=== PATIENT | male | born 1955 | race Caucasian/White ===

== ENCOUNTER 2018-03-13 09:47 | Inpatient (IN) ==
--- NOTE | 2018-03-13 10:05 | Emergency Department Note ---
ED Disposition Clinical Impression: Multiple lung nodules on CT, Acute pancreatitis, Alcoholism, Hyponatremia, Hypertension, Tobacco use disorder, Non-compliance, Chest pain, Chronic back pain, Ileus Disposition: Still a Patient Condition on Discharge: Fair Referrals: Drew Ziegler MD [Primary Care Provider] - - Critical Care Critical Care Time: No Attestation: On , the high probability of a clinically significant, sudden or life threatening deterioration of the following system(s) required my full and direct attention, intervention and personal management. The time I documented below is in addition to time spent performing reported procedures but includes the following listed in this critical care notation. Medical Decision Making - Shailesh Inquiry Pt receiving controlled substance: No Shailesh was queried for this patient: No Vital Signs: 03/13/18 09:50 03/13/18 11:47 Temperature 98 F 97.6 F Temperature Source Oral Oral Pulse Rate [Right Brachial] 107 H 84 Respiratory Rate 22 18 Blood Pressure [Right Arm] 183/121 172/121 Blood Pressure Mean [Right Arm] 141 138 Blood Pressure Source [Right Arm] Automatic Cuff Automatic Cuff Blood Pressure Position [Right Arm] Sitting Sitting 02 Sat by Pulse Oximetry 96 100 Oxygen Delivery Method Room Air Room Air - Lab Data Lab Results 03/13/18 10:00: WBC 7.2, RBC 4.44 L, Hgb 16.0, Hct 46.6, MCV 104.9 H, MCH 36.0 H , MCHC 34.3, RDW 13.8, Plt Count 142, MPV 8.5, Neut % (Auto) 77.6, Lymph % (Auto ) 12.6, [place] % (Auto) 8.7, Eos % (Auto) 0.8, Baso % (Auto) 0.2, Neut # (Auto) 5.6, Lymph # (Auto) 0.9, [place] # (Auto) 0.6, Eos # (Auto) 0.1, Baso # (Auto) 0.0 03/13/18 10:00: Sodium 127 L, Potassium 4.1, Chloride 85 L, Carbon Dioxide 26, Anion Gap 20.1 H, BUN 3 L, Creatinine 0.64 L, Estimated Creat Clear 85, Estimated GFR 126, Est GFR ( Amer) 153, Glucose 78, Troponin I < 0.02, Amylase 195 H, Lipase 2817 H, Plasma/Serum Alcohol 23 03/13/18 10:00: B-Natriuretic Peptide 40 03/13/18 10:00: Total Bilirubin 1.2 H, Direct Bilirubin 0.4 H, Indirect Bilirubin 0.8, AST 101 H, ALT 47, Alkaline Phosphatase 77, Total Protein 8.0, Albumin 3.4 03/13/18 10:00: Magnesium 1.5 03/13/18 10:49: Urine Color Yellow, Urine Appearance Clear, Urine pH 6.5, Ur Specific [place] <= 1.005, Urine Protein Negative, Urine Glucose (UA) Negative, Urine Ketones 1+, Urine Blood Negative, Urine Nitrate Negative, Urine Bilirubin Negative, Urine Urobilinogen 0.2, Ur Leukocyte Esterase Negative, Urine RBC Occasional, Urine WBC Occasional, Ur Squamous Epith Cells None, Urine Bacteria Trace 03/13/18 10:49: Lactic Acid 1.8 03/13/18 10:49: Urine Opiates Screen Negative, Ur Barbituates Screen Negative, Ur Phencyclidine Scrn Negative, Ur Amphetamines Screen Negative, U Methamphetamines Scrn Negative, U Benzodiazepines Scrn Negative, Urine Cocaine Screen Negative, U Marijuana (THC) Screen Negative Result diagrams: 03/13/18 10:00 03/13/18 10:00 Orders (Tests/Meds): ED MEDICATIONS Generic Name Dose Route Start Last Admin Trade Name Freq PRN Reason Stop Dose Admin Sodium Chloride 1,000 mls @ 500 mls/hr 03/13/18 10:15 03/13/18 12:18 Sod Chlor 0.9% 1000ml Bag IV 04/12/18 10:14 500 mls/hr .Q2H RACHEAL Administration Multivitamins 10 ml/ Thiamine 1,015 mls @ 150 mls/hr 03/13/18 10:14 03/13/18 12:18 HCl 100 mg/ Magnesium Sulfate IV 03/13/18 16:59 150 mls/hr 2 gm/ Lactated Ringer's .[id number] RACHEAL Administration Discontinued Medications Generic Name Dose Route Start Last Admin Trade Name Freq PRN Reason Stop Dose Admin Famotidine 20 mg 03/13/18 10:13 03/13/18 11:30 Pepcid 20mg/2ml Vial IV 03/13/18 10:14 20 mg ONCE ONE Administration Folic Acid 1 mg 03/13/18 10:13 03/13/18 12:18 Folic Acid 1mg Tablet PO 03/13/18 10:14 1 mg ONCE ONE Administration Iopamidol 70 ml 03/13/18 11:43 03/13/18 11:45 [id number]; 100ml Vial IV 03/13/18 11:44 70 ml ONCE ONE Administration Morphine Sulfate 2 mg 03/13/18 10:15 Morphine 2mg/2ml Syringe IV 03/13/18 10:16 ONCE ONE Morphine Sulfate 2 mg 03/13/18 11:58 03/13/18 11:59 Morphine 2mg/Ml Syringe IV 03/13/18 11:59 2 mg ONCE ONE Administration Nitroglycerin 0.5 gm 03/13/18 10:13 03/13/18 12:18 Nitroglycerin 1 Inch Oint Udp TD 03/13/18 10:14 0.5 gm ONCE ONE Administration Sodium Chloride 50 ml 03/13/18 11:43 03/13/18 11:44 Rad-Ns 50ml Vial IV 03/13/18 11:44 50 ml ONCE ONE Administration Sodium Chloride 10 ml 03/13/18 11:43 03/13/18 11:44 Rad-Saline Flush 10ml Syringe IV 03/13/18 11:44 10 ml ONCE ONE Administration ORDERS Category Date Time Status Diarrhea Panel, PCR Stat Lab 03/13/18 11:09 Ordered Folate Stat Lab 03/13/18 10:49 Received Vitamin B1 Stat Lab 03/13/18 10:49 Received Vitamin B12 Stat Lab 03/13/18 10:49 Received - CT Data CT Scan: Abdomen, Pelvis, Chest Time Received: 12:[address] Reviewed: Yes: I have viewed the radiologist's interpretation Preliminary Findings: Abnormal Findings Narrative: CT chest: MPRESSION: 1. No evidence of aortic aneurysm or dissection. 2. Bilateral noncalcified pulmonary nodules. These are nonspecific and measure up to 9 x 6 mm in the right upper lobe. These are indeterminant mildly suspicious. Does the patient have a known primary malignancy?. The nodules could be benign or malignant. Short-term follow-up in 3 months recommended [address]. Centrilobular emphysema Ct abdomen and pelvis: IMPRESSION: 1. Compatible with acute pancreatitis. No evidence of pancreatic necrosis 2. Fluid-filled loops of small bowel with mild distention of the related to ileus. 3. Mildly distended urinary bladder - ECG Data Tracing #1 Sinus tachycardia 104 PACs baseline artifact no acute findings. ECG initial impression date: 03/13/18 ECG initial impression time: 10:00 Medical Decision Narrative: 1100 obtained his coronary angiogram, carotid studies, IVC filter placement for review. The patient required additional doses of morphine for pain control. Cardiac enzymes are negative but his lipase was elevated. 1210 CT chest with suggestive of multiple nodules and a CT abdomen of acute pancreatitis and ileus. 12:[address] Nicholas for admission. 1300 Dr. Nicholas call me back will admit the patient for IV fluids and GI rest, consult to Dr. Ziegler and consult to general surgery. General Adult HPI - General Chief complaint: PAIN Stated complaint: chest discomfort, abd discomfort Time Seen by Provider: 03/13/18 10:00 Mode of Arrival: Wheelchair Limitations: No Limitations Description of Symptoms (Recalled from ER Triage Doc. by RN): weakness, nausea and vomiting, diarrhea; chest discomfort and upper abd pain - History of Present Illness HPI narrative: 62 years old white male with history of pancreatitis ongoing alcohol use and hypertension who is noncompliant with his blood pressure medication. Last use blood pressure medicine was in July 2017. Today he is brought by his because of multiple complaints, 0ne week ago he developed an upper abdominal pain, followed by 2 bouts of loose bowel movements/ day, then he started vomiting liquids 5-6 times a day for the past 5 days, until yesterday when he started developing left upper dull chest pain worse with exertion and with rest, he complains of exertional dyspnea that is relieved by rest and denies palpitations. He rates his current pain as 2/10. Does have leg cramps with activity worse at nighttime. He has history of seizure but he is on no medications he has an alcohol smell on him. Also he has a chronic lower back pain he voluntarily discontinued his Lortab. Onset (ago): week(s) (synptoms started a week ago.) Location: chest, abdomen, lower extremity Radiation: non-radiation Severity: mild, moderate Severity scale (1-10): 2 Quality: dull Consistency: constant Relieving factors: rest Exacerbating factors: movement Associated symptoms: chest pain, nausea/vomiting, other ( see HPI. ) Treatments prior to arrival: none - Related Data Home Medications Medication Instructions Recorded Confirmed No Known Home Medications 03/13/18 03/13/18 Allergies Allergy/AdvReac Type Severity Reaction Status Date / Time No Known Allergies Allergy Verified 03/13/18 11:48 [facility] History I have reviewed the patient's past medical history: Yes - Social History Educational Level: Completed High School Smoking Status: Current every day smoker Tobacco Type: cigarettes # Packs/Day (cigarettes): 2 Alcohol Intake: current Alcohol Intake Frequency:: 3 or more drinks per day Substance Use Type: marijuana, IV drugs - Psychiatric History Expresses thoughts of harming self/others: None Suicide Plan Description: No Plan ROS Obtained: Yes All systems reviewed & no additional complaints Physical Exam - General General appearance: alert, in no apparent distress - Head Head exam: atraumatic, normocephalic, normal inspection - Eye Eye exam: Present: normal appearance, PERRL, EOMI. Absent: scleral icterus - ENT ENT exam: Present: normal exam, normal oropharynx, mucous membranes moist, TM's normal bilaterally, normal external ear exam - Neck Neck exam: Present: normal inspection, full ROM, trachea midline. Absent: tenderness, meningismus, lymphadenopathy - Chest Chest inspection: Present: normal inspection, symmetric chest wall rise. Absent : tenderness - Respiratory Respiratory exam: Present: normal lung sounds bilaterally. Absent: respiratory distress - Cardiovascular Cardiovascular exam: Present: regular rate, normal rhythm. Absent: JVD - Abdominal Exam Abdominal exam: Present: soft, tenderness, guarding, normal bowel sounds, other (He does have soft abdomen with epigastric and right lower quadrant tenderness and voluntary guarding.). Absent: rebound, rigidity - exam: Present: normal inspection, normal testicular lie. Absent: testicular tenderness, urethral discharge, circumcised - Extremities Exam Extremities exam: Present: normal inspection, full ROM, normal capillary refill , other (Strong bilateral femoral pulse.). Absent: tenderness, calf tenderness - Back Exam Back exam: Present: normal inspection. Absent: tenderness - Neurological Exam Neurological exam: Present: alert, oriented X3, CN II-XII intact, motor sensory deficit, reflexes normal - Psychiatric Psychiatric exam: Present: normal affect, normal mood - Skin Skin exam: Present: warm, dry, intact, normal color, other (The scars on the right AC from prior IV drug use.)
[2018-03-13 10:25] LABS: Basophils % 0.2 % (0.1-2.0); Eosinophils # 0.1 K/mm3 (0.0-0.4); Eosinophils % 0.8 % (0.1-12.0); Hematocrit 46.6 % (42.0-52.0); Lymphocytes # 0.9 K/mm3 (0.7-4.5); Lymphocytes % 12.6 K/mm3 (10-50); Mean Corpuscular HGB Conc 34.3 g/dL (31.8-35.4); Mean Corpuscular Volume 104.9 fl (80-94); Mean Platelet Volume 8.5 fl (7.4-10.4); Monocytes # 0.6 K/mm3 (0.1-1.0); Monocytes % 8.7 % (1.7-9.3); Neutrophils # 5.6 K/mm3 (1.8-7.8); Neutrophils % 77.6 % (37.0-80.0); Platelet Count 142 K/mm3 (142-424); Red Blood Count 4.44 M/mm3 (4.60-6.20); Red Cell Distribution Width 13.8 % (11.5-17.5); White Blood Count 7.2 K/mm3 (4.8-10.8)
[2018-03-13 10:44] LABS: Amylase 195 U/L (25-125); Anion Gap 20.1 mEq/L (5-15); Blood Urea Nitrogen 3 mg/dL (7-18); Carbon Dioxide 26 mmol/L (21.0-32.0); Chloride 85 mmol/L (98-107); Ethyl Alcohol 23 mg/dL (0-99); Glucose 78 mg/dL (74-106); Potassium 4.1 mmoL/L (3.5-5.1); Sodium 127 mmol/L (136-145)
[2018-03-13 10:48] LABS: Albumin Level 3.4 gm/dL (3.4-5.0); Bilirubin,Direct 0.4 mg/dL (0.0-0.2); Bilirubin,Indirect 0.8 mg/dL (0.0-0.9); Bilirubin,Total 1.2 mg/dL (0.2-1.0)
[2018-03-13 10:56] LABS: Lipase 2817 u/L (73-393)
[2018-03-13 11:03] LABS: Microscopic, Urine URINE MICROSCOPIC (MICROSCOPIC)
[2018-03-13 11:09] LABS: Appearance,Urine CLEAR (Clear); Bilirubin,Urine Negative (Negative); Blood, Urine Negative (Negative); Color,Urine YELLOW (Yellow); Glucose,Urine (UA) Negative (Negative); Ketones,Urine 1+ (Negative); Leukocyte Esterase,Urine Negative (Negative); PH,Urine 6.5 (5.0-8.5); Protein,Urine Negative (Negative); Specific Gravity, Urine <= 1.005 (1.005-1.030); Urobilinogen,Urine 0.2 EU/dl (0.2)
[2018-03-13 11:11] LABS: Amphetamine/Metha Screen,Urine Negative ng/mL (<1000); Barbiturates Screen,Urine Negative ng/mL (<200); Benzodiazepines Screen,Urine Negative ng/mL (200); Cannabinoid Screen,Urine Negative ng/mL (<50); Cocaine Screen,Urine Negative ng/g (<300); Methadone Screen,Urine Negative ng/mL (<300); Opiate Screen,Urine Negative ng/mL (<300); Phencyclidine Screen,Urine Negative ng/mL (<25)
[2018-03-13 11:42] LABS: Bacteria,Urine Trace /lpf; RBC,Urine Occasional #/hpf (0-3); WBC,Urine Occasional #/hpf (0-3)
--- NOTE | 2018-03-13 13:27 | Pharmacy Consult Notes ---
[facility] Pharmacy VTE Monitoring - Patient Demographics Admission date: 03/13/18 Report Date: 03/13/18 Time: 13:27 Allergies/Adverse Reactions: Patient Allergies No Known Allergies Allergy (Verified 03/13/18 11:48) Height: 1.85 m Weight: 79.379 kg Patient Problems: Current Active Problems Multiple lung nodules on CT (Acute) Acute pancreatitis (Acute) Alcoholism (Acute) Hyponatremia (Acute) Hypertension (Acute) Tobacco use disorder (Acute) Non-compliance (Acute) Chest pain (Acute) Chronic back pain (Acute) Ileus (Acute) - VTE Risk Labs: VTE Related Lab Results Hgb 16.0 g/dL (14.1-18.0) 03/13/18 10:00 Hct 46.6 % (42.0-52.0) 03/13/18 10:00 Plt Count 142 K/mm3 (142-424) 03/13/18 10:00 BUN 3 mg/dL (7-18) L 03/13/18 10:00 Creatinine 0.64 mg/dL (0.70-1.30) L 03/13/18 10:00 Estimated Creat Clear 85 mL/min (0-300) 03/13/18 10:00 Clinical Trial Participant: No - Prophylaxis VTE Prophylaxis Ordered?: Yes Types of VTE Prophylaxis: TEDS Knee High
--- NOTE | 2018-03-13 15:07 | Consult Report ---
*Admission Date: 03/13/18 *Chief complaint: Abdominal pain and diarrhea *History of present illness: This is a 62-year-old gentleman with a complex medical history including recurrent alcoholic pancreatitis. He presented to the emergency department with increasing upper abdominal pain. Over the past "week or so" he has had diarrhea and occasional nausea with intermittent emesis. Over the past few days he has had "quite a few bouts of emesis". Some left-sided chest pain has also been noted over the past 24+ hours. No bright red blood per rectum. He states that "a few weeks ago (his) stool was black a few times". No jaundice. No fevers. Evaluation emergency department included a CT scan of the abdomen that showed changes consistent with mild pancreatitis and possible early ileus. Per nursing, diarrhea panel ordered by ED. Review of Systems - Constitutional Denies chills - Eyes Denies change in vision - ENT Denies change in voice - *Cardiovascular Reports chest pain - *Respiratory Denies cough - *Gastrointestinal Reports abdominal pain, Reports black, tarry stools, Reports nausea, Reports vomiting, Denies bright, red blood in stools, Denies pain with swallowing - *Genitourinary Denies blood in urine - *Neurologic Denies abnormal speech - Hematologic/Lymphatic Denies easy bleeding [facility] History Medical History: Reports:: Coronary Artery Disease Denies:: Gall Bladder Disease - *Social History Educational Level: Completed High School Smoking Status: Current every day smoker Tobacco Type: cigarettes # Packs/Day (cigarettes): 2 Alcohol Intake: current Alcohol Intake Frequency:: 3 or more drinks per day Substance Use Type: marijuana, IV drugs - Psychiatric History Expresses thoughts of harming self/others: None Suicide Plan Description: No Plan Meds Home Medications Medication Instructions Recorded Confirmed Type No Known Home Medications 03/13/18 03/13/18 History Allergies Allergy/AdvReac Type Severity Reaction Status Date / Time No Known Allergies Allergy Verified 03/13/18 11:48 Exam Vital signs and Labs for Last 24 Hours: Temp Pulse Resp BP Pulse Ox 98.1 F 79 18 157/89 96 03/13/18 14:41 03/13/18 14:41 03/13/18 14:41 03/13/18 14:41 03/13/18 14:40 Laboratory Results - last 24 hr 03/13/18 10:00: WBC 7.2, RBC 4.44 L, Hgb 16.0, Hct 46.6, MCV 104.9 H, MCH 36.0 H , MCHC 34.3, RDW 13.8, Plt Count 142, MPV 8.5, Neut % (Auto) 77.6, Lymph % (Auto ) 12.6, [place] % (Auto) 8.7, Eos % (Auto) 0.8, Baso % (Auto) 0.2, Neut # (Auto) 5.6, Lymph # (Auto) 0.9, [place] # (Auto) 0.6, Eos # (Auto) 0.1, Baso # (Auto) 0.0 03/13/18 10:00: Sodium 127 L, Potassium 4.1, Chloride 85 L, Carbon Dioxide 26, Anion Gap 20.1 H, BUN 3 L, Creatinine 0.64 L, Estimated Creat Clear 85, Estimated GFR 126, Est GFR ( Amer) 153, Glucose 78, Troponin I < 0.02, Amylase 195 H, Lipase 2817 H, Plasma/Serum Alcohol 23 03/13/18 10:00: B-Natriuretic Peptide 40 03/13/18 10:00: Total Bilirubin 1.2 H, Direct Bilirubin 0.4 H, Indirect Bilirubin 0.8, AST 101 H, ALT 47, Alkaline Phosphatase 77, Total Protein 8.0, Albumin 3.4 03/13/18 10:00: Magnesium 1.5 03/13/18 10:49: Urine Color Yellow, Urine Appearance Clear, Urine pH 6.5, Ur Specific [place] <= 1.005, Urine Protein Negative, Urine Glucose (UA) Negative, Urine Ketones 1+, Urine Blood Negative, Urine Nitrate Negative, Urine Bilirubin Negative, Urine Urobilinogen 0.2, Ur Leukocyte Esterase Negative, Urine RBC Occasional, Urine WBC Occasional, Ur Squamous Epith Cells None, Urine Bacteria Trace 03/13/18 10:49: Lactic Acid 1.8 03/13/18 10:49: Urine Opiates Screen Negative, Ur Barbituates Screen Negative, Ur Phencyclidine Scrn Negative, Ur Amphetamines Screen Negative, U Methamphetamines Scrn Negative, U Benzodiazepines Scrn Negative, Urine Cocaine Screen Negative, U Marijuana (THC) Screen Negative 03/13/18 13:52: Troponin I < 0.02 I & O for Last 24 hours: Intake & Output 03/11/18 03/12/18 03/13/18 03/14/18 11:59 11:59 11:59 11:59 Intake Total 1999 Output Total 600 / 600 Balance 1400 / 1400 Weight 175 lb 140 lb 3.988 oz - Constitutional no acute distress - *Routine Respiratory Exam Absent: respiratory distress - *Routine Cardiovascular Exam Present: RRR - *Routine Abdominal Exam Present: soft, tenderness. Absent: distended Comments: mild to moderate TTP throughout with mild voluntary guarding Results - Labs 03/13/18 10:00 03/13/18 10:00 Laboratory Results - last 24 hr 03/13/18 10:00: WBC 7.2, RBC 4.44 L, Hgb 16.0, Hct 46.6, MCV 104.9 H, MCH 36.0 H , MCHC 34.3, RDW 13.8, Plt Count 142, MPV 8.5, Neut % (Auto) 77.6, Lymph % (Auto ) 12.6, [place] % (Auto) 8.7, Eos % (Auto) 0.8, Baso % (Auto) 0.2, Neut # (Auto) 5.6, Lymph # (Auto) 0.9, [place] # (Auto) 0.6, Eos # (Auto) 0.1, Baso # (Auto) 0.0 03/13/18 10:00: Sodium 127 L, Potassium 4.1, Chloride 85 L, Carbon Dioxide 26, Anion Gap 20.1 H, BUN 3 L, Creatinine 0.64 L, Estimated Creat Clear 85, Estimated GFR 126, Est GFR ( Amer) 153, Glucose 78, Troponin I < 0.02, Amylase 195 H, Lipase 2817 H, Plasma/Serum Alcohol 23 03/13/18 10:00: B-Natriuretic Peptide 40 03/13/18 10:00: Total Bilirubin 1.2 H, Direct Bilirubin 0.4 H, Indirect Bilirubin 0.8, AST 101 H, ALT 47, Alkaline Phosphatase 77, Total Protein 8.0, Albumin 3.4 03/13/18 10:00: Magnesium 1.5 03/13/18 10:49: Urine Color Yellow, Urine Appearance Clear, Urine pH 6.5, Ur Specific [place] <= 1.005, Urine Protein Negative, Urine Glucose (UA) Negative, Urine Ketones 1+, Urine Blood Negative, Urine Nitrate Negative, Urine Bilirubin Negative, Urine Urobilinogen 0.2, Ur Leukocyte Esterase Negative, Urine RBC Occasional, Urine WBC Occasional, Ur Squamous Epith Cells None, Urine Bacteria Trace 03/13/18 10:49: Lactic Acid 1.8 03/13/18 10:49: Urine Opiates Screen Negative, Ur Barbituates Screen Negative, Ur Phencyclidine Scrn Negative, Ur Amphetamines Screen Negative, U Methamphetamines Scrn Negative, U Benzodiazepines Scrn Negative, Urine Cocaine Screen Negative, U Marijuana (THC) Screen Negative 03/13/18 13:52: Troponin I < 0.02 - Imaging CT scan - abdomen: report reviewed, image reviewed Assessment and Plan (1) Acute pancreatitis Current visit: Yes Status: Acute Qualifiers: Pancreatitis type: alcohol induced Acute pancreatitis complication: no infection or necrosis Qualified Code(s): K85.20 - Alcohol induced acute pancreatitis without necrosis or infection Category: Medical Code(s): K85.90 - Acute pancreatitis without necrosis or infection, unspecified No gallstones on CT scan and no other definitive evidence of biliary pathology. Conservative management as per primary care Limited p.o. (clears) intake with IV fluids for now (2) Alcoholism Current visit: Yes Status: Acute Category: Medical Code(s): F10.20 - Alcohol dependence, uncomplicated (3) Ileus Current visit: Yes Status: Acute Category: Medical Code(s): K56.7 - Ileus , unspecified Radiographic evidence of possible early/mild ileus. No sign of obstruction. Serial abdominal exams Flat and upright films in morning (4) History of melena Current visit: Yes Status: Acute Category: Medical Code(s): Z87.19 - Personal history of other diseases of the digestive system Consider esophagogastroduodenoscopy in the near future; however, there is no need for acute intervention as he shows no sign of acute hemorrhage. PPI PT/PTT (5) Diarrhea Current visit: Yes Status: Acute Category: Medical Code(s): R19.7 - Diarrhea, unspecified FU pending diarrhea panel
--- NOTE | 2018-03-13 15:26 | Consult Report ---
History of Present Illness Consult date: 03/13/18 Requesting physician: Ziyad Nicholas Consult reason: chest pain Chief complaint: Nausea, Vomiting with abdominal pain and chest pain Additional Medical History:: 1. CAD A. [facility], 12/2014, critical Cx disease treated with one ASAF. Left main and LAD normal with only mild CAD of RCA. Normal LVEF. LVEDP of 10 mm Hg. 2. History of polycythemia, secondary to smoking 3. HTN A. normal renal U/s, 2014 4. ETOH with recurrent pancreatitis 5. Tobacco use A. Emphysema B. [address] of abdomen, 05/2017 6. Mild Carotid Artery disease, angiogram, 12/2015 A. Moderate cerebellar and cortical atrophy, CT of head, 12/2014 7. History of DVT A. Vena cava interruption filter placed, 03/2015, due to inability to take anticoagulation secondary to UGI bleed 8. ?Seizures A. Normal EEG, 11/2015 9. JEMMA, no treatment History of present illness: 62 yo WM with multiple medical problems as noted above was admitted through the ER for N, V and diarrhea that has progressively worsened over the last several days to include some chest pain as well. ER workup revealed elevated amylase and lipase with CT results consistent with pancreatitis. He has been admitted for further evaluation and treatment. Cardiology consulted for evaluation of chest pain. Troponins are normal X 2 with patient stating he has had chest pains off and on all day today. EKG today shows sinus tach at 104 bpm without acute changes. Pt relates no meds since 07/2017 due to insurance. He had previously stopped smoking and drinking at the last office visit in 05/2017 but states he "got thirsty" after about 2 months and started drinking again. He is now up to 12-15 beers daily. Pt has NTG paste on for chest pain and BP but relates a "pretty good" headache. He relates "passing out" about 3 wks ago for about 5 min. Doesn't recall any symptoms prior to passing out except feeling weak and faint. No loss of bowel or bladder control. He was confused for about 5 min after coming back to consciousness. EMS was called but cancelled prior to their arrival due to waking up. [facility] History Medical History: Reports:: Coronary Artery Disease, Diabetes Mellitus Type 2, Hypertension Denies:: Gall Bladder Disease Other Surgeries: Yes: Hernia Repair - *Social History Educational Level: Completed High School Smoking Status: Current every day smoker Tobacco Type: cigarettes # Packs/Day (cigarettes): 2 Alcohol Intake: current Alcohol Intake Frequency:: 3 or more drinks per day Substance Use Type: marijuana, IV drugs Occupational Status: disabled Household Members: spouse - Psychiatric History Expresses thoughts of harming self/others: None Suicide Plan Description: No Plan *Family Hx:: Diabetes, Heart Attack Meds Home Medications Medication Instructions Recorded Confirmed Type No Known Home Medications 03/13/18 03/13/18 History Allergies Allergy/AdvReac Type Severity Reaction Status Date / Time No Known Allergies Allergy Verified 03/13/18 11:48 Review of Systems - *Cardiovascular Reports chest pain, Reports shortness of breath with activity - *Respiratory Reports shortness of breath with activity - *Gastrointestinal Reports abdominal pain, Reports loose stools, Reports vomiting - *Musculoskeletal Reports back pain - *Neurologic Reports fainting, Denies abnormal speech Exam Vital signs and Labs for Last 24 Hours: Temp Pulse Resp BP Pulse Ox 98.1 F 79 18 157/89 96 03/13/18 14:41 03/13/18 14:41 03/13/18 14:41 03/13/18 14:41 03/13/18 14:40 Laboratory Results - last 24 hr 03/13/18 10:00: WBC 7.2, RBC 4.44 L, Hgb 16.0, Hct 46.6, MCV 104.9 H, MCH 36.0 H , MCHC 34.3, RDW 13.8, Plt Count 142, MPV 8.5, Neut % (Auto) 77.6, Lymph % (Auto ) 12.6, [place] % (Auto) 8.7, Eos % (Auto) 0.8, Baso % (Auto) 0.2, Neut # (Auto) 5.6, Lymph # (Auto) 0.9, [place] # (Auto) 0.6, Eos # (Auto) 0.1, Baso # (Auto) 0.0 03/13/18 10:00: Sodium 127 L, Potassium 4.1, Chloride 85 L, Carbon Dioxide 26, Anion Gap 20.1 H, BUN 3 L, Creatinine 0.64 L, Estimated Creat Clear 85, Estimated GFR 126, Est GFR ( Amer) 153, Glucose 78, Troponin I < 0.02, Amylase 195 H, Lipase 2817 H, Plasma/Serum Alcohol 23 03/13/18 10:00: B-Natriuretic Peptide 40 03/13/18 10:00: Total Bilirubin 1.2 H, Direct Bilirubin 0.4 H, Indirect Bilirubin 0.8, AST 101 H, ALT 47, Alkaline Phosphatase 77, Total Protein 8.0, Albumin 3.4 03/13/18 10:00: Magnesium 1.5 03/13/18 10:49: Urine Color Yellow, Urine Appearance Clear, Urine pH 6.5, Ur Specific [place] <= 1.005, Urine Protein Negative, Urine Glucose (UA) Negative, Urine Ketones 1+, Urine Blood Negative, Urine Nitrate Negative, Urine Bilirubin Negative, Urine Urobilinogen 0.2, Ur Leukocyte Esterase Negative, Urine RBC Occasional, Urine WBC Occasional, Ur Squamous Epith Cells None, Urine Bacteria Trace 03/13/18 10:49: Lactic Acid 1.8 03/13/18 10:49: Urine Opiates Screen Negative, Ur Barbituates Screen Negative, Ur Phencyclidine Scrn Negative, Ur Amphetamines Screen Negative, U Methamphetamines Scrn Negative, U Benzodiazepines Scrn Negative, Urine Cocaine Screen Negative, U Marijuana (THC) Screen Negative 03/13/18 13:52: Troponin I < 0.02 I & O for Last 24 hours: Intake & Output 03/11/18 03/12/18 03/13/18 03/14/18 11:59 11:59 11:59 11:59 Intake Total 1999 / 1999 Output Total 600 / 600 Balance 1400 / 1400 Weight 175 lb 140 lb 3.988 oz - *Routine Neck Exam Absent: JVD, carotid bruit - *Routine Respiratory Exam Present: diminished air movement. Absent: rhonchi, wheezes - *Routine Cardiovascular Exam Present: RRR. Absent: murmur, gallop - *Routine Abdominal Exam Present: tenderness - *Routine Extremities Exam Absent: edema - *Routine Neurological Exam Present: alert, oriented X3, moving all extremities Assessment and Plan (1) History of melena Current visit: Yes Status: Acute Category: Medical Code(s): Z87.19 - Personal history of other diseases of the digestive system (2) Acute pancreatitis Current visit: Yes Status: Acute Qualifiers: Pancreatitis type: alcohol induced Acute pancreatitis complication: no infection or necrosis Qualified Code(s): K85.20 - Alcohol induced acute pancreatitis without necrosis or infection Category: Medical Code(s): K85.90 - Acute pancreatitis without necrosis or infection, unspecified (3) Alcoholism Current visit: Yes Status: Acute Category: Medical Code(s): F10.20 - Alcohol dependence, uncomplicated (4) Ileus Current visit: Yes Status: Acute Category: Medical Code(s): K56.7 - Ileus , unspecified (5) CAD (coronary artery disease) Current visit: Yes Status: Acute Category: Medical Code(s): I25.10 - Atherosclerotic heart disease of [place] coronary artery without angina pectoris (6) Chest pain Current visit: Yes Status: Acute Category: Medical Code(s): R07.9 - Chest pain, unspecified (7) Hypertension Current visit: Yes Status: Acute Category: Medical Code(s): I10 - Essential (primary) hypertension (8) Non-compliance Current visit: Yes Status: Acute Category: Medical Code(s): Z91.19 - Patient's noncompliance with other medical treatment and regimen (9) Tobacco use disorder Current visit: Yes Status: Acute Category: Medical Code(s): F17.200 - Nicotine dependence, unspecified, uncomplicated - Assessment and plan all Dx Assessment and Plan for all problems:: 1. Continue cardiac enzymes but without elevated troponins or acute EKG changes , doubt his chest pain is related to cardiac at this time. 2. Will obtain echo to assess for possible cardiomyopathy in setting of ETOH use and need for possible pre-op evaluation. 3. Restart metoprolol and ARB for BP control and discontinue NTG paste. 4. Further recommendations to follow pending results of above.
[2018-03-13 16:00] LABS: Activated Partial Thrombo Time 27.5 seconds (23.6-34.0); INR 1.05 (0.9-1.1); Prothrombin Time 11.4 seconds (9.4-11.8)
[2018-03-14 06:37] LABS: Albumin Level 2.8 gm/dL (3.4-5.0); Albumin/Globulin Ratio 0.7 (1.1-1.8); Anion Gap 11.4 mEq/L (5-15); Bilirubin,Total 1.2 mg/dL (0.2-1.0); Calcium 8.6 mg/dL (8.5-10.1); Chol/HDL Ratio 1.9 (1-3.5); Globulin 4.1 gm/dl (1.3-3.2); Potassium 3.4 mmoL/L (3.5-5.1); Total Protein,Serum 6.9 gm/dL (6.4-8.2)
--- NOTE | 2018-03-14 07:24 | Progress Note ---
Subjective Patient reports: feels better, pain is less Narrative: Patient is a 62-year-old white male with a history of chronic pancreatitis secondary to alcohol abuse. He presented to the emergency department with several day history of lower abdominal pain and nausea and vomiting. He was found to have elevation of amylase and lipase. Imaging revealed possible ileus. A consultation was obtained. Patient this morning feels much better. He is tolerating clear liquids without difficulty. Of note, diarrhea panel is negative. Exam Vital signs and Labs for Last 24 Hours: Temp Pulse Resp BP Pulse Ox 97.7 F 63 14 144/80 94 L 03/14/18 04:00 03/14/18 04:00 03/14/18 04:00 03/14/18 04:00 03/14/18 04:00 Laboratory Results - last 24 hr 03/13/18 10:00: WBC 7.2, RBC 4.44 L, Hgb 16.0, Hct 46.6, MCV 104.9 H, MCH 36.0 H , MCHC 34.3, RDW 13.8, Plt Count 142, MPV 8.5, Neut % (Auto) 77.6, Lymph % (Auto ) 12.6, [place] % (Auto) 8.7, Eos % (Auto) 0.8, Baso % (Auto) 0.2, Neut # (Auto) 5.6, Lymph # (Auto) 0.9, [place] # (Auto) 0.6, Eos # (Auto) 0.1, Baso # (Auto) 0.0 03/13/18 10:00: Sodium 127 L, Potassium 4.1, Chloride 85 L, Carbon Dioxide 26, Anion Gap 20.1 H, BUN 3 L, Creatinine 0.64 L, Estimated Creat Clear 85, Estimated GFR 126, Est GFR ( Amer) 153, Glucose 78, Troponin I < 0.02, Amylase 195 H, Lipase 2817 H, Plasma/Serum Alcohol 23 03/13/18 10:00: B-Natriuretic Peptide 40 03/13/18 10:00: Total Bilirubin 1.2 H, Direct Bilirubin 0.4 H, Indirect Bilirubin 0.8, AST 101 H, ALT 47, Alkaline Phosphatase 77, Total Protein 8.0, Albumin 3.4 03/13/18 10:00: Magnesium 1.5 03/13/18 10:49: Urine Color Yellow, Urine Appearance Clear, Urine pH 6.5, Ur Specific [place] <= 1.005, Urine Protein Negative, Urine Glucose (UA) Negative, Urine Ketones 1+, Urine Blood Negative, Urine Nitrate Negative, Urine Bilirubin Negative, Urine Urobilinogen 0.2, Ur Leukocyte Esterase Negative, Urine RBC Occasional, Urine WBC Occasional, Ur Squamous Epith Cells None, Urine Bacteria Trace 03/13/18 10:49: Lactic Acid 1.8 03/13/18 10:49: Urine Opiates Screen Negative, Ur Barbituates Screen Negative, Ur Phencyclidine Scrn Negative, Ur Amphetamines Screen Negative, U Methamphetamines Scrn Negative, U Benzodiazepines Scrn Negative, Urine Cocaine Screen Negative, U Marijuana (THC) Screen Negative 03/13/18 13:52: Troponin I < 0.02 03/13/18 15:40: PT 11.4, INR 1.05, APTT 27.5 03/13/18 19:40: Troponin I < 0.02 03/13/18 23:10: Stl Aeromonas (PCR) Not detected, Stl C. cayetanensis PCR Not detected, Stool Rotavirus (PCR) Not detected, Stl Adenov F 40/41 PCR Not detected, Stool Astrovirus (PCR) Not detected, Stool Campylobacter PCR Not detected, Stl C.difficile Tox PCR Not detected, Stool Cryptosporidium PCR Not detected, Stl E.coli Shiga Tox PCR Not detected, Stool E coli O157 PCR Not detected, Stl Enterotoxigenic E PCR Not detected, Stool EPEC (PCR) Not detected , Stool EAEC (PCR) Not detected, Stl E. histolytica PCR Not detected, Stool Giardia Lamblia PCR Not detected, Stool Salmonella PCR Not detected, Stool Sapovirus (PCR) Not detected, Stl P. shigelloides PCR Not detected, Stl Shigella /EIEC PCR Not detected, St Y.enterocolitica PCR Not detected, Stool Vibrio (PCR ) Not detected, Stl Vibrio cholerae PCR Not detected, Stl Norovirus GI/GII PCR Not detected 03/14/18 01:50: Troponin I < 0.02 03/14/18 06:00: Sodium 131 L, Potassium 3.4 L, Chloride 93 L, Carbon Dioxide 30 , Anion Gap 11.4, BUN 5 L D, Creatinine 0.64 L, Estimated Creat Clear 68, Estimated GFR 126, Est GFR ( Amer) 153, Glucose 78, Calcium 8.6, Magnesium 1.6, Total Bilirubin 1.2 H, AST 60 H D, ALT 33 D, Alkaline Phosphatase 68, Total Protein 6.9, Albumin 2.8 L D, Globulin 4.1 H, Albumin/ Globulin Ratio 0.7 L, Triglycerides 47, Cholesterol 69 L, LDL Cholesterol 23, VLDL Cholesterol 9, HDL Cholesterol 37, Cholesterol/HDL Ratio 1.9 I & O for Last 24 hours: Intake & Output 03/11/18 03/12/18 03/13/18 03/14/18 11:59 11:59 11:59 11:59 Intake Total 4271 / 4271 Output Total 600 / 600 Balance 3671 / 3671 Weight 175 lb 140 lb 3.988 oz - *Routine Abdominal Exam Present: soft. Absent: tenderness Progress Note: A&P (1) History of melena Status: Acute Current Visit: Yes (2) Acute pancreatitis Status: Acute Assessment and plan: Acute abdominal series pending. Recheck amylase and lipase. If improving advance diet. No other surgical recommendations at this time. Current Visit: Yes (3) Alcoholism Status: Acute Current Visit: Yes (4) Ileus Status: Acute Current Visit: Yes (5) CAD (coronary artery disease) Status: Acute Current Visit: Yes (6) Chest pain Status: Acute Current Visit: Yes (7) Hypertension Status: Acute Current Visit: Yes (8) Non-compliance Status: Acute Current Visit: Yes (9) Tobacco use disorder Status: Acute Current Visit: Yes
[2018-03-14 07:39] LABS: Amylase 87 U/L (25-125)
[2018-03-14 07:40] LABS: Lipase 932 u/L (73-393)
--- NOTE | 2018-03-14 12:16 | History & Physical Report ---
*Admission Date: 03/13/18 *History of present illness: This is a 62-year-old gentleman with a complex medical history including recurrent alcoholic pancreatitis. He presented to the emergency department with increasing upper abdominal pain. Over the past "week or so" he has had diarrhea and occasional nausea with intermittent emesis. Over the past few days he has had "quite a few bouts of emesis". Some left-sided chest pain has also been noted over the past 24+ hours. No bright red blood per rectum. He states that "a few weeks ago (his) stool was black a few times". No jaundice. No fevers. Evaluation emergency department included a CT scan of the abdomen that showed changes consistent with mild pancreatitis and possible early ileus. Per nursing, diarrhea panel ordered by ED.t this wm present with abd apin consistent with pancreatis by labs and ct and chest pain 1. CAD A. [facility], 12/2014, critical Cx disease treated with one ASAF. Left main and LAD normal with only mild CAD of RCA. Normal LVEF. LVEDP of 10 mm Hg. 2. History of polycythemia, secondary to smoking 3. HTN A. normal renal U/s, 2014 4. ETOH with recurrent pancreatitis 5. Tobacco use A. Emphysema B. [address] of abdomen, 05/2017 6. Mild Carotid Artery disease, angiogram, 12/2015 A. Moderate cerebellar and cortical atrophy, CT of head, 12/2014 7. History of DVT A. Vena cava interruption filter placed, 03/2015, due to inability to take anticoagulation secondary to UGI bleed 8. ?Seizures A. Normal EEG, 11/2015 9. JEMMA, no treatment History of present illness: 62 yo WM with multiple medical problems as noted above was admitted through the ER for N, V and diarrhea that has progressively worsened over the last several days to include some chest pain as well. ER workup revealed elevated amylase and lipase with CT results consistent with pancreatitis. He has been admitted for further evaluation and treatment. Cardiology consulted for evaluation of chest pain. Troponins are normal X 2 with patient stating he has had chest pains off and on all day today. EKG today shows sinus tach at 104 bpm without acute changes. Pt relates no meds since 07/2017 due to insurance. He had previously stopped smoking and drinking at the last office visit in 05/2017 but states he "got thirsty" after about 2 months and started drinking again. He is now up to 12-15 beers daily. Pt has NTG paste on for chest pain and BP but relates a "pretty good" headache. He relates "passing out" about 3 wks ago for about 5 min. Doesn't recall any symptoms prior to passing out except feeling weak and faint. No loss of bowel or bladder control. He was confused for about 5 min after coming back to consciousness. EMS was called but cancelled prior to their arrival due to waking up. [facility] History I have reviewed the patient's past medical history: Yes Medical History: Reports:: Coronary Artery Disease, Diabetes Mellitus Type 2, Hypertension Denies:: Gall Bladder Disease Other Surgeries: Yes: Hernia Repair - *Social History Educational Level: Completed High School Smoking Status: Current every day smoker Tobacco Type: cigarettes # Packs/Day (cigarettes): 2 Alcohol Intake: current Alcohol Intake Frequency:: 3 or more drinks per day Substance Use Type: marijuana, IV drugs Occupational Status: disabled Household Members: spouse - Psychiatric History Expresses thoughts of harming self/others: None Suicide Plan Description: No Plan *Family Hx:: Diabetes, Heart Attack Review of Systems - Review of Systems Review of systems:: pertinent systems reviewed and negative unless documented below - Constitutional Denies fever(s) - Eyes Denies change in vision - ENT Denies sore throat - *Cardiovascular Reports chest pain at rest - *Respiratory Reports shortness of breath, Denies cough - *Gastrointestinal Reports abdominal pain, Denies vomiting blood, Denies black, tarry stools - *Genitourinary Denies blood in urine - *Musculoskeletal Denies joint pain, Denies limited joint movement - Integumentary/Breasts Denies rash - *Neurologic Reports fainting, Denies abnormal speech - Psychiatric Denies anxiety Meds Home Medications Medication Instructions Recorded Confirmed Type No Known Home Medications 03/13/18 03/13/18 History Allergies Allergy/AdvReac Type Severity Reaction Status Date / Time No Known Allergies Allergy Verified 03/13/18 11:48 Exam Vital signs and Labs for Last 24 Hours: Temp Pulse Resp BP Pulse Ox 98.4 F 70 20 155/97 94 L 03/14/18 07:31 03/14/18 07:31 03/14/18 07:31 03/14/18 07:31 03/14/18 08:00 Laboratory Results - last 24 hr 03/13/18 13:52: Troponin I < 0.02 03/13/18 15:40: PT 11.4, INR 1.05, APTT 27.5 03/13/18 19:40: Troponin I < 0.02 03/13/18 23:10: Stl Aeromonas (PCR) Not detected, Stl C. cayetanensis PCR Not detected, Stool Rotavirus (PCR) Not detected, Stl Adenov F 40/41 PCR Not detected, Stool Astrovirus (PCR) Not detected, Stool Campylobacter PCR Not detected, Stl C.difficile Tox PCR Not detected, Stool Cryptosporidium PCR Not detected, Stl E.coli Shiga Tox PCR Not detected, Stool E coli O157 PCR Not detected, Stl Enterotoxigenic E PCR Not detected, Stool EPEC (PCR) Not detected , Stool EAEC (PCR) Not detected, Stl E. histolytica PCR Not detected, Stool Giardia Lamblia PCR Not detected, Stool Salmonella PCR Not detected, Stool Sapovirus (PCR) Not detected, Stl P. shigelloides PCR Not detected, Stl Shigella /EIEC PCR Not detected, St Y.enterocolitica PCR Not detected, Stool Vibrio (PCR ) Not detected, Stl Vibrio cholerae PCR Not detected, Stl Norovirus GI/GII PCR Not detected 03/14/18 01:50: Troponin I < 0.02 03/14/18 06:00: Sodium 131 L, Potassium 3.4 L, Chloride 93 L, Carbon Dioxide 30 , Anion Gap 11.4, BUN 5 L D, Creatinine 0.64 L, Estimated Creat Clear 68, Estimated GFR 126, Est GFR ( Amer) 153, Glucose 78, Calcium 8.6, Magnesium 1.6, Total Bilirubin 1.2 H, AST 60 H D, ALT 33 D, Alkaline Phosphatase 68, Total Protein 6.9, Albumin 2.8 L D, Globulin 4.1 H, Albumin/ Globulin Ratio 0.7 L, Triglycerides 47, Cholesterol 69 L, LDL Cholesterol 23, VLDL Cholesterol 9, HDL Cholesterol 37, Cholesterol/HDL Ratio 1.9 03/14/18 06:00: Amylase 87 D, Lipase 932 H I & O for Last 24 hours: Intake & Output 03/12/18 03/13/18 03/14/18 03/15/18 11:59 11:59 11:59 11:59 Intake Total 4751 / 4751 Output Total 600 / 600 Balance 4151 / 4151 Weight 175 lb 140 lb 3.988 oz - Constitutional no acute distress, thin - *Routine HEENT Exam Head: Present: normocephalic Eye: Present: EOMI, PERRL. Absent: conjunctival icterus ENT: Present: mucous membranes dry - *Routine Neck Exam Present: supple - *Routine Respiratory Exam Present: CTA bilaterally. Absent: respiratory distress - *Routine Cardiovascular Exam Present: RRR, murmur, S4 - *Routine Abdominal Exam Present: soft, tenderness - *Routine Extremities Exam Absent: calf tenderness - Routine Back/Spine/Pelvis Exam Back/Spine: Absent: CVA tenderness - *Routine Skin Exam Present: intact - *Routine Neurological Exam Present: alert, oriented X3, CN II-XII intact - Routine Psychiatric Exam Present: normal affect H&P: Result - Labs Labs: [facility] 03/14/18 06:00 Sodium 131 L Potassium 3.4 L Chloride 93 L Carbon Dioxide 30 BUN 5 L D Creatinine 0.64 L Glucose 78 Calcium 8.6 Cardiac Enzymes 03/13/18 03/13/18 03/14/18 Range/Units 13:52 19:40 01:50 Troponin I < 0.02 < 0.02 < 0.02 (0.00-0.06) ng/ml Liver Function 03/14/18 Range/Units 06:00 Total Bilirubin 1.2 H (0.2-1.0) mg/dL AST 60 H D (15-37) U/L ALT 33 D (12-78) U/L Alkaline Phosphatase 68 (46-116) U/L Albumin 2.8 L D (3.4-5.0) gm/dL Assessment and Plan (1) History of melena Current visit: Yes Status: Acute Category: Medical Code(s): Z87.19 - Personal history of other diseases of the digestive system (2) Acute pancreatitis Current visit: Yes Status: Acute Qualifiers: Pancreatitis type: alcohol induced Acute pancreatitis complication: no infection or necrosis Qualified Code(s): K85.20 - Alcohol induced acute pancreatitis without necrosis or infection Category: Medical Code(s): K85.90 - Acute pancreatitis without necrosis or infection, unspecified (3) Alcoholism Current visit: Yes Status: Acute Category: Medical Code(s): F10.20 - Alcohol dependence, uncomplicated (4) Ileus Current visit: Yes Status: Acute Category: Medical Code(s): K56.7 - Ileus , unspecified (5) CAD (coronary artery disease) Current visit: Yes Status: Acute Category: Medical Code(s): I25.10 - Atherosclerotic heart disease of [place] coronary artery without angina pectoris (6) Chest pain Current visit: Yes Status: Acute Category: Medical Code(s): R07.9 - Chest pain, unspecified (7) Hypertension Current visit: Yes Status: Acute Category: Medical Code(s): I10 - Essential (primary) hypertension (8) Non-compliance Current visit: Yes Status: Acute Category: Medical Code(s): Z91.19 - Patient's noncompliance with other medical treatment and regimen (9) Tobacco use disorder Current visit: Yes Status: Acute Category: Medical Code(s): F17.200 - Nicotine dependence, unspecified, uncomplicated (10) COPD (chronic obstructive pulmonary disease) Current visit: Yes Status: Acute Category: Medical Code(s): J44.9 - Chronic obstructive pulmonary disease, unspecified (11) Pulmonary nodule Current visit: Yes Status: Acute Category: Medical Code(s): R91.1 - Solitary pulmonary nodule
[2018-03-14 13:02] LABS: Folate 8.6 ng/mL (>3.0)
--- NOTE | 2018-03-14 15:21 | Cardiology Report ---
PROCEDURE: 2-D M-mode and color Doppler study INDICATIONS FOR THE TEST: Chest pain COPDX Heart Murmur Tobacco Smoking Palpitations Fatigue Syncope Edema Hypertension Diabetes Mellitus Rheumatic Fever SOB [place] Obesity Hyperlipidemia Family History HD Additional History CAD,PANCREATITIS,ETOH ABUSE PATIENT INFORMATION HEIGHT: 72 WEIGHT:140 GENDER: Male B/P:110/70 2-D/M-MODE INTERPRETATION: 2-D MEASUREMENTS OBSERVED VALUES IN CMS Right Ventricular Dimension (RVDd) 1.8 Interventricular Septum (Thickness)(IVsd) 1.0 Left Ventricular Internal Dimensions(LVIDd) 5.1 Left Ventricular Posterior Wall (Thickness)(LVPWd) 1.1 Aortic Root 2.9 Aortic Cusp Separation 1.3 Left Atrial Dimensions (LAD) 2.3 2D 1. Technically difficult study because of the patient's factor and poor acoustic windows 2. The left atrium is normal size, left ventricle is normal size, there is no concentric left ventricular hypertrophy, visually estimated ejection fraction 55% with no obvious regional wall motion abnormality. There is abnormal septal motion. 3. The right atrium and right ventricle are mildly enlarged with normal contractility. 4. The aortic valve is minimally thickened and fibrosed. 5. The pulmonic valve is poorly visualized. 6. No significant pericardial effusion noted. 7. The tricuspid valve is grossly normal. DOPPLER INTERROGATION: Doppler interrogation of the aortic, mitral and tricuspid valvular presence of mild mitral and tricuspid regurgitation, tricuspid and enteric velocity insufficient for calculation of the right ventricular systolic pressure, diastolic parameters are within normal range. CONCLUSION: 1. Normal left ventricular size, preserved left ventricular systolic function, visually estimated ejection fraction of 55% with no obvious regional wall motion abnormality, diastolic parameters are within normal range, there is abnormal septal motion. 2. Mildly enlarged right atrium and right ventricle, contractility of the right ventricle is normal 3. No significant pericardial effusion noted.
--- NOTE | 2018-03-14 17:47 | Progress Note ---
Subjective Date: 03/14/18 Time: 17:44 Principal diagnosis: pancreatitis Interval history: Eating and feeling much better. No further vomiting. Echo shows preserved LVEF without significant valve disease. Exam Vital signs and Labs for Last 24 Hours: Temp Pulse Resp BP Pulse Ox 98.4 F 70 20 123/77 93 L 03/14/18 07:31 03/14/18 15:25 03/14/18 15:25 03/14/18 15:25 03/14/18 15:25 Laboratory Results - last 24 hr 03/13/18 10:49: Vitamin B12 846, Folate 8.6 03/13/18 19:40: Troponin I < 0.02 03/13/18 23:10: Stl Aeromonas (PCR) Not detected, Stl C. cayetanensis PCR Not detected, Stool Rotavirus (PCR) Not detected, Stl Adenov F 40/41 PCR Not detected, Stool Astrovirus (PCR) Not detected, Stool Campylobacter PCR Not detected, Stl C.difficile Tox PCR Not detected, Stool Cryptosporidium PCR Not detected, Stl E.coli Shiga Tox PCR Not detected, Stool E coli O157 PCR Not detected, Stl Enterotoxigenic E PCR Not detected, Stool EPEC (PCR) Not detected , Stool EAEC (PCR) Not detected, Stl E. histolytica PCR Not detected, Stool Giardia Lamblia PCR Not detected, Stool Salmonella PCR Not detected, Stool Sapovirus (PCR) Not detected, Stl P. shigelloides PCR Not detected, Stl Shigella /EIEC PCR Not detected, St Y.enterocolitica PCR Not detected, Stool Vibrio (PCR ) Not detected, Stl Vibrio cholerae PCR Not detected, Stl Norovirus GI/GII PCR Not detected 03/14/18 01:50: Troponin I < 0.02 03/14/18 06:00: Sodium 131 L, Potassium 3.4 L, Chloride 93 L, Carbon Dioxide 30 , Anion Gap 11.4, BUN 5 L D, Creatinine 0.64 L, Estimated Creat Clear 68, Estimated GFR 126, Est GFR ( Amer) 153, Glucose 78, Calcium 8.6, Magnesium 1.6, Total Bilirubin 1.2 H, AST 60 H D, ALT 33 D, Alkaline Phosphatase 68, Total Protein 6.9, Albumin 2.8 L D, Globulin 4.1 H, Albumin/ Globulin Ratio 0.7 L, Triglycerides 47, Cholesterol 69 L, LDL Cholesterol 23, VLDL Cholesterol 9, HDL Cholesterol 37, Cholesterol/HDL Ratio 1.9 03/14/18 06:00: Amylase 87 D, Lipase 932 H I & O for Last 24 hours: Intake & Output 03/12/18 03/13/18 03/14/18 03/15/18 11:59 11:59 11:59 11:59 Intake Total 4751 / 4751 240 / 240 Output Total 600 / 600 Balance 4151 / 4151 240 / 240 Weight 175 lb 140 lb 3.988 oz 140 lb 3.988 oz - *Routine Respiratory Exam Present: CTA bilaterally - *Routine Cardiovascular Exam Present: RRR Progress Note: A&P (1) History of melena Status: Acute Current Visit: Yes (2) Acute pancreatitis Status: Acute Current Visit: Yes (3) Alcoholism Status: Acute Current Visit: Yes (4) Ileus Status: Acute Current Visit: Yes (5) CAD (coronary artery disease) Status: Acute Current Visit: Yes (6) Chest pain Status: Acute Current Visit: Yes (7) Hypertension Status: Acute Current Visit: Yes (8) Non-compliance Status: Acute Current Visit: Yes (9) Tobacco use disorder Status: Acute Current Visit: Yes (10) COPD (chronic obstructive pulmonary disease) Status: Acute Current Visit: Yes (11) Pulmonary nodule Status: Acute Current Visit: Yes Assessment and Plan for All Diagnoses:: Cardiac status stable. BP controlled. Continue metoprolol and ARB for BP and HR control. Restart ASA in AM. No further cardiac workup at this time. Follow up in office in 2 wks.
[2018-03-15 07:46] VITALS: BP 151/89
--- NOTE | 2018-03-15 08:08 | Progress Note ---
Subjective Patient reports: no new complaints, feels better, pain is less, tolerating a regular diet, flatus, bowel movement Exam Vital signs and Labs for Last 24 Hours: Temp Pulse Resp BP Pulse Ox 97.9 F 78 18 151/89 96 03/15/18 07:45 03/15/18 07:45 03/15/18 07:45 03/15/18 07:45 03/15/18 07:45 Laboratory Results - last 24 hr 03/13/18 10:49: Vitamin B12 846, Folate 8.6 I & O for Last 24 hours: Intake & Output 03/12/18 03/13/18 03/14/18 03/15/18 23:59 23:59 23:59 23:59 Intake Total 3147 / 3147 2204 / 2204 2663 / 2663 Output Total 600 / 600 Balance 2547 / 2547 2204 / 2204 2663 / 2663 Weight 140 lb 3.988 oz 140 lb 3.988 oz - Constitutional no acute distress - *Routine Respiratory Exam Absent: accessory muscle use, patient mechanically ventilated, CTA bilaterally, wheezes - *Routine Cardiovascular Exam Present: RRR - *Routine Abdominal Exam Present: soft. Absent: tenderness, distended, rebound Progress Note: A&P (1) History of melena Status: Acute Current Visit: Yes (2) Acute pancreatitis Status: Acute Assessment and plan: Resolved. Ready for discharge. Current Visit: Yes (3) Alcoholism Status: Acute Current Visit: Yes (4) Ileus Status: Acute Assessment and plan: Resolved clinically and on imaging. Current Visit: Yes (5) CAD (coronary artery disease) Status: Acute Current Visit: Yes (6) Chest pain Status: Acute Current Visit: Yes (7) Hypertension Status: Acute Current Visit: Yes (8) Non-compliance Status: Acute Current Visit: Yes (9) Tobacco use disorder Status: Acute Current Visit: Yes (10) COPD (chronic obstructive pulmonary disease) Status: Acute Current Visit: Yes (11) Pulmonary nodule Status: Acute Current Visit: Yes
--- NOTE | 2018-03-15 09:24 | Discharge Summary ---
General - General Admission date:: 03/13/18 Discharge date: 03/15/18 HPI HPI: This is a 62-year-old gentleman with a complex medical history including recurrent alcoholic pancreatitis. He presented to the emergency department with increasing upper abdominal pain. Over the past "week or so" he has had diarrhea and occasional nausea with intermittent emesis. Over the past few days he has had "quite a few bouts of emesis". Some left-sided chest pain has also been noted over the past 24+ hours. No bright red blood per rectum. He states that "a few weeks ago (his) stool was black a few times". No jaundice. No fevers. Evaluation emergency department included a CT scan of the abdomen that showed changes consistent with mild pancreatitis and possible early ileus. Per nursing, diarrhea panel ordered by ED.t this wm present with abd apin consistent with pancreatis by labs and ct and chest pain 1. CAD A. [facility], 12/2014, critical Cx disease treated with one ASAF. Left main and LAD normal with only mild CAD of RCA. Normal LVEF. LVEDP of 10 mm Hg. 2. History of polycythemia, secondary to smoking 3. HTN A. normal renal U/s, 2014 4. ETOH with recurrent pancreatitis 5. Tobacco use A. Emphysema B. [address] nod[address] on [address] of abdomen, 05/2017 6. Mild Carotid Artery disease, angiogram, 12/2015 A. Moderate cerebellar and cortical atrophy, CT of head, 12/2014 7. History of DVT A. Vena cava interruption filter placed, 03/2015, due to inability to take anticoagulation secondary to UGI bleed 8. ?Seizures A. Normal EEG, 11/2015 9. JEMMA, no treatment History of present illness: 62 yo WM with multiple medical problems as noted above was admitted through the ER for N, V and diarrhea that has progressively worsened over the last several days to include some chest pain as well. ER workup revealed elevated amylase and lipase with CT results consistent with pancreatitis. He has been admitted for further evaluation and treatment. Cardiology consulted for evaluation of chest pain. Troponins are normal X 2 with patient stating he has had chest pains off and on all day today. EKG today shows sinus tach at 104 bpm without acute changes. Pt relates no meds since 07/2017 due to insurance. He had previously stopped smoking and drinking at the last office visit in 05/2017 but states he "got thirsty" after about 2 months and started drinking again. He is now up to 12-15 beers daily. Pt has NTG paste on for chest pain and BP but relates a "pretty good" headache. He relates "passing out" about 3 wks ago for about 5 min. Doesn't recall any symptoms prior to passing out except feeling weak and faint. No loss of bowel or bladder control. He was confused for about 5 min after coming back to consciousness. EMS was called but cancelled prior to their arrival due to waking up. Hospital Course Hospital Course: wm who has improved with bowel rest and ivf and pain meds - he tolerated diet and has flatus and ambulating - surg saw pt with me today and agreed on d/c and pt and i discussed etoh use rdiac status stable. BP controlled. Continue metoprolol and ARB for BP and HR control. Restart ASA in AM. No further cardiac workup at this time. Follow up in office in 2 wks. Objective Vital signs: Temp Pulse Resp BP Pulse Ox 97.9 F 78 18 151/89 96 03/15/18 07:45 03/15/18 07:45 03/15/18 07:45 03/15/18 07:45 03/15/18 07:45 no acute distress - *Routine HEENT Exam Head: Present: normocephalic Eye: Present: EOMI, PERRL. Absent: conjunctival icterus ENT: Present: mucous membranes moist - *Routine Neck Exam Present: supple - *Routine Respiratory Exam Present: CTA bilaterally - *Routine Cardiovascular Exam Present: RRR, murmur - *Routine Abdominal Exam Present: soft. Absent: tenderness - *Routine Extremities Exam Present: full ROM - *Routine Skin Exam Present: intact - *Routine Neurological Exam Present: alert, oriented X3, CN II-XII intact - Routine Psychiatric Exam Present: normal affect Results Labs on day of discharge: Labs from last 24 hours 03/13/18 10:49 Vitamin B12 846 Folate 8.6 DS: Diagnosis - Discharge Diagnosis (1) History of melena Status: Acute (2) Acute pancreatitis Status: Acute (3) Alcoholism Status: Acute (4) Ileus Status: Acute (5) CAD (coronary artery disease) Status: Acute (6) Chest pain Status: Acute (7) Hypertension Status: Acute (8) Non-compliance Status: Acute (9) Tobacco use disorder Status: Acute (10) COPD (chronic obstructive pulmonary disease) Status: Acute (11) Pulmonary nodule Status: Acute Discharge Plan - Patient Discharge Instructions ACTIVITY: Continue current activity DIET: continue same diet Patient Instructions: Fat-Restricted Diet - Follow up Plan Disposition: Home, Self-Care Prescriptions/Medication Reconciliation: New Metoprolol Tartrate [Lopressor 50mg tablet] 50 mg PO BID #60 tab Irbesartan [Avapro 75mg tablet] 75 mg PO DAILY #30 tab
[2018-03-18 14:28] LABS: Vitamin B1 84.3 nmol/L (66.5-200.0)
== END 2018-03-15 10:40 | disposition home or self-care (01) ==
LOC: ER 09:47 → 2ND 13:21
PROVIDERS: ADMIT Emergency Medicine; ATTEND Emergency Medicine

== ENCOUNTER → 2018-06-16 09:02 | Outpatient (CLI) | payer OTHER, SELFPAY ==
[2018-06-16 10:20] LABS: Basophils # 0.1 K/mm3 (0-0.2); Basophils % 1.1 % (0.1-2.0); Eosinophils # 0.3 K/mm3 (0.0-0.4); Eosinophils % 5.8 % (0.1-12.0); Hematocrit 48.2 % (42.0-52.0); Hemoglobin 15.6 g/dL (14.1-18.0); Lymphocytes # 1.9 K/mm3 (0.7-4.5); Lymphocytes % 35.5 K/mm3 (10-50); Mean Corpuscular HGB Conc 32.3 g/dL (31.8-35.4); Mean Corpuscular Hemoglobin 34.1 pg (27.0-31.2); Mean Corpuscular Volume 105.6 fl (80-94); Mean Platelet Volume 8.3 fl (7.4-10.4); Monocytes # 0.6 K/mm3 (0.1-1.0); Monocytes % 10.2 % (1.7-9.3); Neutrophils # 2.6 K/mm3 (1.8-7.8); Neutrophils % 47.4 % (37.0-80.0); Platelet Count 240 K/mm3 (142-424); Red Blood Count 4.57 M/mm3 (4.60-6.20); Red Cell Distribution Width 13.6 % (11.5-17.5); White Blood Count 5.4 K/mm3 (4.8-10.8)
[2018-06-16 11:15] LABS: Alanine Aminotransferase 93 U/L (12-78); Albumin Level 4.6 gm/dL (3.4-5.0); Alkaline Phosphatase 78 U/L (46-116); Anion Gap 14.7 mEq/L (5-15); Aspartate Amino Transferase 78 U/L (15-37); Bilirubin,Total 0.8 mg/dL (0.2-1.0); Blood Urea Nitrogen 5 mg/dL (7-18); Calcium 9.6 mg/dL (8.5-10.1); Carbon Dioxide 27 mmol/L (21.0-32.0); Chloride 88 mmol/L (98-107); Chol/HDL Ratio 2.2 (1-3.5); Cholesterol 155 mg/dL (140-200); Creatinine,Serum 0.62 mg/dL (0.70-1.30); Estimated Glomerular Filt Rate 131 ml/min (>60); GFR (African American) 159 ML/MIN (>60); Glucose 112 mg/dL (74-106); HDL Cholesterol 72 mg/dL (27-67); LDL Cholesterol 70 mg/dL (0-130); Potassium 4.7 mmoL/L (3.5-5.1); Sodium 125 mmol/L (136-145); Thyroid Stimulating Hormone 3.53 uIU/ml (0.358-3.740); Total Protein,Serum 8.9 gm/dL (6.4-8.2); Triglycerides 63 mg/dL (30-200); VLDL Cholesterol 13 mg/dL (0-40)
[2018-06-16 11:26] LABS: Bilirubin,Direct 0.2 mg/dL (0.0-0.2); Bilirubin,Indirect 0.6 mg/dL (0.0-0.9)
[2018-06-16 11:33] LABS: Free T4 (Free Thyroxine) 1.16 ng/dl (0.76-1.46)
== END ==
PROVIDERS: Visit Provider Nurse Practitioner Family
DX: I25.118 Atherosclerotic heart disease of native coronary artery with other forms of angina pectoris (principal); I10 Essential (primary) hypertension; E78.4 Other hyperlipidemia
CPT/HCPCS: 36415; 80048; 80061; 80076; 84439; 84443; 85025

== ENCOUNTER → 2018-06-19 16:15 | Outpatient (REF) | payer OTHER, SELFPAY ==
[2018-06-19 18:09] LABS: Amphetamine/Metha Screen,Urine Negative ng/mL (<1000); Barbiturates Screen,Urine Negative ng/mL (<200); Benzodiazepines Screen,Urine Negative ng/mL (<200); Cannabinoid Screen,Urine Negative ng/mL (<50); Cocaine Screen,Urine Negative ng/mL (<300); Methadone Screen,Urine Negative ng/mL (<300); Opiate Screen,Urine Negative ng/mL (<300); Phencyclidine Screen,Urine Negative ng/mL (<25)
== END ==
LOC: LAB 16:15
PROVIDERS: Visit Provider Nurse Practitioner Family
DX: Z79.899 Other long term (current) drug therapy (principal)
CPT/HCPCS: 80305

== ENCOUNTER → 2018-06-25 14:55 | Outpatient (CLI) | payer OTHER, SELFPAY ==
--- NOTE | 2018-06-25 14:58 | CT_ITS ---
CT chest w con HISTORY: Follow-up lung nodules ITS.REASON: Solitary pulmonary nodule ORDERING PHYSICIAN: Drew Ziegler MD PATIENT AGE: 62 years COMPARISON: 03/13/2018 TECHNIQUE: Axial images obtained following the administration of 75 mL of Isovue 370 . Sagittal, and coronal reformatted images are also generated and reviewed. All CT scans at the facility use one or more dose reduction, viz: automated exposure control, ma/kV adjustment per patient size (including targeted exams where dose is matched to indication, i.e. head), or iterative reconstruction technique. FINDINGS: No mediastinal or hilar mass or adenopathy. No evidence of aortic aneurysm or central pulmonary embolus. Aortic valve calcifications and coronary artery calcifications are present. There are moderate centrilobular emphysematous changes with hyperinflation. There are scattered noncalcified pulmonary nodules in both lungs as previously described. There is do not appear significantly changed measuring up to nearly 9 mm in the right upper lobe. No new nodules are evident. There are a few calcified granulomas as well. No lobar consolidation or collapse. No acute bony anomalies. There are old bilateral rib fractures. Upper abdominal images are unremarkable. IMPRESSION: 1. Overall stable CT appearance of chest. 2. No change in the multiple pulmonary nodules. 3. Centrilobular emphysema with bronchial thickening. 4. Suggest 6 month follow-up to confirm pulmonary nodule stability
== END ==
PROVIDERS: PCP Nurse Practitioner Family; Visit Provider Internal Medicine
DX: R91.8 Other nonspecific abnormal finding of lung field (principal)
CPT/HCPCS: 71260; Q9967

== ENCOUNTER 2018-08-10 14:52 | Inpatient (IN) ==
--- NOTE | 2018-08-10 15:16 | Emergency Department Note ---
ED Disposition Clinical Impression: Alcohol use disorder, Tobacco use disorder, COPD (chronic obstructive pulmonary disease), Hypertension, Acute pancreatitis, Hyponatremia Disposition: Still a Patient Condition on Discharge: Fair Instructions: DI for Acute Abdomen Referrals: Ziyad Nicholas MD [Primary Care Provider] - - Critical Care Critical Care Time: No Attestation: On 08/10/18, the high probability of a clinically significant, sudden or life threatening deterioration of the following system(s) required my full and direct attention, intervention and personal management. The time I documented below is in addition to time spent performing reported procedures but includes the following listed in this critical care notation. Medical Decision Making - Shailesh Inquiry Pt receiving controlled substance: No Shailesh was queried for this patient: No Vital Signs: 08/10/18 14:53 08/10/18 17:11 Temperature 98.7 F Temperature Source Oral Pulse Rate [Left Radial] 61 81 Respiratory Rate 14 Blood Pressure [Right Arm] 178/116 H 128/77 Blood Pressure Mean [Right Arm] 136 94 Blood Pressure Source [Right Arm] Automatic Cuff Automatic Cuff Blood Pressure Position [Right Arm] Sitting Sitting 02 Sat by Pulse Oximetry 98 94 L Oxygen Delivery Method Room Air Room Air - Lab Data Lab Results 08/10/18 15:15: WBC 8.1, RBC 4.11 L, Hgb 16.1, Hct 43.5, MCV 105.8 H, MCH 39.1 H , MCHC 36.9 H, RDW 15.1, Plt Count 189, MPV 9.2, Neut % (Auto) 78.1, Lymph % (Auto) 12.8, [place] % (Auto) 7.6, Eos % (Auto) 1.1, Baso % (Auto) 0.4, Neut # (Auto) 6.3, Lymph # (Auto) 1.0, [place] # (Auto) 0.6, Eos # (Auto) 0.1, Baso # (Auto) 0.0 08/10/18 15:15: Sodium 124 L, Potassium 3.5, Chloride 82 L, Carbon Dioxide 29, Anion Gap 16.5 H, BUN 10, Creatinine 0.62 L, Estimated Creat Clear 78, Estimated GFR 131, Est GFR ( Amer) 159, Glucose 103, Calcium 9.4, Magnesium 1.6, Total Bilirubin 1.6 H, AST 67 H, ALT 47, Alkaline Phosphatase 65, Total Creatine Kinase 73, CK-MB (CK-2) 1.1, CK-MB (CK-2) Rel Index 1.5, Troponin I < 0.02, Total Protein 8.4 H, Albumin 4.2, Globulin 4.2 H, Albumin/Globulin Ratio 1.0 L, Lipase 2832 H, Plasma/Serum Alcohol 14 Result diagrams: 08/10/18 15:15 08/10/18 15:15 Orders (Tests/Meds): ED MEDICATIONS Generic Name Dose Route Start Last Admin Trade Name Freq PRN Reason Stop Dose Admin Multivitamins 10 ml/ Thiamine 1,015 mls @ 150 mls/hr 08/10/18 15:20 08/10/18 17:15 HCl 100 mg/ Magnesium Sulfate IV 08/10/18 22:05 150 mls/hr 2 gm/ Lactated Ringer's .[id number] RACHEAL Administration Discontinued Medications Generic Name Dose Route Start Last Admin Trade Name Freq PRN Reason Stop Dose Admin Diatrizoate Meglum/Diatrizoate Sod 30 ml 08/10/18 15:11 08/10/18 17:16 Gastrografin 66%-10% 30ml PO 08/10/18 15:12 Not Given ONCE ONE Famotidine 20 mg 08/10/18 15:19 08/10/18 17:15 Pepcid 20mg/2ml Vial IV 08/10/18 15:20 20 mg ONCE ONE Administration Folic Acid 1 mg 08/10/18 15:19 08/10/18 17:15 Folic Acid 1mg Tablet PO 08/10/18 15:20 1 mg ONCE ONE Administration Iopamidol 75 ml 08/10/18 16:50 08/10/18 16:51 [id number]; 75ml Vial IV 08/10/18 16:51 75 ml ONCE ONE Administration Protocol Morphine Sulfate 2 mg 08/10/18 15:19 08/10/18 17:15 Morphine 2mg/Ml Syringe IV 08/10/18 15:20 2 mg ONCE ONE Administration Morphine Sulfate 2 mg 08/10/18 18:18 08/10/18 18:22 Morphine 2mg/Ml Syringe IV 08/10/18 18:19 2 mg ONCE ONE Administration Ondansetron HCl 4 mg 08/10/18 15:19 08/10/18 17:15 Zofran 4mg/2ml Vial IV 08/10/18 15:20 4 mg ONCE ONE Administration Sodium Chloride 10 ml 08/10/18 16:50 08/10/18 16:51 Rad-Saline Flush 10ml Syringe IV 08/10/18 16:51 10 ml ONCE ONE Administration ORDERS Category Date Time Status CT abdomen pelvis w con Stat Cat Scan 08/10/18 15:11 Taken Lactic Acid Stat Lab 08/10/18 15:13 Ordered Blood Culture Stat Micro 08/10/18 15:13 Ordered ECG Request by /Camilo Stat Y 08/10/18 15:11 Ordered - CT Data CT Scan: Abdomen, Pelvis Time Received: 18:[address] Reviewed: Yes: I have viewed the radiologist's interpretation Preliminary Findings: Abnormal - ECG Data Tracing #1 Normal sinus rhythm 68/min unifocal PVCs baseline artifact left atrial e nlargement incomplete right bundle branch block no acute ST segment changes. ECG initial impression date: 08/10/18 ECG initial impression time: 14:55 Medical Decision Narrative: I spoke with Dr. Kelsey special education professional for Dr. Nicholas who agreed to admit the patient for IV fluid therapy pain control DVT prophylaxis and antibiotics . Abdominal Pain HPI - General Chief Complaint: Abdominal Pain Stated Complaint: abd pain Time Seen by Provider: 08/10/18 14:55 Mode of Arrival: Ambulatory Limitations: No Limitations Description of Symptoms (Recalled from ER Triage Doc. by RN): to ed per pvt car with c/o chest and abd pain starting saturday. hx of pancreatitis states drank alcohol saturday +nausea and vomiting - History of Present Illness HPI narrative: 62 years old white male with complex past medical history including peripheral neuropathy, hypertension COPD alcoholism noncompliance with medication. He kept on drinking on and Saturday and on Saturday he developed upper abdominal pain radiating across his abdomen and into the retrosternal area associated with repeated vomiting without hematemesis coffee-ground emesis melanotic stool or bleeding per rectum. He denies having abscess, dyspnea, dysarthria, dysphonia and diplopia. MD complaint: abdominal pain Onset (ago): day(s) (Started yesterday.) Consistency: constant Location: epigastric Severity: moderate Quality: stabbing Radiation: back Migration to: no migration Relieving factors: nothing Exacerbating factors: nothing Associated symptoms: denies other symptoms - Related Data Home Medications Medication Instructions Recorded Confirmed aspirin 81 mg tablet,delayed 81 mg PO DAILY 06/10/18 08/10/18 release Budesonide/Formoterol Fumarate 2 puff INHALATION BID 08/10/18 08/10/18 [Symbicort 80-4.5 Mcg Inhaler] Metoprolol Tartrate [Lopressor 50 mg PO BID 08/10/18 08/10/18 50mg tablet] Allergies Allergy/AdvReac Type Severity Reaction Status Date / Time No Known Allergies Allergy Verified 06/19/18 08:10 [facility] History I have reviewed the patient's past medical history: Yes Medical History: Reports:: Coronary Artery Disease, Diabetes Mellitus Type 2, Hypertension Other Surgeries: Yes: Hernia Repair - Social History Smoking Status: Current every day smoker Tobacco Type: cigarettes # Packs/Day (cigarettes): 2 Alcohol Intake: current Alcohol Intake Frequency:: 3 or more drinks per day Substance Use Type: marijuana, IV drugs Occupational Status: disabled Household Members: spouse - Psychiatric History Expresses thoughts of harming self/others: None Suicide Plan Description: No Plan Family Hx:: Diabetes, Heart Attack ROS Obtained: Yes All systems reviewed & no additional complaints Physical Exam - General General appearance: alert, in no apparent distress - Head Head exam: atraumatic, normocephalic, normal inspection - Eye Eye exam: Present: normal appearance, PERRL, EOMI, other (He does have left upper eyelid ecchymosis. ). Absent: scleral icterus, nystagmus - ENT ENT exam: Present: normal exam, normal oropharynx, mucous membranes moist, TM's normal bilaterally, normal external ear exam - Neck Neck exam: Present: normal inspection, full ROM, trachea midline. Absent: tenderness, meningismus, lymphadenopathy - Chest Chest inspection: Present: normal inspection, symmetric chest wall rise. Absent: tenderness - Respiratory Respiratory exam: Present: normal lung sounds bilaterally. Absent: respiratory distress, wheezes - Cardiovascular Cardiovascular exam: Present: regular rate, normal rhythm, normal heart sounds. Absent: JVD - Abdominal Exam Abdominal exam: Present: soft, tenderness, normal bowel sounds. Absent: distention, guarding, rebound, rigidity, Jackson's sign, tenderness at McBurney's Point Abdominal tenderness: Present: epigastrium - exam: Present: normal inspection - Extremities Exam Extremities exam: Present: normal inspection, full ROM, normal capillary refill. Absent: tenderness, calf tenderness - Back Exam Back exam: Present: normal inspection. Absent: tenderness, CVA tenderness (R), CVA tenderness (L), paraspinal tenderness, vertebral tenderness - Neurological Exam Neurological exam: Present: alert, oriented X3, CN II-XII intact, motor sensory deficit, reflexes normal - Psychiatric Psychiatric exam: Present: normal affect, normal mood - Skin Skin exam: Present: warm, dry, intact, normal color - Lymphatic Lymphatic Findings: no adenopathy
[2018-08-10 15:28] LABS: Basophils % 0.4 % (0.1-2.0); Eosinophils # 0.1 K/mm3 (0.0-0.4); Eosinophils % 1.1 % (0.1-12.0); Hematocrit 43.5 % (42.0-52.0); Hemoglobin 16.1 g/dL (14.1-18.0); Lymphocytes % 12.8 K/mm3 (10-50); Mean Corpuscular HGB Conc 36.9 g/dL (31.8-35.4); Mean Corpuscular Hemoglobin 39.1 pg (27.0-31.2); Mean Corpuscular Volume 105.8 fl (80-94); Mean Platelet Volume 9.2 fl (7.4-10.4); Monocytes # 0.6 K/mm3 (0.1-1.0); Monocytes % 7.6 % (1.7-9.3); Neutrophils # 6.3 K/mm3 (1.8-7.8); Neutrophils % 78.1 % (37.0-80.0); Platelet Count 189 K/mm3 (142-424); Red Blood Count 4.11 M/mm3 (4.60-6.20); Red Cell Distribution Width 15.1 % (11.5-17.5); White Blood Count 8.1 K/mm3 (4.8-10.8)
[2018-08-10 15:44] LABS: Blood Urea Nitrogen 10 mg/dL (7-18); Calcium 9.4 mg/dL (8.5-10.1); Carbon Dioxide 29 mmol/L (21.0-32.0); Chloride 82 mmol/L (98-107); Creatine Kinase 73 U/L (39-308); Glucose 103 mg/dL (74-106); Potassium 3.5 mmoL/L (3.5-5.1); Sodium 124 mmol/L (136-145)
[2018-08-10 15:45] LABS: Alanine Aminotransferase 47 U/L (12-78); Albumin Level 4.2 gm/dL (3.4-5.0); Alkaline Phosphatase 65 U/L (46-116); Aspartate Amino Transferase 67 U/L (15-37); Bilirubin,Total 1.6 mg/dL (0.2-1.0); Ethyl Alcohol 14 mg/dL (0-99); Globulin 4.2 gm/dl (1.3-3.2); Total Protein,Serum 8.4 gm/dL (6.4-8.2)
[2018-08-10 15:50] LABS: Lipase 2832 u/L (73-393)
[2018-08-10 16:00] LABS: Anion Gap 16.5 mEq/L (5-15)
[2018-08-11 07:07] LABS: Basophils % 0.2 % (0.1-2.0); Eosinophils # 0.1 K/mm3 (0.0-0.4); Eosinophils % 0.8 % (0.1-12.0); Hematocrit 47.9 % (42.0-52.0); Hemoglobin 15.6 g/dL (14.1-18.0); Lymphocytes # 0.9 K/mm3 (0.7-4.5); Lymphocytes % 11.6 K/mm3 (10-50); Mean Corpuscular HGB Conc 32.6 g/dL (31.8-35.4); Mean Corpuscular Hemoglobin 34.4 pg (27.0-31.2); Mean Corpuscular Volume 105.6 fl (80-94); Mean Platelet Volume 8.4 fl (7.4-10.4); Monocytes # 0.7 K/mm3 (0.1-1.0); Monocytes % 8.8 % (1.7-9.3); Neutrophils # 5.9 K/mm3 (1.8-7.8); Neutrophils % 78.6 % (37.0-80.0); Platelet Count 162 K/mm3 (142-424); Red Blood Count 4.54 M/mm3 (4.60-6.20); Red Cell Distribution Width 14.9 % (11.5-17.5); White Blood Count 7.5 K/mm3 (4.8-10.8)
[2018-08-11 07:21] LABS: Albumin Level 3.3 gm/dL (3.4-5.0); Albumin/Globulin Ratio 0.9 (1.1-1.8); Anion Gap 9.6 mEq/L (5-15); Bilirubin,Total 1.3 mg/dL (0.2-1.0); Calcium 8.5 mg/dL (8.5-10.1); Globulin 3.7 gm/dl (1.3-3.2)
[2018-08-11 07:27] LABS: Potassium 2.6 mmoL/L (3.5-5.1)
--- NOTE | 2018-08-11 07:45 | Pharmacy Consult Notes ---
[facility] Pharmacy VTE Monitoring - Patient Demographics Admission date: 08/11/18 Report Date: 08/11/18 Time: 07:44 Allergies/Adverse Reactions: Patient Allergies No Known Allergies Allergy (Verified 06/19/18 08:10) Height: 1.85 m Weight: 64.155 kg Patient Problems: Current Active Problems Alcohol use disorder (Acute) Acute pancreatitis (Acute) Hyponatremia (Acute) Tobacco use disorder (Acute) COPD (chronic obstructive pulmonary disease) (Acute) Hypertension (Chronic) - VTE Risk Labs: VTE Related Lab Results Hgb 15.6 g/dL (14.1-18.0) 08/11/18 06:20 Hct 47.9 % (42.0-52.0) 08/11/18 06:20 Plt Count 162 K/mm3 (142-424) 08/11/18 06:20 BUN 5 mg/dL (7-18) L D 08/11/18 06:20 Creatinine 0.53 mg/dL (0.70-1.30) L 08/11/18 06:20 Estimated Creat Clear 69 mL/min (0-300) 08/11/18 06:20 Was VTE Risk Assessment Performed: Yes VTE Score: 8 VTE Risk Level: Moderate Risk Clinical Trial Participant: No - Prophylaxis VTE Prophylaxis Ordered?: Yes Types of VTE Prophylaxis: TEDS Knee High
--- NOTE | 2018-08-11 08:30 | History & Physical Report ---
*Admission Date: 08/11/18 *Chief complaint: abd pain *History of present illness: this wm presented to the ed with abd pain with hx of pancreatitis - he reported using etoh -2 years old white male with complex past medical history including peripheral neuropathy, hypertension COPD alcoholism noncompliance with medication. He kept on drinking on and Saturday and on Saturday he developed upper abdominal pain radiating across his abdomen and into the retrosternal area associated with repeated vomiting without hematemesis coffee- ground emesis melanotic stool or bleeding per rectum. He denies having abscess, dyspnea, dysarthria, dysphonia and diplopia. [facility] History I have reviewed the patient's past medical history: Yes Medical History: Reports:: Coronary Artery Disease, Hypertension Denies:: Cancer, Diabetes Mellitus Type 1, Diabetes Mellitus Type 2, MRSA Other Medical History: Reports: Anemia, Arthritis, Cataracts Laterality Cases: Bilateral: Cataract Other Surgeries: Yes: Colonoscopy, Hernia Repair Amputation: No Fractures: Yes - *Social History Educational Level: Attended High School Smoking Status: Current every day smoker Tobacco Type: cigarettes # Packs/Day (cigarettes): 1 Alcohol Intake: current Alcohol Intake Frequency:: 3 or more drinks per day Substance Use Type: marijuana, IV drugs Occupational Status: disabled Housing: house Household Members: spouse - Psychiatric History Expresses thoughts of harming self/others: None Suicide Plan Description: No Plan *Family Hx:: Diabetes, Heart Attack Review of Systems - Review of Systems Review of systems:: pertinent systems reviewed and negative unless documented below - Constitutional Denies fever(s) - Eyes Denies change in vision - ENT Denies sore throat - *Cardiovascular Denies chest pain - *Respiratory Denies cough - *Gastrointestinal Reports abdominal pain, Reports nausea, Reports vomiting - *Genitourinary Denies blood in urine - *Musculoskeletal Denies joint pain - Integumentary/Breasts Denies rash - *Neurologic Denies seizure-like activity Meds Home Medications Medication Instructions Recorded Confirmed Type aspirin 81 mg tablet,delayed 81 mg PO DAILY 06/10/18 08/10/18 History release Metoprolol Tartrate [Lopressor 50 mg PO BID 08/10/18 08/10/18 History 50mg tablet] Tamsulosin HCl [Flomax 0.4mg 0.4 mg PO HS 08/10/18 08/10/18 History capsule] Fluticasone/Vilanterol [Breo 1 puff IH DAILY 08/11/18 08/11/18 History Ellipta 200-25 Mcg INH] Allergies Allergy/AdvReac Type Severity Reaction Status Date / Time No Known Allergies Allergy Verified 06/19/18 08:10 Exam Vital signs and Labs for Last 24 Hours: Temp Pulse Resp BP Pulse Ox 98.7 F 68 18 166/92 H 90 L 08/11/18 04:00 08/11/18 04:00 08/11/18 04:00 08/11/18 04:00 08/11/18 04:00 Laboratory Results - last 24 hr 08/10/18 15:15: WBC 8.1, RBC 4.11 L, Hgb 16.1, Hct 43.5, MCV 105.8 H, MCH 39.1 H , MCHC 36.9 H, RDW 15.1, Plt Count 189, MPV 9.2, Neut % (Auto) 78.1, Lymph % (Auto) 12.8, [place] % (Auto) 7.6, Eos % (Auto) 1.1, Baso % (Auto) 0.4, Neut # (Auto) 6.3, Lymph # (Auto) 1.0, [place] # (Auto) 0.6, Eos # (Auto) 0.1, Baso # (Auto) 0.0 08/10/18 15:15: Sodium 124 L, Potassium 3.5, Chloride 82 L, Carbon Dioxide 29, Anion Gap 16.5 H, BUN 10, Creatinine 0.62 L, Estimated Creat Clear 78, Estimated GFR 131, Est GFR ( Amer) 159, Glucose 103, Calcium 9.4, Magnesium 1.6, Total Bilirubin 1.6 H, AST 67 H, ALT 47, Alkaline Phosphatase 65, Total Creatine Kinase 73, CK-MB (CK-2) 1.1, CK-MB (CK-2) Rel Index 1.5, Troponin I < 0.02, Total Protein 8.4 H, Albumin 4.2, Globulin 4.2 H, Albumin/Globulin Ratio 1.0 L, Lipase 2832 H, Plasma/Serum Alcohol 14 08/10/18 20:45: Lactate 1.2 08/11/18 06:20: WBC 7.5, RBC 4.54 L, Hgb 15.6, Hct 47.9, MCV 105.6 H, MCH 34.4 H , MCHC 32.6, RDW 14.9, Plt Count 162, MPV 8.4, Neut % (Auto) 78.6, Lymph % (Auto) 11.6, [place] % (Auto) 8.8, Eos % (Auto) 0.8, Baso % (Auto) 0.2, Neut # (Auto) 5.9, Lymph # (Auto) 0.9, [place] # (Auto) 0.7, Eos # (Auto) 0.1, Baso # (Auto) 0.0 08/11/18 06:20: Sodium 127 L, Potassium 2.6 L* D, Chloride 89 L, Carbon Dioxide 31, Anion Gap 9.6, BUN 5 L D, Creatinine 0.53 L, Estimated Creat Clear 69, Estimated GFR 157, Est GFR ( Amer) 190, Glucose 143 H D, Calcium 8.5, Magnesium 1.7, Total Bilirubin 1.3 H, AST 39 H D, ALT 35 D, Alkaline Phosphatase 55, Total Protein 7.0, Albumin 3.3 L D, Globulin 3.7 H, Albumin/Globulin Ratio 0.9 L 08/11/18 06:20: Lipase 1486 H I & O for Last 24 hours: Intake & Output 08/08/18 08/09/18 08/10/18 08/11/18 11:59 11:59 11:59 11:59 Intake Total 1235 / 1235 Balance 1235 / 1235 Weight 141 lb 7.001 oz - Constitutional no acute distress, thin - *Routine HEENT Exam Head: Present: normocephalic Eye: Present: EOMI, PERRL. Absent: conjunctival icterus ENT: Present: mucous membranes dry - *Routine Neck Exam Present: supple - *Routine Respiratory Exam Present: CTA bilaterally - *Routine Cardiovascular Exam Present: RRR, murmur - *Routine Abdominal Exam Present: soft, tenderness - *Routine Extremities Exam Absent: calf tenderness - *Routine Skin Exam Present: intact - *Routine Neurological Exam Present: alert, oriented X3, CN II-XII intact - Routine Psychiatric Exam Present: normal affect Assessment and Plan (1) Hypokalemia Current visit: Yes Status: Acute Category: Medical Code(s): E87.6 - Hypokalemia (2) Acute pancreatitis Current visit: Yes Status: Acute Qualifiers: Category: Medical Code(s): K85.90 - Acute pancreatitis without necrosis or infection, unspecified (3) Alcohol use disorder Current visit: Yes Status: Acute Category: Medical (4) Tobacco use disorder Current visit: Yes Status: Acute Category: Medical Code(s): F17.200 - Nicotine dependence, unspecified, uncomplicated (5) Hyponatremia Current visit: Yes Status: Acute Category: Medical Code(s): E87.1 - Hypo- osmolality and hyponatremia
--- NOTE | 2018-08-12 09:16 | Progress Note ---
Internal Medicine - PN: Subj *Date: 08/12/18 *Time: 08:30 Interval history: pt doing better but sedated able to eat Exam Vital signs and Labs for Last 24 Hours: Temp Pulse Resp BP Pulse Ox 97.0 F L 94 H 16 121/79 97 08/12/18 08:00 08/12/18 08:00 08/12/18 08:00 08/12/18 08:00 08/12/18 08:00 I & O for Last 24 hours: Intake & Output 08/09/18 08/10/18 08/11/18 08/12/18 11:59 11:59 11:59 11:59 Intake Total 1235 / 1235 1484 / 1484 Balance 1235 / 1235 1484 / 1484 Weight 141 lb 7.001 oz 141 lb 7.001 oz - Constitutional no acute distress - *Routine HEENT Exam Head: Present: normocephalic Eye: Present: EOMI, PERRL ENT: Present: mucous membranes dry - *Routine Neck Exam Present: supple - *Routine Respiratory Exam Present: CTA bilaterally. Absent: respiratory distress - *Routine Cardiovascular Exam Present: RRR, murmur, S4 - *Routine Abdominal Exam Present: soft. Absent: tenderness - *Routine Extremities Exam Present: full ROM - *Routine Skin Exam Present: intact - *Routine Neurological Exam Present: alert, oriented X3, CN II-XII intact - Routine Psychiatric Exam Present: normal affect Assessment and Plan (1) Hypokalemia Current visit: Yes Status: Acute Category: Medical Code(s): E87.6 - Hypokalemia (2) Acute pancreatitis Current visit: Yes Status: Acute Qualifiers: Category: Medical Code(s): K85.90 - Acute pancreatitis without necrosis or infection, unspecified (3) Alcohol use disorder Current visit: Yes Status: Acute Category: Medical (4) Tobacco use disorder Current visit: Yes Status: Acute Category: Medical Code(s): F17.200 - Terell otine dependence, unspecified, uncomplicated (5) Hyponatremia Current visit: Yes Status: Acute Category: Medical Code(s): E87.1 - Hypo- osmolality and hyponatremia (6) COPD (chronic obstructive pulmonary disease) Current visit: Yes Status: Acute Category: Medical Code(s): J44.9 - Chronic obstructive pulmonary disease, unspecified
[2018-08-12 11:45] LABS: Basophils % 0.4 % (0.1-2.0); Eosinophils # 0.1 K/mm3 (0.0-0.4); Eosinophils % 1.7 % (0.1-12.0); Hematocrit 44.1 % (42.0-52.0); Hemoglobin 14.2 g/dL (14.1-18.0); Lymphocytes # 1.5 K/mm3 (0.7-4.5); Lymphocytes % 19.8 K/mm3 (10-50); Mean Corpuscular HGB Conc 32.2 g/dL (31.8-35.4); Mean Corpuscular Hemoglobin 34.9 pg (27.0-31.2); Mean Corpuscular Volume 108.2 fl (80-94); Mean Platelet Volume 8.1 fl (7.4-10.4); Monocytes # 0.6 K/mm3 (0.1-1.0); Monocytes % 7.5 % (1.7-9.3); Neutrophils # 5.2 K/mm3 (1.8-7.8); Neutrophils % 70.5 % (37.0-80.0); Platelet Count 159 K/mm3 (142-424); Red Blood Count 4.08 M/mm3 (4.60-6.20); Red Cell Distribution Width 14.9 % (11.5-17.5); White Blood Count 7.4 K/mm3 (4.8-10.8)
[2018-08-12 11:57] LABS: Anion Gap 9.7 mEq/L (5-15); Calcium 8.7 mg/dL (8.5-10.1)
[2018-08-12 12:08] LABS: Potassium 2.7 mmoL/L (3.5-5.1)
--- NOTE | 2018-08-12 12:25 | Discharge Summary ---
General - General Admission date:: 08/10/18 Discharge date: 08/12/18 HPI HPI: this wm presented to the ed with abd pain with hx of pancreatitis - he reported using etoh -2 years old white male with complex past medical history including peripheral neuropathy, hypertension COPD alcoholism noncompliance with medication. He kept on drinking on and Saturday and on Saturday he developed upper abdominal pain radiating across his abdomen and into the retrosternal area associated with repeated vomiting without hematemesis coffee- ground emesis melanotic stool or bleeding per rectum. He denies having abscess, dyspnea, dysarthria, dysphonia and diplopia. Hospital Course Hospital Course: pt did well but slowly as lipase dec and pt able to eat - we discussed with him and family about etoh and tob use - pt responded to meds and fluids and bowel rest and will be seen in office in 1 week Objective Vital signs: Temp Pulse Resp BP Pulse Ox 97.0 F L 94 H 16 121/79 97 08/12/18 08:00 08/12/18 08:00 08/12/18 08:00 08/12/18 08:00 08/12/18 08:00 no acute distress - *Routine HEENT Exam Head: Present: normocephalic Eye: Present: EOMI, PERRL. Absent: conjunctival icterus ENT: Present: mucous membranes dry - *Routine Neck Exam Present: supple - *Routine Respiratory Exam Present: rhonchi. Absent: respiratory distress - *Routine Cardiovascular Exam Present: RRR, murmur - *Routine Abdominal Exam Present: soft - *Routine Extremities Exam Present: full ROM - *Routine Skin Exam Present: intact - *Routine Neurological Exam Present: alert, oriented X3, CN II-XII intact - Routine Psychiatric Exam Present: normal affect Results Labs on day of discharge: Labs from last 24 hours 08/12/18 08/12/18 08/12/18 11:18 11:18 11:18 WBC 7.4 RBC 4.08 L Hgb 14.2 Hct 44.1 MCV 108.2 H MCH 34.9 H MCHC 32.2 RDW 14.9 Plt Count 159 MPV 8.1 Neut % (Auto) 70.5 Lymph % (Auto) 19.8 [place] % (Auto) 7.5 Eos % (Auto) 1.7 Baso % (Auto) 0.4 Neut # (Auto) 5.2 Lymph # (Auto) 1.5 [place] # (Auto) 0.6 Eos # (Auto) 0.1 Baso # (Auto) 0.0 Sodium 133 L Potassium 2.7 L* Chloride 97 L Carbon Dioxide 29 Anion Gap 9.7 BUN 3 L D Creatinine 0.72 D Estimated Creat Clear 69 Estimated GFR 110 Est GFR ( Amer) 133 D Glucose 74 Calcium 8.7 Lipase 292 DS: Diagnosis - Discharge Diagnosis (1) Hypokalemia Status: Acute (2) Acute pancreatitis Status: Acute (3) Alcohol use disorder Status: Acute (4) Tobacco use disorder Status: Acute (5) Hyponatremia Status: Acute (6) COPD (chronic obstructive pulmonary disease) Status: Acute Discharge Plan - Patient Discharge Instructions ACTIVITY: Continue current activity DIET: continue same diet - Follow up Plan Disposition: Home, Self-Assisted Medications: Home Medications Medication Instructions Recorded Confirmed Type aspirin 81 mg tablet,delayed 81 mg PO DAILY 06/10/18 08/10/18 History release Metoprolol Tartrate [Lopressor 50 mg PO BID 08/10/18 08/10/18 History 50mg tablet] Tamsulosin HCl [Flomax 0.4mg 0.4 mg PO HS 08/10/18 08/10/18 History capsule] Fluticasone/Vilanterol [Breo 1 puff IH DAILY 08/11/18 08/11/18 History Ellipta 200-25 Mcg INH] Prescriptions/Medication Reconciliation: New Tamsulosin HCl [Flomax 0.4mg capsule] 0.4 mg PO HS cap.er.24h Nicotine [Nicoderm 21mg/24hr patch] 21 mg TD DAILYP PRN #30 patch.td24 PRN Reason: Nicotine Cravings Continue aspirin 81 mg tablet,delayed release 81 mg PO DAILY Metoprolol Tartrate [Lopressor 50mg tablet] 50 mg PO BID Fluticasone/Vilanterol [Breo Ellipta 200-25 Mcg INH] 1 puff IH DAILY Tamsulosin HCl [Flomax 0.4mg capsule] 0.4 mg PO HS
== END 2018-08-12 13:20 | disposition home or self-care (01) ==
LOC: ER 14:52 → 2ND 18:29
PROVIDERS: ADMIT Family Medicine; ATTEND Emergency Medicine

== ENCOUNTER → 2018-12-22 06:59 | Outpatient (CLI) | payer OTHER, SELFPAY ==
--- NOTE | 2018-12-22 07:04 | CI_ITS ---
Cerebrovascular Exam Indications: 435.9 Unspecified transient cerebral ischemia. 433.10 Occlusion/stenosis of carotid artery without cerebral infarction. 780.4 Dizziness and giddiness. 781.94 Facial weakness. IMPRESSIONS 1. The bilateral vertebral arteries are patent with normal antegrade flow. 2. Study suggests 20-49% stenosis involving the left internal carotid artery. 3. Study suggests 20-49% stenosis involving the right internal carotid artery. History: Coronary artery disease. Risk factors: Current tobacco use. Hypertension. Carotid duplex study. Complete study and Doppler flow study including spectral analysis, color and soriano scale imaging. Height: Height: 185.4cm. Height: 73in. Weight: Weight: 72.6kg. Weight: 159.7lb. Body mass index: BMI: 21.1kg/m^2. Body surface area: BSA: 1.93m^2. Location: Vascular laboratory. Patient status: Outpatient. Tables: Arterial flow: + +--------+--------+ Location V sys V ed + +--------+--------+ Right CCA - proximal 47.9cm/s 17.3cm/s + +--------+--------+ Right CCA - distal 67.6cm/s 28.3cm/s + +--------+--------+ Right ECA 60.5cm/s -------- + +--------+--------+ Right ICA - proximal 65.2cm/s 20.4cm/s + +--------+--------+ Right ICA - mid 69.1cm/s 30.6cm/s + +--------+--------+ Right ICA - distal 84.1cm/s 36.1cm/s + +--------+--------+ Right vertebral 47.9cm/s -------- + +--------+--------+ Left CCA - proximal 64.4cm/s 19.6cm/s + +--------+--------+ Left CCA - distal 66.8cm/s 22cm/s + +--------+--------+ Left ECA 59.7cm/s -------- + +--------+--------+ Left ICA - proximal 61.3cm/s 23.6cm/s + +--------+--------+ Left ICA - mid 88.8cm/s 37.7cm/s + +--------+--------+ Left ICA - distal 75.4cm/s 29.1cm/s + +--------+--------+ Left vertebral 47.1cm/s -------- + +--------+--------+ Velocity ratios: + + + + + + Right, V sys Right, V ed Left, V sys Left, V ed + + + + + + Max ICA/dist CCA 1.24 1.28 1.33 1.71 + + + + + + (Report amended ) Electronically signed by: Xavier Pacheco [id number]
== END ==
PROVIDERS: PCP Emergency Medicine; Visit Provider Internal Medicine
DX: R20.0 Anesthesia of skin (principal); R42 Dizziness and giddiness
CPT/HCPCS: 93880

== ENCOUNTER → 2018-12-24 09:34 | Outpatient (CLI) | payer OTHER, SELFPAY ==
--- NOTE | 2018-12-24 09:48 | CT_ITS ---
CT chest w con HISTORY: Chest pain and shortness of air, follow-up pulmonary nodules, emphysema ITS.REASON: COPD ORDERING PHYSICIAN: Drew Ziegler MD PATIENT AGE: 63 years COMPARISON: 06/25/2018 TECHNIQUE: Axial images obtained following the administration of 75 mL of Optiray 350. Sagittal, and coronal reformatted images are also generated and reviewed. All CT scans at the facility use one or more dose reduction, viz: automated exposure control, ma/kV adjustment per patient size (including targeted exams where dose is matched to indication, i.e. head), or iterative reconstruction technique. FINDINGS: No evidence of aortic aneurysm or dissection. No central pulmonary embolus evident. There are coronary artery calcifications.. There is normal heart size. There are centrilobular emphysematous changes. Noncalcified 7 mm nodule right upper lobe inferiorly unchanged. Noncalcified 7 mm nodule right lower lobe image 58 unchanged. 6 mm noncalcified nodule right lower lobe posteriorly image 76 unchanged. Noncalcified 4 mm nodule left apex unchanged. There are scattered calcified granulomas. No new nodules are evident. 3 mm noncalcified nodule left lower lobe posterior laterally unchanged. No effusions or infiltrates. Pulmonary fibrotic changes are present in the posterior aspect of the right upper lobe along the major fissure unchanged There are old bilateral rib fractures. IMPRESSION: 1. Overall stable CT appearance of the chest 2. Stable bilateral pulmonary nodules. Recommend 12 month follow-up. 3. Centrilobular emphysema with pulmonary fibrotic change
[2018-12-24 11:07] LABS: Alanine Aminotransferase 63 U/L (12-78); Albumin Level 4.2 gm/dL (3.4-5.0); Alkaline Phosphatase 59 U/L (46-116); Anion Gap 16.2 mEq/L (5-15); Aspartate Amino Transferase 67 U/L (15-37); Bilirubin,Direct 0.2 mg/dL (0.0-0.2); Bilirubin,Indirect 0.3 mg/dL (0.0-0.9); Bilirubin,Total 0.5 mg/dL (0.2-1.0); Blood Urea Nitrogen 7 mg/dL (7-18); Carbon Dioxide 22 mmol/L (21.0-32.0); Chloride 91 mmol/L (98-107); Cholesterol 133 mg/dL (140-200); Creatinine,Serum 0.53 mg/dL (0.70-1.30); Estimated Glomerular Filt Rate 157 ml/min (>60); GFR (African American) 189 ML/MIN (>60); Glucose 81 mg/dL (74-106); HDL Cholesterol 65 mg/dL (27-67); LDL Cholesterol 56 mg/dL (0-130); Potassium 4.2 mmoL/L (3.5-5.1); Sodium 125 mmol/L (136-145); Total Protein,Serum 8.5 gm/dL (6.4-8.2); Triglycerides 61 mg/dL (30-200); VLDL Cholesterol 12 mg/dL (0-40)
== END ==
PROVIDERS: Urology; PCP Emergency Medicine; Visit Provider Internal Medicine
DX: R07.9 Chest pain, unspecified (principal); R06.02 Shortness of breath; J44.9 Chronic obstructive pulmonary disease, unspecified; R91.8 Other nonspecific abnormal finding of lung field; E78.49 Other hyperlipidemia; I25.118 Atherosclerotic heart disease of native coronary artery with other forms of angina pectoris; I10 Essential (primary) hypertension
CPT/HCPCS: 36415; 71260; 80048; 80061; 80076; Q9967

== ENCOUNTER → 2019-01-05 11:32 | Outpatient (CLI) | payer OTHER, SELFPAY ==
--- NOTE | 2019-01-05 11:34 | NM_ITS ---
NM benigno perf SPECT rest str CLINICAL INDICATION: Chest pain, hyperlipidemia, hypertension ITS.REASON: alirio Myoview ORDERING PHYSICIAN: Drew Ziegler MD PATIENT AGE: 63 years COMPARISON: None DOSE: 10.74 mCi technetium Myoview intravenously at rest followed by 31.5 mCi technetium Myoview following the intravenous ministration of 0.4 mg of Lexiscan. FINDINGS: Ejection fraction is calculated to be 56%. No obvious wall motion abnormality SPECT and polar map images reviewed. Stress images demonstrates slight decrease activity in the inferior wall which may be due to diaphragmatic attenuation. The activity in the inferior wall ischemia and less on the delayed images. There is some decreased activity involving the inferolateral apical region with some contour deformity of the wall at this area on the stress images. This area is cut off on the delayed images on the short axis and vertical long axis images. No other abnormalities are evident. IMPRESSION: 1. Normal ejection fraction of 56%. 2. Diaphragmatic attenuation suspected in the inferior wall 3. Questionable small area of ischemia involving the inferior wall at the apex.
--- NOTE | 2019-01-05 12:45 | HMH.ITSHM ---
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 []METOPROLOL ASA
== END ==
PROVIDERS: PCP Emergency Medicine; Visit Provider Internal Medicine
DX: R07.9 Chest pain, unspecified (principal); R06.02 Shortness of breath; E78.5 Hyperlipidemia, unspecified; I10 Essential (primary) hypertension; I25.10 Atherosclerotic heart disease of native coronary artery without angina pectoris
CPT/HCPCS: 78452; 93017; A9502; J2785

== ENCOUNTER → 2019-01-13 09:43 | Outpatient (POV) | payer OTHER, SELFPAY | PROVIDERS: Visit Provider Internal Medicine | DX: Z00.00 Encounter for general adult medical examination without abnormal findings (principal) ==

== ENCOUNTER → 2019-01-29 09:47 | Outpatient (CLI) | payer OTHER, SELFPAY ==
[2019-01-29 11:00] VITALS: PULSE 58
[2019-01-29 11:15] VITALS: BP 117/110; PULSE 58; RESP 12; O2SAT 93
[2019-01-29 11:30] VITALS: BP 165/105; PULSE 62; RESP 14; O2SAT 96
== END ==
PROVIDERS: PCP Emergency Medicine; Visit Provider Internal Medicine
DX: J44.9 Chronic obstructive pulmonary disease, unspecified (principal)
CPT/HCPCS: 94060; 94618; 94640; 94726; 94729

== ENCOUNTER → 2019-04-07 10:19 | Outpatient (POV) | payer OTHER, SELFPAY | PROVIDERS: Visit Provider Internal Medicine | DX: Z00.00 Encounter for general adult medical examination without abnormal findings (principal) ==

== ENCOUNTER → 2019-07-20 08:53 | Outpatient (CLI) | payer OTHER, SELFPAY ==
[2019-07-20 10:51] LABS: Blood Urea Nitrogen 7 mg/dL (7-18); Calcium 9.6 mg/dL (8.5-10.1); Carbon Dioxide 26 mmol/L (21.0-32.0); Chloride 89 mmol/L (98-107); Creatinine,Serum 0.57 mg/dL (0.70-1.30); Estimated Glomerular Filt Rate 144 ml/min (>60); GFR (African American) 174 ML/MIN (>60); Glucose 141 mg/dL (74-106); Sodium 128 mmol/L (136-145)
== END ==
PROVIDERS: Visit Provider Urology
DX: I25.10 Atherosclerotic heart disease of native coronary artery without angina pectoris (principal)
CPT/HCPCS: 36415; 80048

== ENCOUNTER → 2019-08-24 10:17 | Outpatient (CLI) | payer OTHER, SELFPAY ==
[2019-08-24 19:45] LABS: Anion Gap 14.7 mEq/L (5-15); Blood Urea Nitrogen 7 mg/dL (7-18); Calcium 9.5 mg/dL (8.5-10.1); Carbon Dioxide 27 mmol/L (21.0-32.0); Chloride 95 mmol/L (98-107); Creatinine,Serum 0.57 mg/dL (0.70-1.30); Estimated Glomerular Filt Rate 144 ml/min (>60); GFR (African American) 174 ML/MIN (>60); Glucose 81 mg/dL (74-106); Potassium 4.7 mmoL/L (3.5-5.1); Sodium 132 mmol/L (136-145)
== END ==
PROVIDERS: Visit Provider Nurse Practitioner Family
DX: I25.118 Atherosclerotic heart disease of native coronary artery with other forms of angina pectoris (principal); R06.02 Shortness of breath; R60.9 Edema, unspecified; E87.6 Hypokalemia
CPT/HCPCS: 36415; 80048; 83880

== ENCOUNTER → 2019-08-25 13:09 | Outpatient (POV) | payer OTHER, SELFPAY | PROVIDERS: Visit Provider Internal Medicine | DX: Z00.00 Encounter for general adult medical examination without abnormal findings (principal) ==

== ENCOUNTER → 2019-10-01 11:18 | Outpatient (CLI) | payer OTHER, SELFPAY ==
[2019-10-01 13:17] LABS: Prostate Specific Ag Screen 0.2 ng/mL (0.0-4.0)
[2019-10-07 15:30] LABS: Testosterone, Total, LC/MS 489.7 ng/dL (264.0-916.0); Testosterone,Free 3.6 pg/mL (6.6-18.1)
== END ==
PROVIDERS: Visit Provider Urology
DX: R53.83 Other fatigue (principal); Z12.5 Encounter for screening for malignant neoplasm of prostate
CPT/HCPCS: 36415; 84402; 84403; G0103

== ENCOUNTER → 2020-03-07 09:43 | Outpatient (CLI) | payer MEDICARE, MEDICAID, SELFPAY ==
--- NOTE | 2020-03-07 09:47 | CA_ITS ---
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: CT Laterality: Bilateral Study Quality: Adequate Indications: bilateral carotid bruits, CAD Risk Factors Hypertension: Hyperlipidemia Smoking Doppler Spectral Velocity Analysis ECA (R) 59.00/13.30 cm/s ECA (L) 68.10/16.10 cm/s dICA (R) 76.40/41.10 cm/s dICA (L) 82.20/38.50 cm/s [place] (R) 80.30/41.70 cm/s [place] (L) 70.60/29.50 cm/s pICA (R) 73.20/34.70 cm/s pICA (L) 64.20/27.60 cm/s dCCA (R) 82.80/27.60 cm/s dCCA (L) 71.30/19.90 cm/s pCCA (R) 108.80/27.40 cm/s pCCA (L) 83.50/20.50 cm/s Vert (R) 25.00/8.20 cm/s Vert (L) 43.00/17.30 cm/s ICA/CCA 1.00 ICA/CCA 1.20 Conclusion Duplex evaluation demonstrates stenosis of the right proximal internal carotid artery in the range of 20-49%, lower end of scale. Duplex evaluation demonstrates stenosis of the left proximal internal carotid artery in the range of 20-49%, lower end of scale. Duplex evaluation demonstrates antegrade flow of the bilateral Vertebral Arteries. Electronically signed by : Xavier Pacheco MD 03/07/2020 18:19:42
== END ==
PROVIDERS: PCP Emergency Medicine; Visit Provider Urology
DX: R09.89 Other specified symptoms and signs involving the circulatory and respiratory systems (principal)
CPT/HCPCS: 93880

== ENCOUNTER 2020-04-23 07:10 | Emergency (ER) | payer MEDICARE, MEDICAID, SELFPAY ==
[2020-04-23 07:12] VITALS: BP 146/104; PULSE 81; RESP 18; TEMP 36.8; O2SAT 93; BMI 22.4
--- NOTE | 2020-04-23 07:27 | XR_ITS ---
PROCEDURE: XR SHOULDER RT MIN 2V Patient Age:64Y CLINICAL INDICATION: FELL ON SATURDAY right shoulder and right hand symptoms COMPARISON: [id number] VIEW COMP.-RT from 02/28/2015 XR SHOULDER RT MIN 2V from 06/14/2019 FINDINGS: The no acute findings but no acute fracture or dislocation. The glenohumeral joint is intact. Humeral head and neck intact. Scapula intact. AC joint common normal width. Small curvilinear area of calcification just superior to the distal most clavicle approaching AC joint is again noted and similar to 05/2019 study.-. Likely reflect an old area of injury or dystrophic calcification. The old healed posterior right 6 and 7th rib fractures again noted. Subtle increased density right suprahilar region noted and described in greater detail on CT chest from today The : Additional note: The lower most C-spine is included in the AP projection. Even on this plain film study the C7 facet appears very very slightly less height than previous studies-again supporting suspicion regarding the minimal right C7 facet compression fracture discussed on CT IMPRESSION: No new findings at the right shoulder.. Old observations Right shoulder itself unchanged since May 2019 Old right rib fractures Note: The right C7 facet is included. Appears very slight decreased height on these images-further supporting suspect minimal right C7 fracture suggested on CT Dictated by: Jeremy Acuna MD 04/23/2020 12:44 Electronically signed by Jeremy Acuna MD in [place] 04/23/2020 12:44
--- NOTE | 2020-04-23 07:39 | PC.NURSE ---
PT RETURNED FROM RAD
--- NOTE | 2020-04-23 07:57 | CT_ITS ---
PROCEDURE: CT THORACIC SPINE WO CON Patient Age:64Y CLINICAL HISTORY: Fall on with right shoulder right chest pain right back pain. Right hand and fingers tingling Loop recorder COMPARISON: [id number] CT THORACIC SPINE W/O CONTRAST from 12/23/[address] chest w con from 12/24/2018 CT CHEST WO CON from 06/14/2019 CT CERVICAL SPINE WO CON from 06/14/2019 CT CERVICAL SPINE WO CON from 04/23/2020 XR SHOULDER RT MIN 2V from 04/23/2020 CT CHEST W CON from 04/23/2020 TECHNIQUE: No IV contrast Helical axial images obtained with sagittal and coronal reformats. All CT scans at the facility use one or more dose reduction, viz: automated exposure control, ma/kV adjustment per patient size (including targeted exams where dose is matched to indication, i.e. head), or iterative reconstruction technique. FINDINGS: Today's T-spine study begins at midbody T1 and continues through L1 however the CT cervical spine from today does include T1 and T2 vertebral bodies to overlap.. However this T-spine study does not include the suspect abnormalities at c7 facet on right no new findings at the thoracic spine when compared to the May 2019 CT chest. The the subtle superior endplate concavity T3 a stable feature. And may reflect mild old compression injury. Disc space narrowing and spondylosis at C7/T1 disc space noted.. Again the C7 facets not included on this study. Of there is mild superior endplate concavity at L2 age which is a stable features since CT chest November 2018. And the spinous processes appear intact. There is some mild facet arthropathy throughout T-spine the. Old right and left rib fractures noted posterior lung spears are included bilaterally. Prominent underlying emphysematous changes Right lung: Elongated focal area of density extending posterior from right suprahilar region into the posterior RUL of it resides adjacent to the airways here. The this density measures up to 3 cm length x 1.5 cm AP. Although could be inflammatory I cannot exclude developing neoplasm given this new irregular nodular density adjacent airway here and significant history of smoking.. Will warrant further evaluation and possibly bronchoscopy The. Elsewhere throughout the right upper lobe note minimal somewhat patchy areas of infiltrate.. Left lung: New pleural based nodular density with irregular margin measuring least 1.5 cm.. Adjacent small bleb. Suggestion of scant infiltrate in this region. Again this could be inflammatory although a could not exclude a developing neoplastic lesion. Of possible minimal wispy infiltrate towards the posterior sulcus regions bilaterally although after reviewing multiple studies the patient does have significant chronic changes with prior study showing evidence resolved pneumonia is in these regions. IMPRESSION: 1. T-spine itself appears stable intact. No acute findings at thoracic spine Mild superior endplate concavity at T3 and superior L2 appears stable since November 2018 CT chest. Also multiple old posterior right and left rib fractures similar to prior studies 2.. Partially visualized lung spears reveal new areas of airspace disease, suspect for pneumonia.,.. Along with new pulmonary nodular appearing densities bilaterally: .Most notable is a 3 x 1.5 cm elongated density extending posterior to the right brennan into the posterior RUL. .There is also a 1.5 cm pleural based lesion at the posterior aspect superior MARCIA .Both these areas warrant follow-up and/or further investigation to exclude neoplasm Dictated by: Jeremy Acuna MD 04/23/2020 12:36 Electronically signed by Jeremy Acuna MD in [place] 04/23/2020 12:36
--- NOTE | 2020-04-23 07:57 | CT_ITS ---
PROCEDURE: CT CERVICAL SPINE WO CON Patient Age:64Y CLINICAL INDICATION: Fall on with multiple injuries. Right shoulder pain as well as some neck pain. Unable to raise arms. Right hand finger tingling. Facial abrasions COMPARISON: CT CERVICAL SPINE WO CON from 06/14/2019 TECHNIQUE: No IV contrast. HelicalAxial images obtained with sagittal and coronal reformats. All CT scans at the facility use one or more dose reduction, viz: automated exposure control, ma/kV adjustment per patient size (including targeted exams where dose is matched to indication, i.e. head), or iterative reconstruction technique. FINDINGS: No acute fracture nor subluxation is evident. Normal prevertebral soft tissues. There are that multilevel degenerative changes at the C-spine. Cervical spondylosis as well as facet hypertrophy arthropathy at multiple levels facet hypertrophy is more pronounced throughout the left aspect cervical spine at all levels-. Most exuberant facet hypertrophy is seen throughout the left lower C-spine at C5/6, C4/5 and to less degree C3/4 on left C1-C2 relationships appear satisfactory. Dens intact. Cranial cervical junction satisfactory. C2/3 disc space maintained C3/4. Degenerative disc space narrowing. Cervical spondylosis; mild posterior osteophytic ridging and uncovertebral joint hypertrophy slightly more evident on right C4/5 of mild degenerative disc space narrowing posteriorly. Only scant uncovertebral joint hypertrophy Also note very scant retrolisthesis of both C3 on 4; and C4 on 5 appears degenerative nature C5/6 disc intact with only slight narrowing posteriorly. Facet arthropathy on the left yields slight foraminal encroachment at this level, as seen on sagittal image 27 axial image 50 C5/6. Degenerative disc space narrowing but diffuse posterior osteophytic ridging. Which yields of [id number] bilateral foraminal encroachment . Emphysematous changes noted at the lungs with some apical pleural scarring on the left. No acute findings at lung apices. Calcified carotid artery bifurcation bilaterally most evident on the left and continuing through left ICA origin . Scattered small nodes at neck bilaterally but no dominant mass IMPRESSION: No acute findings of the cervical spine. No acute fracture or subluxation Multilevel degenerative disc changes, cervical spondylosis as detailed in text . Facet hypertrophy throughout the left aspect of cervical spine Dictated by: Jeremy Acuna MD 04/23/2020 09:40 Electronically signed by Jeremy Acuna MD in [place] 04/23/2020 09:40
--- NOTE | 2020-04-23 08:01 | PC.NURSE ---
Notified rad of CT scans
--- NOTE | 2020-04-23 09:44 | PC.NURSE ---
Attempted to obtain blood samples multiple times, lab here to collect samples, stated to only get what we need for the BUN and station attendant for the CT scan.
--- NOTE | 2020-04-23 09:50 | PC.NURSE ---
Pt has moderate size skin tear on the left forearm, bandage changed and MD notified of wound.
[2020-04-23 10:08] LABS: Chloride 99 mmol/L (98-107); Sodium 130 mmol/L (136-145)
[2020-04-23 10:10] LABS: Blood Urea Nitrogen 11 mg/dl (9-20); Creatinine Clearance Estimated 80 mL/min (50-200); Estimated Glomerular Filt Rate 167 ml/min (>60); GFR (African American) 202 ML/MIN (>60)
[2020-04-23 10:11] VITALS: BP 171/105; PULSE 72; RESP 20; O2SAT 89
[2020-04-23 10:11] LABS: Alanine Aminotransferase 49 U/L (12-78); Albumin Level 4.7 g/dl (3.5-5.0); Albumin/Globulin Ratio 1.1 (1.1-1.8); Alkaline Phosphatase 44 U/L (38-126); Anion Gap 23.3 mEq/L (5-15); Aspartate Amino Transferase 89 U/L (17-59); Bilirubin,Total 1.2 mg/dl (0.2-1.3); Calcium 9.5 mg/dl (8.4-10.2); Carbon Dioxide 14 mmol/L (22.0-30.0); Globulin 4.1 g/dL (1.3-3.2); Glucose 89 mg/dl (74-100); Potassium 6.3 mmoL/L (3.5-5.1); Total Protein,Serum 8.8 g/dl (6.3-8.2)
[2020-04-23 10:12] LABS: Basophils # 0.1 K/mm3 (0-0.2); Basophils % 0.7 % (0.1-2.0); Eosinophils # 0.2 K/mm3 (0.0-0.4); Eosinophils % 2.1 % (0.1-12.0); Hematocrit 46.3 % (42.0-52.0); Lymphocytes # 1.3 K/mm3 (0.7-4.5); Lymphocytes % 13.2 % (10-50); Mean Corpuscular HGB Conc 34.6 g/dL (31.8-35.4); Mean Corpuscular Hemoglobin 36.6 pg (27.0-31.2); Mean Corpuscular Volume 105.8 fl (80-94); Mean Platelet Volume 8.9 fl (7.4-10.4); Monocytes # 0.9 K/mm3 (0.1-1.0); Monocytes % 8.9 % (1.7-9.3); Neutrophils # 7.2 K/mm3 (1.8-7.8); Platelet Count 342 K/mm3 (142-424); Red Blood Count 4.38 M/mm3 (4.60-6.20); Red Cell Distribution Width 13.8 % (11.5-17.5); White Blood Count 9.6 K/mm3 (4.8-10.8)
--- NOTE | 2020-04-23 10:15 | CT_ITS ---
PROCEDURE: CT CHEST W CON Patient Age:64Y CLINICAL HISTORY: possible lung ca. Smoker. Fell with right hand and fingers tingling. Right shoulder as well the the the chest discomfort . COPD COMPARISON: CT CHEST WO CON from 06/14/2019 CT CERVICAL SPINE WO CON from 06/14/2019 CT THORACIC SPINE WO CON from 04/23/2020 CT CERVICAL SPINE WO CON from 04/23/2020 TECHNIQUE: IV contrast: 75 cc Optiray 350 Helical axial images obtained with sagittal and coronal reformats. All CT scans at the facility use one or more dose reduction, viz: automated exposure control, ma/kV adjustment per patient size (including targeted exams where dose is matched to indication, i.e. head), or iterative reconstruction technique. FINDINGS: Underlying emphysematous changes again noted. RIGHT LUNG: Right upper lobe abnormalities most notable.. Elongated focal density spanning 3 cm length 1.5 cm with follows adjacent to airway towards posterior segment R UL.(Axial 38, sagittal 33-36). There is also minimal wispy infiltrates RUL surrounding and peripheral to this density with minimal patchy infiltrates elsewhere RUL. For example on axial image 37 the sagittal 19 there is a focal peripheral low density focus which I reflect inflammatory process... May also be a small area wispy infiltrate at the posterior sulcus associated with scarring and mild chronic changes is seen previous. The small nodular densities seen on 2019 CT chest here at the right lung appear stable: axial image 58 at RLL, this nodule is fairly dense for size and likely a granuloma measuring less than 7 mm. A at RML there is a 6.5 mm stable nodule likely partially calcified granuloma. Dense benign calcified granuloma on axial image 67-stable LEFT LUNG: Left upper lobe: Irregular nodular density pleural base at the posterior medial aspect left upper lung axial image 16, 17.-nearly 1.5 cm height and slightly greater at the base. Although could be an inflammatory process would be concerned could reflect a developing neoplastic nodule and will require follow-up and likely further evaluation. This feature since 2018 CT chest There is some minimal stranding and suggestion of minimal wispy adjacent to this area which could reflect of minimal pneumonia. At posterior LLL a towards left lung base note some wispy minimal infiltrate I suspect mainly reflecting pneumonia and and atelectasis.. Suspect there is some minimal pneumonia here noting few small tree-in-bud type like features LLL here. Correlation with lab and suggest exclude Covid in workup. Suggest also additionally check sputum for AFB and fungus Old posterior rib fractures bilaterally. stable since 2019 Lower left 10 and 11 left healed rib fractures. Healed right rib fractures with old healed right 7th posterior rib fracture most notable I believe the mild superior endplate compression at T2 is stable and I see no acute findings otherwise at the T-spine Mediastinum. No hilar or mediastinal adenopathy. Aorta normal caliber. Heart normal size. No new mediastinal findings. The glenohumeral joint of right shoulder is included on this study and appears intact. The scapula appears intact. The upper right ribs with no new findings. Glenohumeral joint, AC joint, right clavicle appear intact. No obvious findings in the region of the brachial plexus the.. Mild facet arthropathy T-spine IMPRESSION: 1..Underlying emphysematous changes Suggestion areas inflammatory process/pneumonia bilaterally.. Focal densities which could be related to the inflammatory process or reflect developing neoplasm. Right lung: -focal 3 cm x 1.5 cm density extends posterior from right suprahilar re
[2020-04-23 10:30] LABS: Appearance,Urine CLEAR (Clear); Bilirubin,Urine Negative (Negative); Blood, Urine Negative (Negative); Color,Urine YELLOW (Yellow); Glucose,Urine (UA) Negative (Negative); Ketones,Urine 1+ (Negative); Leukocyte Esterase,Urine Negative (Negative); Microscopic, Urine URINE MICROSCOPIC (MICROSCOPIC); Nitrate,Urine Negative (Negative); PH,Urine 5.5 (5.0-8.5); Protein,Urine Negative (Negative); Urobilinogen,Urine 0.2 EU/dl (0.2)
[2020-04-23 10:38] LABS: RBC,Urine Occasional #/hpf (0-3); Squamous Epithelial Cell,Urine Occasional #/hpf (0-5); WBC,Urine Occasional #/hpf (0-3)
--- NOTE | 2020-04-23 11:23 | [facility].EDEXTP ---
ED Disposition Clinical Impression: Cervical spine fracture, Pneumonia, Lung mass Disposition: Xfer Short-Term Hosp Condition on Discharge: Good Instructions: Pneumonia-Adult Additional Instructions: Transfer to [facility] via BLS. Referrals: Ziyad Nicholas MD [Primary Care Provider] - - Critical Care Critical Care Time: No Attestation: On 04/23/20, the high probability of a clinically significant, sudden or life threatening deterioration of the following system(s) required my full and direct attention, intervention and personal management. The time I documented below is in addition to time spent performing reported procedures but includes the following listed in this critical care notation. Medical Decision Making - Medical Records Medical records reviewed: Yes: I reviewed the patient's medical records. - Shailesh Inquiry Pt receiving controlled substance: No Vital Signs: 04/23/20 07:12 04/23/20 10:11 Temperature 98.2 F Temperature Source Oral Pulse Rate [Left Radial] 81 72 Respiratory Rate 18 20 Blood Pressure [Left Arm] 146/104 H 171/105 H Blood Pressure Mean [Left Arm] 118 127 Blood Pressure Source [Left Arm] Automatic Cuff Automatic Cuff Blood Pressure Position [Left Arm] Sitting Sitting 02 Sat by Pulse Oximetry 93 L 89 L Oxygen Delivery Method Room Air - Lab Data Lab results reviewed: Yes: I reviewed the patient's lab results. Lab Results 04/23/20 09:10: WBC 9.6, RBC 4.38 L, Hgb 16.0, Hct 46.3, MCV 105.8 H, MCH 36.6 H, MCHC 34.6, RDW 13.8, Plt Count 342, MPV 8.9, Neut % (Auto) 75.0, Lymph % (Auto) 13.2, Giles % (Auto) 8.9, Eos % (Auto) 2.1, Baso % (Auto) 0.7, Neut # (Auto) 7.2, Lymph # (Auto) 1.3, Giles # (Auto) 0.9, Eos # (Auto) 0.2, Baso # (Auto) 0.1 04/23/20 09:40: Sodium 130 L, Potassium 6.3 H*, Chloride 99, Carbon Dioxide 14 L, Anion Gap 23.3 H, BUN 11, Creatinine 0.50 L, Estimated Creat Clear 80, Estimated GFR 167, Est GFR ( Amer) 202, Glucose 89, Calcium 9.5, Total Bilirubin 1.2, AST 89 H, ALT 49, Alkaline Phosphatase 44, Total Protein 8.8 H, Albumin 4.7, Globulin 4.1 H, Albumin/Globulin Ratio 1.1 04/23/20 10:20: Urine Color Yellow, Urine Appearance Clear, Urine pH 5.5, Ur Specific Ogden 1.020, Urine Protein Negative, Urine Glucose (UA) Negative, Urine Ketones 1+, Urine Blood Negative, Urine Nitrate Negative, Urine Bilirubin Negative, Urine Urobilinogen 0.2, Ur Leukocyte Esterase Negative, Urine RBC Occasional, Urine WBC Occasional, Ur Squamous Epith Cells Occasional, Urine Bacteria None Result diagrams: 04/23/20 09:10 04/23/20 09:40 Orders (Tests/Meds): ED MEDICATIONS Discontinued Medications Generic Name Dose Route Start Last Admin Trade Name Freq PRN Reason Stop Dose Admin Ioversol 75 ml 04/23/20 10:30 04/23/20 10:31 Rad-Optiray 350 100ml Vial IV 04/23/20 10:31 75 ml ONCE ONE Administration Protocol Morphine Sulfate 4 mg 04/23/20 09:50 04/23/20 09:58 Morphine 4mg/Ml Syringe IV 04/23/20 09:51 4 mg ONCE ONE Administration Ondansetron HCl 4 mg 04/23/20 09:49 04/23/20 09:58 Zofran 4mg/2ml Vial IV 04/23/20 09:50 4 mg ONCE ONE Administration Sodium Chloride 10 ml 04/23/20 10:30 04/23/20 10:31 Rad-Saline Flush 10ml Syringe IV 04/23/20 10:31 10 ml ONCE ONE Administration ORDERS Category Date Time Status CT chest w con Stat Cat Scan 04/23/20 10:[address] thoracic spine wo con Stat Cat Scan 04/23/20 07:57 Taken XR shoulder RT min 2V Stat Exams 04/23/20 07:27 Taken - CT Data CT Scan: C-Spine, Chest (Patient does have some cervical stenosis that could be contributing to the pain and numbness and tingling and his arm. However what was more concerning was couple of nodules that were noted on the CT of thoracic spine and his locks. And enhanced CT of his chest was done and he does have a mass in the right upper lobe and the left upper lobe one is measuring 2.3 x 1 cm the other ones measuring 1 x
--- NOTE | 2020-04-23 11:24 | PC.NURSE ---
Addendum entered by Erika Richmond RN 04/23/20 11:28: Pt states he was hurting, pain medication offered and stated he would like some Original Note: Updated pt on POC and waiting on results for CT
--- NOTE | 2020-04-23 11:57 | PC.NURSE ---
Dr Acuna called regarding pt c spine, c collar placed on pt. Dr Partida is in with pt now.
--- NOTE | 2020-04-23 12:06 | PC.NURSE ---
SPEAKING WITH DR CAMPOS WITH SPINE AT
--- NOTE | 2020-04-23 12:15 | PC.NURSE ---
Dr Murray accepted pt, [facility] notified of transfer
[2020-04-23 12:19] VITALS: BP 138/94; PULSE 90; O2SAT 95
--- NOTE | 2020-04-23 12:25 | PC.NURSE ---
Report given to Pawel Mayen at ED
--- NOTE | 2020-04-23 13:00 | PC.NURSE ---
[facility] here to transport pt
--- NOTE | 2020-04-23 13:05 | PC.NURSE ---
EMS transport delayed d/t trauma alert
--- NOTE | 2020-04-23 13:20 | PC.NURSE ---
Pt leaving with [facility] at this time
[2020-04-23 13:36] VITALS: BP 140/85; PULSE 85; RESP 18; TEMP 36.6; O2SAT 91
== END 2020-04-23 13:30 | disposition short-term general hospital (02) ==
PROVIDERS: Emergency Provider Family Medicine; PCP Emergency Medicine
DX: S12.401A Unspecified nondisplaced fracture of fifth cervical vertebra, initial encounter for closed fracture (principal); S12.601A Unspecified nondisplaced fracture of seventh cervical vertebra, initial encounter for closed fracture; W01.0XXA Fall on same level from slipping, tripping and stumbling without subsequent striking against object, initial encounter; Y92.019 Unspecified place in single-family (private) house as the place of occurrence of the external cause; J18.9 Pneumonia, unspecified organism; I10 Essential (primary) hypertension; Z95.0 Presence of cardiac pacemaker; I25.10 Atherosclerotic heart disease of native coronary artery without angina pectoris; Z99.81 Dependence on supplemental oxygen; Z79.899 Other long term (current) drug therapy; F17.210 Nicotine dependence, cigarettes, uncomplicated; Z88.8 Allergy status to other drugs, medicaments and biological substances; F10.10 Alcohol abuse, uncomplicated
CPT/HCPCS: 71260; 72125; 72128; 73030; 80053; 81001; 85025; 96374; 96375; 96376; 99284; J2405; Q9967

== ENCOUNTER → 2020-08-22 14:21 | Outpatient (CLI) | payer MEDICARE, MEDICAID, SELFPAY ==
--- NOTE | 2020-08-22 14:28 | CA_ITS ---
APPROVED REPORT EXAM: Comprehensive 2D, Doppler, and color-flow Echocardiogram Superintendent Pier: Harriet Roberts RVT Ht: 6 ft 0 in Wt: 169lbs BSA: 1.98 BP: 108/80 mmHg Indications: SOA,CAD,HTN,HLD,SMOKER,LOOP RECORDER,ETOH ABUSE 2D Dimensions LVOT 1.25 cm (M/F) 1.5-2.5 M-Mode Dimensions RVDd 3.60 cm (0.9-2.6) LA Diam 3.66 cm (1.9-4.0) LVDd 4.68 cm (3.5-5.7) Ao Diam 3.95 cm (2.0-3.7) LVDs 3.21 cm (3.5-5.7) IVSd 0.64 cm (0.6-1.1) PWd 1.07 cm (0.6-1.1) EF (Teich) 59.20% FS 31.40% EDV (Teich) 101.30 mL ESV (Teich) 41.30 mL LV Diastology E Decel Time 193.00 (160-240 msec) E/A Ratio 0.6 MED E' 6.00 (< 7 cm/sec) E'/MED E' Ratio 7.33 (>14) LAT E' 9.60 (<10 cm/sec) E/LAT E' Ratio 4.58 (>14) Aortic Valve LVOT Max 139.00 (70-110 cm/s) LVOT VTI 28.86 cm AoV Peak Douglas. 160.00 (50-130 cm/s) AO Peak GR. 10.20 mmHg AO Mean GR. 5.10 (<5 mmHg) AO VTI 30.41 (18-25 cm) SYD (VTI) 1.16 (2.5-4.5 cm2) Mitral Valve MV E Max Douglas. 44.00 (40-130 cm/s) MV A Velocity 74.00 (40-130 cm/s) E/A Ratio 0.59 MV Decel. Time 193.00 (160-240 ms) MV PHT 57.00 ms Pulmonary Valve PV Peak Velocity 58.00 (50-150 cm/s) Tricuspid Valve TR P. Velocity 287.00 cm/s Left Ventricle Left atrium is mildly enlarged, left ventricle is normal size, mild concentric left ventricular hypertrophy, visually estimated ejection fraction 55% with no regional wall motion abnormality, grade 1 diastolic dysfunction seen without tissue Doppler evidence of raise left atrial pressure. Right Ventricle Right atrium and right ventricle are mildly enlarged with normal contractility. Aortic Valve Aortic valve is thickened and calcified without aortic stenosis, there is no significant aortic insufficiency present. Mitral Valve Mitral valve leaflets are minimally thickened, there is no mitral stenosis, there is mild mitral regurgitation. Tricuspid Valve Tricuspid valve is grossly normal, there is mild tricuspid regurgitation. Pulmonic Valve Pulmonic valve is poorly visualized. Great Vessels Aortic root is normal size. Pericardium No significant pericardial effusion noted. Conclusion 1. Biatrial enlargement, normal left ventricular size, mild concentric left ventricular hypertrophy, visually estimated ejection fraction 55% with no regional wall motion abnormality, grade 1 diastolic dysfunction seen without tissue Doppler evidence of atrial pressure. 2. Mildly enlarged right ventricle with normal contractility. 3. Thickened and calcified aortic valve without Doppler evidence of aortic stenosis or aortic insufficiency. 4. Mild mitral and tricuspid regurgitation, calculated right ventricular systolic pressure 33 mmHg 5. No significant pericardial effusion noted. Electronically signed by : Merlin Barillas, 08/22/2020 19:45:39
--- NOTE | 2020-08-22 14:28 | US_ITS ---
APPROVED REPORT Exam Type: Lower Extremity Segmental Pressures Internal Communications Writer: Ayla Cha RDCS Indications Claudication: Edema Current Smoker History of Smoking CAD Risk Factors Hypertension Hyperlipidemia TIA/CVA History Current Smoker Pressures/Indices Right Indices Left Indices Brachial 114.00 mmHg Brachial 107.00 mmHg Low Thigh 123.00 mmHg 1.08 Low Thigh 123.00 mmHg 1.08 Calf 139.00 mmHg 1.22 Calf 132.00 mmHg 1.16 Ankle(PT) 134.00 mmHg 1.18 Ankle(PT) 125.00 mmHg 1.10 Ankle(DP) 145.00 mmHg 1.27 Ankle(DP) 121.00 mmHg 1.06 Digit 129.00 mmHg 1.13 Digit 138.00 mmHg 1.21 Findings NORMAL PULSES AND WAVEFORMS R PAMELA 1.27 L PAMELA 1.10 R TBI 1.13 L TBI 1.21 Conclusion NORMAL PULSES AND WAVEFORMS R PAMELA 1.27 L PAMELA 1.10 R TBI 1.13 L TBI 1.21 Normal appearing resting noninvasive lower extremity arterial study. Electronically signed by : Xavier Pacheco MD 08/23/2020 17:36:04
[2020-08-22 14:56] LABS: Chloride 90 mmol/L (98-107); Potassium 3.7 mmoL/L (3.5-5.1); Sodium 131 mmol/L (136-145)
[2020-08-22 14:59] LABS: Anion Gap 12.7 mEq/L (5-15); Blood Urea Nitrogen 9 mg/dl (9-20); Carbon Dioxide 32 mmol/L (22.0-30.0); Estimated Glomerular Filt Rate 135 ml/min (>60); GFR (African American) 164 ML/MIN (>60)
[2020-08-22 15:00] LABS: Calcium 9.7 mg/dl (8.4-10.2); Glucose 89 mg/dl (74-100)
[2020-08-22 15:09] LABS: NT Pro Brain Natriuretic Pep. 46.6 pg/mL (0-125)
== END ==
PROVIDERS: Visit Provider Urology
DX: E78.5 Hyperlipidemia, unspecified (principal); F17.200 Nicotine dependence, unspecified, uncomplicated; I10 Essential (primary) hypertension; M79.89 Other specified soft tissue disorders; R06.02 Shortness of breath; R91.1 Solitary pulmonary nodule; I20.9 Angina pectoris, unspecified; I73.9 Peripheral vascular disease, unspecified; I65.23 Occlusion and stenosis of bilateral carotid arteries
CPT/HCPCS: 36415; 80048; 83880; 93306; 93923

== ENCOUNTER 2020-11-17 22:41 | Emergency (ER) | payer MEDICARE, MEDICAID, SELFPAY ==
[2020-11-17 22:40] VITALS: BP 122/75; PULSE 68; RESP 16; TEMP 36.6; O2SAT 93; BMI 22.4
--- NOTE | 2020-11-17 22:51 | CT_ITS ---
PROCEDURE: CT HEAD/BRAIN WO CON CLINICAL INDICATION: fall with intoxication Head injury with headache/pain, contusion, abrasion or hematoma COMPARISON: CT CT HEAD/BRAIN WO CON from 06/14/2019 TECHNIQUE: Axial images obtained. All CT scans at the facility use one or more dose reduction, viz: automated exposure control, ma/kV adjustment per patient size (including targeted exams where dose is matched to indication, i.e. head), or iterative reconstruction technique. FINDINGS: No midline shift, mass effect, intracranial hemorrhage, hydrocephalus, or extra-axial fluid collection is evident. There is generalized atrophy with hypoattenuation of the periventricular white matter consistent with microangiopathic changes. The calvarium has an unremarkable appearance. No mastoid effusion. No sinus air-fluid level. IMPRESSION: No acute intracranial finding Dictated by: Xavier Pacheco MD 11/18/2020 05:40 Xavier Pacheco MD in [place] 11/18/2020 05:40
--- NOTE | 2020-11-17 22:51 | CT_ITS ---
PROCEDURE: CT CERVICAL SPINE WO CON CLINICAL INDICATION: fall with intoxication Neck injury with pain, contusion/abrasion or hematoma, cervical sprain/strain the COMPARISON: CT CT CERVICAL SPINE WO CON from 04/23/2020 TECHNIQUE: Axial images obtained with sagittal and coronal reformats. All CT scans at the facility use one or more dose reduction, viz: automated exposure control, ma/kV adjustment per patient size (including targeted exams where dose is matched to indication, i.e. head), or iterative reconstruction technique. Axial spiral CT scanning performed of the cervical spine beginning at the base of the skull and continuing to the upper T-spine. 3-D multiplanar reconstruction with 3-D manipulation of volumetric data set in image rendering was completed by the radiologist and/or technologist with the supervision of the radiologist on independent workstation. FINDINGS: Normal alignment. No fracture or dislocation. There is mild multilevel cervical spondylosis. Non bony fusion posterior arch of C1 C2-C3: Unremarkable. C3-C4: Degenerative disc disease with bilateral foraminal narrowing and 2 mm retrolisthesis of C3 C4-C5: Degenerative disc disease with mild bilateral foraminal narrowing and prominent left-sided facet hypertrophic change. C5-C6: Degenerative disc disease with prominent left-sided facet hypertrophic change and left-sided foraminal narrowing. Chronic fracture noted involving the lamina on the right at C6 C6-C7: Degenerative disc disease with endplate hypertrophic change and facet and uncovertebral hypertrophy with bilateral foraminal narrowing. C7-T1: Degenerative disc disease Thoracic findings discussed elsewhere. IMPRESSION: 1. No acute fracture. 2. Multilevel cervical spondylosis as detailed above. 3. Old right C6 lamina fracture. 4. Thoracic findings discussed elsewhere Dictated by: Xavier Pacheco MD 11/18/2020 05:46 Xavier Pacheco MD in [place] 11/18/2020 05:46
--- NOTE | 2020-11-17 22:51 | XR_ITS ---
PROCEDURE: XR CHEST PORTABLE CLINICAL HISTORY: fall Pain COMPARISON: CR CXR2V XR chest 2V from 03/13/2018 CR CXR2V XR chest 2V from 08/11/2018 CR XR RIBS RT MIN 3V W CXR1V from 06/14/[address] ANGIO CHEST from 11/17/2020 FINDINGS: The cardiomediastinal silhouette and pulmonary vascularity are within normal limits. COPD. Loop recorder device is present. Dense consolidation or mass noted in the left upper lobe. Chest CT suggested for further evaluation. Faint nodularity suspected in the right upper lobe as well. Mild pleural thickening right midlung laterally. No acute bony abnormalities. IMPRESSION: Dense consolidation versus mass in the left upper lobe. Suggest chest CT for further evaluation Dictated by: Xavier Pacheco MD 11/18/2020 05:17 Xavier Pacheco MD in [place] 11/18/2020 05:17
--- NOTE | 2020-11-17 22:51 | CT_ITS ---
PROCEDURE: CT ABDOMEN PELVIS W CON CLINICAL INDICATION: fall with abd. tenderness Blunt trauma with injury and pain, contusion/abrasion or hematoma following injury COMPARISON: CT ABDPELW CT abdomen pelvis w con from 08/10/2018 TECHNIQUE: IV Contrast: 75ML Isovue 370 Oral Contrast None Axial images obtained with sagittal and coronal reformats. All CT scans at the facility use one or more dose reduction, viz: automated exposure control, ma/kV adjustment per patient size (including targeted exams where dose is matched to indication, i.e. head), or iterative reconstruction technique. FINDINGS: LOWER THORAX: There are multiple chronic rib deformities. Acute/subacute appearing fracture involves the left 8th rib ABDOMEN & PELVIS: Fatty liver. Mildly distended gallbladder. The spleen, adrenal glands, pancreas, and kidneys have an unremarkable appearance. There is an IVC filter present. The tip is just below the level of the renal veins. No intestinal obstruction or free air. No evidence of appendicitis or diverticulitis. There is a mild amount of retained colonic feces. The urinary bladder is slightly distended. Central prostate coarse calcifications noted. There are degenerative changes in the lumbar spine. IMPRESSION: Multiple old rib fractures with subacute or acute nondisplaced fracture of the left 8th rib. No acute intra-abdominal findings. Dictated by: Xavier Pacheco MD 11/18/2020 10:26 Xavier Pacheco MD in [facility] 11/18/2020 10:26
[2020-11-17 23:05] LABS: Basophils # 0.1 K/mm3 (0-0.2); Eosinophils # 0.3 K/mm3 (0.0-0.4); Eosinophils % 4.2 % (0.1-12.0); Hemoglobin 15.4 g/dL (14.1-18.0); Lymphocytes # 2.1 K/mm3 (0.7-4.5); Lymphocytes % 30.7 % (10-50); Mean Corpuscular HGB Conc 34.1 g/dL (31.8-35.4); Mean Corpuscular Hemoglobin 36.2 pg (27.0-31.2); Mean Corpuscular Volume 106.2 fl (80-94); Mean Platelet Volume 8.2 fl (7.4-10.4); Monocytes # 0.6 K/mm3 (0.1-1.0); Monocytes % 8.4 % (1.7-9.3); Neutrophils # 3.9 K/mm3 (1.8-7.8); Neutrophils % 55.6 % (37.0-80.0); Platelet Count 249 K/mm3 (142-424); Red Blood Count 4.24 M/mm3 (4.60-6.20); White Blood Count 6.9 K/mm3 (4.8-10.8)
[2020-11-17 23:06] LABS: Chloride 94 mmol/L (98-107); Potassium 3.4 mmoL/L (3.5-5.1); Sodium 138 mmol/L (136-145)
[2020-11-17 23:09] LABS: Anion Gap 15.4 mEq/L (5-15); Blood Urea Nitrogen 5 mg/dl (9-20); Calcium 9.3 mg/dl (8.4-10.2); Carbon Dioxide 32 mmol/L (22.0-30.0); Creatinine Clearance Estimated 80 mL/min (50-200); Estimated Glomerular Filt Rate 135 ml/min (>60); GFR (African American) 164 ML/MIN (>60); Glucose 88 mg/dl (74-100)
--- NOTE | 2020-11-17 23:09 | ECG_ITS ---
APPROVED REPORT Exam: Resting ECG HR:62 bpm ECG Measurements Heart Rate 62 AXES AZ 162 P 78 QRSd 114 QRS 79 QT 494 T 82 QTc 501 Conclusion Normal sinus rhythm Prolonged QT Abnormal ECG Electronically signed by : Jj Joe, 11/18/2020 18:02:17
[2020-11-17 23:10] VITALS: BP 119/83; PULSE 64; RESP 16; O2SAT 91
[2020-11-17 23:12] LABS: Microscopic, Urine URINE MICROSCOPIC (MICROSCOPIC)
[2020-11-17 23:13] LABS: Lactic Acid 1.4 mmol/L (0.7-2.1)
[2020-11-17 23:14] LABS: Appearance,Urine CLEAR (Clear); Bilirubin,Urine Negative (Negative); Blood, Urine Negative (Negative); Color,Urine YELLOW (Yellow); Glucose,Urine (UA) Negative (Negative); Ketones,Urine Negative (Negative); Leukocyte Esterase,Urine Negative (Negative); Nitrate,Urine Negative (Negative); Protein,Urine Negative (Negative)
--- NOTE | 2020-11-17 23:15 | HMH.EDFALL ---
ED Disposition Clinical Impression: Alcohol use disorder, Lung mass Falls Qualifiers: Encounter type: initial encounter Qualified Code(s): W19.XXXA - Unspecified fall, initial encounter Ribs, multiple fractures Qualifiers: Encounter type: subsequent encounter Fracture type: closed Laterality: bilateral Fracture healing: with routine healing Qualified Code(s): S22.43XD - Multiple fractures of ribs, bilateral, subsequent encounter for fracture with routine healing Disposition: Home, Self-Care Condition on Discharge: Good Additional Instructions: will ask pt to see pcp and pulmonary med Referrals: Ziyad Nicholas MD [Primary Care Provider] - - Critical Care Critical Care Time: No Attestation: On 11/17/20, the high probability of a clinically significant, sudden or life threatening deterioration of the following system(s) required my full and direct attention, intervention and personal management. The time I documented below is in addition to time spent performing reported procedures but includes the following listed in this critical care notation. Medical Decision Making - Medical Records Medical records reviewed: Yes: I reviewed the patient's medical records. - Shailesh Inquiry Pt receiving controlled substance: No Vital Signs: 11/17/20 22:40 11/17/20 23:10 11/17/20 23:40 Temperature 97.8 F Temperature Source Oral Pulse Rate [Left Radial] 68 64 71 Respiratory Rate 16 16 17 Blood Pressure [Right Arm] 122/75 119/83 128/91 H Blood Pressure Mean [Right Arm] 90 95 103 Blood Pressure Source [Right Arm] Automatic Cuff Automatic Cuff Automatic Cuff Blood Pressure Position [Right Arm] Sitting Sitting Sitting 02 Sat by Pulse Oximetry 93 L 91 L 94 L Oxygen Delivery Method Nasal Cannula Nasal Cannula Nasal Cannula Oxygen Flow Rate (LPM) 2 2 2 11/18/20 00:40 11/18/20 01:40 Temperature Temperature Source Pulse Rate [Left Radial] 61 63 Respiratory Rate 15 15 Blood Pressure [Right Arm] 135/87 136/96 H Blood Pressure Mean [Right Arm] 103 109 Blood Pressure Source [Right Arm] Automatic Cuff Automatic Cuff Blood Pressure Position [Right Arm] Sitting Sitting 02 Sat by Pulse Oximetry 90 L 93 L Oxygen Delivery Method Nasal Cannula Nasal Cannula Oxygen Flow Rate (LPM) 2 2 - Lab Data Lab results reviewed: Yes: I reviewed the patient's lab results. Lab Results 11/17/20 22:45: WBC 6.9, RBC 4.24 L, Hgb 15.4, Hct 45.0, MCV 106.2 H, MCH 36.2 H, MCHC 34.1, RDW 15.0, Plt Count 249, MPV 8.2, Neut % (Auto) 55.6, Lymph % (Auto) 30.7, [place] % (Auto) 8.4, Eos % (Auto) 4.2, Baso % (Auto) 1.0, Neut # (Auto) 3.9, Lymph # (Auto) 2.1, [place] # (Auto) 0.6, Eos # (Auto) 0.3, Baso # (Auto) 0.1 11/17/20 22:45: Sodium 138, Potassium 3.4 L, Chloride 94 L, Carbon Dioxide 32 H, Anion Gap 15.4 H, BUN 5 L, Creatinine 0.60 L, Estimated Creat Clear 80, Estimated GFR 135, Est GFR ( Amer) 164, Glucose 88, Calcium 9.3, Troponin I < 0.01 11/17/20 22:45: Lactate 1.4 11/17/20 22:45: Plasma/Serum Alcohol 328 H 11/17/20 23:00: Urine Color Yellow, Urine Appearance Clear, Urine pH 6.0, Ur Specific [place] 1.010, Urine Protein Negative, Urine Glucose (UA) Negative, Urine Ketones Negative, Urine Blood Negative, Urine Nitrate Negative, Urine Bilirubin Negative, Urine Urobilinogen 1.0, Ur Leukocyte Esterase Negative, Urine WBC 3-5, Urine Bacteria 1+ 11/17/20 23:00: Urine Opiates Screen Negative, Urine Methadone Screen Negative, Ur Barbituates Screen Negative, Ur Phencyclidine Scrn Negative, Ur Amphetamines Screen Negative, U Benzodiazepines Scrn Negative, Urine Cocaine Screen Negative, U Marijuana (THC) Screen Negative Result diagrams: 11/17/20 22:45 11/17/20 22:45 Orders (Tests/Meds): ED MEDICATIONS Generic Name Dose Route Start Last Admin Trade Name Freq PRN Reason Stop Dose Admin Sodium Chloride 1,000 mls @ 999 mls/hr 11/18/20 02:00 11/18/20 01:50 Sod Chlor 0.9% 1000ml Bag IV 11/18/20 03:00 999 mls/hr .Q1H1M RACHEAL Administration
[2020-11-17 23:24] LABS: Troponin I < 0.01 ng/ml (0.00-0.034)
--- NOTE | 2020-11-17 23:25 | XR_ITS ---
PROCEDURE: XR PELVIS 1-2V CLINICAL INDICATION: multiple falls Pain COMPARISON: CR XR HIP RT 2-3V W/PELVIS from 06/14/2019 TECHNIQUE: XR Pelvis AP View FINDINGS: No fracture or dislocation is evident. No significant degenerative change. Contrast is present in the urinary bladder and the ureters recent CT scan IMPRESSION: No acute findings. Dictated by: Xavier Pacheco MD 11/18/2020 05:13 Xavier Pacheco MD in [place] 11/18/2020 05:13
--- NOTE | 2020-11-17 23:25 | CT_ITS ---
PROCEDURE: CT ANGIO CHEST CLINCIAL INDICATION: multiple falls Blunt trauma with injury and pain, contusion/abrasion or hematoma following injury, multiple falls COMPARISON: CT CT CHEST W CON from 04/23/2020 TECHNIQUE: IV Contrast: 70ML Isovue 370 Axial images obtained with sagittal and coronal reformats. All CT scans at the facility use one or more dose reduction, viz: automated exposure control, ma/kV adjustment per patient size (including targeted exams where dose is matched to indication, i.e. head), or iterative reconstruction technique. FINDINGS: No mediastinal mass or hilar adenopathy. No evidence of pulmonary embolus aortic aneurysm or aortic dissection. Coronary artery calcifications are present. There is a masslike area of consolidation in the left upper lobe at 5 x 4.5 by 4 cm. This abuts the pleural surface posteriorly. Along the medial aspect of this area there are 2 small cystic areas. At least 1 of the cystic areas is felt to been present on the previous exam. There are some peripheral air bronchograms. This mass was not present on the previous exam of 04/23/2020 and may represent a dense area of consolidation/pneumonia. Cannot exclude the possibility of neoplasm. Suggest treatment for pneumonia with follow-up in 2-3 weeks to ascertain for any resolution. The lesion is along the posterior aspect of the apical posterior segmental bronchus and may be accessible by bronchoscopy if clinically warranted. There are centrilobular emphysematous changes. Previously there were multiple areas of consolidation/mass which have resolved. There are some residual nodular opacities present including a 5 mm nodule in the right upper lobe image 15 series 4, 8 mm nodule upper lobe laterally image 32. Previously there was an area of consolidation at this region which was more prominent than on today's study. An irregular opacity is present in the right perihilar region with some bronchial thickening. There are few calcified nodules as well. There is some aerated mucus in the lower lobe bronchi. No acute bony findings are evident. There are old bilateral rib fractures. There is a nondisplaced left 7th rib fracture which appears acute or subacute. IMPRESSION: 1. Masslike consolidation in the left upper lobe as described above. This may very well represent a dense area of pneumonia. Cannot exclude neoplasm. Suggest follow-up in 2-4 weeks following antibiotic treatment to ascertain for any change. 2. Other smaller pulmonary nodules as described above which are indeterminate some of which are smaller compared to the previous exam and may be inflammatory/infectious. 3. Centrilobular emphysema. 4. No evidence of pulmonary embolus 5. Acute appearing left 7th rib fracture with old bilateral rib fractures Dictated by: Xavier Pacheco MD 11/18/2020 09:54 Xavier Pacheco MD in [place] 11/18/2020 09:54
[2020-11-17 23:27] LABS: Ethyl Alcohol 328 mg/dl (0-10)
[2020-11-17 23:27] LABS: Barbiturates Screen,Urine Negative ng/ml (<200); Benzodiazepines Screen,Urine Negative ng/ml (<200)
[2020-11-17 23:28] LABS: Amphetamine/Metha Screen,Urine Negative ng/ml (<1000)
[2020-11-17 23:29] LABS: Cannabinoid Screen,Urine Negative ng/ml (<50)
[2020-11-17 23:30] LABS: Cocaine Screen,Urine Negative ng/ml (<300); Methadone Screen,Urine Negative ng/ml (<300)
[2020-11-17 23:31] LABS: Opiate Screen,Urine Negative ng/ml (<300)
[2020-11-17 23:32] LABS: Phencyclidine Screen,Urine Negative ng/ml (<25)
[2020-11-17 23:35] LABS: Bacteria,Urine 1+ /lpf
[2020-11-17 23:40] VITALS: BP 128/91; PULSE 71; RESP 17; O2SAT 94
--- NOTE | 2020-11-18 00:31 | PC.NURSE ---
pt back from [facility]
[2020-11-18 00:40] VITALS: BP 135/87; PULSE 61; RESP 15; O2SAT 90
--- NOTE | 2020-11-18 00:55 | PC.NURSE ---
Dr Nicholas speaking with [facility] at this time
--- NOTE | 2020-11-18 00:56 | PC.NURSE ---
speaking with GABBY
[2020-11-18 01:40] VITALS: BP 136/96; PULSE 63; RESP 15; O2SAT 93
[2020-11-18 02:28] VITALS: BP 95/68; PULSE 67; RESP 16; TEMP 36.8; O2SAT 93
== END 2020-11-18 02:52 | disposition home or self-care (01) ==
PROVIDERS: Emergency Provider Emergency Medicine; PCP Emergency Medicine
DX: S22.43XA Multiple fractures of ribs, bilateral, initial encounter for closed fracture (principal); R91.8 Other nonspecific abnormal finding of lung field; F10.10 Alcohol abuse, uncomplicated; W18.39XA Other fall on same level, initial encounter; Y92.019 Unspecified place in single-family (private) house as the place of occurrence of the external cause; I25.10 Atherosclerotic heart disease of native coronary artery without angina pectoris; I10 Essential (primary) hypertension; J44.9 Chronic obstructive pulmonary disease, unspecified; F17.210 Nicotine dependence, cigarettes, uncomplicated; Z79.899 Other long term (current) drug therapy
CPT/HCPCS: 70450; 71045; 71275; 72125; 72170; 74177; 80048; 80305; 81001; 83605; 84484; 85025; 87040; 93005; 96365; 99284; Q9967

== ENCOUNTER → 2021-01-18 09:46 | Outpatient (CLI) | payer MEDICARE, MEDICAID, SELFPAY ==
--- NOTE | 2021-01-18 09:48 | CA_ITS ---
APPROVED REPORT Setter Up: MALICK Laterality: Bilateral Study Quality: Good Indications: syncope/angina Risk Factors Hypertension: Hyperlipidemia Smoking Findings Duplex evaluation demonstrates antegrade flow of the bilateral Vertebral Arteries.Duplex evaluation demonstrates stenosis of the right proximal internal carotid artery in the range of 20-49% with PSV <140 cm/sec, EDV <100 cm/sec, and IC/CC Ratio <4.0.Duplex evaluation demonstrates stenosis of the left proximal internal carotid artery in the range of 20-49% with PSV <140 cm/sec, EDV <100 cm/sec, and IC/CC Ratio <4.0. Conclusion Duplex evaluation demonstrates antegrade flow of the bilateral Vertebral Arteries.Duplex evaluation demonstrates stenosis of the right proximal internal carotid artery in the range of 20-49% with PSV <140 cm/sec, EDV <100 cm/sec, and IC/CC Ratio <4.0.Duplex evaluation demonstrates stenosis of the left proximal internal carotid artery in the range of 20-49% with PSV <140 cm/sec, EDV <100 cm/sec, and IC/CC Ratio <4.0. Electronically signed by : Xavier Pacheco MD 01/18/2021 17:12:49
== END ==
PROVIDERS: PCP Emergency Medicine; Visit Provider Urology
DX: E78.5 Hyperlipidemia, unspecified (principal); F10.20 Alcohol dependence, uncomplicated; F17.200 Nicotine dependence, unspecified, uncomplicated; I10 Essential (primary) hypertension; I20.9 Angina pectoris, unspecified; R55 Syncope and collapse
CPT/HCPCS: 93880

== ENCOUNTER 2021-01-21 17:51 | Observation (INO) | payer MEDICARE, MEDICAID, SELFPAY ==
[2021-01-21] VITALS (16 sets, daily range): BP systolic 91–123; BP diastolic 50–77; PULSE 58–89; RESP 12–20; TEMP 36.3–37.1; O2SAT 90–98; BMI 21.9; BMI 25.7; BMI 22.0
--- NOTE | 2021-01-21 17:54 | HMH.EDGENADL ---
ED Disposition Condition on Discharge: Fair - Critical Care Critical Care Time: No <Napoleon Tobar - Last Filed: 01/21/21 20:09> <Ziyad Nicholas - Last Filed: 01/21/21 21:43> Clinical Impression: Lung mass, Tobacco use disorder Drug overdose Qualifiers: Encounter type: initial encounter Injury intent: undetermined intent Qualified Code(s): T50.904A - Poisoning by unspecified drugs, medicaments and biological substances, undetermined, initial encounter AMS (altered mental status) Qualifiers: Altered mental status type: delirium Qualified Code(s): R41.0 - Disorientation, unspecified Alcohol intoxication Qualifiers: Complication of substance-induced condition: with delirium Qualified Code(s): F10.921 - Alcohol use, unspecified with intoxication delirium Disposition: Still a Patient Referrals: Ziyad Nicholas MD [Primary Care Provider] - Attestation: On 01/21/21, the high probability of a clinically significant, sudden or life threatening deterioration of the following system(s) required my full and direct attention, intervention and personal management. The time I documented below is in addition to time spent performing reported procedures but includes the following listed in this critical care notation. Medical Decision Making - Medical Records Medical records reviewed: Yes: I reviewed the patient's medical records. - Shailesh Inquiry Pt receiving controlled substance: No <Napoleon Tobar - Last Filed: 01/21/21 20:09> - Lab Data Lab results reviewed: Yes: I reviewed the patient's lab results. Result diagrams: 01/21/21 18:30 01/21/21 18:30 - Radiology Data #1 Image(s): Chest Image Reviewed: Yes I reviewed the patient's radiology image Preliminary Findings: Abnormal (lt mass) - CT Data CT Scan: Head Time Received: 21:[address] Reviewed: Yes: I have viewed the radiologist's interpretation Preliminary Findings: Abnormal (see report ) - ECG Data Tracing #1 Normal Sinus Rhythm: Yes Ischemic changes: non-specific ST-T wave changes <Ziyad Nicholas - Last Filed: 01/21/21 21:43> Vital Signs: 01/21/21 17:52 01/21/21 18:10 Temperature 98.7 F Temperature Source Axillary Pulse Rate [Left Radial] 89 86 Respiratory Rate 20 12 Blood Pressure [Right Arm] 123/67 Blood Pressure Mean [Right Arm] 85 Blood Pressure Source [Right Arm] Automatic Cuff Automatic Cuff Blood Pressure Position [Right Arm] Sitting 02 Sat by Pulse Oximetry 95 92 L Oxygen Delivery Method Room Air Room Air - Lab Data Lab Results 01/21/21 17:53: Urine Color Yellow, Urine Appearance Clear, Urine pH 6.0, Ur Specific [place] <= 1.005, Urine Protein Negative, Urine Glucose (UA) Negative, Urine Ketones Negative, Urine Blood Negative, Urine Nitrate Negative, Urine Bilirubin Negative, Urine Urobilinogen 0.2, Ur Leukocyte Esterase Negative, Urine RBC None, Urine WBC None, Ur Squamous Epith Cells None, Urine Bacteria None 01/21/21 17:53: Urine Opiates Screen Negative, Urine Methadone Screen Negative, Ur Barbituates Screen Negative, Ur Phencyclidine Scrn Negative, Ur Amphetamines Screen Negative, U Benzodiazepines Scrn Negative, Urine Cocaine Screen Negative, U Marijuana (THC) Screen Negative 01/21/21 18:30: WBC 5.3, RBC 3.80 L, Hgb 13.2 L, Hct 40.4 L, MCV 106.4 H, MCH 34.6 H, MCHC 32.6, RDW 14.5, Plt Count 192, MPV 8.2, Neut % (Auto) 46.3, Lymph % (Auto) 37.4, [place] % (Auto) 10.5 H, Eos % (Auto) 4.7, Baso % (Auto) 1.2, Neut # (Auto) 2.5, Lymph # (Auto) 2.0, [place] # (Auto) 0.6, Eos # (Auto) 0.3, Baso # (Auto) 0.1 01/21/21 18:30: Sodium 137, Potassium 3.7, Chloride 102, Carbon Dioxide 23, Anion Gap 15.7 H, BUN 7 L, Creatinine 0.50 L, Estimated Creat Clear 89, Estimated GFR 166, Est GFR ( Amer) 201, Glucose 96, Calcium 9.2, Total Bilirubin 0.5, Direct Bilirubin 0.2, Conjugated Bilirubin 0.0, Indirect Bilirubin 0.3, Unconjugated Bilirubin 0.3, AST 78 H, ALT 45, Alkaline Phosphatase 57, Total Protein 7.2, Albumin 4.3, Salicylates
[2021-01-21 18:08] LABS: Microscopic, Urine URINE MICROSCOPIC (MICROSCOPIC)
[2021-01-21 18:09] LABS: Appearance,Urine CLEAR (Clear); Bilirubin,Urine Negative (Negative); Blood, Urine Negative (Negative); Color,Urine YELLOW (Yellow); Glucose,Urine (UA) Negative (Negative); Ketones,Urine Negative (Negative); Leukocyte Esterase,Urine Negative (Negative); Nitrate,Urine Negative (Negative); Protein,Urine Negative (Negative); Specific Gravity, Urine <= 1.005 (1.005-1.030); Urobilinogen,Urine 0.2 EU/dl (0.2)
[2021-01-21 18:22] LABS: Barbiturates Screen,Urine Negative ng/ml (<200); Benzodiazepines Screen,Urine Negative ng/ml (<200)
[2021-01-21 18:23] LABS: Amphetamine/Metha Screen,Urine Negative ng/ml (<1000)
[2021-01-21 18:24] LABS: Cannabinoid Screen,Urine Negative ng/ml (<50); Cocaine Screen,Urine Negative ng/ml (<300)
[2021-01-21 18:25] LABS: Methadone Screen,Urine Negative ng/ml (<300)
[2021-01-21 18:26] LABS: Opiate Screen,Urine Negative ng/ml (<300); Phencyclidine Screen,Urine Negative ng/ml (<25)
--- NOTE | 2021-01-21 20:01 | PC.NURSE ---
multiple iv sticks unsuccessful . notified. states he will attempt US guided IV insertion
--- NOTE | 2021-01-21 20:07 | XR_ITS ---
PROCEDURE: XR CHEST PORTABLE CLINICAL HISTORY: rule out aspiration COMPARISON: CR CXR2V XR chest 2V from 08/11/2018 CR XR RIBS RT MIN 3V W CXR1V from 06/14/[address] ANGIO CHEST from 11/17/2020 CR XR CHEST PORTABLE from 11/18/2020 FINDINGS: The cardiac silhouette is grossly normal for supine position. The lung spears are well expanded. Again noted is the left apical somewhat irregular opacity primarily projecting over the anterior aspect of the left 1st rib and this was seen on the previous chest film 11/18/2020. Previous consideration was mass versus infiltrate and the lack of interval change in the appearance suggests that this represents a true mass and CT-guided fine needle biopsy should be considered. There are slightly prominent bronchovascular markings at the right base possibly reflecting changes of mild chronic aspiration, somewhat doubt an acute pneumonic infiltrate.. There is a loop recorder device projecting over the left heart border. There is no pleural fluid. There are old healed rib fractures right 7th and 8th ribs posteriorly. IMPRESSION: Persistent left apical opacity likely representing a mass, probable chronic changes right base Dictated by: Dr. Berry Tim MD 01/22/2021 08:32 Dr. Berry Tim MD in [place] 01/22/2021 08:32
[2021-01-21 20:12] LABS: Basophils # 0.1 K/mm3 (0-0.2); Basophils % 1.2 % (0.1-2.0); Eosinophils # 0.3 K/mm3 (0.0-0.4); Eosinophils % 4.7 % (0.1-12.0); Hematocrit 40.4 % (42.0-52.0); Hemoglobin 13.2 g/dL (14.1-18.0); Lymphocytes % 37.4 % (10-50); Mean Corpuscular HGB Conc 32.6 g/dL (31.8-35.4); Mean Corpuscular Hemoglobin 34.6 pg (27.0-31.2); Mean Corpuscular Volume 106.4 fl (80-94); Mean Platelet Volume 8.2 fl (7.4-10.4); Monocytes # 0.6 K/mm3 (0.1-1.0); Monocytes % 10.5 % (1.7-9.3); Neutrophils # 2.5 K/mm3 (1.8-7.8); Neutrophils % 46.3 % (37.0-80.0); Platelet Count 192 K/mm3 (142-424); Red Cell Distribution Width 14.5 % (11.5-17.5); White Blood Count 5.3 K/mm3 (4.8-10.8)
[2021-01-21 20:17] LABS: Chloride 102 mmol/L (98-107); Potassium 3.7 mmoL/L (3.5-5.1); Sodium 137 mmol/L (136-145)
[2021-01-21 20:20] LABS: Alanine Aminotransferase 45 U/L (12-78); Albumin Level 4.3 g/dl (3.5-5.0); Alkaline Phosphatase 57 U/L (38-126); Anion Gap 15.7 mEq/L (5-15); Aspartate Amino Transferase 78 U/L (17-59); Bilirubin,Direct 0.2 mg/dl (0.0-0.4); Bilirubin,Indirect 0.3 mg/dL (0.0-0.9); Bilirubin,Total 0.5 mg/dl (0.2-1.3); Bilirubin,Unconjugated 0.3 mg/dL (0.0-1.1); Blood Urea Nitrogen 7 mg/dl (9-20); Calcium 9.2 mg/dl (8.4-10.2); Carbon Dioxide 23 mmol/L (22.0-30.0); Creatinine Clearance Estimated 89 mL/min (50-200); Estimated Glomerular Filt Rate 166 ml/min (>60); GFR (African American) 201 ML/MIN (>60); Glucose 96 mg/dl (74-100); Salicylate < 1.0 mg/dL (2.0-20.0); Total Protein,Serum 7.2 g/dl (6.3-8.2)
[2021-01-21 20:21] LABS: Acetaminophen < 10 ug/ml (10-30); Ethyl Alcohol 238 mg/dl (0-10)
--- NOTE | 2021-01-21 20:22 | ECG_ITS ---
APPROVED REPORT Exam: Resting ECG HR:63 bpm ECG Measurements Heart Rate 63 AXES IA 156 P 48 QRSd 112 QRS 50 QT 478 T 52 QTc 489 Conclusion Normal sinus rhythm Prolonged QT Abnormal ECG Electronically signed by : Jj Joe, 01/22/2021 19:39:54
--- NOTE | 2021-01-21 20:23 | CT_ITS ---
PROCEDURE: CT HEAD/BRAIN WO CON CLINICAL INDICATION: rule out brain mets Altered mental status, multiple falls recently COMPARISON: CT CT HEAD/BRAIN WO CON from 11/17/2020 TECHNIQUE: Axial images obtained. All CT scans at the facility use one or more dose reduction, viz: automated exposure control, ma/kV adjustment per patient size (including targeted exams where dose is matched to indication, i.e. head), or iterative reconstruction technique. FINDINGS: No midline shift, mass effect, intracranial hemorrhage, hydrocephalus, or extra-axial fluid collection is evident. The basilar cisterns are prominent. The sylvian fissures and cortical sulci are prominent. There is mild diffuse ventriculomegaly. There may be very mild periventricular hypodensities suggesting chronic ischemic white matter changes. There are mild atrophic changes of the cerebellar hemispheres as well. There are no findings to suggest metastatic disease to the brain. The calvarium has an unremarkable appearance except for deformity of the left zygomatic arch likely due to old healed fracture. No mastoid effusion. No sinus air-fluid level. IMPRESSION: Findings of moderate cortical and mild cerebellar atrophy, no acute intracranial pathology noted Dictated by: Dr. Berry Tim MD 01/22/2021 08:09 Dr. Berry Tim MD in [place] 01/22/2021 08:09
--- NOTE | 2021-01-21 20:36 | PC.NURSE ---
given ativan per md request for additional calming due agitation status
[2021-01-21 20:56] LABS: Troponin I < 0.01 ng/ml (0.00-0.034)
[2021-01-21 21:59] LABS: Magnesium 1.5 mg/dl (1.6-2.3)
[2021-01-21 22:03] LABS: Adenovirus,PCR Not Detected (NotDetected); Bordetella Pertussis Not Detected (NotDetected); Chlamydophila Pneumoniae, PCR Not Detected (NotDetected); Coronavirus 19, PCR Not Detected (NotDetected); Coronavirus 229E Not Detected (NotDetected); Coronavirus NL63 Not Detected (NotDetected); Coronavirus OC43 Not Detected (NotDetected); Coronovirus HKU1,PCR Not Detected (NotDetected); Human Metapneumovirus Not Detected (NotDetected); Influenza A, PCR Not Detected (NotDetected); Influenza AH1, 2009 Not Detected (NotDetected); Influenza AH1, PCR Not Detected (NotDetected); Influenza AH3,PCR Not Detected (NotDetected); Influenza B, PCR Not Detected (NotDetected); Mycoplasma Pneumoniae, PCR Not Detected (NotDetected); Parainfluenza 1, PCR Not Detected (NotDetected); Parainfluenza 2, PCR Not Detected (NotDetected); Parainfluenza 3, PCR Not Detected (NotDetected); Parainfluenza 4, PCR Not Detected (NotDetected); Respiratory Syncytial Virus Not Detected (NotDetected); Rhinovirus/Enterovirus Not Detected (NotDetected)
[2021-01-22] VITALS (7 sets, daily range): BP systolic 101–136; BP diastolic 52–85; PULSE 63–91; RESP 16–20; TEMP 36.6–36.8; O2SAT 91–99
--- NOTE | 2021-01-22 00:19 | PC.NURSE ---
PT ARRIVED TO FLOOR VIA STRETCHER FROM ED WITH STAFF AT 0019.
--- NOTE | 2021-01-22 00:58 | PC.NURSE ---
pt admitted for delirium. unable to provide answers appropriately for admission. based off medical records. med rec unable to be confirmed related to mental status
--- NOTE | 2021-01-22 05:54 | PC.NURSE ---
pt admitted with delirium. no acute changes. vss. ciwa 4. sleeping at this time. call light in reach. bed alarm on. will continue to monitor pt condition
[2021-01-22 06:27] LABS: Basophils # 0.1 K/mm3 (0-0.2); Basophils % 1.2 % (0.1-2.0); Eosinophils # 0.2 K/mm3 (0.0-0.4); Eosinophils % 3.5 % (0.1-12.0); Hematocrit 39.2 % (42.0-52.0); Hemoglobin 12.7 g/dL (14.1-18.0); Lymphocytes # 1.2 K/mm3 (0.7-4.5); Lymphocytes % 23.1 % (10-50); Mean Corpuscular HGB Conc 32.5 g/dL (31.8-35.4); Mean Corpuscular Hemoglobin 34.8 pg (27.0-31.2); Mean Corpuscular Volume 106.9 fl (80-94); Mean Platelet Volume 8.2 fl (7.4-10.4); Monocytes # 0.5 K/mm3 (0.1-1.0); Monocytes % 9.8 % (1.7-9.3); Neutrophils # 3.3 K/mm3 (1.8-7.8); Neutrophils % 62.5 % (37.0-80.0); Platelet Count 196 K/mm3 (142-424); Red Blood Count 3.66 M/mm3 (4.60-6.20); Red Cell Distribution Width 14.6 % (11.5-17.5); White Blood Count 5.4 K/mm3 (4.8-10.8)
[2021-01-22 06:32] LABS: Chloride 103 mmol/L (98-107); Potassium 3.5 mmoL/L (3.5-5.1); Sodium 138 mmol/L (136-145)
[2021-01-22 06:35] LABS: Blood Urea Nitrogen 7 mg/dl (9-20); Creatinine Clearance Estimated 76 mL/min (50-200); Estimated Glomerular Filt Rate 166 ml/min (>60); GFR (African American) 201 ML/MIN (>60)
[2021-01-22 06:36] LABS: Anion Gap 13.5 mEq/L (5-15); Calcium 8.7 mg/dl (8.4-10.2); Carbon Dioxide 25 mmol/L (22.0-30.0); Glucose 81 mg/dl (74-100)
[2021-01-22 07:01] LABS: Magnesium 1.8 mg/dl (1.6-2.3)
--- NOTE | 2021-01-22 08:56 | XR_ITS ---
PROCEDURE: XR CHEST 2V CLINICAL HISTORY: cough COMPARISON: CR XR RIBS RT MIN 3V W CXR1V from 06/14/[address] ANGIO CHEST from 11/17/2020 CR XR CHEST PORTABLE from 11/18/2020 CR XR CHEST PORTABLE from 01/21/2021 FINDINGS: The cardiomediastinal silhouette and pulmonary vascularity are within normal limits. There is a loop recorder device projecting over the left ventricle. The pulmonary vascularity is normal. The lungs are clear without infiltrates, suspicious nodules, or pleural effusions. No acute bony abnormalities. IMPRESSION: No acute findings. Dictated by: Dr. Berry Tim MD 01/22/2021 09:47 Dr. Berry Tim MD in [place] 01/22/2021 09:47
--- NOTE | 2021-01-22 09:19 | PC.NURSE ---
Pt down for cxr at this time.
--- NOTE | 2021-01-22 09:44 | HMH.HP ---
*Admission Date: 01/21/21 *Chief complaint: altered mental status *History of present illness: this patient presented to [facility] ed with hx of altered mental status - pt has been using etoh and possible ingestion of benzo - no def self harm -has hx of depression in past and has hx of prob lung mass - pt poor historian but admits to drinking - [facility] History I have reviewed the patient's past medical history: Yes Medical History: Reports:: Aneurysm, Asthma, Cancer, Chronic Obstructive Pulmonary Disease (COPD), Coronary Artery Disease, Gall Bladder Disease, Home Oxygen, Hypertension, Internal Pacemaker, Lung Disease, MRSA, Myocardial Infarction, Seizures, Transient Ischemic Attacks (TIA) Denies:: Diabetes Mellitus Type 1, Diabetes Mellitus Type 2 *Have you ever received a pneumonia vaccine?: No (unable to answer) *Have you received a flu vaccine this season?: No (unable to answer) Other Medical History: Reports: Anemia, Arthritis, Cataracts, Other Other Surgeries: Yes: Cardiac Catheterization, Colonoscopy, Coronary Stent, EGD, Hernia Repair, Pacemaker, Other (loop,IVC filter) Amputation: No Fractures: Yes - *Social History Smoking Status: Current every day smoker Tobacco Type: cigarettes # Packs/Day (cigarettes): 0 Alcohol Intake: current Alcohol Intake Frequency:: 3 or more drinks per day Substance Use Type: prescription drug *Occupational Status:: retired Housing: house Household Members: spouse *Travel in the last 8 weeks: None Family Hx:: Unable to obtain Review of Systems - Review of Systems Review of systems:: pertinent systems reviewed and negative unless documented below - Constitutional Denies fever(s) - Eyes Denies change in vision - ENT Denies sore throat - *Cardiovascular Denies chest pain at rest - *Respiratory Denies cough - *Gastrointestinal Denies abdominal pain - *Genitourinary Denies difficulty urinating, Denies blood in urine - *Musculoskeletal Denies joint pain - Integumentary/Breasts Denies rash - *Neurologic Denies seizure-like activity, Denies dizziness - Psychiatric Reports anxiety Meds Home Medications Medication Instructions Recorded Confirmed Type tamsulosin 0.4 mg capsule 0.4 mg PO HS #90 cap 01/15/20 01/21/21 Rx metoprolol tartrate 50 mg tablet 50 mg PO BID #60 tab 08/29/20 01/21/21 Rx nitroglycerin 0.4 mg sublingual 0.4 mg SUBLINGUAL Q5M PRN #25 tab 12/14/20 01/21/21 Rx tablet Albuterol Sulfate [Proventil Hfa] 2 puffs IH Q6HP PRN 01/21/21 01/22/21 History Amitriptyline HCl [Elavil 10mg 10 mg PO HS 01/21/21 01/22/21 History tablet] Aspirin [Low Dose Aspirin EC] 81 mg PO DAILY 01/21/21 01/21/21 History Citalopram Hydrobromide [Celexa] 10 mg PO DAILY 01/21/21 01/21/21 History Fluticasone/Vilanterol [Breo 1 inh INHALATION DAILY 01/21/21 01/21/21 History Ellipta] Furosemide [Furosemide 20mg Tab*] 20 mg PO DAILY 01/21/21 01/21/21 History Thiamine HCl [Vitamin B-1] 100 mg PO DAILY 01/21/21 01/21/21 History Tiotropium [place] [Spiriva 2 puffs IH DAILY 01/21/21 01/22/21 History Respimat] Allergies Allergy/AdvReac Type Severity Reaction Status Date / Time isosorbide AdvReac Intermediate XIAO Verified 01/09/21 08:36 Exam Vital signs and Labs for Last 24 Hours: Temp Pulse Resp BP Pulse Ox 98.3 F 81 20 119/81 91 L 01/22/21 07:41 01/22/21 07:41 01/22/21 07:41 01/22/21 07:41 01/22/21 07:41 Laboratory Results - last 24 hr 01/21/21 17:53: Urine Color Yellow, Urine Appearance Clear, Urine pH 6.0, Ur Specific [place] <= 1.005, Urine Protein Negative, Urine Glucose (UA) Negative, Urine Ketones Negative, Urine Blood Negative, Urine Nitrate Negative, Urine Bilirubin Negative, Urine Urobilinogen 0.2, Ur Leukocyte Esterase Negative, Urine RBC None, Urine WBC None, Ur Squamous Epith Cells None, Urine Bacteria None 01/21/21 17:53: Urine Opiates Screen Negative, Urine Methadone Screen Negative, Ur Barbituates Screen Negative, Ur Phencyclidine Scrn Negative
--- NOTE | 2021-01-22 13:34 | P.CONPHA_ITS ---
[facility] Pharmacy VTE Monitoring - Patient Demographics Admission date: 01/22/21 Report Date: 01/22/21 Time: 13:34 Allergies/Adverse Reactions: Patient Allergies isosorbide Adverse Reaction (Intermediate, Verified 01/09/21 08:36) XIAO Height: 1.83 m Weight: 73.737 kg Patient Problems: Current Active Problems (Last Updated 06/16/19 @ 12:17 by Danyell Simmons RN) Drug overdose (Acute) AMS (altered mental status) (Acute) Alcohol intoxication (Acute) Lung mass (Acute) Tobacco use disorder (Chronic) - VTE Risk Labs: VTE Related Lab Results Hgb 12.7 g/dL (14.1-18.0) L 01/22/21 05:40 Hct 39.2 % (42.0-52.0) L 01/22/21 05:40 Plt Count 196 K/mm3 (142-424) 01/22/21 05:40 BUN 7 mg/dl (9-20) L 01/22/21 05:40 Creatinine 0.50 mg/dl (0.66-1.25) L 01/22/21 05:40 Estimated Creat Clear 76 mL/min (50-200) 01/22/21 05:40 Was VTE Risk Assessment Performed: Yes VTE Score: 2 VTE Risk Level: Very Low Risk - Prophylaxis Types of VTE Prophylaxis: TEDS Knee High (JOSE R HOSE ORDERED) Location of Applied Device: Not Applicable
--- NOTE | 2021-01-22 19:23 | PC.NURSE ---
Pt alert and oriented x 4. RR even and unlabored. Remains on 3 L NC, which he wears at home. CB in reach. PRN ativan given per mar r/t pt being anxious about wanting to go home. Have educated on pt for need to cont to be monitored until MD comes to round on him. Pt verbalizes understanding at this time. Meds per dec. BS x 4, S1,S2. VSS. Did place new iv in L foot and ns infusing w/o difficulty at this time.
[2021-01-23 04:00] VITALS: BP 117/88; PULSE 86; RESP 19; TEMP 36.4; O2SAT 97
--- NOTE | 2021-01-23 04:22 | PC.NURSE ---
Pt. able to state name, , year and place. No c/o n/v/d, or dizziness. Reports baseline soa. Intermittent nonproductive cough noted. Pt. able to follow commands and can state needs. Pt. resting in bed with eyes closed for the majority of shift.
[2021-01-23 05:00] VITALS: BMI 21.9
[2021-01-23 06:27] LABS: Basophils % 0.6 % (0.1-2.0); Eosinophils # 0.2 K/mm3 (0.0-0.4); Eosinophils % 3.5 % (0.1-12.0); Hematocrit 39.3 % (42.0-52.0); Hemoglobin 12.9 g/dL (14.1-18.0); Lymphocytes % 19.6 % (10-50); Mean Corpuscular HGB Conc 32.9 g/dL (31.8-35.4); Mean Corpuscular Hemoglobin 35.1 pg (27.0-31.2); Mean Corpuscular Volume 106.8 fl (80-94); Mean Platelet Volume 8.8 fl (7.4-10.4); Monocytes # 0.5 K/mm3 (0.1-1.0); Monocytes % 10.1 % (1.7-9.3); Neutrophils # 3.4 K/mm3 (1.8-7.8); Neutrophils % 66.1 % (37.0-80.0); Platelet Count 171 K/mm3 (142-424); Red Blood Count 3.68 M/mm3 (4.60-6.20); Red Cell Distribution Width 14.7 % (11.5-17.5); White Blood Count 5.1 K/mm3 (4.8-10.8)
[2021-01-23 06:37] LABS: Anion Gap 11.4 mEq/L (5-15); Blood Urea Nitrogen 4 mg/dl (9-20); Calcium 8.7 mg/dl (8.4-10.2); Carbon Dioxide 26 mmol/L (22.0-30.0); Chloride 100 mmol/L (98-107); Creatinine Clearance Estimated 76 mL/min (50-200); Estimated Glomerular Filt Rate 215 ml/min (>60); GFR (African American) 260 ML/MIN (>60); Glucose 103 mg/dl (74-100); Potassium 3.4 mmoL/L (3.5-5.1); Sodium 134 mmol/L (136-145)
[2021-01-23 08:00] VITALS: BP 111/78; PULSE 83; RESP 16; TEMP 36.6; O2SAT 99
--- NOTE | 2021-01-23 09:26 | CT_ITS ---
PROCEDURE: CT CHEST WO CON CLINICAL INDICATION: lung mass COMPARISON: CT CHESTW CT chest w con from 12/24/[address] ANGIO CHEST from 11/17/[address] ABDOMEN PELVIS W CON from 11/17/2020 TECHNIQUE: Axial images obtained with sagittal and coronal reformats. All CT scans at the facility use one or more dose reduction, viz: automated exposure control, ma/kV adjustment per patient size (including targeted exams where dose is matched to indication, i.e. head), or iterative reconstruction technique. FINDINGS: HEART AND MEDIASTINAL STRUCTURES: The heart size is normal. No pericardial effusions. Atherosclerotic vascular calcification of the thoracic aorta and coronary arteries. Aortic valve calcification is noted. LUNGS AND PLEURAL SPACES: There is a left upper lobe masslike lesion measuring 4.6 x 3.1 centimeters, abuts the fissure. There are few minor nodular appearing densities noted in the left upper lobe. Focal soft tissue density nodule is noted in the left lower lobe measuring 7 millimeters. These are unchanged compared to prior study. Previously noted right upper lobe nodule measuring 6 millimeters is unchanged (series 3, image 38). Nodule measuring 3 millimeters in the anterior right upper lobe (3, 53). Minor bibasal atelectasis is noted. Extensive centrilobular and paraseptal emphysematous changes are noted bilaterally. Calcified granuloma in the right lower lobe. Minor mucous debris is noted in the left mainstem bronchus. Minor peribronchial thickening of the bilateral segmental and subsegmental bronchioles, may represent [id number] airway disease. No significant mediastinal adenopathy. Evaluation of hilar is limited due to lack of intravenous contrast although no gross lymphadenopathy is noted BONY STRUCTURES: Minor multilevel degenerative changes of the thoracic spine. Minor superior endplate compression deformity of the T12 vertebral body, unchanged compared to prior study. Old bilateral rib fractures are noted. UPPER ABDOMEN: Bulky left adrenal gland is noted. The right adrenal gland is unremarkable. Hepatic steatosis. Otherwise the visualized upper abdominal solid organs demonstrate no focal abnormality. Multiple splenic calcifications are noted. IVC filter is partially visualized. ADDITIONAL FINDINGS: Metallic density projected over the left anterior chest wall, likely represents loop recorder device. No other significant abnormalities. IMPRESSION: Left upper lobe masslike consolidation measuring 4.6 x 3.1 centimeter, abuts the fissure. This demonstrates no significant interval change in size. Lung neoplasm is suspected. Multiple nodular appearing densities measuring up to 7 millimeters bilaterally, new compared to the study of December 24, 2018. No significant mediastinal or hilar adenopathy within the limitations of unenhanced study. PET/CT is recommended. Left bulky left adrenal gland, noted on the prior study of December 24, 2018. Hepatic steatosis. Dictated by: Denise Estrada 01/23/2021 11:46 Denise Estrada in [facility] 01/23/2021 11:46
--- NOTE | 2021-01-23 09:26 | HMH.PULMCON ---
*Admission Date: 01/22/21 *Reason for consult:: Lung mass *History of present illness: Mr. Arreola is 65-year-old male greater than 80-[id number] smoking and is currently smoking 1 to 2 packs a day carries a diagnosis of COPD on long-term oxygen therapy at 1/2 L was brought to the hospital for altered mental status and pulmonary call for evaluation of his lung mass seen on his prior CT scans. Patient denies any new respiratory complaints. Admits his breathing is at his baseline [facility] History Medical History: Reports:: Aneurysm, Asthma, Cancer, Chronic Obstructive Pulmonary Disease (COPD), Coronary Artery Disease, Gall Bladder Disease, Home Oxygen, Hypertension, Internal Pacemaker, Lung Disease, MRSA, Myocardial Infarction, Seizures, Transient Ischemic Attacks (TIA) Denies:: Diabetes Mellitus Type 1, Diabetes Mellitus Type 2 *Have you ever received a pneumonia vaccine?: No (unable to answer) *Have you received a flu vaccine this season?: No (unable to answer) Other Medical History: Reports: Anemia, Arthritis, Cataracts, Other Other Surgeries: Yes: Cardiac Catheterization, Colonoscopy, Coronary Stent, EGD, Hernia Repair, Pacemaker, Other (loop,IVC filter) Amputation: No Fractures: Yes - *Social History Smoking Status: Current every day smoker Tobacco Type: cigarettes # Packs/Day (cigarettes): 0 Alcohol Intake: current Alcohol Intake Frequency:: 3 or more drinks per day Substance Use Type: prescription drug *Occupational Status:: retired Housing: house Household Members: spouse *Travel in the last 8 weeks: None Family Hx:: Unable to obtain ROS - Cons Denies anorexia, Denies body ache(s), Denies chills - ENT Denies bleeding gums - Card Reports shortness of breath with activity - Resp Respiratory: Reports dyspnea on exertion, Denies coughing up blood, Reports cough with sputum production, Denies pain with breathing - [place] Musculoskeletal: Reports joint pain - Psych Reports abnormal sleep pattern Meds Home Medications Medication Instructions Recorded Confirmed Type tamsulosin 0.4 mg capsule 0.4 mg PO HS #90 cap 01/15/20 01/21/21 Rx metoprolol tartrate 50 mg tablet 50 mg PO BID #60 tab 08/29/20 01/21/21 Rx nitroglycerin 0.4 mg sublingual 0.4 mg SUBLINGUAL Q5M PRN #25 tab 12/14/20 01/21/21 Rx tablet Albuterol Sulfate [Proventil Hfa] 2 puffs IH Q6HP PRN 01/21/21 01/22/21 History Amitriptyline HCl [Elavil 10mg 10 mg PO HS 01/21/21 01/22/21 History tablet] Aspirin [Low Dose Aspirin EC] 81 mg PO DAILY 01/21/21 01/21/21 History Citalopram Hydrobromide [Celexa] 10 mg PO DAILY 01/21/21 01/21/21 History Fluticasone/Vilanterol [Breo 1 inh INHALATION DAILY 01/21/21 01/21/21 History Ellipta] Furosemide [Furosemide 20mg Tab*] 20 mg PO DAILY 01/21/21 01/21/21 History Thiamine HCl [Vitamin B-1] 100 mg PO DAILY 01/21/21 01/21/21 History Tiotropium [place] [Spiriva 2 puffs IH DAILY 01/21/21 01/22/21 History Respimat] Allergies Allergy/AdvReac Type Severity Reaction Status Date / Time isosorbide AdvReac Intermediate XIAO Verified 01/09/21 08:36 Exam - Constitutional Constitutional:: Present: no acute distress, comfortable - HENMT Exam HENMT: Present: atraumatic - Eye Exam Eyes:: Present: eyelids normal - Neck Exam Neck:: Present: thyroid normal - Respiratory Exam Respiratory:: Present: crackles. Absent: wheezing Comments: Bilateral clear but distant breath sounds. - Cardiovascular Exam Cardiac:: Present: S1, S2 - GI Exam GI:: Present: soft - Skin Exam Skin: Present: warm, no rash - Neurological Exam Neurological: Present: alert, awake, normal cognition - Extremities Exam Extremities: Present: no cyanosis, no clubbing, no edema - Psychiatric Exam Psychiatric: Present: normal affect Internal Medicine - CN: Reslt - Labs CBC & Chem 7: 01/23/21 05:40 01/23/21 05:40 Labs: Short CBC 01/23/21 Range/Units 05:40 WBC 5.1 (4.8-10.8) K/mm3 Hgb 12.9 L (14.1-18.0) g
--- NOTE | 2021-01-23 09:29 | HMH.OTEV ---
OT Inpatient Evaluation Rehab OT IP Evaluation Start: 01/23/21 07:19 Freq: ONCE Status: Complete Protocol: Document 01/23/21 09:23 HARI (Rec: 01/23/21 09:28 TYRONTONY [id number]) Rehab OT IP Assessment Subjective History [facility] of [facility] mental status - pt has been using etoh and possible ingestion of benzo - no def self harm -has hx of depression in past and has hx of prob lung mass - pt poor historian but admits to drinking. Patient lives alone in a 1 story home with ramp to enter. Patient independent with ADLs and fx'l mobility prior to hospitalization. PMH: Aneurysm, Asthma, Cancer, Chronic Obstructive Pulmonary Disease (COPD), Coronary Artery Disease, Gall Bladder Disease, Home Oxygen, Hypertension, Internal Pacemaker, Lung Disease, MRSA, Myocardial Infarction, Seizures, Transient Ischemic Attacks (TIA) Subjective I don't need any therapy. I can move around by myself. I want to go home. Instructed Patient on safety awareness during bed mobility and functional transfer with no AE to recliner. Educated Patient on safety precaution with IV fluids in L LE. Patient completed all bed mobility and SPT with 360 turn Independently and fall noted. Patient able to d/d socks independently while in seated position. Objective Patient Orientation Person,Place,Time,Name,Age, Birthday,Month,Year,Situation Upper Extremity Gross ROM WNL Bed Mobility bed mobility - supine/sit,bed mobility - rolling Assist Level Independent Transfer Training Sit/Stand Transfer Assist Level Independent Chair Transfer Ability Independent Chair Transfer Technique
--- NOTE | 2021-01-23 09:33 | HMH.DCSUM ---
General - General Admission date:: 01/22/21 Discharge date: 01/23/21 HPI HPI: this patient presented to [facility] ed with hx of altered mental status - pt has been using etoh and possible ingestion of benzo - no def self harm -has hx of depression in past and has hx of prob lung mass - pt poor historian but admits to drinking - Hospital Course Hospital Course: Laboratory Tests 01/21/21 01/21/21 01/21/21 17:53 17:53 18:30 WBC 5.3 RBC 3.80 L Hgb 13.2 L Hct 40.4 L MCV 106.4 H MCH 34.6 H MCHC 32.6 RDW 14.5 Plt Count 192 MPV 8.2 Neut % (Auto) 46.3 Lymph % (Auto) 37.4 Crisp % (Auto) 10.5 H Eos % (Auto) 4.7 Baso % (Auto) 1.2 Neut # (Auto) 2.5 Lymph # (Auto) 2.0 Crisp # (Auto) 0.6 Eos # (Auto) 0.3 Baso # (Auto) 0.1 Sodium Potassium Chloride Carbon Dioxide Anion Gap BUN Creatinine Estimated Creat Clear Estimated GFR Est GFR ( Amer) Glucose Calcium Magnesium Total Bilirubin Direct Bilirubin Conjugated Bilirubin Indirect Bilirubin Unconjugated Bilirubin AST ALT Alkaline Phosphatase Troponin I Total Protein Albumin Urine Color Yellow Urine Appearance Clear Urine pH 6.0 Ur Specific [place] <= 1.005 Urine Protein Negative Urine Glucose (UA) Negative Urine Ketones Negative Urine Blood Negative Urine Nitrate Negative Urine Bilirubin Negative Urine Urobilinogen 0.2 Ur Leukocyte Esterase Negative Urine RBC None Urine WBC None Ur Squamous Epith Cells None Urine Bacteria None Salicylates Urine Opiates Screen Negative Urine Methadone Screen Negative Acetaminophen Ur Barbituates Screen Negative Ur Phencyclidine Scrn Negative Ur Amphetamines Screen Negative U Benzodiazepines Scrn Negative Urine Cocaine Screen Negative U Marijuana (THC) Screen Negative Plasma/Serum Alcohol Chlamy pneumoniae PCR Adenovirus (PCR) B. pertussis DNA (PCR) Coronavirus OC43 (PCR) Coronavirus HKU1 (PCR) Coronavirus 229E (PCR) SARS-CoV-2 (PCR) Coronavirus NL63 (PCR) Human Metapneumovir PCR Influenza A (H1) PCR Influ A (H1N1/09) PCR Influenza A (H3) PCR Influenza Type A (PCR) Influenza Type B (PCR) M. pneumoniae (PCR) Parainfluenza 1 (PCR) Parainfluenza 2 (PCR) Parainfluenza 3 (PCR) Parainfluenza 4 (PCR) RSV (PCR) Entero/Rhino (PCR) 01/21/21 01/21/21 01/21/21 18:30 18:30 18:30 WBC RBC Hgb Hct MCV MCH MCHC RDW Plt Count MPV Neut % (Auto) Lymph % (Auto) Crisp % (Auto) Eos % (Auto) Baso % (Auto) Neut # (Auto) Lymph # (Auto) Crisp # (Auto) Eos # (Auto) Baso # (Auto) Sodium 137 Potassium 3.7 Chloride 102 Carbon Dioxide 23 Anion Gap 15.7 H BUN 7 L Creatinine 0.50 L Estimated Creat Clear 89 Estimated GFR 166 Est GFR ( Amer) 201 Glucose 96 Calcium 9.2 Magnesium Total Bilirubin 0.5 Direct Bilirubin 0.2 Conjugated Bilirubin 0.0 Indirect Bilirubin 0.3 Unconjugated Bilirubin 0.3 AST 78 H ALT 45 Alkaline Phosphatase 57 Troponin I < 0.01 Total Protein 7.2 Albumin 4.3 Urine Color Urine Appearance Urine pH Ur Specific [place] Urine Protein Urine Glucose (UA) Urine Ketones Urine Blood Urine Nitrate Urine Bilirubin Urine Urobilinogen Ur Leukocyte Esterase Urine RBC Urine WBC Ur Squamous Epith Cells Urine Bacteria Salicylates < 1.0 L Urine Opiates Screen Urine Methadone Screen Acetaminophen < 10 L Ur Barbituates Screen Ur Phencyclidine Scrn Ur Amphetamines Screen U Benzodiazepines Scrn Urine Cocaine Screen U Marijuana (THC) Screen Plasma/Serum Alcohol 238 H Chlamy pneumoniae PCR Adenovirus (PCR)
--- NOTE | 2021-01-23 11:08 | HMH.PTEV ---
Physical Therapy Evaluation Rehab PT IP Evaluation Start: 01/23/21 07:18 Freq: ONCE Status: Active Protocol: Document 01/23/21 11:04 KENDAL (Rec: 01/23/21 11:08 KENDAL [id number]) Subjective/History History History This is the initial IP PT evaluation for Graham Arreola. Pt is a 65 y/o male admitted to [facility] for AMS. Pt lives in home w/out steps and is in and out . Pt has AD at [facility] but has not needed to use them for a while Subjective Subjective no complaints from pt - pt wishes to return home upon dc Rehab PT IP Eval Objective Appearance Patient Behavior Appropriate,Cooperative Patient Orientation Person,Place,Time Difficulty following instructions none Speech Pattern Clear,Appropriate Ambulation Patient Able to Ambulate Yes Ambulation Observation IP General Gait Pattern Observation No Deviations/Normal Ambulation Distance (feet) 50 Ambulation Assistive Device None Ambulation Ability Supervision/Stand by Balance Ability to Arise Able, w/o using arms Sitting Balance Steady, safe Standing Balance Narrow stance w/o support Dynamic Sitting Balance Ability Normal Dynamic Standing Balance Ability Good Transfers Bed Transfer Ability Independent Chair Transfer Ability Independent Sit to Stand Bed Transfer Ability Independent Sit to Stand Chair Transfer Ability Independent ROM All Extremities PT ROM Status WFL MMT All Extremities PT MMT WFL Rehab PT IP prob,goals,plan Problems Date of Evaluation: 01/23/21 Rehab Potential Rehab Potential Innapropriate for Skilled Therapy Equipment Needs Assistive Devices None / NA Discharge Plan PT Discharge Plan Pt safe to dc home once medically stable - pt does not require skilled therapy at this time - if pt has change in medically status will gladly re-evalaute pt. G -code Required Yes Eval Complexity Eval Charge Codes 28788 - Low Complexity G Codes PT Current Status Mobility PT Current Status Modifier CH-0% impaired, limited or restricted PT Goal Status Mobility PT Goal Status Modifer CH-0% impaired, limited or
--- NOTE | 2021-01-23 14:13 | SW/DCPLANNER ---
This patient will discharge home today. Patient stated that he does have family that lives close by that assist him at home. Patient does not need skilled care/home health services at this time.
[2021-01-23 16:00] VITALS: BP 139/94; PULSE 71; RESP 20; TEMP 36.3; O2SAT 93
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
== END 2021-01-23 17:25 | disposition home or self-care (01) ==
LOC: ER 20:54 → 2ND 01-22 00:05
PROVIDERS: Nurse Practitioner Family; Admitting Provider Emergency Medicine; Emergency Provider Family Medicine; PCP Emergency Medicine; Visit Provider Emergency Medicine
DX: R91.8 Other nonspecific abnormal finding of lung field (principal); I25.10 Atherosclerotic heart disease of native coronary artery without angina pectoris; Z72.0 Tobacco use; J44.9 Chronic obstructive pulmonary disease, unspecified; Z99.81 Dependence on supplemental oxygen; E83.42 Hypomagnesemia; M54.16 Radiculopathy, lumbar region; Z95.0 Presence of cardiac pacemaker; I10 Essential (primary) hypertension; I25.2 Old myocardial infarction; Z95.5 Presence of coronary angioplasty implant and graft; F10.929 Alcohol use, unspecified with intoxication, unspecified; Y90.7 Blood alcohol level of 200-239 mg/100 ml; Z79.51 Long term (current) use of inhaled steroids; Z88.8 Allergy status to other drugs, medicaments and biological substances; Z79.899 Other long term (current) drug therapy
CPT/HCPCS: 36415; 70450; 71045; 71046; 71250; 80048; 80076; 80305; 80329; 81001; 83735; 84484; 85025; 87581; 87633; 87798; 93005; 94760; 96365; 97161; 97165; 99282; G0378

== ENCOUNTER → 2021-01-31 09:11 | Outpatient (CLI) | payer MEDICARE, MEDICAID, SELFPAY | PROVIDERS: PCP Emergency Medicine; Visit Provider Internal Medicine Pulmonary Disease | DX: Z20.822 Contact with and (suspected) exposure to COVID-19 (principal) | CPT/HCPCS: U0003 ==

== ENCOUNTER 2021-02-01 10:41 | Day surgery (SDC) | payer MEDICARE, MEDICAID, SELFPAY ==
[2021-01-27 13:04] VITALS: BMI 22.1
[2021-02-01] VITALS (11 sets, daily range): BP systolic 119–150; BP diastolic 71–100; PULSE 67–80; RESP 12–18; TEMP 36.1–43; O2SAT 86–95
--- NOTE | 2021-02-01 11:55 | HMH.ANESCL ---
[facility] Anesthesia Checklist - Structural Data Admitted From: Home Planned Operative Procedure/s: bronchoscopy Consent for Planned Operative Procedure(s) Verified: Yes - Additional verifications Anesthesia Reactions: No Hx Blood Transfusions: No Blood Transfusion Reaction: No - Airway Assessment C-Spine Mobility Assessed: Yes TMJ Mobility Assessed: Yes Dentition: Edentulous - Neurological Assessment Level of Consciousness: Awake, Alert, Appropriate - Anesthesia Plan Anesthesia Risk discussed: Yes Anesthesia Plan: Verified ASA Class: III Anesthesia Type: General [facility] History I have reviewed the patient's past medical history: Yes Medical History: Reports:: Aneurysm, Asthma, Chronic Obstructive Pulmonary Disease (COPD), Coronary Artery Disease, Gall Bladder Disease, Home Oxygen, Hypertension, Internal Pacemaker, Lung Disease, Myocardial Infarction, Seizures (couple weeks ago), Transient Ischemic Attacks (TIA) Denies:: Cancer, Diabetes Mellitus Type 1, Diabetes Mellitus Type 2, MRSA *Have you ever received a pneumonia vaccine?: Yes *Have you received a flu vaccine this season?: Yes Other Medical History: Reports: Anemia, Arthritis, Cataracts, Other. Denies: Blood Transfusion Reaction Anesthesia experience/problems:: none Other Surgeries: Yes: Cardiac Catheterization, Colonoscopy, Coronary Stent, EGD, Hernia Repair, Pacemaker, Other (loop,IVC filter) Amputation: No Fractures: Yes - *Social History Last grade of school completed: 11th or 12th Smoking Status: Current every day smoker Tobacco Type: cigarettes # Packs/Day (cigarettes): 2 Alcohol Intake: current Alcohol Intake Frequency:: 3 or more drinks per day Substance Use Type: denies use *Occupational Status:: retired Housing: house Household Members: spouse *Travel in the last 8 weeks: None Family Hx:: No significant family history
--- NOTE | 2021-02-01 13:25 | XR_ITS ---
PROCEDURE: XR CHEST AP CLINICAL HISTORY: BRONCHOSCOPY IN OR COMPARISON: No exams were available for comparison FINDINGS: Fluoroscopy time: 2.9 minutes 2 images from the procedure demonstrates the bronchus scope in place directed toward the left upper lobe with a 2nd image showing the biopsy forceps overlying the left upper lobe. . IMPRESSION: Status post bronchoscopy with C-arm assistance Dictated by: Xavier Pacheco MD 02/01/2021 16:46 Xavier Pacheco MD in [facility] 02/01/2021 16:46
--- NOTE | 2021-02-01 13:34 | HMH.ANESI ---
[facility] Anesthesia Record Part I Intake, IV Amount: 500 Estimated blood loss (mL): 0 Urine output (mL): 0 Blood Pressure: 150/100 SaO2: 94 Pulse Rate: 80 Respiratory Rate: 12 Temperature: 97.9 F Patient is:: Awake, Stable Stable to PACU at:: 13:30
--- NOTE | 2021-02-01 13:40 | XR_ITS ---
PROCEDURE: XR CHEST PORTABLE CLINICAL HISTORY: bronchoscopy Follow-up bronchoscopy COMPARISON: CR XR CHEST PORTABLE from 01/21/2021 CR XR CHEST 2V from 01/22/[address] CHEST WO CON from 01/23/2021 CR XR CHEST AP from 02/01/2021 FINDINGS: Frontal view of the chest shows no evidence of pneumothorax. The the cardiovascular structures are unremarkable. Increased density once again noted in the left upper lobe corresponding to the masslike area of consolidation noted on the CT scan. Neoplasm is a consideration. There are emphysematous changes with an old right 7th rib fracture. IMPRESSION: No evidence of pneumothorax. Left upper lobe masslike density suspicious for neoplasm Dictated by: Xavier Pacheco MD 02/01/2021 14:02 Xavier Pacheco MD in [facility] 02/01/2021 14:02
--- NOTE | 2021-02-01 13:54 | HMH.BRONCH ---
- Procedure: Date: 02/01/21 Patient Date of :: 1955 Procedure Performed:: Bronchoscopy with BAL and transbronchial biopsy Indications:: Nonresolving pneumonia/lung mass Performing Provider:: Irving Live MD Referring Provider:: Dr. Joe Sedation:: [place] Procedure:: Bronchoscopy with BAL and transbronchial biopsy: Clean diagnostic bronchoscopy bronchoscopy advance the ET tube and airways were examined up to the subsegmental bronchi. Airways appear grossly normal no evidence of hemoptysis or mucous plugging or blood clots noted. Bronchoalveolar lavage was performed the left upper lobe apicoposterior segment with a total of 60 cc of normal saline instilled with only 20 cc of return. BAL fluid was sent for cell count differential along with bacterial fungal and AFB staining along with cultures and cytopathology. Bronchial biopsies were also performed in the left upper lobe apicoposterior segment total of 7 biopsies performed, 5 were sent in formalin for cytopathological examination, 2 biopsy specimens were sent in normal saline for bacterial fungal and AFB cultures. Patient tolerated the procedure well. We will follow the patient in the clinic in 5 days. We will also order a PET scan. Findings:: Please see the procedure note Recommendations:: 5-day follow-up to discuss the results. PET scan. Complications:: None Estimated blood obtained (mL): 5
--- NOTE | 2021-02-01 13:58 | P.PN_ITS ---
Internal Medicine - PN: Subj *Date: 02/01/21 *Time: 14:06 Interval history: No acute respiratory events since patient was last seen in the hospital. Exam - Constitutional Constitutional:: Present: no acute distress, comfortable - Respiratory Exam Respiratory:: Present: able to speak in complete sentences, normal breath sounds, no respiratory distress Comments: Lungs clear but distant breath sounds. Left upper lobe crackles heard. - Cardiovascular Exam Cardiac:: Present: S1, S2 - GI Exam GI:: Present: soft - Neurological Exam Neurological: Present: alert, awake, normal cognition Assessment and Plan (1) Lung mass Status: Acute Category: Medical Code(s): R91.8 - Other nonspecific abnormal finding of lung field (2) Mass of left lung Status: Acute Category: Medical Code(s): R91.8 - Other nonspecific abnormal finding of lung field (3) Nodule of right lung Status: Chronic Category: Medical Code(s): R91.1 - Solitary pulmonary nodule - Assessment and plan all Dx Assessment and Plan for all problems:: #Left upper lobe lung mass: # Right Pulmonary Nodule: Mr. Arreola is a 65-year-old male with greater than [id number] smoking history current smoker who initially seen in the pulmonary clinic around May [address] scan that showed right upper lobe pulmonary nodule around 3 to 1.5 cm in size along with the left upper lobe pulmonary nodule at morning to 1.5 cm in size from a scan that was done in March 2020. At that time after extensive discussions with the patient regarding a PET scan and tissue diagnosis patient opted to pursue tissue diagnosis as he was very much concerned that his cousin was recently diagnosed with lung cancer at the time. Patient was referred to [facility] to facilitate navigational bronchoscopy with transbronchial biopsy. However patient did not followed up with the procedure. Patient did not followed up in the pulmonary clinic after that. He was lost to follow-up and presented to the [facility] ER again around October 2020 during which a repeat CT was done that showed significant increase in the left upper lobe lung mass around 5 cm in size however pulmonary level was not aware of this ER visit. No evidence of mediastinal or hilar lymphadenopathy noted on the CTA from October 2020 Patient again presented to the hospital in December 2020 with worsening shortness of breath and repeat CT chest stable left upper lobe lung mass at 5 cm in size. The previously noted right upper lung mass significantly decreased in size to 1 cm. Given concerns for patient's follow-up, we have performed bronchoscopy with BAL and transbronchial biopsy to rule out infectious etiology. Will follow with the results. We will also schedule a PET scan today as concern for malignancy is high in the differential. I have extensively discussed with the patient and the today again regarding the need to keep his follow-up appointments as this mass is concerning for malignancy and he needs very close follow-up appointments. Patient can be reached at [phone] TB QuantiFERON and serum fungal serologies are also ordered today
--- NOTE | 2021-02-02 11:31 | HMH.ANESII ---
[facility] Anesthesia Record Part II Discharge Time: 14:00 Destination: located within [facility] PACU nurse assessment reviewed?: Yes Patient Condition:: Good Anesthesia Complications:: None Swallowing reflex intact?: Yes Cyanosis?: No Blood Pressure: 128/88 Pulse Rate: 71 Temperature: 97.6 F Mental Status: Alert & Oriented Pain level:: 0 Nausea and/or vomitting:: None Intake, IV Amount: 1,200
[2021-02-02 11:32] VITALS: BP 128/88; PULSE 71; TEMP 36.4
[2021-02-05 15:05] LABS: Aspergillus flavus Negative (Neg:<1:1); Aspergillus fumigatus Negative (Neg:<1:1); Aspergillus niger Negative (Neg:<1:1)
[2021-02-06 17:41] LABS: Blastomyces Antibody Negative (Neg:<1:1)
[2021-02-08 02:51] LABS: QuantiFERON-TB Gold Plus Negative (Negative)
== END 2021-02-01 14:58 | disposition home or self-care (01) ==
LOC: OR 10:43
PROVIDERS: PCP Emergency Medicine; Visit Provider Internal Medicine Pulmonary Disease
DX: J18.9 Pneumonia, unspecified organism (principal); R91.8 Other nonspecific abnormal finding of lung field; J44.9 Chronic obstructive pulmonary disease, unspecified; Z99.81 Dependence on supplemental oxygen; Z79.899 Other long term (current) drug therapy; I10 Essential (primary) hypertension; I25.10 Atherosclerotic heart disease of native coronary artery without angina pectoris; F10.921 Alcohol use, unspecified with intoxication delirium; R91.1 Solitary pulmonary nodule; Z87.01 Personal history of pneumonia (recurrent)
CPT/HCPCS: 31624; 31628; 36415; 71045; 76000; 86480; 86606; 86612; 87070; 87077; 87102; 87116; 87186; 87205; 87206; 87220; 88112; 88305; 88342; 89051; J2405

== ENCOUNTER 2021-02-02 08:43 | Day surgery (SDC) | payer MEDICARE, MEDICAID, SELFPAY ==
[2021-02-02] VITALS (15 sets, daily range): BP systolic 87–122; BP diastolic 53–86; PULSE 59–80; RESP 16–20; TEMP 36.9; O2SAT 93–100; BMI 22.8
--- NOTE | 2021-02-02 | IR_ITS ---
APPROVED REPORT Patient Location: Outpatient Scrummaster: DAVID Chavarria RT (R) PROCEDURES Left heart catheterization Left ventriculogram Selective coronary angiogram Drug-eluting stent deployment to the proximal circumflex artery INDICATION Coronary artery disease, Accelerated angina pectoris Informed consent was obtained prior to the procedure. COMPLICATIONS None Estimated Blood Loss: less than 10ml TECHNIQUE One percent lidocaine used to anesthetize the right anterior aspect of the wrist. The right radial artery was accessed via the Seldinger technique. A 6 Pashto sheath was placed in the right radial artery. 2.5 mg of verapamil, 800 mcg of nitroglycerin, 1mg Lidocaine and 5000 U Heparin were given through the arterial sheath. The trap catheter was also used to perform left heart catheterization, left ventriculogram and selective coronary angiogram. At the end of the diagnostic procedure therapeutic heparin was administered giving a therapeutic ACT. A 6 Pashto JL 3 guide catheter was placed in the left main artery and a BMW wire was used to traverse the stenosis in the circumflex artery. A 3.5 x 18 mm resolute Tacos stent was deployed at 18 gerardo reducing the stenosis. A 3.5 x 8 mm noncompliant balloon was then deployed at 24 gerardo on 2 occasions in the distal aspect of the stent to further post dilate. MAHNAZ-3 flow was present before and after the procedure. After achieving excellent angiographic results the apparatus was removed the sheath was removed good hemostasis was achieved using TR banding patient was transferred to the postop holding area in stable condition ANGIOGRAPHIC RESULTS The left main artery Normal The left anterior descending artery Has proximal 10% stenoses with mild 10% luminal irregularities in the midsegment The circumflex artery Is a codominant vessel and has a proximal concentric 70% hazy stenosis. The right coronary artery Is codominant and has a proximal concentric 40 to 50% stenosis with mid vessel 30% and distal 20% stenoses The AREVALO ventriculogram reveals Normal 65% The left ventricular end-diastolic pressure 10 mmHg IMPRESSION Coronary artery disease as described above Successful stenting of the proximal codominant circumflex artery severe disease reduced to less than 10% with 1 drug-eluting stent Normal ejection fraction Normal left ventricular end-diastolic pressure PLAN 1. Dual antiplatelet therapy 2. Cardiac rehabilitation 3. Avoidance of tobacco products 4. Risk factor modification 5. LDL less than 55 Electronically signed by : Drew Ziegler, 02/02/2021 11:15:02
[2021-02-02 13:11] LABS: CATHL Activated Clotting Time > 400 SEC (74-125)
--- NOTE | 2021-02-02 14:07 | HMH.PHACLD ---
Graham Arreola has received discharge medication counseling on the following medications: PATIENT CURRENTLY TAKING ASPIRIN DR 81 MG DAILY AND METOPROLOL TARTRATE 50 MG BID. MD STARTING LIPITOR 40 MG HS AND BRILINTA 90 MG BID. MD WILL REEVALUATE PATIENT ARELY/ARB AND BLOOD PRESSURE AT FOLLOW UP PATIENT WAS HYPOTENSIVE TODAY.
== END 2021-02-02 14:47 | disposition home or self-care (01) ==
LOC: CATHLAB 08:44
PROVIDERS: PCP Emergency Medicine; Visit Provider Internal Medicine
DX: I25.118 Atherosclerotic heart disease of native coronary artery with other forms of angina pectoris (principal); I11.0 Hypertensive heart disease with heart failure; I50.32 Chronic diastolic (congestive) heart failure; Z72.0 Tobacco use; F10.20 Alcohol dependence, uncomplicated; R55 Syncope and collapse; Z79.899 Other long term (current) drug therapy; Z79.82 Long term (current) use of aspirin; Z79.51 Long term (current) use of inhaled steroids; Z79.01 Long term (current) use of anticoagulants; Z88.8 Allergy status to other drugs, medicaments and biological substances
CPT/HCPCS: 85347; 92928; 93458; 99152; C1725; C1769; C1876; C9600; J1644; Q9967

== ENCOUNTER → 2021-02-20 14:08 | Outpatient (POV) | payer MEDICARE, MEDICAID, SELFPAY | PROVIDERS: Visit Provider Nurse Practitioner Family | DX: Z00.00 Encounter for general adult medical examination without abnormal findings (principal) ==

== ENCOUNTER 2021-02-21 12:48 | Outpatient (RCR) | payer MEDICARE, MEDICAID, SELFPAY | END 2021-05-05 11:29 | disposition home or self-care (01) | LOC: PT 12:48 | PROVIDERS: Visit Provider Internal Medicine | DX: Z95.5 Presence of coronary angioplasty implant and graft (principal) ==

== ENCOUNTER → 2021-03-03 08:01 | Outpatient (CLI) | payer MEDICARE, MEDICAID, SELFPAY ==
--- NOTE | 2021-03-03 08:05 | US_ITS ---
PROCEDURE: US ABDOMEN LIMITED CLINICAL INDICATION: CHRONIC HEPATITIS C COMPARISON: CT CT ABDOMEN PELVIS W CON from 11/17/2020 FINDINGS: PANCREAS: Unremarkable. No obvious mass or abnormal fluid collection. No ductal dilatation LIVER: Diffuse increased echogenicity of the liver with poor through transmission of sound consistent with hepatic steatosis. No focal liver lesion demonstrated. There is appropriate direction of blood flow within non dilated portal vein. RIGHT KIDNEY: Unremarkable. Normal size and echogenicity. No hydronephrosis GALLBLADDER: No gallstones, gallbladder wall thickening, pericholecystic fluid, or biliary dilatation. IMPRESSION: Fatty liver otherwise negative Dictated by: Xavier Pacheco MD 03/03/2021 17:31 Xavier Pacheco MD in [place] 03/03/2021 17:31
[2021-03-03 09:49] LABS: Basophils % 0.3 % (0.1-2.0); Eosinophils # 0.1 K/mm3 (0.0-0.4); Eosinophils % 0.8 % (0.1-12.0); Hematocrit 36.6 % (42.0-52.0); Hemoglobin 12.1 g/dL (14.1-18.0); Lymphocytes # 1.8 K/mm3 (0.7-4.5); Lymphocytes % 21.2 % (10-50); Mean Corpuscular HGB Conc 32.9 g/dL (31.8-35.4); Mean Corpuscular Volume 106.5 fl (80-94); Mean Platelet Volume 8.7 fl (7.4-10.4); Monocytes % 11.7 % (1.7-9.3); Neutrophils # 5.7 K/mm3 (1.8-7.8); Neutrophils % 65.9 % (37.0-80.0); Platelet Count 218 K/mm3 (142-424); Red Blood Count 3.44 M/mm3 (4.60-6.20); Red Cell Distribution Width 14.8 % (11.5-17.5); White Blood Count 8.6 K/mm3 (4.8-10.8)
[2021-03-03 10:28] LABS: NT Pro Brain Natriuretic Pep. 421 pg/mL (0-125)
[2021-03-03 11:57] LABS: Chloride 93 mmol/L (98-107); Potassium 3.8 mmoL/L (3.5-5.1); Sodium 131 mmol/L (136-145)
[2021-03-03 11:59] LABS: Alanine Aminotransferase 48 U/L (12-78); Alkaline Phosphatase 77 U/L (38-126); Aspartate Amino Transferase 66 U/L (17-59); Bilirubin,Total 0.9 mg/dl (0.2-1.3); Blood Urea Nitrogen 10 mg/dl (9-20); Estimated Glomerular Filt Rate 166 ml/min (>60); GFR (African American) 201 ML/MIN (>60)
[2021-03-03 12:00] LABS: Albumin Level 4.5 g/dl (3.5-5.0); Albumin/Globulin Ratio 1.4 (1.1-1.8); Anion Gap 16.8 mEq/L (5-15); Calcium 9.5 mg/dl (8.4-10.2); Carbon Dioxide 25 mmol/L (22.0-30.0); Globulin 3.2 g/dL (1.3-3.2); Glucose 119 mg/dl (74-100); Total Protein,Serum 7.7 g/dl (6.3-8.2)
[2021-03-05 22:03] LABS: HCV Genotype Charge YES; Hepatitis C Genotype 1a (.)
== END ==
PROVIDERS: Urology; PCP Emergency Medicine; Visit Provider Nurse Practitioner Family
DX: E78.5 Hyperlipidemia, unspecified (principal); F10.20 Alcohol dependence, uncomplicated; F17.200 Nicotine dependence, unspecified, uncomplicated; I10 Essential (primary) hypertension; I20.9 Angina pectoris, unspecified; R55 Syncope and collapse; I65.29 Occlusion and stenosis of unspecified carotid artery; R06.02 Shortness of breath; R91.1 Solitary pulmonary nodule; B18.2 Chronic viral hepatitis C
CPT/HCPCS: 36415; 76705; 80053; 83880; 85025; 87522; 87902

== ENCOUNTER 2021-03-05 12:16 | Emergency (ER) | payer MEDICARE, MEDICAID, SELFPAY ==
[2021-03-05 12:16] VITALS: BP 118/78; PULSE 82; RESP 18; TEMP 36.6; O2SAT 96; BMI 21.4
--- NOTE | 2021-03-05 12:54 | HMH.EDGENADL ---
ED Disposition Clinical Impression: Skin tear of forearm without complication Qualifiers: Encounter type: initial encounter Laterality: left Qualified Code(s): S51.812A - Laceration without foreign body of left forearm, initial encounter Abrasion of groin Qualifiers: Encounter type: initial encounter Qualified Code(s): S30.811A - Abrasion of abdominal wall, initial encounter Hematoma of groin Qualifiers: Encounter type: initial encounter Qualified Code(s): S30.1XXA - Contusion of abdominal wall, initial encounter Disposition: Home, Self-Care Condition on Discharge: Good Additional Instructions: Keep bandages on for 24 hours. Remove bandages after 24 hours, clean wounds gently with soap and water, and reapply fresh bandages. Repeat cleaning and bandage changes daily until healed, approximately 2 weeks. Follow-up with primary care doctor next week for wound recheck. Referrals: Ziyad Nicholas MD [Primary Care Provider] - - Critical Care Critical Care Time: No Attestation: On 03/05/21, the high probability of a clinically significant, sudden or life threatening deterioration of the following system(s) required my full and direct attention, intervention and personal management. The time I documented below is in addition to time spent performing reported procedures but includes the following listed in this critical care notation. Medical Decision Making - Shailesh Inquiry Pt receiving controlled substance: No Vital Signs: 03/05/21 12:16 Temperature 97.8 F Temperature Source Oral Pulse Rate [Right Radial] 82 Respiratory Rate 18 Blood Pressure [Right Arm] 118/78 Blood Pressure Mean [Right Arm] 91 Blood Pressure Source [Right Arm] Automatic Cuff Blood Pressure Position [Right Arm] Sitting 02 Sat by Pulse Oximetry 96 Oxygen Delivery Method Room Air General Adult HPI - General Stated complaint: fall Time Seen by Provider: 03/05/21 12:35 - History of Present Illness HPI narrative: Complains of 2 different injuries. 2 days ago he fell and has a skin tear on his left forearm. His main complaint is that that wound will not stop bleeding. Yesterday he says that an inhaler that was in his left front pocket of his pants got jammed into his groin when he fell. He says the inhaler was intact, did not break. It did not tear through his pants pocket. He has a skin tear in the groin with a hematoma. He states his last tetanus immunization was less than 5 years ago. He says he has a history of multiple falls from blackouts . 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 He says that is what causes him to fall frequently. He does not want any work-up for his falls or blackouts, he says he just wants something on his forearm to keep it from bleeding. He says that he is a daily drinker. He says he had one half of a beer with breakfast this morning. - Related Data Home Medications Medication Instructions Recorded Confirmed Albuterol Sulfate [Proventil Hfa] 2 puffs IH Q6HP PRN 01/21/21 02/21/21 Amitriptyline HCl [Elavil 10mg 10 mg PO HS 01/21/21 02/21/21 tablet] Citalopram Hydrobromide [Celexa] 10 mg PO DAILY 01/21/21 02/21/21 Fluticasone/Vilanterol [Breo 1 inh INHALATION DAILY 01/21/21 02/21/21 Ellipta 200-25 Mcg INH] Furosemide [Furosemide 20mg Tab*] 20 mg PO DAILY 01/21/21 02/21/21 Thiamine HCl [Vitamin B-1] 100 mg PO DAILY 01/21/21 02/21/21 Tiotropium [place] [Spiriva 2 puffs IH DAILY 01/21/21 02/21/21 Respimat] Atorvastatin Calcium [Lipitor 40mg 40 mg PO HS 02/02/21 02/21/21 Tablet*] Previous Rx's Medication Instructions Recorded tamsulosin 0.4 mg capsule 0.4 mg PO HS #90 cap 01/15/20 metoprolol tartrate 50 mg tablet 50 mg PO BID #60 tab 08/29/20 nitroglycerin 0.4 mg sublingual 0.4 mg SUBLINGUAL Q5M PRN #25 tab 12/14/20 tablet clopidogrel 75 mg tablet 75 mg PO DAILY #38 tab 02/21/21 Allergies Allergy/AdvReac Type
[2021-03-05 13:30] VITALS: BP 92/64; PULSE 79; O2SAT 91
[2021-03-05 14:00] VITALS: BP 96/65; PULSE 76; O2SAT 91
--- NOTE | 2021-03-05 14:16 | PC.NURSE ---
skin tear to L forearm cleaned with hibiclens, dressing applied to L forearm at this time: adaptive gauze, telfa, abd pad and farrah wrap applied wound in L groin cleaned with hibiclens, 4x4 dressing applied.
[2021-03-05 14:22] VITALS: BP 96/55; PULSE 76; RESP 18; TEMP 36.6; O2SAT 94
== END 2021-03-05 14:22 | disposition home or self-care (01) ==
PROVIDERS: Emergency Provider Emergency Medicine; PCP Emergency Medicine
DX: S51.812A Laceration without foreign body of left forearm, initial encounter (principal); S30.811A Abrasion of abdominal wall, initial encounter; S30.1XXA Contusion of abdominal wall, initial encounter; W18.00XA Striking against unspecified object with subsequent fall, initial encounter; Y92.019 Unspecified place in single-family (private) house as the place of occurrence of the external cause; F10.10 Alcohol abuse, uncomplicated; I25.10 Atherosclerotic heart disease of native coronary artery without angina pectoris; I10 Essential (primary) hypertension; J44.9 Chronic obstructive pulmonary disease, unspecified; I25.2 Old myocardial infarction; F17.210 Nicotine dependence, cigarettes, uncomplicated; Z79.899 Other long term (current) drug therapy
CPT/HCPCS: 99281

== ENCOUNTER → 2021-04-25 16:00 | Outpatient (CLI) | payer MEDICARE, MEDICAID, SELFPAY | PROVIDERS: PCP Emergency Medicine; Visit Provider Physician Assistant | DX: R55 Syncope and collapse (principal); I51.89 Other ill-defined heart diseases; I25.118 Atherosclerotic heart disease of native coronary artery with other forms of angina pectoris; I10 Essential (primary) hypertension; E78.5 Hyperlipidemia, unspecified; F17.200 Nicotine dependence, unspecified, uncomplicated; F10.20 Alcohol dependence, uncomplicated | CPT/HCPCS: 93225 ==

== ENCOUNTER 2021-04-28 07:38 | Day surgery (SDC) | payer MEDICARE, MEDICAID, SELFPAY ==
[2021-04-28 07:41] VITALS: BMI 20.9
[2021-04-28 07:59] VITALS: BP 132/89; PULSE 72; PULSE 73; RESP 18; O2SAT 95
[2021-04-28 08:34] VITALS: BP 100/69; PULSE 70; RESP 18; O2SAT 97
--- NOTE | 2021-04-28 10:30 | HMH.LOOP ---
[facility] Loop Recorder Date: 04/28/21 Time: 08:00 Procedure Performed:: Removal of existing loop recorder and implantation of new loop recorder Indication:: Recurrent syncope Technique:: Patient was brought to the cardiac Lead Neurodiagnostic Technologist. After informed consent obtained, 1% lidocaine with epinephrine was used to anesthetize the site along the left anterior aspect of the chest near the sternal border and directly above the existing loop recorder. Using a surgical scalpel, incision was made down to the existing loop recorder and using forceps it was removed without complications. Using the supplied preloaded apparatus, the new loop recorder was placed subcutaneously in a different position without difficulty. Following the deployment of the loop recorder interrogation of the device was performed to ensure appropriate voltage was being detected (0.25 mV with good telemetry noted). Once this was verified, Steri-Strips were placed over the incision and the patient was prepped to discharge home. Patient tolerated the procedure well with minimal discomfort. Impression:: Successful loop recorder removal with implantation of new loop recorder Serial Number:: Lux DS [id number] with serial #[id number] Plan:: Routine postop care
== END 2021-04-28 08:40 | disposition home or self-care (01) ==
LOC: CATHLAB 07:39
PROVIDERS: PCP Emergency Medicine; Visit Provider Internal Medicine
DX: I25.118 Atherosclerotic heart disease of native coronary artery with other forms of angina pectoris (principal); R55 Syncope and collapse; I10 Essential (primary) hypertension; E78.5 Hyperlipidemia, unspecified; F10.20 Alcohol dependence, uncomplicated; F17.210 Nicotine dependence, cigarettes, uncomplicated; J44.9 Chronic obstructive pulmonary disease, unspecified; Z99.81 Dependence on supplemental oxygen; Z79.899 Other long term (current) drug therapy
CPT/HCPCS: 33285

== ENCOUNTER → 2021-05-01 06:44 | Outpatient (CLI) | payer MEDICARE, MEDICAID, SELFPAY ==
--- NOTE | 2021-05-01 06:49 | CT_ITS ---
PROCEDURE: CT HEAD/BRAIN WO CON CLINICAL INDICATION: syncope/multiple falls COMPARISON: CT CT HEAD/BRAIN WO CON from 01/21/2021 TECHNIQUE: Axial images obtained. All CT scans at the facility use one or more dose reduction, viz: automated exposure control, ma/kV adjustment per patient size (including targeted exams where dose is matched to indication, i.e. head), or iterative reconstruction technique. FINDINGS: No midline shift, mass effect, intracranial hemorrhage, hydrocephalus, or extra-axial fluid collection is evident. There is generalized atrophy with hypoattenuation of the periventricular white matter consistent with microangiopathic changes. The calvarium has an unremarkable appearance. No mastoid effusion. No sinus air-fluid level. IMPRESSION: No acute intracranial finding with no significant change Dictated by: Xavier Pacheco MD 05/01/2021 07:48 Xavier Pacheco MD in [place] 05/01/2021 07:48
== END ==
PROVIDERS: PCP Emergency Medicine; Visit Provider Internal Medicine
DX: E78.2 Mixed hyperlipidemia (principal); F10.20 Alcohol dependence, uncomplicated; F17.200 Nicotine dependence, unspecified, uncomplicated; I10 Essential (primary) hypertension; I25.118 Atherosclerotic heart disease of native coronary artery with other forms of angina pectoris; R55 Syncope and collapse
CPT/HCPCS: 70450

== ENCOUNTER → 2021-05-26 07:07 | Outpatient (CLI) | payer MEDICARE, MEDICAID, SELFPAY ==
[2021-05-26 08:12] LABS: Alanine Aminotransferase 22 U/L (12-78); Albumin Level 4.2 g/dl (3.5-5.0); Albumin/Globulin Ratio 1.3 (1.1-1.8); Alkaline Phosphatase 96 U/L (38-126); Anion Gap 14.3 mEq/L (5-15); Aspartate Amino Transferase 40 U/L (17-59); Bilirubin,Total 0.7 mg/dl (0.2-1.3); Blood Urea Nitrogen 8 mg/dl (9-20); Carbon Dioxide 29 mmol/L (22.0-30.0); Chloride 92 mmol/L (98-107); Estimated Glomerular Filt Rate 135 ml/min (>60); GFR (African American) 163 ML/MIN (>60); Globulin 3.3 g/dL (1.3-3.2); Glucose 105 mg/dl (74-100); Potassium 4.3 mmoL/L (3.5-5.1); Sodium 131 mmol/L (136-145); Total Protein,Serum 7.5 g/dl (6.3-8.2)
[2021-05-26 09:02] LABS: Vitamin B12 359 pg/mL (239-931)
[2021-05-27 12:13] LABS: Hep B Core Ab, Total Negative (Negative); Hepatitis B Surface Antigen Negative (Negative)
[2021-05-29 12:11] LABS: ALT (SGPT) P5P 17 IU/L (0-55); Alpha 2-Macroglobulins, Qn 352 mg/dL (110-276); Apolipoprotein A-1 135 mg/dL (101-178); Bilirubin, Total 0.3 mg/dL (0.0-1.2); Fibrosis Score 0.51 (0.00-0.21); GGT 48 IU/L (0-65); Haptoglobin 191 mg/dL (32-363); Necroinflammat Activity Grade A0-No activity (.); Necroinflammat Activity Score 0.08 (0.00-0.17)
[2021-05-30 17:09] LABS: Vitamin B1 164.6 nmol/L (66.5-200.0)
== END ==
PROVIDERS: Nurse Practitioner Family; Visit Provider Specialist
DX: F10.10 Alcohol abuse, uncomplicated (principal); I67.1 Cerebral aneurysm, nonruptured; B18.2 Chronic viral hepatitis C
CPT/HCPCS: 36415; 80053; 81596; 82607; 84425; 86704; 87340

== ENCOUNTER → 2021-05-30 12:38 | Outpatient (CLI) | payer MEDICARE, MEDICAID, SELFPAY | PROVIDERS: PCP Emergency Medicine; Visit Provider Specialist | DX: R51.9 Headache, unspecified (principal) ==

== ENCOUNTER → 2021-06-05 13:34 | Outpatient (CLI) | payer MEDICARE, MEDICAID, SELFPAY ==
--- NOTE | 2021-06-05 13:34 | CT_ITS ---
Procedure: CT ANGIO HEAD CLINICAL HISTORY: ROMEO aneurysm Aneurysm follow-up COMPARISON: CT,PT PET/CT from 04/10/[address] HEAD/BRAIN WO CON from 05/01/2021 TECHNIQUE: IV Contrast: 100ml Isovue 370 Axial images obtained with sagittal and coronal reformats. All CT scans at the facility use one or more dose reduction, viz: automated exposure control, ma/kV adjustment per patient size (including targeted exams where dose is matched to indication, i.e. head), or iterative reconstruction technique. 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 The aneurysm has a lobular contour with a nipple like projection projecting toward the right and measuring 1.5 mm. No evidence of acute intracranial hemorrhage. Atherosclerotic calcification is present involving the cavernous portion of the internal carotid arteries and the supraclinoid portion of the right internal carotid artery without significant stenosis. The vertebral basilar system has an unremarkable appearance. No AVM, arterial dissection, or major occlusive process apparent. There is mild generalized atrophy. No midline shift mass effect or obvious intracranial hemorrhage. There is mild mucosal thickening of the ethmoid sinuses. No evidence dural thrombosis. 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 The aneurysm does contain a small nipple like projection projecting anteriorly and slightly toward the right. Dictated by: Xavier Pacheco MD 06/06/2021 08:02 Xavier Pacheco MD in [facility] 06/06/2021 08:02
== END ==
PROVIDERS: PCP Emergency Medicine; Visit Provider Specialist
DX: F10.10 Alcohol abuse, uncomplicated (principal); I67.1 Cerebral aneurysm, nonruptured
CPT/HCPCS: 70496; Q9967

== ENCOUNTER → 2021-06-19 09:53 | Outpatient (POV) | payer MEDICARE, MEDICAID, SELFPAY | PROVIDERS: Visit Provider Nurse Practitioner Family | DX: Z00.00 Encounter for general adult medical examination without abnormal findings (principal) ==

== ENCOUNTER → 2021-10-03 09:31 | Outpatient (CLI) | payer MEDICARE, MEDICAID, SELFPAY ==
[2021-10-03 10:02] LABS: Basophils # 0.1 K/mm3 (0-0.2); Basophils % 0.5 % (0.1-2.0); Eosinophils # 0.3 K/mm3 (0.0-0.4); Eosinophils % 3.7 % (0.1-12.0); Hematocrit 37.3 % (42.0-52.0); Hemoglobin 11.8 g/dL (14.1-18.0); Lymphocytes # 2.3 K/mm3 (0.7-4.5); Lymphocytes % 25.9 % (10-50); Mean Corpuscular HGB Conc 31.7 g/dL (31.8-35.4); Mean Corpuscular Volume 94.7 fl (80-94); Mean Platelet Volume 8.5 fl (7.4-10.4); Monocytes # 0.8 K/mm3 (0.1-1.0); Monocytes % 9.4 % (1.7-9.3); Neutrophils # 5.4 K/mm3 (1.8-7.8); Neutrophils % 60.5 % (37.0-80.0); Platelet Count 387 K/mm3 (142-424); Red Blood Count 3.94 M/mm3 (4.60-6.20); Red Cell Distribution Width 19.1 % (11.5-17.5); White Blood Count 8.9 K/mm3 (4.8-10.8)
[2021-10-03 10:37] LABS: Blood Urea Nitrogen 7 mg/dl (9-20); Calcium 9.4 mg/dl (8.4-10.2); Carbon Dioxide 34 mmol/L (22.0-30.0); Chloride 92 mmol/L (98-107); Estimated Glomerular Filt Rate 135 ml/min (>60); GFR (African American) 163 ML/MIN (>60); Glucose 105 mg/dl (74-100); Sodium 131 mmol/L (136-145)
== END ==
PROVIDERS: Visit Provider Urology
DX: E78.2 Mixed hyperlipidemia (principal); F10.20 Alcohol dependence, uncomplicated; F17.200 Nicotine dependence, unspecified, uncomplicated; I10 Essential (primary) hypertension; I25.118 Atherosclerotic heart disease of native coronary artery with other forms of angina pectoris; Z01.812 Encounter for preprocedural laboratory examination; Z11.52 Encounter for screening for COVID-19; R07.9 Chest pain, unspecified
CPT/HCPCS: 36415; 80048; 85025; C9803; U0003; U0005

== ENCOUNTER 2021-10-05 08:48 | Day surgery (SDC) | payer MEDICARE, MEDICAID, SELFPAY ==
[2021-10-05] VITALS (11 sets, daily range): BP systolic 95–188; BP diastolic 61–99; PULSE 59–80; RESP 16–20; TEMP 36.6–37; O2SAT 87–99; BMI 21.3
--- NOTE | 2021-10-05 | IR_ITS ---
APPROVED REPORT Patient [facility]: [facility] Safety Officer: DAVID Rudolph RT (R) PROCEDURES Left heart catheterization Left ventriculogram Selective coronary angiogram INDICATION Coronary artery disease, Accelerated angina pectoris, Syncope Informed consent was obtained prior to the procedure. COMPLICATIONS NONE Estimated Blood Loss: LESS THAN 10 ML TECHNIQUE One percent lidocaine used to anesthetize the right anterior aspect of the wrist. The right radial artery was accessed via the Seldinger technique. A 6 Guyanese sheath was placed in the right radial artery. 2.5 mg of verapamil, 800 mcg of nitroglycerin, 1mg Lidocaine and 5000 U Heparin were given through the arterial sheath. The Poppa 1 catheter was also used to perform left heart catheterization, left ventriculogram and selective coronary angiogram. At the end of the procedure the sheath was removed good hemostasis was achieved using Traclet band, patient was transferred to the postop holding area in stable condition. ANGIOGRAPHIC RESULTS The left main artery Normal The left anterior descending artery Has mild proximal and mid vessel diffuse 10% luminal irregularities The circumflex artery Is a codominant vessel and has a stent in the ostial proximal segment which is widely patent with minimal in-stent restenosis and excellent proximal distal transitioning The right coronary artery Is a codominant vessel and has proximal concentric 40 to 50% stenosis. The AREVALO ventriculogram reveals Normal 65% The left ventricular end-diastolic pressure 15 mmHg IMPRESSION Coronary disease as described above Normal ejection fraction Borderline LVEDP PLAN 1. Maximize antianginal medications 2. Avoidance of tobacco products 3. Standard therapy for ischemic heart disease Electronically signed by : Drew Ziegler MD 10/05/2021 11:23:43
== END 2021-10-05 14:57 | disposition home or self-care (01) ==
LOC: CATHLAB 08:50
PROVIDERS: PCP Emergency Medicine; Visit Provider Internal Medicine
DX: I25.118 Atherosclerotic heart disease of native coronary artery with other forms of angina pectoris (principal); Z79.899 Other long term (current) drug therapy; F10.20 Alcohol dependence, uncomplicated; F17.210 Nicotine dependence, cigarettes, uncomplicated; R55 Syncope and collapse; Z99.81 Dependence on supplemental oxygen; I10 Essential (primary) hypertension; J44.9 Chronic obstructive pulmonary disease, unspecified
CPT/HCPCS: 93458; 99152; C1725; C1769; J1644; Q9967

== ENCOUNTER 2022-01-29 16:57 | Emergency (ER) | payer MEDICARE, MEDICAID, SELFPAY ==
[2022-01-29 16:57] VITALS: BP 154/126; PULSE 84; RESP 18; TEMP 36.4; O2SAT 94; BMI 22.4
--- NOTE | 2022-01-29 17:20 | HMH.EDGENADL ---
ED Disposition Clinical Impression: Alcohol abuse Abdominal pain Qualifiers: Abdominal location: left lower quadrant Qualified Code(s): R10.32 - Left lower quadrant pain Disposition: Home, Self-Care Condition on Discharge: Fair Additional Instructions: There is a thickening of your bladder. Recommend following up with a urologist and having a cystoscopy performed to ensure that there is no malignancy I placed a referral in to Dr. Garcia. You also have an abnormal liver, if you do not stop drinking you will likely have some degree of liver failure in the future. Follow up with Dr. Nicholas, I will also give you follow up with a urologist. Prescriptions: Ondansetron [Zofran 4mg ODT] 4 mg PO BIDP PRN #10 tab PRN Reason: Nausea Transmission Status: Pending to [id number] Referrals: Ziyad Nicholas MD [Primary Care Provider] - Morris Garcia MD [Staff Physician] - - Critical Care Critical Care Time: No Attestation: On 01/29/22, the high probability of a clinically significant, sudden or life threatening deterioration of the following system(s) required my full and direct attention, intervention and personal management. The time I documented below is in addition to time spent performing reported procedures but includes the following listed in this critical care notation. Medical Decision Making - Medical Records Medical records reviewed: Yes: I reviewed the patient's medical records. - Shailesh Inquiry Pt receiving controlled substance: No Vital Signs: 01/29/22 16:57 01/29/22 19:25 Temperature 97.6 F Temperature Source Oral Pulse Rate [Right] 84 Respiratory Rate 18 Blood Pressure [Right Arm] 154/126 H Blood Pressure Mean [Right Arm] 135 Blood Pressure Source [Right Arm] Automatic Cuff Blood Pressure Position [Right Arm] Supine 02 Sat by Pulse Oximetry 94 L Oxygen Delivery Method Nasal Cannula Nasal Cannula Oxygen Flow Rate (LPM) 2 2 - Lab Data Lab results reviewed: Yes: I reviewed the patient's lab results. Lab Results 01/29/22 17:44: WBC 5.6, RBC 3.77 L, Hgb 13.3 L, Hct 40.2 L, MCV 106.5 H, MCH 35.2 H, MCHC 33.1, RDW 20.0 H, Plt Count 224, MPV 8.5, Neut % (Auto) 60.9, Lymph % (Auto) 28.5, Christian % (Auto) 7.9, Eos % (Auto) 1.5, Baso % (Auto) 1.2, Neut # (Auto) 3.4, Lymph # (Auto) 1.6, Christian # (Auto) 0.5, Eos # (Auto) 0.1, Baso # (Auto) 0.1 01/29/22 17:44: Sodium 133 L, Potassium 3.5, Chloride 94 L, Carbon Dioxide 29, Anion Gap 13.5, BUN 5 L, Creatinine 0.50 L, Estimated Creat Clear 78, Estimated GFR 166, Est GFR ( Amer) 201, Glucose 100, Calcium 8.2 L, Total Bilirubin 0.8, AST 97 H, ALT 39, Alkaline Phosphatase 89, Total Protein 7.4, Albumin 4.1, Globulin 3.3 H, Albumin/Globulin Ratio 1.2, TSH 2.10, Thyroxine (T4) 7.9 01/29/22 17:44: Magnesium 1.1 L 01/29/22 17:44: Plasma/Serum Alcohol 304 H Result diagrams: 01/29/22 17:44 01/29/22 17:44 Orders (Tests/Meds): ED MEDICATIONS Generic Name Dose Route Start Last Admin Trade Name Freq PRN Reason Stop Dose Admin Albuterol/Ipratropium 3 ml 01/29/22 19:15 01/29/22 19:23 Ipratropium/Albuterol 3 Ml Neb IH 02/28/22 19:14 3 ml Q1H RACHEAL Administration Discontinued Medications Generic Name Dose Route Start Last Admin Trade Name Freq PRN Reason Stop Dose Admin Ondansetron HCl 4 mg 01/29/22 19:38 Ondansetron 4mg/2ml Vial IV 01/29/22 19:39 ONCE ONE ORDERS Category Date Time Status XR forearm LT 2V Stat Exams 01/29/22 19:05 Taken PT/INR [Prothrombin Time INR] Stat Lab 01/29/22 17:21 Ordered Urinalysis and Microscopic Stat Lab 01/29/22 17:21 Ordered Medical Decision Narrative: Is a 66-year-old male presenting to the emergency department with chief complaint of whole body weakness, abdominal pain and frequent falls. Has significant left lower quadrant abdominal pain on examination. Differential diagnosis for this patient includes intracranial bleeding, electrolyte abnormality, sequela of
--- NOTE | 2022-01-29 17:21 | CT_ITS ---
PROCEDURE INFORMATION: Exam: CT Head Without Contrast Exam date and time: 01/29/2022 6:22 PM Age: 66 years old Clinical indication: Altered mental status/memory loss; Additional info: AMS TECHNIQUE: Imaging protocol: Computed tomography of the head without contrast. Radiation optimization: All CT scans at this facility use at least one of these dose optimization techniques: automated exposure control; mA and/or kV adjustment per patient size (includes targeted exams where dose is matched to clinical indication); or iterative reconstruction. COMPARISON: 1. CT HEAD/BRAIN WO CON 05/01/2021 6:[address] HEAD/BRAIN WO CON 01/21/2021 8:42 PM FINDINGS: Brain: Moderate chronic brain volume loss and chronic small vessel ischemic changes. Anterior parafalcine focus of high attenuation is unchanged. Cerebral ventricles: No ventriculomegaly. Paranasal sinuses: Visualized sinuses are unremarkable. No fluid levels. Mastoid air cells: Visualized mastoid air cells are well aerated. Orbital cavities: Status post bilateral cataract surgery. Vasculature: Vascular clips in the suprasellar cistern. Bones/joints: Unremarkable. No acute fracture. Soft tissues: Unremarkable. IMPRESSION: No acute intracranial findings.
--- NOTE | 2022-01-29 17:23 | XR_ITS ---
PROCEDURE INFORMATION: Exam: XR Chest Exam date and time: 01/29/2022 6:40 PM Age: 66 years old Clinical indication: Sternal or substernal pain; Prior surgery; Surgery date: <1 month; Surgery type: Loop recorder placed in chest; Additional info: Fall TECHNIQUE: Imaging protocol: XR of the chest. Views: 1 view. COMPARISON: CR XR CHEST PORTABLE 02/01/2021 1:42 PM FINDINGS: Lungs: Possible underlying emphysema. Left upper lung scarring. Stigmata of old granulomatous disease. Pleural spaces: Unremarkable. No pleural effusion. No pneumothorax. Heart/Mediastinum: Unremarkable. No cardiomegaly. Vasculature: IVC filter is noted. Bones/joints: Old bilateral rib fractures. IMPRESSION: No acute findings.
--- NOTE | 2022-01-29 17:23 | CT_ITS ---
PROCEDURE INFORMATION: Exam: CT Abdomen And Pelvis Without Contrast Exam date and time: 01/29/2022 6:29 PM Age: 66 years old Clinical indication: Abdominal pain; Generalized; Prior surgery; Surgery date: 6+ months; Surgery type: Hernia, loop recorder. TECHNIQUE: Imaging protocol: Computed tomography of the abdomen and pelvis without contrast. Radiation optimization: All CT scans at this facility use at least one of these dose optimization techniques: automated exposure control; mA and/or kV adjustment per patient size (includes targeted exams where dose is matched to clinical indication); or iterative reconstruction. COMPARISON: CT ABDOMEN PELVIS W CON 11/17/2020 11:53 PM FINDINGS: Heart: Coronary artery disease. Liver: Severe hepatic steatosis. Gallbladder and bile ducts: Normal. No calcified stones. No ductal dilation. Pancreas: Normal. No ductal dilation. Spleen: Normal. No splenomegaly. Adrenal glands: Normal. No mass. Kidneys and ureters: Normal. No hydronephrosis. Stomach and bowel: Nonspecific bowel wall thickening of portions of the colon. Appendix: Unremarkable appendix. Intraperitoneal space: Unremarkable. No free air. No significant fluid collection. Vasculature: Moderate atherosclerotic changes of the arteries. Lymph nodes: Unremarkable. No enlarged lymph nodes. Urinary bladder: There is mild irregular urinary bladder wall thickening with a focal component in the right posterolateral aspect of the urinary bladder image 42series 1001. Reproductive: Unremarkable as visualized. Bones/joints: Old bilateral rib fractures. Soft tissues: Unremarkable. Other findings: Stigmata of old granulomatous disease. IMPRESSION: 1. Nonspecific bowel wall thickening of portions of the colon. Please exclude colitis. 2. There is mild irregular urinary bladder wall thickening with a focal component in the right posterolateral aspect of the urinary bladder image 42 series 1001. If not previously performed, consider follow-up cystoscopy to exclude malignancy. 3. Severe hepatic steatosis.
--- NOTE | 2022-01-29 17:35 | PC.NURSE ---
v/s delayed due to lab attempting to collect blood.
[2022-01-29 17:54] LABS: Basophils # 0.1 K/mm3 (0-0.2); Basophils % 1.2 % (0.1-2.0); Eosinophils # 0.1 K/mm3 (0.0-0.4); Eosinophils % 1.5 % (0.1-12.0); Hematocrit 40.2 % (42.0-52.0); Hemoglobin 13.3 g/dL (14.1-18.0); Lymphocytes # 1.6 K/mm3 (0.7-4.5); Lymphocytes % 28.5 % (10-50); Mean Corpuscular HGB Conc 33.1 g/dL (31.8-35.4); Mean Corpuscular Hemoglobin 35.2 pg (27.0-31.2); Mean Corpuscular Volume 106.5 fl (80-94); Mean Platelet Volume 8.5 fl (7.4-10.4); Monocytes # 0.5 K/mm3 (0.1-1.0); Monocytes % 7.9 % (1.7-9.3); Neutrophils # 3.4 K/mm3 (1.8-7.8); Neutrophils % 60.9 % (37.0-80.0); Platelet Count 224 K/mm3 (142-424); Red Blood Count 3.77 M/mm3 (4.60-6.20); White Blood Count 5.6 K/mm3 (4.8-10.8)
[2022-01-29 18:02] LABS: Alanine Aminotransferase 39 U/L (12-78); Albumin Level 4.1 g/dl (3.5-5.0); Albumin/Globulin Ratio 1.2 (1.1-1.8); Alkaline Phosphatase 89 U/L (38-126); Anion Gap 13.5 mEq/L (5-15); Aspartate Amino Transferase 97 U/L (17-59); Bilirubin,Total 0.8 mg/dl (0.2-1.3); Blood Urea Nitrogen 5 mg/dl (9-20); Calcium 8.2 mg/dl (8.4-10.2); Carbon Dioxide 29 mmol/L (22.0-30.0); Chloride 94 mmol/L (98-107); Creatinine Clearance Estimated 78 mL/min (50-200); Estimated Glomerular Filt Rate 166 ml/min (>60); GFR (African American) 201 ML/MIN (>60); Globulin 3.3 g/dL (1.3-3.2); Glucose 100 mg/dl (74-100); Potassium 3.5 mmoL/L (3.5-5.1); Sodium 133 mmol/L (136-145); Total Protein,Serum 7.4 g/dl (6.3-8.2)
[2022-01-29 18:19] LABS: T4 (Thyroxine) 7.9 ug/dl (5.53-11.0)
[2022-01-29 18:23] LABS: Ethyl Alcohol 304 mg/dl (0-10)
[2022-01-29 18:31] LABS: Magnesium 1.1 mg/dl (1.6-2.3)
--- NOTE | 2022-01-29 19:05 | XR_ITS ---
PROCEDURE INFORMATION: Exam: XR Left Forearm Exam date and time: 01/29/2022 7:22 PM Age: 66 years old Clinical indication: Lower or forearm; Patient HX: Left forearm pain, no known injury. Patient stated he was a former iv drug user. TECHNIQUE: Imaging protocol: XR Left forearm. Views: 2 views. COMPARISON: No relevant prior studies available. FINDINGS: Bones/joints: No acute fracture or dislocation. Soft tissues: Normal. IMPRESSION: No acute fracture or dislocation.
--- NOTE | 2022-01-29 19:39 | PC.NURSE ---
Patients IV infiltrated during ct scan. Iv removed. Hematoma noted, pressure applied to right ac. Dressing applied.
[2022-01-29 19:51] VITALS: BP 150/90; PULSE 82; RESP 18; TEMP 37.1; O2SAT 97
== END 2022-01-29 19:53 | disposition home or self-care (01) ==
PROVIDERS: Emergency Provider Emergency Medicine; PCP Emergency Medicine
DX: R10.32 Left lower quadrant pain (principal); F10.10 Alcohol abuse, uncomplicated; W18.39XA Other fall on same level, initial encounter; Y92.018 Other place in single-family (private) house as the place of occurrence of the external cause; J44.9 Chronic obstructive pulmonary disease, unspecified; I25.10 Atherosclerotic heart disease of native coronary artery without angina pectoris; Z99.81 Dependence on supplemental oxygen; I25.2 Old myocardial infarction; Z95.0 Presence of cardiac pacemaker; F17.210 Nicotine dependence, cigarettes, uncomplicated; R53.83 Other fatigue
CPT/HCPCS: 70450; 71045; 73090; 74176; 80053; 83735; 84436; 84443; 85025; 96374; 99284

== ENCOUNTER → 2022-03-14 12:52 | Outpatient (CLI) | payer MEDICARE, MEDICAID, SELFPAY ==
--- NOTE | 2022-03-14 12:53 | US_ITS ---
FINAL REPORT CLINICAL HISTORY: claudication, previous PAMELA 08/22/20(Rt PAMELA=1.27, Lt PAMELA=1.21), HTN, hyperlipidemia. FINDINGS: ANKLE/BRACHIAL INDICES FINDINGS: Pressure indices are as follows: RIGHT LOWER EXTREMITY: Ankle brachial pressure index: 1.2 Comments: Normal LEFT LOWER EXTREMITY: Ankle brachial pressure index: 1.2 Comments: Normal IMPRESSION: No evidence of significant obstructive peripheral vascular disease of the lower extremities. Reviewed, Interpreted and Dictated by Emiliano Rush III, MD Transcribed by Capo Jang Authenticated by Emiliano Rush III, MD on 03/14/2022 02:26:25 PM [facility]
--- NOTE | 2022-03-14 12:53 | CA_ITS ---
FINAL REPORT CLINICAL HISTORY: Pedal edema, claudication, Smoker FINDINGS: Color Doppler, duplex Doppler and compression sonography of the bilateral lower extremities was performed. There is no evidence of deep venous thrombosis from the level of the groin to the calf. The deep veins are patent and compressible. IMPRESSION: No evidence of deep venous thrombosis bilateral lower extremities. Reviewed, Interpreted and Dictated by Emiliano Rush III, MD Transcribed by Capo Jang Authenticated by Emiliano Rush III, MD on 03/14/2022 02:26:23 PM [facility]
== END ==
PROVIDERS: PCP Emergency Medicine; Visit Provider Physician Assistant
DX: I73.9 Peripheral vascular disease, unspecified (principal); R60.9 Edema, unspecified; R07.9 Chest pain, unspecified
CPT/HCPCS: 93923; 93970

== ENCOUNTER 2022-03-29 07:31 | Observation (INO) | payer MEDICARE, MEDICAID, SELFPAY ==
[2022-03-29] VITALS (13 sets, daily range): BP systolic 104–126; BP diastolic 68–90; PULSE 58–76; RESP 14–18; TEMP 36.4–36.8; O2SAT 90–99; BMI 20.5; BMI 19.4
--- NOTE | 2022-03-29 07:43 | ECG_ITS ---
APPROVED REPORT Exam: Resting ECG HR:72 bpm ECG Measurements Heart Rate 72 AXES SD 149 P 80 QRSd 113 QRS 62 QT 458 T 67 QTc 482 Conclusion SINUS RHYTHM INCOMPLETE RIGHT BUNDLE BRANCH BLOCK [90+ ms QRS DURATION, TERMINAL R IN V1/V2, 40+ ms S IN I/aVL/V4/V5/V6] ST DEVIATION AND MODERATE T-WAVE ABNORMALITY, CONSIDER ANTERIOR ISCHEMIA [-0.1+ mV T-WAVE IN V3/V4] ABNORMAL ECG UNCONFIRMED REPORT Electronically signed by : Jj Joe MD 03/29/2022 21:22:02
--- NOTE | 2022-03-29 07:56 | XR_ITS ---
FINAL REPORT CLINICAL HISTORY: weakness COMPARISON: January 29, 2022 FINDINGS: Two views of the chest were obtained. There is a loop recorder present. The heart size and pulmonary vascularity are within normal limits. The mediastinum is normal. The lungs are hyperinflated consistent with COPD. There is no pneumothorax. There is a chronic right 7th posterior rib fracture. IMPRESSION: Hyperinflated lungs consistent with COPD. Reviewed, Interpreted and Dictated by Emiliano Rush III, MD Transcribed by Hortencia Chavarria Authenticated and [facility]
[2022-03-29 08:14] LABS: Coronavirus 19, PCR Not Detected (NotDetected); Influenza A, PCR Not Detected (NotDetected); Influenza B, PCR Not Detected (NotDetected)
[2022-03-29 08:27] LABS: Basophils # 0.1 K/mm3 (0-0.2); Basophils % 0.9 % (0.1-2.0); Eosinophils # 0.1 K/mm3 (0.0-0.4); Eosinophils % 0.6 % (0.1-12.0); Hematocrit 37.5 % (42.0-52.0); Hemoglobin 12.7 g/dL (14.1-18.0); Lymphocytes # 1.1 K/mm3 (0.7-4.5); Lymphocytes % 11.1 % (10-50); Mean Corpuscular HGB Conc 33.8 g/dL (31.8-35.4); Mean Corpuscular Hemoglobin 37.6 pg (27.0-31.2); Mean Corpuscular Volume 111.4 fl (80-94); Mean Platelet Volume 10.2 fl (7.4-10.4); Monocytes # 0.7 K/mm3 (0.1-1.0); Neutrophils # 7.6 K/mm3 (1.8-7.8); Neutrophils % 80.3 % (37.0-80.0); Platelet Count 213 K/mm3 (142-424); Red Blood Count 3.37 M/mm3 (4.60-6.20); Red Cell Distribution Width 17.6 % (11.5-17.5); White Blood Count 9.5 K/mm3 (4.8-10.8)
--- NOTE | 2022-03-29 08:28 | PC.NURSE ---
pt in radiology
[2022-03-29 08:30] LABS: Sodium 121 mmol/L (136-145)
[2022-03-29 08:33] LABS: Alanine Aminotransferase 57 U/L (12-78); Alkaline Phosphatase 139 U/L (38-126); Aspartate Amino Transferase 209 U/L (17-59); Bilirubin,Total 2.2 mg/dl (0.2-1.3); Blood Urea Nitrogen 3 mg/dl (9-20); Creatinine Clearance Estimated 74 mL/min (50-200); Estimated Glomerular Filt Rate 215 ml/min (>60); GFR (African American) 260 ML/MIN (>60)
[2022-03-29 08:34] LABS: Albumin/Globulin Ratio 0.8 (1.1-1.8); Calcium 7.4 mg/dl (8.4-10.2); Globulin 3.6 g/dL (1.3-3.2); Glucose 135 mg/dl (74-100); Total Protein,Serum 6.6 g/dl (6.3-8.2)
[2022-03-29 08:35] LABS: Lactic Acid 1.7 mmol/L (0.7-2.1)
[2022-03-29 08:42] LABS: Anion Gap 11.3 mEq/L (5-15); Carbon Dioxide 44 mmol/L (22.0-30.0)
[2022-03-29 08:43] LABS: NT Pro Brain Natriuretic Pep. 216 pg/mL (0-125); Potassium 2.3 mmoL/L (3.5-5.1)
--- NOTE | 2022-03-29 08:43 | PC.NURSE ---
critical results called by lab for potassium and Chloride results relayed to FRANCIS LUJAN at this time.
[2022-03-29 08:44] LABS: Chloride 68 mmol/L (98-107)
[2022-03-29 08:47] LABS: Ammonia 34 umol/L (9-30)
[2022-03-29 08:51] LABS: Lipase 19 U/L (23-300)
[2022-03-29 08:52] LABS: Ethyl Alcohol < 10 mg/dl (0-10)
--- NOTE | 2022-03-29 08:57 | CT_ITS ---
FINAL REPORT CLINICAL HISTORY: abd pain COMPARISON: 01/29/2022 FINDINGS: Axial CT images of the abdomen and pelvis were obtained without intravenous contrast. Coronal reformatted images were also obtained.This study was performed with techniques to keep radiation doses as low as reasonably achievable (ALARA). Individualized dose reduction techniques using automated exposure control or adjustment of mA and/or kV according to the patient's size were employed. Abdomen: There is mild scarring in the lung bases. There are multiple subacute and chronic bilateral rib fractures. The liver is fatty infiltrated. The gallbladder is present. An IVC filter is present. The spleen, adrenal glands, and pancreas are unremarkable. There is no renal or ureteral stone. There is no hydronephrosis. Pelvis: The appendix is normal. There is mild wall thickening of the ascending colon of uncertain significance. Colitis is not excluded. Bladder wall is thickened which is likely inflammatory. There is no free fluid or adenopathy. IMPRESSION: Mild wall thickening of the ascending colon. Colitis is not excluded. Bladder wall thickening, likely inflammatory. Fatty liver. Reviewed, Interpreted and Dictated by Emiliano Rush III, MD Transcribed by Marizol Dempsey Authenticated and . [facility]
--- NOTE | 2022-03-29 08:58 | HMH.EDGENADL ---
ED Disposition Clinical Impression: Alcohol abuse, Hypokalemia Abdominal pain Qualifiers: Abdominal location: generalized Qualified Code(s): R10.84 - Generalized abdominal pain COPD (chronic obstructive pulmonary disease) Qualifiers: COPD type: chronic bronchitis Chronic bronchitis type: simple Qualified Code(s): J41.0 - Simple chronic bronchitis Disposition: Admitted as Observation Condition on Discharge: [facility] - Critical Care Critical Care Time: No Attestation: On 03/29/22, the high probability of a clinically significant, sudden or life threatening deterioration of the following system(s) required my full and direct attention, intervention and personal management. The time I documented below is in addition to time spent performing reported procedures but includes the following listed in this critical care notation. Medical Decision Making - Medical Records Medical records reviewed: Yes: I reviewed the patient's medical records. - Shailesh Inquiry Pt receiving controlled substance: No Vital Signs: 03/29/22 07:32 03/29/22 08:11 03/29/22 08:45 Temperature 97.6 F Temperature Source Oral Pulse Rate 66 64 Pulse Rate [Left Radial] 73 Respiratory Rate 17 Blood Pressure 106/77 L 118/86 Blood Pressure [Right Arm] 119/90 Blood Pressure Mean 81 96 Blood Pressure Mean [Right Arm] 99 02 Sat by Pulse Oximetry 94 L 99 Oxygen Delivery Method Nasal Cannula Room Air Oxygen Flow Rate (LPM) 2 - Lab Data Lab Results 03/29/22 08:04: SARS-CoV-2 (PCR) Not detected, Influenza A Untype (PCR) Not detected, Influenza Type B (PCR) Not detected 03/29/22 08:10: Plasma/Serum Alcohol < 10 03/29/22 08:10: Lipase 19 L 03/29/22 08:11: WBC 9.5, RBC 3.37 L, Hgb 12.7 L, Hct 37.5 L, MCV 111.4 H, MCH 37.6 H, MCHC 33.8, RDW 17.6 H, Plt Count 213, MPV 10.2, Neut % (Auto) 80.3 H, Lymph % (Auto) 11.1, [place] % (Auto) 7.0, Eos % (Auto) 0.6, Baso % (Auto) 0.9, Neut # (Auto) 7.6, Lymph # (Auto) 1.1, [place] # (Auto) 0.7, Eos # (Auto) 0.1, Baso # (Auto) 0.1 03/29/22 08:11: Sodium 121 L, Potassium 2.3 L*, Chloride 68 L, Carbon Dioxide 44 H*, Anion Gap 11.3, BUN 3 L, Creatinine 0.40 L, Estimated Creat Clear 74, Estimated GFR 215, Est GFR ( Amer) 260, Glucose 135 H, Calcium 7.4 L, Total Bilirubin 2.2 H, AST 209 H, ALT 57, Alkaline Phosphatase 139 H, NT-Pro-B Natriuret Pep 216 H, Total Protein 6.6, Albumin 3.0 L, Globulin 3.6 H, Albumin/Globulin Ratio 0.8 L 03/29/22 08:11: Lactate 1.7 03/29/22 08:21: Ammonia 34 H 03/29/22 08:46: Urine Color Yellow, Urine Appearance Sl cloudy, Urine pH 7.5, Ur Specific [place] 1.010, Urine Protein Negative, Urine Glucose (UA) Negative, Urine Ketones Negative, Urine Blood 3+, Urine Nitrate Negative, Urine Bilirubin Negative, Urine Urobilinogen 4.0, Ur Leukocyte Esterase 3+ A, Urine RBC 10-20, Urine WBC 50-100, Ur Squamous Epith Cells Occasional, Urine Bacteria 1+ Result diagrams: 03/29/22 08:11 03/29/22 08:11 Orders (Tests/Meds): ED MEDICATIONS Generic Name Dose Route Start Last Admin Trade Name Freq PRN Reason Stop Dose Admin Ceftriaxone Sodium 1 gm/ 50 mls @ 100 mls/hr 03/29/22 10:30 Sodium Chloride IV 04/12/22 10:29 Q24H [facility] Sodium Chloride 10 ml 03/29/22 07:58 Sodium Chloride 0.9% 10ml Flush Syringe IV 04/28/22 07:57 NEEDED PRN Maintain IV Site Discontinued Medications Generic Name Dose Route Start Last Admin Trade Name Freq PRN Reason Stop Dose Admin Potassium Chloride/Water 100 mls @ 100 mls/hr 03/29/22 08:50 03/29/22 09:04 Potassium Chloride 10meq/100ml Ivpb IV 03/29/22 09:49 100 mls/hr ONCE ONE Administration Morphine Sulfate 4 mg 03/29/22 09:31 03/29/22 09:36 Morphine 4mg/Ml Syringe IV 03/29/22 09:32 4 mg ONCE ONE Administration Ondansetron HCl 4 mg 03/29/22 09:31 03/29/22 09:35 Ondansetron 4mg/2ml Vial IV 03/29/22 09:32 4 mg ONCE ONE Administration Potassium Chloride 40 meq 03/29/22 08:50 03/29/22 08:56
[2022-03-29 08:59] LABS: Microscopic, Urine URINE MICROSCOPIC (MICROSCOPIC)
[2022-03-29 09:02] LABS: Appearance,Urine SL CLOUDY (Clear); Bilirubin,Urine Negative (Negative); Blood, Urine 3+ (Negative); Color,Urine YELLOW (Yellow); Glucose,Urine (UA) Negative (Negative); Ketones,Urine Negative (Negative); Leukocyte Esterase,Urine 3+ (Negative); Nitrate,Urine Negative (Negative); PH,Urine 7.5 (5.0-8.5); Protein,Urine Negative (Negative)
[2022-03-29 09:14] LABS: WBC,Urine 50-100 #/hpf (0-3)
[2022-03-29 09:15] LABS: Bacteria,Urine 1+ /lpf; Squamous Epithelial Cell,Urine Occasional #/hpf (0-5)
--- NOTE | 2022-03-29 09:53 | PC.NURSE ---
this nurse to the bedside to assess IV site d/t potassium administration. u/s guided IV found to be infiltrated. infusion stopped, IV d/c and MD notified. will attempt another IV site for potassium administration.
--- NOTE | 2022-03-29 10:08 | PC.NURSE ---
ER at to attempt to gain IV access with ultrasound
--- NOTE | 2022-03-29 10:21 | PC.NURSE ---
FRANCIS LUJAN speaking with ORTIZ Lazo for dr. woods
--- NOTE | 2022-03-29 10:24 | PC.NURSE ---
contacted care management for admission, spoke with beverley. States to make pt OBS admission
--- NOTE | 2022-03-29 10:25 | PC.NURSE ---
skip de jesus at BS
--- NOTE | 2022-03-29 10:39 | HMH.HP ---
*Admission Date: 03/29/22 *Chief complaint: Weakness, BLE swelling *History of present illness: 66-year-old male patient presents to the [facility] emergency department with complaints of generalized weakness, bilateral lower extremity swelling, and lethargy. Patient states he is on home O2 at 2 L per nasal cannula. He does have a longstanding history of alcohol abuse and states that he is drinking a half a gallon of whiskey every 2 to 3 days. He also admits drinking 4-5 beers daily after his whiskey. He also reports some generalized abdominal pain and admits multiple periods of pancreatitis in the past. He does have bilateral lower extremity edema and admits nausea but no vomiting/diarrhea. He denies fever/chills/body aches, chest pain or shortness of air, no headaches. He does admit 1 to 1-1/2 packs of cigarettes per day for over 50 years. White blood cell count is 9.5, hemoglobin stable at 12.7, Potassium 2.3 and was replaced in the emergency department UA revealed 2+ leukocytes, 1+ bacteria, and 3+ blood. He did receive ceftriaxone and IV fluids in emergency department [facility] History I have reviewed the patient's past medical history: Yes Medical History: Reports:: Aneurysm, Asthma, Chronic Obstructive Pulmonary Disease (COPD), Coronary Artery Disease, Gall Bladder Disease, Home Oxygen, Hypertension, Internal Pacemaker, Lung Disease, Myocardial Infarction, Transient Ischemic Attacks (TIA) Denies:: Cancer, Diabetes Mellitus Type 1, Diabetes Mellitus Type 2, MRSA, Seizures *Have you ever received a pneumonia vaccine?: Yes *Have you received a flu vaccine this season?: Yes Other Medical History: Reports: Anemia, Arthritis, Cataracts, Other. Denies: Blood Transfusion Reaction Other Surgeries: Yes: No Previous Surgery, Cardiac Catheterization, Cardiac Surgery, Colonoscopy, Coronary Stent, EGD, Hernia Repair, Pacemaker, Other (loop recorder) Amputation: No Fractures: Yes - *Social History Smoking Status: Current every day smoker Tobacco Type: cigarettes # Packs/Day (cigarettes): 1 #Yrs smoked (if former smoker): 54 Alcohol Intake: never Alcohol Intake Frequency:: 3 or more drinks per day Substance Use Type: denies use Last Used Substance: unknown *Occupational Status:: retired Housing: house Household Members: spouse *Travel in the last 8 weeks: None Family Hx:: Diabetes, Heart Attack Review of Systems - Review of Systems Review of systems:: pertinent systems reviewed and negative unless documented below - Constitutional Reports fatigue, Reports weakness - Eyes Denies double vision, Denies loss of vision - ENT Denies hoarseness, Denies throat swelling - *Cardiovascular Reports shortness of breath, Reports shortness of breath with activity, Denies chest pain, Denies chest pain with activity - *Respiratory Reports shortness of breath, Reports shortness of breath with activity, Denies change in phlegm color - *Gastrointestinal Reports abdominal pain, Reports nausea, Denies constipation, Denies loose stools, Denies vomiting - *Musculoskeletal Denies abnormal walking, Denies back pain - Integumentary/Breasts Denies change in skin color, Denies rash - *Neurologic Denies headache(s), Denies numbness - Psychiatric Denies hearing things others do not hear, Denies behavioral changes - Endocrine Reports rapid, pounding, or irregular heartbeat, Denies cold intolerance, Denies heat intolerance - Hematologic/Lymphatic Reports easy bruising, Denies easy bleeding - Allergic/Immunologic Reports throat swelling, Reports wheezing, Denies GI upset with certain foods Meds Home Medications Medication Instructions Recorded Confirmed Type Albuterol Sulfate [Proventil Hfa] 2 puffs IH Q6HP PRN 01/21/21 03/29/22 History aspirin 81 mg tablet,delayed 81 mg PO DAILY 04/25/21 03/29/22 History release amlodipine 10 mg tablet 10 mg PO DAILY tab 06/08/21 03/29/22 History atorvastatin 40 mg tab
--- NOTE | 2022-03-29 11:05 | P.CONPHA_ITS ---
[facility] Pharmacy VTE Monitoring - Patient Demographics Admission date: 03/28/22 Report Date: 03/29/22 Time: 11:05 Allergies/Adverse Reactions: Patient Allergies isosorbide Adverse Reaction (Intermediate, Verified 10/03/21 09:01) XIAO Height: 1.88 m Weight: 72.575 kg Patient Problems: Current Active Problems (Last Updated 06/16/19 @ 12:17 by Danyell Simmons RN) Alcohol abuse (Acute) Abdominal pain (Acute) Hypokalemia (Acute) COPD (chronic obstructive pulmonary disease) (Acute) - VTE Risk Labs: VTE Related Lab Results Hgb 12.7 g/dL (14.1-18.0) L 03/29/22 08:11 Hct 37.5 % (42.0-52.0) L 03/29/22 08:11 Plt Count 213 K/mm3 (142-424) 03/29/22 08:11 BUN 3 mg/dl (9-20) L 03/29/22 08:11 Creatinine 0.40 mg/dl (0.66-1.25) L 03/29/22 08:11 Estimated Creat Clear 74 mL/min (50-200) 03/29/22 08:11 - Prophylaxis VTE Prophylaxis Ordered?: Yes Types of VTE Prophylaxis: TEDS Knee High, Pharmacological Location of Applied Device: Bilateral Lower Extremeties Pharmacologic Type: Enoxaparin
--- NOTE | 2022-03-29 11:24 | HMH.PHAINT ---
MEDICATION RECONCILIATION COMPLETED ON PATIENT USING EXTERNAL FILL HISTORY FROM PHARMACY AND LIST FROM CARDIOLOGY OFFICE. -MAGALYS MAED
--- NOTE | 2022-03-29 11:24 | PC.NURSE ---
Pt arrived to the floor at this time
--- NOTE | 2022-03-29 18:36 | PC.NURSE ---
PT IS RESTING IN BED WITH AT BEDSIDE. ALERT AND ORIENTED X3. PT IS VERY [place]. PT STATED DURING ADMISSION HE WAS A VERY HEAVY DRINKER AND CONSUMED ALCOHOL DAILY. ACCORDING TO PT'S PT HAS BEEN VERY WEAK THE LAST FEW DAYS AND HAS NOT BEEN ABLE TO AMBULATE. 2+ PITTING EDEMA NOTED TO BLE. LUNG SOUNDS CLEAR. MEDICATED PER MAR FOR ABDOMINAL PAIN. WILL CONTINUE TO MONITOR.
[2022-03-30 04:31] VITALS: BP 110/69; PULSE 72; RESP 18; TEMP 36.3; O2SAT 92
[2022-03-30 05:04] VITALS: BMI 20.3
--- NOTE | 2022-03-30 05:38 | PC.NURSE ---
pt has rested intermittently t/o shift, has complained of pain 2 times and was treated per DEC, remains on 2L NC with O2 sats 92-93, HR 72-76, has been incontinent of urine this shift
[2022-03-30 07:03] LABS: Basophils # 0.1 K/mm3 (0-0.2); Basophils % 0.7 % (0.1-2.0); Eosinophils # 0.1 K/mm3 (0.0-0.4); Eosinophils % 1.4 % (0.1-12.0); Hematocrit 34.4 % (42.0-52.0); Hemoglobin 11.7 g/dL (14.1-18.0); Lymphocytes # 0.9 K/mm3 (0.7-4.5); Lymphocytes % 10.7 % (10-50); Mean Corpuscular Hemoglobin 37.7 pg (27.0-31.2); Mean Corpuscular Volume 110.8 fl (80-94); Mean Platelet Volume 11.7 fl (7.4-10.4); Monocytes # 0.8 K/mm3 (0.1-1.0); Monocytes % 9.3 % (1.7-9.3); Neutrophils # 6.8 K/mm3 (1.8-7.8); Neutrophils % 77.9 % (37.0-80.0); Platelet Count 180 K/mm3 (142-424); Red Cell Distribution Width 17.8 % (11.5-17.5); White Blood Count 8.7 K/mm3 (4.8-10.8)
[2022-03-30 07:22] LABS: Chloride 86 mmol/L (98-107); Potassium 3.6 mmoL/L (3.5-5.1); Sodium 126 mmol/L (136-145)
[2022-03-30 07:24] LABS: Blood Urea Nitrogen 2 mg/dl (9-20)
[2022-03-30 07:25] LABS: Alanine Aminotransferase 46 U/L (12-78); Albumin Level 2.5 g/dl (3.5-5.0); Albumin/Globulin Ratio 0.8 (1.1-1.8); Alkaline Phosphatase 124 U/L (38-126); Anion Gap 8.6 mEq/L (5-15); Aspartate Amino Transferase 174 U/L (17-59); Bilirubin,Total 1.9 mg/dl (0.2-1.3); Calcium 7.5 mg/dl (8.4-10.2); Carbon Dioxide 35 mmol/L (22.0-30.0); Creatinine Clearance Estimated 71 mL/min (50-200); Estimated Glomerular Filt Rate 215 ml/min (>60); GFR (African American) 260 ML/MIN (>60); Globulin 3.1 g/dL (1.3-3.2); Glucose 104 mg/dl (74-100); Total Protein,Serum 5.6 g/dl (6.3-8.2)
[2022-03-30 08:00] VITALS: BP 96/76; PULSE 69; RESP 16; TEMP 36.6; O2SAT 94
--- NOTE | 2022-03-30 08:03 | PC.NURSE ---
CIWA intervention added d/t pt hx of ETOH use
[2022-03-30 09:31] VITALS: BMI 20.2
--- NOTE | 2022-03-30 10:00 | HMH.DCSUM ---
General - General Admission date:: 03/29/22 Discharge date: 03/30/22 HPI HPI: 66-year-old male patient presents to the emergency department with complaints of generalized weakness, bilateral lower extremity swelling, and lethargy. Patient states he is on home O2 at 2 L per nasal cannula. He does have a longstanding history of alcohol abuse and states that he is drinking a half a gallon of whiskey every 2 to 3 days. He also admits drinking 4-5 beers daily after his whiskey. He also reports some generalized abdominal pain and admits multiple periods of pancreatitis in the past. He does have bilateral lower extremity edema and admits nausea but no vomiting/diarrhea. He denies fever/chills/body aches, chest pain or shortness of air, no headaches. He does admit 1 to 1-1/2 packs of cigarettes per day for over 50 years. White blood cell count is 9.5, hemoglobin stable at 12.7, Potassium 2.3 and was replaced in the emergency department UA revealed 2+ leukocytes, 1+ bacteria, and 3+ blood. He did receive ceftriaxone and IV fluids in emergency department Hospital Course Hospital Course: Abnormal Lab Results 03/30/22 06:42: RBC 3.10 L, Hgb 11.7 L, Hct 34.4 L, MCV 110.8 H, MCH 37.7 H, RDW 17.8 H, MPV 11.7 H 03/30/22 06:42: Sodium 126 L, Chloride 86 L, Carbon Dioxide 35 H, BUN 2 L D, Creatinine 0.40 L, Glucose 104 H D, Calcium 7.5 L, Total Bilirubin 1.9 H, AST 174 H, Total Protein 5.6 L, Albumin 2.5 L D, Albumin/Globulin Ratio 0.8 L Microbiology 03/29/22 08:46 Urine,Clean Catch Urine Culture - Preliminary 03/29/22 08:14 Blood Blood Culture - Preliminary Discharge Plan (1) Alcohol abuse-encourage to stop drinking (2) Abdominal pain- improved and asking to dc home (3) Hypokalemia-stable- back to baseline (4) COPD (chronic obstructive pulmonary disease)- use home o2, will dc on steroids and levaquin (5) Tobacco use disorder-encouraged to stop smoking (6) UTI (urinary tract infection)- culture pending will dc on levaquin 750mg for 5 days to cover, wait for final (7) positive blood cx- poss contaminate, levaquin until bacteria ID is final. Objective Vital signs: Temp Pulse Resp BP Pulse Ox 97.8 F 69 16 96/76 L 94 L 03/30/22 08:00 03/30/22 08:00 03/30/22 08:00 03/30/22 08:00 03/30/22 08:00 no acute distress - *Routine HEENT Exam Head: Present: normocephalic Eye: Present: EOMI, PERRL ENT: Present: mucous membranes moist - *Routine Neck Exam Present: supple - *Routine Respiratory Exam Present: CTA bilaterally - *Routine Cardiovascular Exam Present: RRR - *Routine Abdominal Exam Present: soft, normoactive bowel sounds. Absent: tenderness - *Routine Extremities Exam Absent: cyanosis, clubbing, edema - *Routine Skin Exam Present: warm. Absent: rash - Detailed Eye Exam Eyelids: Bilateral normal inspection Results Labs on day of discharge: Labs from last 24 hours 03/30/22 03/30/22 06:42 06:42 WBC 8.7 RBC 3.10 L Hgb 11.7 L Hct 34.4 L MCV 110.8 H MCH 37.7 H MCHC 34.0 RDW 17.8 H Plt Count 180 MPV 11.7 H Neut % (Auto) 77.9 Lymph % (Auto) 10.7 [place] % (Auto) 9.3 Eos % (Auto) 1.4 Baso % (Auto) 0.7 Neut # (Auto) 6.8 Lymph # (Auto) 0.9 [place] # (Auto) 0.8 Eos # (Auto) 0.1 Baso # (Auto) 0.1 Sodium 126 L Potassium 3.6 D Chloride 86 L Carbon Dioxide 35 H Anion Gap 8.6 BUN 2 L D Creatinine 0.40 L Estimated Creat Clear 71 Estimated GFR 215 Est GFR ( Amer) 260 Glucose 104 H D Calcium 7.5 L Total Bilirubin 1.9 H AST 174 H ALT 46 Alkaline Phosphatase 124 Total Protein 5.6 L Albumin 2.5 L D Globulin 3.1 Albumin/Globulin Ratio 0.8 L Preliminary micro results at discharge 03/29/22 08:46 Urine Culture - Preliminary Urine,Clean Catch 03/29/22 08:14 Blood Culture - Preliminary Blood - Aung
--- NOTE | 2022-03-30 10:32 | PC.NURSE ---
Discharge instructions given to pt and . All questions answered. PIV already removed. Pharmacy notified of need for medication education and will be to the floor shortly. Pt is getting dressed at this time and will notify staff when ready to leave floor.
--- NOTE | 2022-04-02 14:48 | CARE MANAGER ---
Spoke with patient , Stephenie in post-discharge phone interview, she states that patient is weak and can hardly get around she states that patient has medications from hospital stay and his appointment. Appointment was fro 04/06/22, this case assembler called Dr. Nicholas office and moved appointment til 04.03.22 @ 11am, this information was forwarded to patient .
== END 2022-03-30 10:50 | disposition home or self-care (01) ==
LOC: ER 07:44 → 2ND 10:35
PROVIDERS: Emergency Medicine; Admitting Provider Emergency Medicine; Emergency Provider Emergency Medicine; PCP Emergency Medicine; Visit Provider Emergency Medicine
DX: N39.0 Urinary tract infection, site not specified (principal); E87.6 Hypokalemia; J44.9 Chronic obstructive pulmonary disease, unspecified; I25.10 Atherosclerotic heart disease of native coronary artery without angina pectoris; I10 Essential (primary) hypertension; Z99.81 Dependence on supplemental oxygen; I25.2 Old myocardial infarction; Z95.5 Presence of coronary angioplasty implant and graft; F17.210 Nicotine dependence, cigarettes, uncomplicated; F10.10 Alcohol abuse, uncomplicated
CPT/HCPCS: G0378; 36415; 71045; 74176; 80053; 81001; 82140; 83605; 83690; 83880; 85025; 87040; 87086; 87088; 87186; 93005; 94760; 94761; 99285; C9803; J0696; J2405; U0003; U0005

== ENCOUNTER 2022-04-16 09:39 | Emergency (ER) | payer MEDICARE, MEDICAID, SELFPAY ==
[2022-04-16] VITALS (10 sets, daily range): BP systolic 71–133; BP diastolic 47–92; PULSE 67–89; RESP 16–21; TEMP 36.4–36.7; O2SAT 88–100; BMI 21.7
--- NOTE | 2022-04-16 09:44 | XR_ITS ---
FINAL REPORT CLINICAL HISTORY: cough, pt states that his heart started hurting this morning, and that his legs have been swollen and has been experiencing lack of mobility for the last few months. COMPARISON: March 29, 2022 FINDINGS: A single portable view of the chest was obtained. A loop recorder is again noted. The heart size and pulmonary vascularity are within normal limits. The mediastinum is within normal limits. There are worsening right base opacities, may represent atelectasis or scarring. There is worsening left base opacity which favors atelectasis. The bony thorax is intact. IMPRESSION: Worsening bilateral lung base opacities as above. Reviewed, Interpreted and Dictated by Emiliano Rush III, MD Transcribed by Kaylah Rodriguez Authenticated and [facility]
[2022-04-16 10:20] LABS: ABG Base Excess -1.6 mmol/L (-2.4-2.3); ABG HCO3 22.9 mmhg (22.0-26.0); ABG Oxygen Saturation 93 % (90-100); ABG PCO2 35.8 mmhg (35.0-45.0); ABG PH 7.42 mmol/L (7.35-7.45); ABG PO2 75.6 mmhg (80-100)
[2022-04-16 10:21] LABS: Allen's Test Acceptable; Oxygen ROOM AIR %; Source Right Radial
--- NOTE | 2022-04-16 10:36 | HMH.EDGENADL ---
ED Disposition Clinical Impression: Acute exacerbation of chronic obstructive airways disease Community acquired pneumonia Qualifiers: Laterality: unspecified laterality Qualified Code(s): J18.9 - Pneumonia, unspecified organism Disposition: Home, Self-Care Condition on Discharge: Good Instructions: DI for Chronic Obstructive Pulmonary Disease Prescriptions: Doxycycline Monohydrate [Doxycycline [place] 100mg Tab] 100 mg PO Q12 #20 tab Transmission Status: [facility] to [facility] Referrals: Ziyad Nicholas MD [Primary Care Provider] - - Critical Care Critical Care Time: No Attestation: On 04/16/22, the high probability of a clinically significant, sudden or life threatening deterioration of the following system(s) required my full and direct attention, intervention and personal management. The time I documented below is in addition to time spent performing reported procedures but includes the following listed in this critical care notation. Medical Decision Making - Medical Records Medical records reviewed: Yes: I reviewed the patient's medical records. - Shailesh Inquiry Pt receiving controlled substance: No Vital Signs: 04/16/22 09:39 04/16/22 10:05 04/16/22 10:40 Temperature 97.5 F L 98.1 F Temperature Source Oral Pulse Rate 78 89 Pulse Rate [Left Radial] 78 Respiratory Rate 18 18 Blood Pressure 129/87 Blood Pressure [Right Arm] 117/89 Blood Pressure Mean Blood Pressure Mean [Right Arm] 98 Blood Pressure Source [Right Arm] Automatic Cuff Blood Pressure Position [Right Arm] Sitting 02 Sat by Pulse Oximetry 95 Oxygen Delivery Method Nasal Cannula Oxygen Flow Rate (LPM) 3 04/16/22 12:01 04/16/22 12:30 04/16/22 13:00 Temperature Temperature Source Pulse Rate 70 67 79 Pulse Rate [Left Radial] Respiratory Rate 20 20 20 Blood Pressure 74/50 L 71/47 L 107/78 L Blood Pressure [Right Arm] Blood Pressure Mean 55 52 86 Blood Pressure Mean [Right Arm] Blood Pressure Source [Right Arm] Blood Pressure Position [Right Arm] 02 Sat by Pulse Oximetry 98 100 100 Oxygen Delivery Method Oxygen Flow Rate (LPM) 04/16/22 13:30 04/16/22 14:00 04/16/22 15:30 Temperature Temperature Source Pulse Rate 74 86 85 Pulse Rate [Left Radial] Respiratory Rate 16 18 21 Blood Pressure 117/83 133/92 H 118/80 Blood Pressure [Right Arm] Blood Pressure Mean 94 101 92 Blood Pressure Mean [Right Arm] Blood Pressure Source [Right Arm] Blood Pressure Position [Right Arm] 02 Sat by Pulse Oximetry 88 L 88 L 100 Oxygen Delivery Method Oxygen Flow Rate (LPM) - Lab Data Lab Results 04/16/22 09:44: Specimen Source Right radial, O2 % Room air, ABG pH 7.42, ABG pCO2 35.8, ABG pO2 75.6 L, ABG HCO3 22.9, ABG Total CO2 24.0, ABG O2 Saturation 93, ABG Base Excess -1.6, Xavier Test Acceptable 04/16/22 10:20: Urine Color Yellow, Urine Appearance Clear, Urine pH 5.5, Ur Specific [place] 1.010, Urine Protein Negative, Urine Glucose (UA) Negative, Urine Ketones Negative, Urine Blood Negative, Urine Nitrate Negative, Urine Bilirubin Negative, Urine Urobilinogen 0.2, Ur Leukocyte Esterase Negative, Urine RBC None, Urine WBC 3-5, Ur Squamous Epith Cells Occasional, Calcium Oxalate Crystal 1+, Urine Bacteria Trace 04/16/22 14:18: WBC 6.8, RBC 3.15 L, Hgb 12.3 L, Hct 37.0 L, MCV 117.5 H, MCH 39.1 H, MCHC 33.3, RDW 17.5, Plt Count 359, MPV 8.6, Neut % (Auto) 57.7, Lymph % (Auto) 28.3, [place] % (Auto) 8.4, Eos % (Auto) 2.7, Baso % (Auto) 2.9 H, Neut # (Auto) 3.9, Lymph # (Auto) 1.9, [place] # (Auto) 0.6, Eos # (Auto) 0.2, Baso # (Auto) 0.2 04/16/22 14:18: Sodium 136, Potassium 3.2 L, Chloride 102, Carbon Dioxide 29, Anion Gap 8.2, BUN 4 L, Creatinine 0.40 L, Estimated Creat Clear 76, Estimated GFR 215, Est GFR ( Amer) 260, Glucose 120 H, Calcium 8.4, Total Bilirubin 0.7, AST 80 H, ALT 29, Alkaline Phosphatase 120, Troponin I < 0.01, NT-Pro-B Natriuret Pep 90.3, To
[2022-04-16 10:46] LABS: Microscopic, Urine URINE MICROSCOPIC (MICROSCOPIC)
[2022-04-16 10:49] LABS: Appearance,Urine CLEAR (Clear); Bilirubin,Urine Negative (Negative); Blood, Urine Negative (Negative); Color,Urine YELLOW (Yellow); Glucose,Urine (UA) Negative (Negative); Ketones,Urine Negative (Negative); Leukocyte Esterase,Urine Negative (Negative); Nitrate,Urine Negative (Negative); PH,Urine 5.5 (5.0-8.5); Protein,Urine Negative (Negative); Urobilinogen,Urine 0.2 EU/dl (0.2)
[2022-04-16 11:03] LABS: Bacteria,Urine Trace /lpf; Calcium Oxalate Crystals,Urine 1+ /lpf; Squamous Epithelial Cell,Urine Occasional #/hpf (0-5)
--- NOTE | 2022-04-16 12:46 | PC.NURSE ---
Lab at bedside
[2022-04-16 14:29] LABS: Basophils # 0.2 K/mm3 (0-0.2); Basophils % 2.9 % (0.1-2.0); Eosinophils # 0.2 K/mm3 (0.0-0.4); Eosinophils % 2.7 % (0.1-12.0); Hemoglobin 12.3 g/dL (14.1-18.0); Lymphocytes # 1.9 K/mm3 (0.7-4.5); Lymphocytes % 28.3 % (10-50); Mean Corpuscular HGB Conc 33.3 g/dL (31.8-35.4); Mean Corpuscular Hemoglobin 39.1 pg (27.0-31.2); Mean Corpuscular Volume 117.5 fl (80-94); Mean Platelet Volume 8.6 fl (7.4-10.4); Monocytes # 0.6 K/mm3 (0.1-1.0); Monocytes % 8.4 % (1.7-9.3); Neutrophils # 3.9 K/mm3 (1.8-7.8); Neutrophils % 57.7 % (37.0-80.0); Platelet Count 359 K/mm3 (142-424); Red Blood Count 3.15 M/mm3 (4.60-6.20); Red Cell Distribution Width 17.5 % (11.5-17.5); White Blood Count 6.8 K/mm3 (4.8-10.8)
[2022-04-16 14:36] LABS: Chloride 102 mmol/L (98-107); Potassium 3.2 mmoL/L (3.5-5.1); Sodium 136 mmol/L (136-145)
[2022-04-16 14:47] LABS: NT Pro Brain Natriuretic Pep. 90.3 pg/mL (0-125)
--- NOTE | 2022-04-16 15:15 | PC.NURSE ---
Rounded on patient at this time, he advised he was ready to go home and that he felt better. Pt advised he would rather be at home resting in his bed. Pt A&O times 3 at this time. at bedside. Pt had no new needs at this time besides requesting to go home.
[2022-04-16 15:30] LABS: Albumin Level 3.4 g/dl (3.5-5.0); Anion Gap 8.2 mEq/L (5-15); Carbon Dioxide 29 mmol/L (22.0-30.0); Globulin 3.4 g/dL (1.3-3.2); Glucose 120 mg/dl (74-100); Total Protein,Serum 6.8 g/dl (6.3-8.2)
--- NOTE | 2022-04-16 15:30 | PC.NURSE ---
lab states that something was messed up and they were going to rerun and it should be about 10 minutes for the labs on pt
[2022-04-16 15:31] LABS: Alanine Aminotransferase 29 U/L (12-78); Alkaline Phosphatase 120 U/L (38-126); Aspartate Amino Transferase 80 U/L (17-59); Bilirubin,Total 0.7 mg/dl (0.2-1.3); Blood Urea Nitrogen 4 mg/dl (9-20); Calcium 8.4 mg/dl (8.4-10.2); Creatinine Clearance Estimated 76 mL/min (50-200); Estimated Glomerular Filt Rate 215 ml/min (>60); GFR (African American) 260 ML/MIN (>60)
--- NOTE | 2022-04-16 15:40 | PC.NURSE ---
called out results for a troponin on pt. labs states they are running it now and it will be 7 more minutes
[2022-04-16 15:48] LABS: Troponin I < 0.01 ng/ml (0.00-0.034)
--- NOTE | 2022-04-16 16:00 | PC.NURSE ---
pt ambulated to restroom at this time
== END 2022-04-16 16:16 | disposition home or self-care (01) ==
PROVIDERS: Emergency Provider Emergency Medicine; PCP Emergency Medicine
DX: J44.1 Chronic obstructive pulmonary disease with (acute) exacerbation (principal); J18.9 Pneumonia, unspecified organism; R05.9 Cough, unspecified; R06.02 Shortness of breath; R06.00 Dyspnea, unspecified; R41.82 Altered mental status, unspecified; R07.9 Chest pain, unspecified; R09.02 Hypoxemia; Z72.0 Tobacco use; I25.10 Atherosclerotic heart disease of native coronary artery without angina pectoris; I10 Essential (primary) hypertension; Z95.0 Presence of cardiac pacemaker; Z86.73 Personal history of transient ischemic attack (TIA), and cerebral infarction without residual deficits; I25.2 Old myocardial infarction
CPT/HCPCS: 36415; 71045; 80053; 81001; 82803; 83880; 84484; 85025; 90471; 94640; 96374; 96375; 99284

== ENCOUNTER 2022-05-18 17:40 | Emergency (ER) | payer MEDICARE, MEDICAID, SELFPAY ==
[2022-05-18] VITALS (9 sets, daily range): BP systolic 83–127; BP diastolic 51–89; PULSE 71–81; RESP 13–20; TEMP 36.9–37.1; O2SAT 90–97; BMI 21.7
--- NOTE | 2022-05-18 17:42 | ECG_ITS ---
APPROVED REPORT Exam: Resting ECG HR:69 bpm ECG Measurements Heart Rate 69 AXES FL 150 P 54 QRSd 113 QRS 36 QT 457 T 59 QTc 476 Conclusion SINUS RHYTHM MODERATE INTRAVENTRICULAR CONDUCTION DELAY [110+ ms QRS DURATION] MINIMAL ST DEPRESSION [0.025+ mV ST DEPRESSION] PROLONGED QT INTERVAL ABNORMAL ECG UNCONFIRMED REPORT Electronically signed by : Jj Joe MD 05/19/2022 21:39:12
--- NOTE | 2022-05-18 17:45 | XR_ITS ---
PROCEDURE INFORMATION: Exam: XR Chest Exam date and time: 05/18/22 05:59 PM Age: 66 years old Clinical indication: Shortness of breath; Additional info: SOB TECHNIQUE: Imaging protocol: Radiologic exam of the chest. Views: 1 view. COMPARISON: CR XR CHEST PORTABLE 04/16/22 10:00 AM FINDINGS: Lungs: Unremarkable. No consolidation. Pleural spaces: Unremarkable. No pleural effusion. No pneumothorax. Heart/Mediastinum: Unremarkable. No cardiomegaly. Bones/joints: Unremarkable. IMPRESSION: No acute findings.
--- NOTE | 2022-05-18 17:48 | PC.NURSE ---
manager technical training at bedside doing a portable chest xray
--- NOTE | 2022-05-18 17:57 | HMH.EDGENADL ---
ED Disposition Condition on Discharge: Fair - Critical Care Critical Care Time: No <Hernesto Chan - Last Filed: 05/18/22 20:07> <Ziyad Nicholas - Last Filed: 05/18/22 21:30> Clinical Impression: Alcoholism, Hypokalemia Chest pain Qualifiers: Chest pain type: unspecified Qualified Code(s): R07.9 - Chest pain, unspecified Alcohol intoxication Qualifiers: Complication of substance-induced condition: uncomplicated Qualified Code(s): F10.920 - Alcohol use, unspecified with intoxication, uncomplicated Disposition: Left Against Medical Advice Instructions: DI for Chest Pain Additional Instructions: recheck in ed and see pcp saturday Referrals: Ziyad Nicholas MD [Primary Care Provider] - Attestation: On 05/18/22, the high probability of a clinically significant, sudden or life threatening deterioration of the following system(s) required my full and direct attention, intervention and personal management. The time I documented below is in addition to time spent performing reported procedures but includes the following listed in this critical care notation. Medical Decision Making - Shailesh Inquiry Pt receiving controlled substance: No - Lab Data Result diagrams: 05/18/22 18:20 05/18/22 18:20 - Radiology Data #1 Image(s): Chest Image Reviewed: Yes I reviewed the patient's radiology image, Yes I have reviewed radiologist's interpretation - MI Score for Non-Stemi Age of Patient: 60-69 years old Heart Rate: 70-89 bpm Systolic Blood Pressure: 120-139 mmhg Serum Creatinine: 0.40-0.79 mg/dl CHF [place] Class: I-No CHF Other Risk Factors: None Non-Stemi Risk Score: 105 <Hernesto Chan - Last Filed: 05/18/22 20:07> - Medical Records Medical records reviewed: Yes: I reviewed the patient's medical records. - Lab Data Lab results reviewed: Yes: I reviewed the patient's lab results. Result diagrams: 05/18/22 18:20 05/18/22 18:20 <Ziyad Nicholas - Last Filed: 05/18/22 21:30> Vital Signs: 05/18/22 17:35 05/18/22 18:00 05/18/22 18:30 Temperature 98.7 F Temperature Source Oral Pulse Rate 72 74 Pulse Rate [Radial] 81 Respiratory Rate 20 13 19 Blood Pressure 120/89 121/85 Blood Pressure [Right Arm] 127/76 Blood Pressure Mean Blood Pressure Mean [Right Arm] 93 Blood Pressure Position [Right Arm] Sitting 02 Sat by Pulse Oximetry 90 L 97 97 Oxygen Delivery Method Room Air 05/18/22 19:00 05/18/22 19:20 05/18/22 19:33 Temperature Temperature Source Pulse Rate 71 Pulse Rate [Radial] Respiratory Rate 15 13 Blood Pressure 92/66 L 83/51 L 107/70 L Blood Pressure [Right Arm] Blood Pressure Mean 58 Blood Pressure Mean [Right Arm] Blood Pressure Position [Right Arm] 02 Sat by Pulse Oximetry 96 Oxygen Delivery Method - Lab Data Lab Results 05/18/22 17:46: Plasma/Serum Alcohol 241 H 05/18/22 18:20: WBC 7.7, RBC 3.79 L, Hgb 14.4, Hct 43.6, MCV 115.3 H, MCH 38.0 H, MCHC 32.9, RDW 15.2, Plt Count 221, MPV 8.6, Neut % (Auto) 65.7, Lymph % (Auto) 25.3, [place] % (Auto) 6.6, Eos % (Auto) 1.7, Baso % (Auto) 0.7, Neut # (Auto) 5.1, Lymph # (Auto) 2.0, [place] # (Auto) 0.5, Eos # (Auto) 0.1, Baso # (Auto) 0.1 05/18/22 18:20: Sodium 133 L, Potassium 2.8 L*, Chloride 81 L, Carbon Dioxide 32 H, Anion Gap 22.8 H, BUN 6 L, Creatinine 0.60 L, Estimated Creat Clear 76, Estimated GFR 134, Est GFR ( Amer) 163, Glucose 73 L, Calcium 8.3 L, Total Bilirubin 1.6 H, Direct Bilirubin 0.6 H, Conjugated Bilirubin 0.0, Indirect Bilirubin 1.0 H, Unconjugated Bilirubin 1.0, AST 269 H, ALT 57, Alkaline Phosphatase 174 H, Troponin I < 0.01, Total Protein 7.7, Albumin 3.9, Amylase 39, Lipase 18 L 05/18/22 18:20: SARS-CoV-2 (PCR) Not detected, Influenza A Untype (PCR) Not detected, Influenza Type B (PCR) Not detected 05/18/22 18:20: PT 12.8 H, INR 1.14 H 05/18/22 18:20: ESR 18 05/18/22 18:20: C-Reactive Protein 9.4 H, Procalcitonin 0.100 05/18/22 19:03: Urine Color [place]
--- NOTE | 2022-05-18 18:01 | PC.NURSE ---
MD at bedside at this time
--- NOTE | 2022-05-18 18:06 | PC.NURSE ---
Brought patient a warm blanket
[2022-05-18 18:31] LABS: Coronavirus 19, PCR Not Detected (NotDetected); Influenza A, PCR Not Detected (NotDetected); Influenza B, PCR Not Detected (NotDetected)
[2022-05-18 18:35] LABS: Basophils # 0.1 K/mm3 (0-0.2); Basophils % 0.7 % (0.1-2.0); Eosinophils # 0.1 K/mm3 (0.0-0.4); Eosinophils % 1.7 % (0.1-12.0); Hematocrit 43.6 % (42.0-52.0); Hemoglobin 14.4 g/dL (14.1-18.0); Lymphocytes % 25.3 % (10-50); Mean Corpuscular HGB Conc 32.9 g/dL (31.8-35.4); Mean Corpuscular Volume 115.3 fl (80-94); Mean Platelet Volume 8.6 fl (7.4-10.4); Monocytes # 0.5 K/mm3 (0.1-1.0); Monocytes % 6.6 % (1.7-9.3); Neutrophils # 5.1 K/mm3 (1.8-7.8); Neutrophils % 65.7 % (37.0-80.0); Platelet Count 221 K/mm3 (142-424); Red Blood Count 3.79 M/mm3 (4.60-6.20); Red Cell Distribution Width 15.2 % (11.5-17.5); White Blood Count 7.7 K/mm3 (4.8-10.8)
[2022-05-18 18:39] LABS: Ethyl Alcohol 241 mg/dl (0-10)
[2022-05-18 18:40] LABS: Alanine Aminotransferase 57 U/L (12-78); Albumin Level 3.9 g/dl (3.5-5.0); Alkaline Phosphatase 174 U/L (38-126); Amylase 39 U/L (30-110); Anion Gap 22.8 mEq/L (5-15); Aspartate Amino Transferase 269 U/L (17-59); Bilirubin,Direct 0.6 mg/dl (0.0-0.4); Bilirubin,Total 1.6 mg/dl (0.2-1.3); Blood Urea Nitrogen 6 mg/dl (9-20); Calcium 8.3 mg/dl (8.4-10.2); Carbon Dioxide 32 mmol/L (22.0-30.0); Chloride 81 mmol/L (98-107); Creatinine Clearance Estimated 76 mL/min (50-200); Estimated Glomerular Filt Rate 134 ml/min (>60); GFR (African American) 163 ML/MIN (>60); Glucose 73 mg/dl (74-100); Lipase 18 U/L (23-300); Sodium 133 mmol/L (136-145); Total Protein,Serum 7.7 g/dl (6.3-8.2)
[2022-05-18 18:47] LABS: Potassium 2.8 mmoL/L (3.5-5.1)
--- NOTE | 2022-05-18 18:47 | PC.NURSE ---
DR SINCLAIR INFORMED OF CRITICAL POTASSIUM
[2022-05-18 19:01] LABS: Troponin I < 0.01 ng/ml (0.00-0.034)
[2022-05-18 19:04] LABS: INR 1.14 (0.9-1.1); Prothrombin Time 12.8 seconds (10.1-12.5)
--- NOTE | 2022-05-18 19:04 | PC.NURSE ---
Urine sent to lab
[2022-05-18 19:09] LABS: Microscopic, Urine URINE MICROSCOPIC (MICROSCOPIC)
[2022-05-18 19:12] LABS: Appearance,Urine CLEAR (Clear); Bilirubin,Urine Negative (Negative); Blood, Urine Negative (Negative); Color,Urine YELLOW (Yellow); Glucose,Urine (UA) Negative (Negative); Ketones,Urine TRACE (Negative); Leukocyte Esterase,Urine TRACE (Negative); Nitrate,Urine Negative (Negative); Protein,Urine Negative (Negative); Specific Gravity, Urine <= 1.005 (1.005-1.030)
[2022-05-18 19:20] LABS: Bacteria,Urine Trace /lpf; Squamous Epithelial Cell,Urine Occasional #/hpf (0-5); WBC,Urine Occasional #/hpf (0-3)
[2022-05-18 19:48] LABS: C-Reactive Protein 9.4 mg/L (0-4)
[2022-05-18 19:56] LABS: Lactic Acid 2.6 mmol/L (0.7-2.1)
[2022-05-18 20:09] LABS: Erythrocyte Sedimentation Rate 18 mm/hr (0-20)
--- NOTE | 2022-05-18 21:25 | PC.NURSE ---
Pt refusing to stay in hospital, states I am ready to go, I am not staying here any longer . Dr. Nicholas aware. Pt signed AMA form. at bedside to take home.
--- NOTE | 2022-05-18 21:40 | PC.NURSE ---
While rounding on patients in ER stated that he was ready to go. Spoke with Dr. Nicholas, Dr. Nicholas spoke with patient and family member. Patient agreed to follow up on saturday in Dr. Nicholas office. I noted a skin tear on right upper arm covered with banaide draining green drainage Dr. Nicholas notified, Skin tear with greenish tissue present to center of wound, site cleansed with hibclens and NS. Bactroban oint applied.
== END 2022-05-18 22:01 | disposition left against medical advice (07) ==
PROVIDERS: Emergency Provider Emergency Medicine; PCP Emergency Medicine
DX: R07.2 Precordial pain (principal); R06.02 Shortness of breath; M54.16 Radiculopathy, lumbar region; R10.9 Unspecified abdominal pain; R53.1 Weakness; R26.9 Unspecified abnormalities of gait and mobility; R11.0 Nausea; Z20.822 Contact with and (suspected) exposure to COVID-19; I10 Essential (primary) hypertension; I25.2 Old myocardial infarction; E78.5 Hyperlipidemia, unspecified; G62.9 Polyneuropathy, unspecified; N52.9 Male erectile dysfunction, unspecified; R09.89 Other specified symptoms and signs involving the circulatory and respiratory systems; J98.4 Other disorders of lung; J44.9 Chronic obstructive pulmonary disease, unspecified; F10.129 Alcohol abuse with intoxication, unspecified; F17.210 Nicotine dependence, cigarettes, uncomplicated; Z79.51 Long term (current) use of inhaled steroids; Z79.82 Long term (current) use of aspirin; Z99.81 Dependence on supplemental oxygen; Z79.899 Other long term (current) drug therapy; Z88.8 Allergy status to other drugs, medicaments and biological substances; Z86.718 Personal history of other venous thrombosis and embolism; Z86.73 Personal history of transient ischemic attack (TIA), and cerebral infarction without residual deficits
CPT/HCPCS: 71045; 80048; 80076; 81001; 82150; 83605; 83690; 84145; 84484; 85025; 85610; 85651; 86140; 87040; 93005; 99284; C9803; U0003; U0005

== ENCOUNTER → 2022-07-04 12:00 | Outpatient (CLI) | payer MEDICARE, MEDICAID, SELFPAY ==
--- NOTE | 2022-07-04 12:06 | XR_ITS ---
FINAL REPORT CLINICAL HISTORY: Left ankle pain FINDINGS: Left ankle Three views were obtained. There is a chronic fracture of the distal fibula with deformity. There are postoperative changes in the medial malleolus. There are severe degenerative changes of the ankle. No soft tissue abnormality is identified. IMPRESSION: Degenerative and postoperative changes as above. Reviewed, Interpreted and Dictated by Emiliano Rush III, MD Transcribed by Debi Patel Authenticated and . [facility]
== END ==
PROVIDERS: PCP Emergency Medicine; Visit Provider Podiatrist
DX: M25.572 Pain in left ankle and joints of left foot (principal)
CPT/HCPCS: 73610

== ENCOUNTER → 2022-07-09 14:47 | Outpatient (POV) | payer MEDICARE, MEDICAID, SELFPAY ==
[2022-07-09 15:49] VITALS: BP 106/85; PULSE 64; RESP 18; TEMP 36.4; O2SAT 92; BMI 18.6
--- NOTE | 2022-07-09 16:19 | EXP.PAIN.OV ---
HPI Data of Consult Patient: new to practice Consult date: 07/09/22 Requesting Physician: Destinee Viveros APRN Consult Narrative Reason for consult: Low back pain with bilateral lower extremity pain and bilateral feet pain History of present illness: Mr. Arreola is a 66 year old male who presents today as a new patient. He is a referral from Dr. Ziyad Nicholas. Today the patient rates his pain a 10 out of 10 and states it is all in his low back that radiates into his bilateral lower extremities as well as his bilateral feet. Patient denies any new trauma or injury to the site. He states that this has been a chronic issue since the . He states he worked with for a [employer] and had significant pain over the years due to the high intensity physical labor. Patient states he also has bilateral foot issues since around 02/1976. He states he has swelling in his bilateral feet however it is worse in his left foot. He states last week he did get x-rays of his left ankle. He states he has hardware in this extremity due to a previous surgery. Patient is unsure when he had the last lumbar imaging. Patient states this is a sharp, constant pain that is worse with increased activity. He is O2 dependent. Patient also states he has degenerative disc disease as well as a pinched SI nerve and significant curvature of the spine. Patient states that he has tried [id number] Tylenol and ibuprofen as well as ice and heat however this is provided little to no improvement of his symptoms. He is also tried topical application of [place] and icy hot with no improvement of his symptoms. Patient does use a back brace occasionally that does provide some improvement of his symptoms however he only gets limited relief with this. Patient has seen physical therapy in the past however it has been years. He also stated he had saw a chiropractor however that they have told him that they could not do anything due to the significant curvature of his spine. Patient is currently prescribed [place] 5 mg twice a day by Dr. Nicholas's office. Patient denies any side effects from this medication. He states this medication does help manage his pain. Patient is not interested in injective therapy. His Shailesh is [phone]. It has been reviewed and appropriate. CC: Destinee Viveros APRN [facility] Medical History (Updated 07/09/22 @ 16:28 by Destinee A Viveros, TECHNICAL SYSTEMS ARCHITECT) Alcohol use disorder Aneurysm Angina pectoris Arteriosclerotic coronary artery disease Asthma Bilateral carotid bruits CAD (coronary artery disease) Carotid artery stenosis Chest pain COPD (chronic obstructive pulmonary disease) Erectile dysfunction Gait disorder Gallbladder disease History of DVT (deep vein thrombosis) HLD (hyperlipidemia) Hypertension Lumbar radiculopathy, chronic Myocardial infarction Neuropathy SOB (shortness of breath) TIA (transient ischemic attack) Tobacco use disorder Family History (Updated 07/04/22 @ 11:23 by Amy Ba CMA) Other Diabetes Heart attack Social History (Updated 06/26/22 @ 09:40 by Jamie Rodriguez) Smoking Status: Current every day smoker tobacco type: cigarettes packs per day: 2 second hand exposure: No alcohol intake: former substance use type: denies use current occupational status: retired Travel in the last 8 weeks: None household members: spouse housing: house current occupational exposures/hazards: No caffeine: Yes Review of Systems Review of Systems Review of systems:: pertinent systems reviewed and negative unless documented below Review of systems (narrative): Review of Systems: General: No recent weight changes, no fever, no sleep disturbances Respiratory: No cough, no shortness of air, no recurring pulmonary infections Cardiovascular/peripheral vascular: No chest pain, no palpitations, no edema, no shortness of breath Gastrointestinal: No new onset incontinence, normal bowel movements reported Zaida
== END ==
PROVIDERS: Visit Provider Nurse Practitioner Family
DX: M50.323 Other cervical disc degeneration at C6-C7 level (principal); M47.812 Spondylosis without myelopathy or radiculopathy, cervical region; M47.814 Spondylosis without myelopathy or radiculopathy, thoracic region; M54.16 Radiculopathy, lumbar region; M79.604 Pain in right leg; M79.605 Pain in left leg; M79.671 Pain in right foot; M79.672 Pain in left foot
CPT/HCPCS: 99202; G0463

== ENCOUNTER 2022-07-16 17:21 | Emergency (ER) | payer MEDICARE, MEDICAID, SELFPAY ==
--- NOTE | 2022-07-16 17:26 | HMH.EDGENADL ---
Discharge Plan Disposition Patient Disposition: Home, Self-Care Condition: Fair Prescriptions Prescriptions: New ondansetron 4 mg tablet,disintegrating 4 mg PO Q6H PRN (Reason: nausea and vomiting) Qty: 20 0RF No Action aspirin [Adult Low Dose Aspirin] 81 mg tablet,delayed release (DR/EC) 81 mg PO DAILY atorvastatin 40 mg tablet 40 mg PO HS fluticasone furoate-vilanterol [Breo Ellipta] 200-25 mcg/dose blister with device 1 inh IH DAILY MDD BREATHING clonazepam 0.5 mg tablet 0.5 mg PO BID Qty: 60 1RF hydrocodone-acetaminophen 5-325 mg tablet 1 tab PO BID Qty: 60 0RF metoprolol tartrate 50 mg tablet 50 mg PO BID Qty: 60 3RF albuterol sulfate 6.7 GM HFA aerosol inhaler 2 puffs IH Q6HP PRN (Reason: Shortness Of Breath) nitroglycerin 0.4 MG tablet, sublingual 0.4 mg SL Q5MINP PRN (Reason: chest pain) Rx Instructions: until response; do not exceed 3 doses per episode furosemide 20 MG tablet 20 mg PO DAILY amlodipine 5 MG tablet 5 mg PO DAILY Rx Instructions: TAKE 1 TABLET BY MOUTH ONCE DAILY FOR HIGH BLOOD PRESSURE tamsulosin 0.4 MG capsule 0.4 mg PO HS Rx Instructions: TAKE 1 CAPSULE BY MOUTH AT BEDTIME FOR URINARY HESITANCY citalopram [Celexa] 10 mg tablet 10 mg PO QAM ranolazine [Ranexa] 500 mg tablet extended release 12 hr 500 mg PO BID Spiriva Respimat 2.5 mcg/actuation mist See Rx Instructions .ROUTE .COMPLEX Rx Instructions: INHALE 2 SPRAY(S) BY MOUTH ONCE DAILY FOR COPD Referrals Follow up/Referrals: Ziyad Nicholas MD [Primary Care Provider] - See instructions Clinical Impressions Clinical Impression: Diarrhea, Nausea & vomiting Instructions Patient Instructions: Diarrhea, Nausea and Vomiting-Adult, Ondansetron Print Language Print Language: Bulgarian Discharge ED Provider: Elfego Lambert Adult HPI General Chief complaint: Weakness Stated complaint: weak,V/D, not eating X 3 days Time Seen by Provider: 07/16/22 17:26 Mode of Arrival: Family Vehicle History of Present Illness HPI narrative: 66-year-old male, past medical history includes COPD, alcohol abuse, abdominal pain, CAD, hypertension. He presents today with complaint of nausea, vomiting, diarrhea for 3 days, has been unable to keep down anything p.o. He denies fever, does report some abdominal discomfort that started after the nausea and vomiting. Reports vomiting appears mostly like phlegm, but diarrhea has been hourly. He is also now complaining of severe generalized weakness Related Data Home Medications Medication Instructions Recorded Confirmed albuterol sulfate 90 mcg/actuation 2 puffs inhalation Q6HP PRN 01/21/21 07/09/22 aerosol inhaler Shortness Of Breath aspirin 81 mg tablet,delayed 81 mg PO DAILY heart health 04/25/21 07/09/22 release (Adult Low Dose Aspirin) atorvastatin 40 mg tablet 40 mg PO HS Cholesterol 10/03/21 07/09/22 furosemide 20 mg tablet 20 mg PO DAILY Fluid 03/29/22 07/09/22 nitroglycerin 0.4 mg sublingual 0.4 mg sublingual Q5MINP PRN chest 03/29/22 07/09/22 tablet pain amlodipine 5 mg tablet 5 mg PO DAILY High blood pressure 05/18/22 07/09/22 tamsulosin 0.4 mg capsule 0.4 mg PO HS UNKNOWN 05/18/22 07/09/22 fluticasone furoate 200 1 inh inhalation DAILY Breathing 06/13/22 07/09/22 mcg-vilanterol 25 mcg/dose problems inhalation powder (Breo Ellipta) citalopram 10 mg tablet (Celexa) 10 mg PO QAM MOOD 07/09/22 07/09/22 ranolazine 500 mg tablet,extended 500 mg PO BID Chest pain 07/09/22 07/09/22 release,12 hr (Ranexa) tiotropium bromide 2.5 See Rx Instructions .Route 07/09/22 07/09/22 mcg/actuation mist for inhalation .COMPLEX Breathing problems (Spiriva Respimat) Previous Rx's Medication Instructions Recorded metoprolol tartrate 50 mg tablet 50 mg PO BID Hypertension #60 tabs 05/04/22 clonazepam 0.5 mg tablet 0.5 mg PO BID Anxiety #60 tabs 06/26/22 hydrocodone
[2022-07-16 17:38] VITALS: BP 139/100; PULSE 111; RESP 16; TEMP 36.9; O2SAT 94; BMI 19.1
[2022-07-16 17:53] LABS: Basophils % 0.5 % (0.1-2.0); Eosinophils # 0.3 K/mm3 (0.0-0.4); Eosinophils % 2.7 % (0.1-12.0); Hematocrit 39.8 % (42.0-52.0); Hemoglobin 12.7 g/dL (14.1-18.0); Lymphocytes # 1.6 K/mm3 (0.7-4.5); Lymphocytes % 16.9 % (10-50); Mean Corpuscular Hemoglobin 36.2 pg (27.0-31.2); Mean Corpuscular Volume 113.2 fl (80-94); Mean Platelet Volume 9.4 fl (7.4-10.4); Monocytes # 1.1 K/mm3 (0.1-1.0); Monocytes % 10.9 % (1.7-9.3); Neutrophils # 6.6 K/mm3 (1.8-7.8); Platelet Count 307 K/mm3 (142-424); Red Blood Count 3.52 M/mm3 (4.60-6.20); Red Cell Distribution Width 15.7 % (11.5-17.5); White Blood Count 9.6 K/mm3 (4.8-10.8)
[2022-07-16 17:56] LABS: Chloride 102 mmol/L (98-107); Sodium 137 mmol/L (136-145)
[2022-07-16 17:57] LABS: Potassium 3.4 mmoL/L (3.5-5.1)
[2022-07-16 17:59] LABS: Alanine Aminotransferase 17 U/L (12-78); Albumin Level 3.3 g/dl (3.5-5.0); Albumin/Globulin Ratio 0.9 (1.1-1.8); Alkaline Phosphatase 109 U/L (38-126); Anion Gap 16.4 mEq/L (5-15); Aspartate Amino Transferase 40 U/L (17-59); Bilirubin,Total 1.4 mg/dl (0.2-1.3); Blood Urea Nitrogen 4 mg/dl (9-20); Calcium 8.3 mg/dl (8.4-10.2); Carbon Dioxide 22 mmol/L (22.0-30.0); Creatinine Clearance Estimated 67 mL/min (50-200); Estimated Glomerular Filt Rate 215 ml/min (>60); GFR (African American) 260 ML/MIN (>60); Globulin 3.6 g/dL (1.3-3.2); Glucose 123 mg/dl (74-100); Magnesium 1.3 mg/dl (1.6-2.3); Total Protein,Serum 6.9 g/dl (6.3-8.2)
--- NOTE | 2022-07-16 18:11 | PC.NURSE ---
covid swab sent
[2022-07-16 18:20] LABS: Coronavirus 19, PCR Not Detected (NotDetected); Influenza A, PCR Not Detected (NotDetected); Influenza B, PCR Not Detected (NotDetected)
[2022-07-16 19:25] VITALS: BP 140/99; PULSE 88; RESP 18; TEMP 36.7; O2SAT 98
== END 2022-07-16 19:28 | disposition home or self-care (01) ==
PROVIDERS: Emergency Provider Emergency Medicine; PCP Emergency Medicine
DX: R53.1 Weakness (principal); R11.2 Nausea with vomiting, unspecified; R19.7 Diarrhea, unspecified; I25.10 Atherosclerotic heart disease of native coronary artery without angina pectoris; I10 Essential (primary) hypertension; F17.210 Nicotine dependence, cigarettes, uncomplicated; Z20.822 Contact with and (suspected) exposure to COVID-19
CPT/HCPCS: 80053; 83735; 85025; 96361; 96374; 99284; C9803; J2405; U0003; U0005

== ENCOUNTER → 2022-08-09 10:38 | Outpatient (POV) | payer MEDICARE, MEDICAID, SELFPAY ==
[2022-08-09 11:12] VITALS: BP 127/85; PULSE 70; RESP 18; TEMP 36.7; O2SAT 97; BMI 19.5
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
== END ==
PROVIDERS: Visit Provider Student in an Organized Health Care Education/Training Program
DX: M51.16 Intervertebral disc disorders with radiculopathy, lumbar region (principal); Z72.0 Tobacco use
CPT/HCPCS: 99212; G0463

== ENCOUNTER → 2022-08-20 16:20 | Outpatient (CLI) | payer MEDICARE, MEDICAID, SELFPAY | PROVIDERS: PCP Emergency Medicine; Visit Provider Nurse Practitioner Family | DX: M54.50 Low back pain, unspecified (principal) ==

== ENCOUNTER → 2022-08-29 15:02 | Outpatient (CLI) | payer MEDICARE, MEDICAID, SELFPAY ==
[2022-08-29 14:40] LABS: Amphetamine/Metha Screen,Urine Negative ng/ml (<1000); Barbiturates Screen,Urine Negative ng/ml (<200)
[2022-08-29 14:42] LABS: Benzodiazepines Screen,Urine Negative ng/ml (<200)
[2022-08-29 14:43] LABS: Cannabinoid Screen,Urine Negative ng/ml (<50)
[2022-08-29 14:44] LABS: Cocaine Screen,Urine Negative ng/ml (<300); Methadone Screen,Urine Negative ng/ml (<300)
[2022-08-29 14:45] LABS: Opiate Screen,Urine Negative ng/ml (<300); Phencyclidine Screen,Urine Negative ng/ml (<25)
== END ==
PROVIDERS: PCP Emergency Medicine; Visit Provider Emergency Medicine
DX: Z79.899 Other long term (current) drug therapy (principal)
CPT/HCPCS: 80305

== ENCOUNTER → 2022-09-05 08:38 | Outpatient (CLI) | payer MEDICARE, MEDICAID, SELFPAY ==
--- NOTE | 2022-09-05 09:22 | MR_ITS ---
FINAL REPORT CLINICAL HISTORY: BACK PAIN FINDINGS: Multiplanar MR imaging of the lumbar spine was performed without contrast. On the sagittal T2-weighted images, there is abnormal decreased signal throughout the lumbar discs. There is about 80% compression deformity in the L1 vertebra particularly in the central portion of the vertebra. There is mild retropulsion of the superior endplate. The vertebrae are of normal height. The vertebral alignment is normal. T12-L1: There is mild retropulsion of the superior endplate. There is mild spinal canal compromise. Neural foramina are adequately patent. L1-2: There is no disc bulge or protrusion. There is no significant canal stenosis or neural foraminal narrowing. L2-3: There is a mild diffuse disc bulge with [id number] left and mild right neural foraminal narrowing. There is no significant canal stenosis. L3-4: There is a mild diffuse disc bulge with endplate hypertrophy and moderate left neural foraminal narrowing. There is no significant canal stenosis. L4-5: There is a mild diffuse disc bulge. There is a right posterolateral disc protrusion. There is moderate high-grade right and mild left neural foraminal narrowing. There is no significant canal stenosis. L5-S1: There is a moderate diffuse disc bulge with endplate hypertrophy. There is a moderate to high-grade left and moderate right neural foraminal narrowing. There is no significant canal stenosis. IMPRESSION: 80% compression deformity of L1. Multilevel changes of degenerative disc disease with neural foraminal narrowing most evident on the right at L4-5 and on the left at L3-4 and L5-1. Reviewed, Interpreted and Dictated by Jakub Lema MD Transcribed by Isamar Ordoñez Authenticated and [facility]
== END ==
PROVIDERS: PCP Emergency Medicine; Visit Provider Nurse Practitioner Family
DX: M54.50 Low back pain, unspecified (principal)
CPT/HCPCS: 72148; 76376

== ENCOUNTER 2022-11-09 10:39 | Emergency (ER) | payer MEDICARE, MEDICAID, SELFPAY ==
[2022-11-09 10:40] VITALS: BP 142/92; PULSE 79; RESP 18; TEMP 36.6; O2SAT 97; BMI 21.1
[2022-11-09 10:51] VITALS: BMI 21.1
--- NOTE | 2022-11-09 10:51 | XR_ITS ---
FINAL REPORT CLINICAL HISTORY: fall/pain COMPARISON: April 23, 2020 FINDINGS: RIGHT SHOULDER 3 views of the right shoulder were obtained. There is no acute fracture or dislocation. There are mild degenerative changes of the acromioclavicular and glenohumeral joints. There are chronic calcifications superior to the distal clavicle. There is no soft tissue abnormality. IMPRESSION: Degenerative change as above with no acute bony abnormality. Reviewed, Interpreted and Dictated by Emiliano Rush III, MD Transcribed by Isamar Ordoñez Authenticated and [facility]
--- NOTE | 2022-11-09 10:51 | XR_ITS ---
FINAL REPORT CLINICAL HISTORY: fall/pain FINDINGS: RIGHT HUMERUS 2 views were obtained. There is no acute fracture or dislocation. The joint spaces are intact. There are 2 linear foreign bodies in the upper antecubital fossa measuring approximately 12 mm in length. IMPRESSION: No acute bony abnormality. Reviewed, Interpreted and Dictated by Emiliano Rush III, MD Transcribed by Isamar Ordoñez Authenticated and [facility]
--- NOTE | 2022-11-09 10:57 | CT_ITS ---
FINAL REPORT TECHNIQUE: Axial images were obtained from the lung apex to the mid abdomen by computed tomography. Coronal reformatted images were obtained. This study was performed with techniques to keep radiation doses as low as reasonably achievable, (ALARA). Individualized dose reduction techniques using automated exposure control or adjustment of mA and/or kV according to the patient''s size were employed. CLINICAL HISTORY: concern for right chest wall injury FINDINGS: There is no axillary adenopathy. There is no hilar or mediastinal adenopathy. Heart size is normal. There is no pericardial or pleural effusion. Limited images of the upper abdomen are unremarkable. On the lung window images there are severe changes of emphysema. There are multiple pulmonary nodules including a left upper lobe nodule measuring 17 mm, uncertain if it is part of a larger adjacent scar. There are several other smaller nodules seen bilaterally. On the bone window images, there are right 7 through 11th posterior rib fractures which appear chronic. There are acute fractures of the right posterolateral 5, 6 and 7th ribs. There also acute fractures of the right posteromedial 5, 6 and 7th ribs. There is no pneumothorax. IMPRESSION: Acute fractures of the right 5th, 6th and 7th ribs as above. No pneumothorax. Several pulmonary nodules are seen bilaterally. Reviewed, Interpreted and Dictated by Emiliano Rush III, MD Transcribed by Isamar Ordoñez Authenticated and [facility]
--- NOTE | 2022-11-09 10:57 | CT_ITS ---
FINAL REPORT CLINICAL HISTORY: concern for fx COMPARISON: November 17, 2020 FINDINGS: Axial CT images of the thoracic spine were obtained without contrast. Sagittal and coronal reformatted images were also obtained. This study was performed with techniques to keep radiation doses as low as reasonably achievable (ALARA). Individualized dose reduction techniques using automated exposure control or adjustment of mA and/or kV according to the patient''s size were employed. There is a moderate L1 compression fracture which appears chronic. No acute thoracic spine fracture is seen. There are mild degenerative changes with multilevel osteophytes. The vertebral alignment is normal. There is no evidence of significant canal stenosis. No paraspinous soft tissue abnormality is identified. IMPRESSION: Mild degenerative changes with no acute bony abnormality of the thoracic spine. Reviewed, Interpreted and Dictated by Emiliano Rush III, MD Transcribed by Isamar Ordoñez Authenticated and [facility]
--- NOTE | 2022-11-09 11:27 | PC.NURSE ---
Patient back from CT
[2022-11-09 11:31] VITALS: BP 176/96; PULSE 78; RESP 18; O2SAT 97
--- NOTE | 2022-11-09 11:52 | HMH.EDGENADL ---
Discharge Plan Disposition Patient Disposition: Home, Self-Care Condition: Good Prescriptions Prescriptions: New oxycodone 5 mg tablet 5 mg PO Q6H PRN (Reason: pain) Qty: 14 0RF methocarbamol [Methocarbamol] 750 mg tablet 750 mg PO Q6 PRN (Reason: Muscle Spasm) Qty: 30 0RF No Action aspirin [Adult Low Dose Aspirin] 81 mg tablet,delayed release (DR/EC) 81 mg PO DAILY atorvastatin 40 mg tablet 40 mg PO HS Lac-Hydrin Five 5 % lotion 1 applic topical DAILY Qty: 19 2RF prednisone 20 mg tablet 20 mg PO BID Qty: 6 0RF Rx Instructions: 20mg PO BID X3days prednisone 10 mg tablet 10 mg PO DIRECTED Qty: 9 0RF Rx Instructions: take 10mg PO BID X3days then 10mg PO QD X3days hydroxyzine HCl 25 mg tablet 25 mg PO BID Qty: 20 0RF gabapentin 100 mg capsule 100 mg PO TID Qty: 90 1RF clonazepam 0.5 mg tablet 0.5 mg PO BID Qty: 60 1RF hydrocodone-acetaminophen 5-325 mg tablet 1 tab PO BID Qty: 60 0RF furosemide 20 mg tablet See Rx Instructions .ROUTE .COMPLEX Qty: 90 1RF Dose Instruction: TAKE 1 TABLET BY MOUTH ONCE DAILY FOR FLUID Rx Instructions: TAKE 1 TABLET BY MOUTH ONCE DAILY FOR FLUID metoprolol tartrate 50 mg tablet 50 mg PO BID Qty: 60 3RF nitroglycerin 0.4 mg tablet, sublingual 0.4 mg SL Q5MINP PRN (Reason: chest pain) Qty: 25 2RF Rx Instructions: until response; do not exceed 3 doses per episode tamsulosin 0.4 mg capsule See Rx Instructions .ROUTE .COMPLEX Qty: 90 0RF Dose Instruction: TAKE 1 CAPSULE BY MOUTH AT BEDTIME FOR URINARY HESITANCY Rx Instructions: TAKE 1 CAPSULE BY MOUTH AT BEDTIME FOR URINARY HESITANCY amlodipine 5 mg tablet See Rx Instructions .ROUTE .COMPLEX Qty: 30 0RF Dose Instruction: TAKE 1 TABLET BY MOUTH ONCE DAILY FOR HIGH BLOOD PRESSURE Rx Instructions: TAKE 1 TABLET BY MOUTH ONCE DAILY FOR HIGH BLOOD PRESSURE fluticasone furoate-vilanterol 200-25 mcg/dose blister with device See Rx Instructions .ROUTE .COMPLEX Rx Instructions: INHALE 1 PUFF BY MOUTH ONCE DAILY FOR COPD albuterol sulfate 6.7 GM HFA aerosol inhaler 2 puffs IH Q6HP PRN (Reason: Shortness Of Breath) citalopram [Celexa] 10 mg tablet 10 mg PO QAM ranolazine [Ranexa] 500 mg tablet extended release 12 hr 500 mg PO BID Spiriva Respimat 2.5 mcg/actuation mist See Rx Instructions .ROUTE .COMPLEX Rx Instructions: INHALE 2 SPRAY(S) BY MOUTH ONCE DAILY FOR COPD ondansetron 4 mg tablet,disintegrating 4 mg PO Q6H PRN (Reason: nausea and vomiting) Qty: 20 0RF Referrals Follow up/Referrals: Ziyad Nicholas MD [Primary Care Provider] - See instructions Clinical Impressions Clinical Impression: Multiple fractures of ribs Instructions Patient Instructions: DI for Rib Fracture Discharge ED Provider: Kar Anderson General Adult HPI General Chief complaint: PAIN Stated complaint: 11/08 Fall@home RT rib/arm pain nose bleeding Time Seen by Provider: 11/09/22 10:45 Mode of Arrival: Wheelchair Source of Information: Patient Limitations: No Limitations Description of Symptoms (Recalled from ER Triage Doc. by RN): c/o a nose bleed for one week off and on. c/o right rib and arm pain after a fall yesterday. Pt states he tripped over his electric heater and hitting the floor. History of Present Illness HPI narrative: Patient is a 66-year-old male with a past medical history of COPD, lung cancer, CAD, hyperlipidemia, hypertension who presents with concern for right chest wall and arm pain. He says that yesterday he had a ground-level fall. He says he tripped over his heater and subsequent landed on his right side. He said he felt immediate pain on his right shoulder as well his right posterior back. He says that his pain is worse when he takes a deep breath and that his right shoulder also hurts with movement. He says that he ch
[2022-11-09 12:30] VITALS: BP 157/109; PULSE 76; RESP 18; O2SAT 98
--- NOTE | 2022-11-09 13:22 | PC.NURSE ---
RESP CARE NOTE: Patient performed incentive spirometer, he achieved 2500ml at least 8 times. Instructed patient to perform incentive spirometer 10 breaths at least 4 times per day.
[2022-11-09 13:49] VITALS: BP 144/101; PULSE 79; RESP 19; TEMP 36.6; O2SAT 98
== END 2022-11-09 13:51 | disposition home or self-care (01) ==
PROVIDERS: Emergency Provider Student in an Organized Health Care Education/Training Program; PCP Emergency Medicine
DX: S22.41XA Multiple fractures of ribs, right side, initial encounter for closed fracture (principal); W01.0XXA Fall on same level from slipping, tripping and stumbling without subsequent striking against object, initial encounter; I10 Essential (primary) hypertension; J44.9 Chronic obstructive pulmonary disease, unspecified; C34.90 Malignant neoplasm of unspecified part of unspecified bronchus or lung; I25.10 Atherosclerotic heart disease of native coronary artery without angina pectoris; E78.5 Hyperlipidemia, unspecified; I25.2 Old myocardial infarction; F17.210 Nicotine dependence, cigarettes, uncomplicated; Z83.3 Family history of diabetes mellitus; Z82.49 Family history of ischemic heart disease and other diseases of the circulatory system
CPT/HCPCS: 71250; 72128; 73030; 73060; 99285

== ENCOUNTER → 2022-12-20 10:34 | Outpatient (POV) | payer MEDICARE, MEDICAID, SELFPAY ==
--- NOTE | 2022-12-20 10:57 | EXP.PAIN.SOA ---
[facility] Pain Management SOAP Note Subjective:: Patient is a pleasant 67-year-old male who presents today for follow-up. We are currently treating the patient for low back pain with lumbar radiculopathy symptoms, chronic pain syndrome. Patient states his pain is a 10 out of 10 today. Patient denies any new trauma or injury. Patient denies any change location or type of pain he experiences. Patient states he has significant pain in his low back with radiating symptoms into his lower extremities. Patient does describe this as a constant aching, throbbing sensation that is worse with increased activity. Patient states that he can typically stand up early in the morning however as the day goes on he has less strength and will frequently have trouble with balance. Patient does state that he has a history of falls in the past. Patient does present today in wheelchair and is O2 dependent. Patient is currently managed with [place] 5 mg twice daily and gabapentin 100 mg 3 times a day. Patient denies any side effects from this medication. His Shailesh is [phone]. Its been reviewed and appropriate. Review of Systems: General: No recent weight changes, no fever, no sleep disturbances Respiratory: No cough, no shortness of air, no recurring pulmonary infections Cardiovascular/peripheral vascular: No chest pain, no palpitations, no edema, no shortness of breath Gastrointestinal: No new onset incontinence, normal bowel movements reported Genitourinary: No new onset incontinence Musculoskeletal: Low back pain Psychiatric: [Normal mood/affect] Neurological: [Denies weakness in extremities], [denies balance issues] Objective:: Physical Exam: General: Alert and oriented x3, no acute distress, pleasant and cooperative Lungs: Respirations even and unlabored, symmetrical chest expansion Eyes: PERRL Musculoskeletal: Flexion and extension of lumbar [spine] somewhat guarded secondary to pain, [antalgic gait noted] Neurological: Speech clear, no gross sensory deficit Assessment:: Low back pain, chronic pain, lumbar radiculopathy symptoms Plan:: Patient is experiencing significant pain in his low back with limited range of motion. I have discussed with the patient that he may benefit from a intrathecal pain pump trial. Risk and benefits were discussed with him and he would like to proceed forward with this plan of care. I have given the patient educational handouts at today's visit. I will order a psychiatric evaluation with the plan to proceed forward with the trial in the future if he is deemed an appropriate candidate. I will also order the patient physical therapy for his low back pain. Patient will return to clinic following his psych eval for reevaluation of symptoms and plan of care. Patient has been instructed to contact the clinic with any concerns before the next appointment. Dr. Aguilar has reviewed this note and agrees with this plan of care. This note was dictated using voice recognition software and make contain errors or omissions. [facility] Disclaimer: The information contained in this section may have been updated after the patient was seen, as this information can be updated by other users. Medical History Alcohol use disorder Aneurysm Angina pectoris Arteriosclerotic coronary artery disease Asthma Bilateral carotid bruits CAD (coronary artery disease) Carotid artery stenosis Chest pain COPD (chronic obstructive pulmonary disease) Erectile dysfunction Gait disorder Gallbladder disease History of DVT (deep vein thrombosis) HLD (hyperlipidemia) Hypertension Lumbar radiculopathy, chronic Myocardial infarction Neuropathy SOB (shortness of breath) TIA (transient ischemic attack) Tobacco use disorder Family History Other Diabetes Heart attack Social History Smoking Status: Current every day smoker tobac
[2022-12-20 12:20] VITALS: BP 124/81; PULSE 61; RESP 18; O2SAT 97; BMI 21.1
== END ==
PROVIDERS: PCP Emergency Medicine; Visit Provider Nurse Practitioner Family
DX: M54.16 Radiculopathy, lumbar region (principal); M54.50 Low back pain, unspecified; G89.29 Other chronic pain
CPT/HCPCS: 99212; G0463

== ENCOUNTER 2023-03-04 08:50 | Day surgery (SDC) | payer MEDICARE, MEDICAID, SELFPAY ==
[2023-03-04] VITALS (9 sets, daily range): BP systolic 92–129; BP diastolic 61–82; PULSE 58–71; RESP 14–20; O2SAT 95–100; BMI 16.9; BMI 17.4
--- NOTE | 2023-03-04 07:07 | IR_ITS ---
APPROVED REPORT Patient Location: Outpatient PROCEDURES Left heart catheterization Left ventriculogram Selective coronary angiogram INDICATION Worsening angina pectoris, Known coronary artery disease Informed consent was obtained prior to the procedure. COMPLICATIONS None Estimated Blood Loss: Less than 10 mls TECHNIQUE One percent lidocaine used to anesthetize the right anterior aspect of the wrist. The right radial artery was accessed via the Seldinger technique. A 6 Nepali sheath was placed in the right radial artery. 150 mg magnesium sulfate, 800 mcg of nitroglycerin, 1mg Lidocaine and 5000 U Heparin were given through the arterial sheath. The papa catheter was also used to perform left heart catheterization, left ventriculogram and selective coronary angiogram. At the end of the procedure the sheath was removed good hemostasis was achieved using Traclet band, patient was transferred to the postop holding area in stable condition. ANGIOGRAPHIC RESULTS The left main artery Short and normal The left anterior descending artery Has mild proximal 10 to 20% stenosis with mid vessel 10% luminal regularities The circumflex artery Is dominant has a stent in the proximal segment which is widely patent free of in-stent restenosis with excellent proximal distal transitioning. The first obtuse marginal artery is moderate in size and has a proximal smooth 40% stenosis The right coronary artery Is a codominant vessel and has a long proximal tubular 30 to 40% stenosis. The entire vessel is small in caliber with no focal stenosis. The AREVALO ventriculogram reveals Normal 65% The left ventricular end-diastolic pressure 10 mmHg IMPRESSION Coronary disease as described above Codominant small caliber proximal and mid right coronary artery with no focal stenosis Normal ejection fraction Normal left ventricular end-diastolic pressure PLAN 1. Maximize antianginal medications 2. Avoidance of tobacco 3. Aggressive risk factor modification Electronically signed by : Drew Ziegler MD 03/04/2023 13:18:10
[2023-03-04 09:52] LABS: Basophils % 0.2 % (0.1-2.0); Chloride 93 mmol/L (98-107); Eosinophils # 0.3 K/mm3 (0.0-0.4); Eosinophils % 3.4 % (0.1-12.0); Hematocrit 40.1 % (42.0-52.0); Hemoglobin 12.8 g/dL (14.1-18.0); Lymphocytes # 0.9 K/mm3 (0.7-4.5); Lymphocytes % 12.1 % (10-50); Mean Corpuscular HGB Conc 31.8 g/dL (31.8-35.4); Mean Corpuscular Hemoglobin 36.3 pg (27.0-31.2); Mean Corpuscular Volume 113.9 fl (80-94); Mean Platelet Volume 8.8 fl (7.4-10.4); Monocytes # 0.6 K/mm3 (0.1-1.0); Monocytes % 8.4 % (1.7-9.3); Neutrophils # 5.8 K/mm3 (1.8-7.8); Neutrophils % 75.9 % (37.0-80.0); Platelet Count 209 K/mm3 (142-424); Red Blood Count 3.52 M/mm3 (4.60-6.20); Red Cell Distribution Width 13.9 % (11.5-17.5); White Blood Count 7.6 K/mm3 (4.8-10.8)
[2023-03-04 09:53] LABS: Potassium 3.8 mmoL/L (3.5-5.1); Sodium 132 mmol/L (136-145)
[2023-03-04 09:56] LABS: Anion Gap 14.8 mEq/L (5-15); Blood Urea Nitrogen 5 mg/dl (9-20); Calcium 8.7 mg/dl (8.4-10.2); Carbon Dioxide 28 mmol/L (22.0-30.0); Creatinine Clearance Estimated 60 mL/min (50-200); Estimated Glomerular Filt Rate 134 ml/min (>60); GFR (African American) 162 ML/MIN (>60); Glucose 110 mg/dl (74-100)
== END 2023-03-04 15:17 | disposition home or self-care (01) ==
PROVIDERS: PCP Emergency Medicine; Visit Provider Internal Medicine
DX: R07.9 Chest pain, unspecified (principal); Z79.899 Other long term (current) drug therapy; I25.118 Atherosclerotic heart disease of native coronary artery with other forms of angina pectoris; I10 Essential (primary) hypertension; E78.5 Hyperlipidemia, unspecified; F17.210 Nicotine dependence, cigarettes, uncomplicated; I65.23 Occlusion and stenosis of bilateral carotid arteries
CPT/HCPCS: 80048; 85025; 93458; 99152; C1725; C1769; J1644; Q9967

== ENCOUNTER 2023-04-19 10:30 | Day surgery (SDC) | payer MEDICARE, MEDICAID, SELFPAY ==
[2023-04-19] VITALS (9 sets, daily range): BP systolic 128–171; BP diastolic 89–100; PULSE 67–80; RESP 18–20; TEMP 36.3; O2SAT 91–95; BMI 17.0
--- NOTE | 2023-04-19 13:44 | PC.NURSE ---
1230-pt accompanied to bay, via w/c, by nursing staff. VSS, rates pain 3/10. lumbar dressing c/d/i. no needs or concerns at this time. spouse at bedside. 1244-PT at bedside. 1245-pt resting in recliner. VSS, rates pain 0/10. lumbar dressing c/d/i. no needs or concerns at this time. spouse at bedside. 1300-pt resting in recliner, eating lunch. VSS, rates pain 0/10. lumbar dressing c/d/i. no needs or concerns at this time. spouse at bedside. 1305-MD at bedside. 1315-pt resting in recliner. VSS, rates pain 0/10. lumbar dressing c/d/i. no needs or concerns at this time. spouse at bedside. 1320-pt ambulated to nursing station, accompanied by nursing staff. gait steady. no c/o pain 1330-pt resting in recliner. tolerated PO intake iwth no complaints. VSS, rates pain 0/10. lumbar dressing c/d/i. no needs or concerns at this time. spouse at bedside.
--- NOTE | 2023-04-19 14:20 | EXP.PAIN.PRO ---
Procedure Date: 04/19/23 Time: 14:20 Anesthesiologist:: Jamey Aguilar MD Complications:: None Pre-procedure Diagnosis:: Degenerative disc disease of lumbar spine with lumbar radiculopathy symptoms Post-procedure Diagnosis:: Same Indications for Procedure:: This patient is a pleasant 67-year-old white male who we are treating for degenerative disease of lumbar spine with lumbar radiculopathy symptoms. He continues to have significant pain in his back and down his legs. He has failed all previous conservative treatments including injections, oral medications, physical therapy and is not a candidate for surgery. He is currently on oxycodone twice a day which is not helping. He has been off of his pain pills for 48 hours. He has had a successful psychological evaluation. He presents for intrathecal pump trial today. Procedure Details:: Pain pump trial Informed consent was obtained and the risk and benefits of the procedure was explained to the patient. The patient was taken to the procedure room and placed prone on the procedure table. Patient was prepped and draped in sterile fashion. C-arm fluoroscopy was used to view the lumbar spine. The skin and subcutaneous tissues were anesthetized using lidocaine. I placed a 18-gauge spinal needle into the L4-5 interspace and advanced until clear CSF was obtained. After this intrathecal catheter was inserted and advanced very easily to the L1 vertebral body. The needle was withdrawn. We were able to freely withdraw clear CSF through the catheter. We then injected intrathecal opioid single shot bolus of 25 mcg followed by saline and followed by the previous CSF that was withdrawn. The needle and catheter were then removed and a Band-Aid was placed. Patient tolerated the procedure well with no complications. We reevaluated the patient after 30 minutes to 1 hour. He was also reassessed by physical therapy. He was 70 to 80% better. Pain score is down to a 3 out of 10. He was much more functional. Bowel indications this did appear to be a successful pump trial. Patient was discharged home neurologic intact with good relief of pain symptoms. Plan and Disposition:: We will follow-up with this patient in 1 week. Will reevaluate symptoms and efficacy of the trial. If successful we will plan on permanent placement with intrathecal morphine 1 mg per ml to start at 100 mcg/day. Patient will need to be off all oral narcotics after implant of his intrathecal pain pump. We will remind him of this at the follow-up visit.
== END 2023-04-19 13:48 | disposition home or self-care (01) ==
LOC: SC.PAINP 10:31
PROVIDERS: PCP Emergency Medicine; Visit Provider Anesthesiology
DX: M51.16 Intervertebral disc disorders with radiculopathy, lumbar region (principal)
CPT/HCPCS: 62323; 96365

== ENCOUNTER 2023-04-21 12:07 | Emergency (ER) | payer MEDICARE, MEDICAID, SELFPAY ==
[2023-04-21] VITALS (7 sets, daily range): BP systolic 138–164; BP diastolic 94–114; PULSE 60–81; RESP 16–18; TEMP 36.7–36.8; O2SAT 93–97; BMI 16.9
--- NOTE | 2023-04-21 12:38 | CT_ITS ---
PROCEDURE INFORMATION: Exam: CTA Neck With Contrast Exam date and time: 04/21/2023 2:02 PM Age: 67 years old Clinical indication: Injury or trauma; Fall; Blunt trauma; Head; Prior surgery; Surgery date: 6+ months; Surgery type: Clips aneurysm; Additional info: Fall, XIAO, diplopia, h/o aneurysm TECHNIQUE: Imaging protocol: Computed tomographic angiography of the neck with contrast. 3D rendering (Not supervised by radiologist): MIP and/or 3D reconstructed images were created by the technologist. Radiation optimization: All CT scans at this facility use at least one of these dose optimization techniques: automated exposure control; mA and/or kV adjustment per patient size (includes targeted exams where dose is matched to clinical indication); or iterative reconstruction. Contrast material: ISOVUE; Contrast volume: 100 ml; Contrast route: INTRAVENOUS (IV); REPORTING DATA: Count of CT and Cardiac NM exams in prior 12 months: This patient has received 2 known CTs and 0 known cardiac nuclear medicine studies in the 12 months prior to the current study. COMPARISON: CT CERVICAL SPINE WO CON 11/17/2020 11:44 PM FINDINGS: Right common carotid artery: No stenosis. No dissection or occlusion. Right internal carotid artery: Mild narrowing of the origin of right internal carotid artery per NASCET criteria. Right external carotid artery: No occlusion or stenosis of the origin. Left common carotid artery: No stenosis. No dissection or occlusion. Left internal carotid artery: Severe narrowing at the origin of left internal carotid artery per NASCET criteria. Left external carotid artery: No occlusion or stenosis of the origin. Right vertebral artery: No stenosis. No dissection or occlusion. Left vertebral artery: No stenosis. No dissection or occlusion. Soft tissues: Normal. No significant soft tissue swelling. Bones/joints: No acute fracture. Lungs: Advanced centrilobular and paraseptal emphysema. There is a region of architectural distortion in the left pulmonary apex IMPRESSION: Diffuse atherosclerotic changes contributing to severe stenosis of the origin of the left internal carotid artery REFERENCES: NASCET CRITERIA. The degree of stenosis in the cervical segment of the internal carotid artery is based on NASCET criteria. Normal is no stenosis. Mild is less than 50% stenosis. Moderate is 50-69% stenosis. Severe is 70% to 99% stenosis. Total occlusion is no detectable patent lumen.
--- NOTE | 2023-04-21 12:38 | CT_ITS ---
PROCEDURE INFORMATION: Exam: CT Head Without Contrast Exam date and time: 04/21/2023 1:23 PM Age: 67 years old Clinical indication: Stroke-like symptoms; Headache; Additional info: Fall, asa, XIAO. History of aneurysm and had a epidural shot Saturday TECHNIQUE: Imaging protocol: Computed tomography of the head without contrast. Radiation optimization: All CT scans at this facility use at least one of these dose optimization techniques: automated exposure control; mA and/or kV adjustment per patient size (includes targeted exams where dose is matched to clinical indication); or iterative reconstruction. Other technique: STROKE PROTOCOL was implemented. REPORTING DATA: Count of CT and Cardiac NM exams in prior 12 months: This patient has received 2 known CTs and 0 known cardiac nuclear medicine studies in the 12 months prior to the current study. COMPARISON: CT HEAD/BRAIN WO CON 01/29/2022 6:22 PM FINDINGS: Brain: The brain demonstrates diffuse volume loss. There is white matter hypodensity most consistent with chronic small vessel ischemic change. There are small foci of low attenuation in the basal ganglia bilaterally related to chronic lacunar infarctions. Cerebral ventricles: The ventricles and CSF spaces are proportionately enlarged. Paranasal sinuses: Visualized sinuses are unremarkable. No fluid levels. Mastoid air cells: Visualized mastoid air cells are well aerated. Orbital cavities: There are postoperative changes from prior cataract surgery. Bones/joints: No acute fracture. Soft tissues: Unremarkable. Vasculature: There is artifact from an aneurysm coil in the anterior aspect of the suprasellar cistern. IMPRESSION: 1. Atrophy and the sequela of prior small vessel ischemia. 2. There is no acute intracranial abnormality. ASSESSMENT: ASPECTS ([place] Stroke Program Early CT Score) is 10.
--- NOTE | 2023-04-21 12:38 | CT_ITS ---
PROCEDURE INFORMATION: Exam: CTA Head With Contrast, Arteriography Exam date and time: 04/21/2023 2:02 PM Age: 67 years old Clinical indication: Injury or trauma; Fall; Blunt trauma; Head; Additional info: Fall, XIAO, diplopia, h/o aneurysm TECHNIQUE: Imaging protocol: Computed tomographic angiography of the head with contrast. Exam focused on the arteries. 3D rendering (Not supervised by radiologist): MIP and/or 3D reconstructed images were created by the technologist. Radiation optimization: All CT scans at this facility use at least one of these dose optimization techniques: automated exposure control; mA and/or kV adjustment per patient size (includes targeted exams where dose is matched to clinical indication); or iterative reconstruction. Contrast material: ISOVUE; Contrast volume: 100 ml; Contrast route: INTRAVENOUS (IV); REPORTING DATA: Count of CT and Cardiac NM exams in prior 12 months: This patient has received 2 known CTs and 0 known cardiac nuclear medicine studies in the 12 months prior to the current study. COMPARISON: CT ANGIO HEAD 06/05/2021 2:06 PM FINDINGS: ANTERIOR CIRCULATION: Right internal carotid artery: Moderate atherosclerotic changes in the right cavernous carotid produce mild luminal narrowing. Right middle cerebral artery: Right middle cerebral artery is patent. No significant stenosis. No aneurysm. Right anterior cerebral artery: Right anterior cerebral artery is patent. No significant stenosis. No aneurysm. 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 Left internal carotid artery: Moderate atherosclerotic changes in the left cavernous carotid produce mild luminal narrowing. Left middle cerebral artery: Left middle cerebral artery is patent. No significant stenosis. No aneurysm. Left anterior cerebral artery: Left anterior cerebral artery is patent. No significant stenosis. No aneurysm. POSTERIOR CIRCULATION: Right vertebral artery: Right vertebral artery is unremarkable without flow-limiting stenosis. Left vertebral artery: Left vertebral artery is unremarkable without flow-limiting stenosis. Basilar artery: Basilar artery is patent. Right posterior cerebral artery: Right posterior cerebral artery is patent. No significant stenosis. No aneurysm. Left posterior cerebral artery: Left posterior cerebral artery is patent. No significant stenosis. No aneurysm. Brain: No definite mass, mass effect, or midline shift. Cerebral ventricles: No ventriculomegaly. Bones/joints: Unremarkable. No acute fracture. Soft tissues: Unremarkable. IMPRESSION: 1. No large vessel occlusion. No aneurysm or other vascular lesions in the intracranial circulation. 2. Status post coil embolization of anterior communicating aneurysm
--- NOTE | 2023-04-21 12:43 | HMH.EDGENADL ---
Discharge Plan Disposition Patient Disposition: Home, Self-Care Condition: Good Chief Complaint: Nausea/Vomiting/Diarrhea Prescriptions Prescriptions: No Action aspirin [Adult Low Dose Aspirin] 81 mg tablet,delayed release (DR/EC) 81 mg PO DAILY atorvastatin 40 mg tablet 40 mg PO HS clonazepam 0.5 mg tablet 0.5 mg PO BID Qty: 60 1RF gabapentin 100 mg capsule 100 mg PO TID Qty: 90 1RF hydrocodone-acetaminophen 5-325 mg tablet 1 tab PO BID Qty: 60 0RF albuterol sulfate 90 mcg/actuation HFA aerosol inhaler 2 puff IH Q6HP PRN (Reason: Shortness Of Breath) Qty: 8.5 2RF nitroglycerin 0.4 mg tablet, sublingual 0.4 mg SL Q5MINP PRN (Reason: chest pain) Qty: 25 2RF Rx Instructions: until response; do not exceed 3 doses per episode metoprolol tartrate 50 mg tablet 50 mg PO BID Qty: 60 11RF ranolazine [Ranexa] 500 mg tablet extended release 12 hr 500 mg PO BID ondansetron 4 mg tablet,disintegrating 4 mg PO Q6H PRN (Reason: nausea and vomiting) Qty: 20 0RF Lac-Hydrin Five 5 % lotion 1 applic topical DAILY tamsulosin 0.4 mg capsule See Rx Instructions .ROUTE .COMPLEX Rx Instructions: TAKE 1 CAPSULE BY MOUTH AT BEDTIME FOR URINARY HESITANCY fluticasone furoate-vilanterol [Breo Ellipta] 200-25 mcg/dose blister with device See Rx Instructions .ROUTE .COMPLEX Rx Instructions: Inhale 1 puff by mouth once daily Spiriva Respimat 2.5 mcg/actuation mist See Rx Instructions .ROUTE .COMPLEX Rx Instructions: INHALE 2 SPRAYS BY MOUTH DAILY FOR COPD Referrals Follow up/Referrals: Ziyad Nicholas MD [Primary Care Provider] - See instructions Clinical Impressions Clinical Impression: Migraine Instructions Patient Instructions: DI for Diarrhea and Traveler's Diarrhea -- Adult, DI for Diarrhea and Traveler's Diarrhea -- Child, DI for Nausea -- Adult, DI for Nausea -- Child Discharge ED Provider: Jeremias Garg General Adult HPI General Chief complaint: Nausea/Vomiting/Diarrhea Stated complaint: vomiting,headache,feels like lup recorder has move Time Seen by Provider: 04/21/23 12:16 Mode of Arrival: Wheelchair Source of Information: Patient and Spouse Limitations: No Limitations Description of Symptoms (Recalled from ER Triage Doc. by RN): 67 yo M presents to ED with c/o headache ongoing for 2 weeks. pt reports last night headache pain was so intense he has assocaited nausea and vomitting. pt also states that he had loop recorder placed a few months ago. pt states that last night he noticed that his loop recorder moved in his chest. History of Present Illness HPI narrative: This is a 67-year-old male with history of cerebral aneurysm status post coiling, COPD, tobacco use disorder, hypertension, hyperlipidemia, CAD, [place] status post stenting currently on aspirin, TIA, chronic neck and back pain on daily opiate therapy presenting with headache. Patient states he fell and hit his head about a month ago and does not think he lost consciousness. Since that time, he has had progressively worsening headache. Currently 10 out of 10, feels like the top of my head might pop off, but nothing has seemed to help the pain. Was seen in pain clinic a couple days prior to arrival for evaluation for epidural and pain pump, but after this procedure, pain has gotten significantly worse. Denies fevers, chills, fluid leaking from his back, new trauma, vision changes, numbness/weakness/tingling on any side of his body, or any other concerns. Patient does not typically have headaches, the last time he had a headache like this was when he had aneurysm coiled 1 year prior to arrival. Related Data Home Medications Medication Instructions Recorded Confirmed aspirin 81 mg tablet,delayed 81 mg PO DAILY heart health 04/25/21 04/19/23 release (Adult Low Dose Aspirin) atorvastatin 40 mg tablet 40 mg PO HS Cholesterol 10/03/21 04/19/23 ranolazine 500 mg
[2023-04-21 13:12] LABS: Basophils % 0.2 % (0.1-2.0); Eosinophils # 0.3 K/mm3 (0.0-0.4); Eosinophils % 4.3 % (0.1-12.0); Hematocrit 42.5 % (42.0-52.0); Hemoglobin 13.4 g/dL (14.1-18.0); Lymphocytes # 1.4 K/mm3 (0.7-4.5); Mean Corpuscular HGB Conc 31.5 g/dL (31.8-35.4); Mean Corpuscular Hemoglobin 35.3 pg (27.0-31.2); Mean Corpuscular Volume 112.2 fl (80-94); Mean Platelet Volume 8.4 fl (7.4-10.4); Monocytes # 0.5 K/mm3 (0.1-1.0); Monocytes % 7.3 % (1.7-9.3); Neutrophils # 4.7 K/mm3 (1.8-7.8); Neutrophils % 68.2 % (37.0-80.0); Platelet Count 317 K/mm3 (142-424); Red Blood Count 3.79 M/mm3 (4.60-6.20); Red Cell Distribution Width 14.7 % (11.5-17.5); White Blood Count 6.9 K/mm3 (4.8-10.8)
[2023-04-21 13:19] LABS: Chloride 94 mmol/L (98-107); Potassium 4.1 mmoL/L (3.5-5.1); Sodium 129 mmol/L (136-145)
[2023-04-21 13:22] LABS: Anion Gap 15.1 mEq/L (5-15); Blood Urea Nitrogen 7 mg/dl (9-20); Calcium 8.8 mg/dl (8.4-10.2); Carbon Dioxide 24 mmol/L (22.0-30.0); Creatinine Clearance Estimated 58 mL/min (50-200); Estimated Glomerular Filt Rate 165 ml/min (>60); GFR (African American) 200 ML/MIN (>60); Glucose 92 mg/dl (74-100)
--- NOTE | 2023-04-21 13:45 | PC.NURSE ---
pt has tap palmer at BS no needs voiced at this time.
--- NOTE | 2023-04-21 14:51 | PC.NURSE ---
pt received tv remote nothing else needed at this time
== END 2023-04-21 15:49 | disposition home or self-care (01) ==
PROVIDERS: Emergency Provider Emergency Medicine; PCP Emergency Medicine
DX: G43.909 Migraine, unspecified, not intractable, without status migrainosus (principal); R11.2 Nausea with vomiting, unspecified; R19.7 Diarrhea, unspecified; J44.9 Chronic obstructive pulmonary disease, unspecified; I10 Essential (primary) hypertension; E78.5 Hyperlipidemia, unspecified; I25.119 Atherosclerotic heart disease of native coronary artery with unspecified angina pectoris; I25.2 Old myocardial infarction; I67.1 Cerebral aneurysm, nonruptured; F17.210 Nicotine dependence, cigarettes, uncomplicated; Z86.73 Personal history of transient ischemic attack (TIA), and cerebral infarction without residual deficits
CPT/HCPCS: 70450; 70496; 70498; 80048; 85025; 96361; 96374; 96375; 99285; Q9967

== ENCOUNTER → 2023-05-06 11:17 | Outpatient (POV) | payer MEDICARE, MEDICAID, SELFPAY ==
--- NOTE | 2023-05-06 11:21 | EXP.PAIN.SOA ---
[facility] Pain Management SOAP Note Subjective:: Patient is a pleasant 67-year-old male who presents today for follow-up of intrathecal pain pump trial on 04/19/2023. We are currently treating the patient for low back pain with lumbar radiculopathy symptoms, chronic pain syndrome. Patient states his pain is a 10 out of 10 today. He denies any new trauma or injury. He denies any change to location or type of pain he experiences. He did have approximately 70 to 80% improvement on the day of the trial and did wish to proceed forward. He continues to have significant pain in his low back with radiating symptoms into his lower extremities. He describes it as a constant aching, throbbing sensation that is worse with increased activity. He does present today in wheelchair and is O2 dependent. Patient is currently managed with [place] 5 mg twice daily, clonazepam 0.5 mg twice a day and gabapentin 100 mg 3 times a day from his primary care doctor. Patient denies any side effects from this medication. Patient has tried and failed conservative therapy such as oral medications, heat and ice, at home stretching and exercise for longer than 6 weeks, injective therapy. His Shailesh is [phone]. Its been reviewed and appropriate. Review of Systems: General: No recent weight changes, no fever, no sleep disturbances Respiratory: No cough, no shortness of air, no recurring pulmonary infections Cardiovascular/peripheral vascular: No chest pain, no palpitations, no edema, no shortness of breath Gastrointestinal: No new onset incontinence, normal bowel movements reported Genitourinary: No new onset incontinence Musculoskeletal: Low back pain Psychiatric: [Normal mood/affect] Neurological: [Denies weakness in extremities], [denies balance issues] Objective:: Physical Exam: General: Alert and oriented x3, no acute distress, pleasant and cooperative Lungs: Respirations even and unlabored, symmetrical chest expansion Eyes: PERRL Musculoskeletal: Flexion and extension of lumbar [spine] somewhat guarded secondary to pain, [antalgic gait noted] Neurological: Speech clear, no gross sensory deficit Assessment:: Degenerative disc disease of lumbar spine with lumbar radiculopathy symptoms, chronic pain syndrome Plan:: Patient continues to have significant pain in his low back with limited range of motion. Patient did have a psych evaluation was deemed an appropriate candidate for the intrathecal pain pump trial and did complete this procedure with 70 to 80% improvement. I have reviewed over with the patient the risk and benefits of the intrathecal pump implant. He has already been submitted to insurance for the intrathecal pain pump implant and we are just currently waiting for insurance approval. We will contact the patient once we have this and give him an official operating room date for implant. Patient has been instructed to contact the clinic with any concerns before the next appointment. Dr. Aguilar has reviewed this note and agrees with this plan of care. This note was dictated using voice recognition software and make contain errors or omissions. [facility] Disclaimer: The information contained in this section may have been updated after the patient was seen, as this information can be updated by other users. Medical History Alcohol use disorder Aneurysm Angina pectoris Arteriosclerotic coronary artery disease Asthma Bilateral carotid bruits CAD (coronary artery disease) Carotid artery stenosis Chest pain COPD (chronic obstructive pulmonary disease) Erectile dysfunction Gait disorder Gallbladder disease History of DVT (deep vein thrombosis) HLD (hyperlipidemia) Hypertension Lumbar radiculopathy, chronic Myocardial infarction Neuropathy SOB (shortness of breath) TIA (transient ischemic attack) Tobacco use disorder Family History Other Diabetes Heart attack
[2023-05-06 11:34] VITALS: BP 129/84; PULSE 74; RESP 18; O2SAT 97; BMI 21.0
== END ==
PROVIDERS: PCP Emergency Medicine; Visit Provider Nurse Practitioner Family
DX: M51.16 Intervertebral disc disorders with radiculopathy, lumbar region (principal); G89.4 Chronic pain syndrome
CPT/HCPCS: 99212; G0463

== ENCOUNTER → 2023-05-23 13:27 | Outpatient (CLI) | payer MEDICARE, MEDICAID, SELFPAY ==
[2023-05-23 14:24] LABS: Basophils % 0.4 % (0.1-2.0); Eosinophils # 0.3 K/mm3 (0.0-0.4); Hematocrit 41.4 % (42.0-52.0); Hemoglobin 12.8 g/dL (14.1-18.0); Lymphocytes # 1.8 K/mm3 (0.7-4.5); Lymphocytes % 21.5 % (10-50); Mean Corpuscular HGB Conc 30.9 g/dL (31.8-35.4); Mean Corpuscular Hemoglobin 35.5 pg (27.0-31.2); Mean Corpuscular Volume 114.8 fl (80-94); Mean Platelet Volume 8.2 fl (7.4-10.4); Monocytes # 0.7 K/mm3 (0.1-1.0); Monocytes % 8.2 % (1.7-9.3); Neutrophils # 5.7 K/mm3 (1.8-7.8); Neutrophils % 66.9 % (37.0-80.0); Platelet Count 386 K/mm3 (142-424); Red Cell Distribution Width 14.7 % (11.5-17.5); White Blood Count 8.4 K/mm3 (4.8-10.8)
[2023-05-23 14:56] LABS: Anion Gap 12.6 mEq/L (5-15); Blood Urea Nitrogen 10 mg/dl (9-20); Carbon Dioxide 28 mmol/L (22.0-30.0); Chloride 97 mmol/L (98-107); Estimated Glomerular Filt Rate 134 ml/min (>60); GFR (African American) 162 ML/MIN (>60); Glucose 126 mg/dl (74-100); Potassium 3.6 mmoL/L (3.5-5.1); Sodium 134 mmol/L (136-145)
[2023-05-23 16:14] LABS: Phencyclidine Screen,Urine Negative ng/ml (<25)
[2023-05-23 16:15] LABS: Opiate Screen,Urine Positive ng/ml (<300)
[2023-05-23 16:17] LABS: Amphetamine/Metha Screen,Urine Negative ng/ml (<1000); Benzodiazepines Screen,Urine Negative ng/ml (<200)
[2023-05-23 16:18] LABS: Barbiturates Screen,Urine Negative ng/ml (<200); Cannabinoid Screen,Urine Positive ng/ml (<50)
[2023-05-23 16:19] LABS: Cocaine Screen,Urine Negative ng/ml (<300)
[2023-05-23 16:20] LABS: Methadone Screen,Urine Negative ng/ml (<300)
== END ==
PROVIDERS: PCP Emergency Medicine; Visit Provider Anesthesiology
DX: Z01.818 Encounter for other preprocedural examination (principal); Z79.899 Other long term (current) drug therapy; M51.36 Other intervertebral disc degeneration, lumbar region
CPT/HCPCS: 36415; 80048; 80305; 85025

== ENCOUNTER 2023-05-24 08:38 | Day surgery (SDC) | payer MEDICARE, MEDICAID, SELFPAY ==
[2023-05-21 14:51] VITALS: BMI 17.6
[2023-05-24 09:55] VITALS: BP 150/96; PULSE 61; RESP 18; TEMP 36.1; O2SAT 95
--- NOTE | 2023-05-24 10:31 | P.PNANES_ITS ---
[facility] Disclaimer: The information contained in this section may have been updated after the patient was seen, as this information can be updated by other users. Medical History Alcohol use disorder Aneurysm Angina pectoris Arteriosclerotic coronary artery disease Asthma Bilateral carotid bruits CAD (coronary artery disease) Carotid artery stenosis Chest pain COPD (chronic obstructive pulmonary disease) Erectile dysfunction Gait disorder Gallbladder disease History of DVT (deep vein thrombosis) History of heart attack HLD (hyperlipidemia) Hypertension Lumbar radiculopathy, chronic Myocardial infarction Neuropathy SOB (shortness of breath) TIA (transient ischemic attack) Tobacco use disorder Surgical History History of loop recorder Family History Other Diabetes Heart attack Social History Smoking Status: Current every day smoker tobacco type: cigarettes packs per da y: 2 second hand exposure: No alcohol intake: former substance use type: denies use current occupational status: retired Travel in the last 8 weeks: None household members: spouse housing: house current occupational exposures/hazards: No caffeine: Yes [facility] Anesthesia Checklist Patient Identification Patient Identification: Arm Band and Verbal (Name & ) Structural Data Admitted From: Home Planned Operative Procedure/s: lumber decompression Consent for Planned Operative Procedure(s) Verified: Yes Verified Documents: Surgical Consent NPO Status Verified Time NPO: 00:00 Additional verifications Anesthesia Reactions: No Hx Blood Transfusions: No Blood Transfusion Reaction: No Airway Assessment C-Spine Mobility Assessed: Yes TMJ Mobility Assessed: Yes Dentition: Edentulous Neurological Assessment Level of Consciousness: Awake and Alert Hx Seizures: No Anesthesia Plan Anesthesia Risk discussed: Yes ASA Class: III Anesthesia Type: IV sedation
[2023-05-24 12:50] VITALS: BP 132/84; PULSE 67; RESP 14; TEMP 36.6; O2SAT 99
[2023-05-24 13:00] VITALS: BP 139/88; PULSE 73; RESP 17; O2SAT 96
[2023-05-24 13:10] VITALS: BP 134/79; PULSE 69; RESP 16; O2SAT 96
[2023-05-24 13:20] VITALS: BP 157/97; PULSE 69; RESP 16; TEMP 36.9; O2SAT 97
--- NOTE | 2023-05-24 14:18 | EXP.OP.NOTE ---
Date of procedure: 05/24/23 Pre-op Diagnosis:: Degenerative disc disease of lumbar spine with lumbar radiculopathy symptoms Post-op Diagnosis:: Same Procedure performed:: Permanent placement intrathecal pain pump with tunneled intrathecal catheter and pain pump generator placement Surgeon:: Jamey Aguilar MD Anesthesia: MAC Estimated blood loss (mL): 5 Clinical Note:: This patient is a pleasant 67-year-old white male who we are treating for degenerative disc disease of lumbar spine with lumbar radiculopathy symptoms. He has increasing pain in his back and legs. He has failed all previous conservative treatments including injections, oral medications, physical therapy and is not a candidate for surgery. He is on oxycodone currently which is not helping. He had a successful intrathecal pump trial and a successful psychological evaluation. We will plan on permanent placement with intrathecal morphine today. He will discontinue oxycodone after his pump is implanted. Operative findings:: None Operative note:: Informed consent was obtained risk and benefits of the procedure were explained to the patient. Patient was taken the operating room placed prone on the procedure table. He was prepped and draped in sterile fashion. C-arm fluoroscopy was used to view the right flank senior care between the ribs and iliac crest we made an incision after anesthetizing the skin and subcutaneous tissues. We created the generator pocket. C-arm fluoroscopy was then used to view the lumbar spine. The skin and subcutaneous tissues adjacent to L4-5 and L5-S1 were anesthetized using lidocaine. I made an incision and dissected down to the lumbar paraspinous fascia. A 14-gauge spinal needle was inserted and advanced into the L4-5 interspace until clear CSF was obtained. After this intrathecal catheter was inserted and advanced very easily to the T10 vertebral body. We could not advance any further. The catheter was found to be posterior and lateral view. The stylette of the catheter and the needle were withdrawn. The catheter was secured to the fascia with anchoring devices and 2-0 Prolene. I filled the pump was 20 mils of intrathecal morphine 1 mg per mill. I tunneled the catheter from the back to the generator pocket. I attached the catheter to the generator. We were able to freely withdraw clear CSF through the sideport. A antibiotic pouch was placed into the pocket. Both incisions were irrigated with antibiotic solution. Both incisions were then closed with 2-0 Vicryl followed by 4-0 nylon and absorbable joaquín. Patient tolerated the procedure well with no complications. Pump was interrogated and started at 100 mcg/day of intrathecal morphine. Patient was discharged home neurologic intact with good relief of pain symptoms. Plan and disposition: We will follow-up with this patient in 1 week for wound check and reprogram. We will follow-up in 2 weeks for suture removal. Condition: stable Disposition: PACU Complications:: None
== END 2023-05-24 13:20 | disposition home or self-care (01) ==
PROVIDERS: PCP Emergency Medicine; Visit Provider Anesthesiology
DX: M51.16 Intervertebral disc disorders with radiculopathy, lumbar region (principal)
CPT/HCPCS: 62350; 62362; 96374; C1755; C1772; J3370

== ENCOUNTER → 2023-05-30 10:25 | Outpatient (POV) | payer MEDICARE, MEDICAID, SELFPAY ==
--- NOTE | 2023-05-30 10:59 | EXP.PAIN.PRO ---
Procedure Date: 05/30/23 Time: 10:59 Anesthesiologist:: Destinee Viveros APRN Complications:: None Pre-procedure Diagnosis:: Degenerative disc disease of lumbar spine with lumbar radiculopathy symptoms, chronic pain syndrome Post-procedure Diagnosis:: Same Indications for Procedure:: Patient is a pleasant 67-year-old male who presents today for follow-up. We are currently treating the patient for degenerative disc disease of lumbar spine with lumbar radiculopathy symptoms, chronic pain syndrome. Today he rates his pain a 7 out of 10. Patient denies any new trauma or injury. Patient did have a intrathecal pain pump placed on 04/19/2023. He does state that he has had improvement of his pain symptoms following this procedure. He does continue to have low back pain that is chronic. Patient does present today in wheelchair. He does use oxygen at night. He is currently managed with morphine 1 mg/mL with a daily dose of 0.0999 mg/day. Patient denies any side effects from this medication. He states initially after the original surgery he did have a little bit of nausea however that resolved after the first day or 2. He is currently managed with clonazepam 0.5 mg twice a day and gabapentin 100 mg 3 times a day from his primary care doctor. Patient was previously on [place] 5 mg twice a day from his PCP. He does state that he still has some of this medication and is asking whether or not if he should discontinue it. His Shailesh is [id number]. Its been reviewed and appropriate. Physical Exam: General: Alert and oriented x3, no acute distress, pleasant and cooperative Lungs: Respirations even and unlabored, symmetrical chest expansion Eyes: PERRL Musculoskeletal: Flexion and extension of lumbar [spine] somewhat guarded secondary to pain, [antalgic gait noted] Neurological: Speech clear, no gross sensory deficit Skin: Incision sites clean, dry, well approximated with minimal erythema noted sutures intact Procedure Details:: Informed consent was obtained and the risk and benefits of the procedure were explained to the patient. Patient was taken to the procedure room where noninvasive monitoring was placed including noninvasive blood pressure cuff and pulse oximeter. Patient's pump was interrogated and was reprogrammed to morphine 0.1098 mg/day. The patient tolerated the procedure well with no complications. Plan and Disposition:: Patient is doing well following his intrathecal pain pump placement. Patient incision sites are clean, dry, well approximated with minimal erythema noted and sutures intact. I have counseled the patient to continue his postop restriction of minimal bending, lifting or twisting no submerging in water until his incisions are fully healed and to continue using his abdominal binder to prevent seroma formation. I have counseled the patient to discontinue all oral pain medications. Patient tolerated his intrathecal increase with no complications and was discharged neurologically intact. Patient will return to clinic in 2 weeks for reevaluation of symptoms with suture removal. Patient has been instructed to contact the clinic with any concerns before the next appointment. Dr. Aguilar has reviewed this note and agrees with this plan of care. This note was dictated using voice recognition software and make contain errors or omissions. -- It Is medically necessary for this patient to continue to have their intrathecal pump refilled at regular intervals. This patient had an intrathecal pain pump implanted after meeting criteria of chronic intractable pain for greater than 3 months and failing conservative treatments. Patient has committed and been compliant to the treatment plan and all planned follow up care. Since implantation of the intrathecal pain pump, the patient has had decreased pain and been more functional. Oral medications have been reduced including intake of oral opioids. Patient continues to do well with intrathecal therapy with
[2023-05-30 13:42] VITALS: BP 98/57; PULSE 71; RESP 18; O2SAT 95; BMI 21.0
== END ==
PROVIDERS: Visit Provider Nurse Practitioner Family
DX: M51.16 Intervertebral disc disorders with radiculopathy, lumbar region (principal); G89.4 Chronic pain syndrome; Z97.8 Presence of other specified devices
CPT/HCPCS: 62368; 99213; G0463

== ENCOUNTER → 2023-06-05 14:16 | Outpatient (POV) | payer MEDICARE, MEDICAID, SELFPAY ==
[2023-06-05 14:17] VITALS: BP 97/68; PULSE 65; RESP 20; BMI 21.0
--- NOTE | 2023-06-05 14:31 | EXP.PAIN.SOA ---
[facility] Pain Management SOAP Note Subjective:: Patient is a pleasant 67-year-old male who presents today for follow-up. We are currently treating the patient for degenerative disc disease of lumbar spine with lumbar radiculopathy symptoms, chronic pain syndrome. Today he rates his pain a 3 out of 10. Patient denies any new trauma or injury. He denies any change in location or type of pain he experiences. Patient denies any problems following his placement of his intrathecal pain pump on 04/19/2023. He states he continues to have better pain improvement compared to what he was prior to this procedure. He does state he has not really been moving around a whole lot but he is planning on starting to increase his activity and walk around. He is currently managed with morphine 1 mg/mL with a daily dose of 0. 109 8 mg/day. Patient denies any side effects from this medication. He is also prescribed gabapentin 100 mg 3 times a day. Patient denies any side effects from this medication. His Shailesh is [id number]. It has been reviewed and appropriate. Review of Systems: General: No recent weight changes, no fever, no sleep disturbances Respiratory: No cough, no shortness of air, no recurring pulmonary infections Cardiovascular/peripheral vascular: No chest pain, no palpitations, no edema, no shortness of breath Gastrointestinal: No new onset incontinence, normal bowel movements reported Genitourinary: No new onset incontinence Musculoskeletal: Low back pain Psychiatric: [Normal mood/affect] Neurological: [Denies weakness in extremities], [denies balance issues] Objective:: Physical Exam: General: Alert and oriented x3, no acute distress, pleasant and cooperative Lungs: Respirations even and unlabored, symmetrical chest expansion Eyes: PERRL Musculoskeletal: Flexion and extension of lumbar [spine] somewhat guarded secondary to pain, [antalgic gait noted] Neurological: Speech clear, no gross sensory deficit Assessment:: Degenerative disc disease of lumbar spine with lumbar radiculopathy symptoms, chronic pain syndrome Plan:: Patient continues to do well from his intrathecal pain pump and does not need any additional adjustments during today's visit. Patient will return to clinic in 1 month for reevaluation of symptoms and plan of care. Patient has been instructed to contact the clinic with any concerns before the next appointment. Dr. Aguilar has reviewed this note and agrees with this plan of care. This note was dictated using voice recognition software and make contain errors or omissions. -- It Is medically necessary for this patient to continue to have their intrathecal pump refilled at regular intervals. This patient had an intrathecal pain pump implanted after meeting criteria of chronic intractable pain for greater than 3 months and failing conservative treatments. Patient has committed and been compliant to the treatment plan and all planned follow up care. Since implantation of the intrathecal pain pump, the patient has had decreased pain and been more functional. Oral medications have been reduced including intake of oral opioids. Patient continues to do well with intrathecal therapy with decrease in pain symptoms and increase in functional status. Stopping intrathecal medications can lead to life threatening withdrawal, seizures, cardiac arrest, severe pain, and possible . Pumps that are not refilled at regular intervals can be damages and cause and need for replacement. We continually titrate dose and concentration to optimize pain relief and function. We are limited in concentration for certain drugs to safely deliver medications through the pump and stay within the recommendations from the Polyanalgesic Consensus Committee Guidelines. Depending on dose and concentration these pumps may need to be refilled sooner than 3 months as we titrate. [facility] Disclaimer: The information contained in this section may have been updated after the patient was s
== END ==
PROVIDERS: PCP Emergency Medicine; Visit Provider Nurse Practitioner Family
DX: M51.16 Intervertebral disc disorders with radiculopathy, lumbar region (principal); G89.4 Chronic pain syndrome
CPT/HCPCS: 99212; G0463

== ENCOUNTER → 2023-06-12 13:35 | Outpatient (POV) | payer MEDICARE, MEDICAID, SELFPAY ==
--- NOTE | 2023-06-12 14:08 | EXP.PAIN.PRO ---
Procedure Date: 06/12/23 Time: 14:08 Anesthesiologist:: Destinee Viveros APRN Complications:: None Pre-procedure Diagnosis:: Degenerative disc disease of lumbar spine with lumbar radiculopathy symptoms, chronic pain. Post-procedure Diagnosis:: Same Indications for Procedure:: Patient is a pleasant 67-year-old male who presents today for follow-up. We are currently treating the patient for degenerative disc disease of lumbar spine with lumbar radiculopathy symptoms, chronic pain syndrome today he rates his pain a 2 out of 10. Patient states here lately he has been experiencing more fatigue and drowsiness. Patient is unsure whether is related to his pump medications. He denies any other issues such as no swelling, no urinary retention or incontinence, no confusion, etc. Patient does state that he does smoke weed on occasion at home and that he is unsure if this is also causing an issue between the pump medications. Patient denies any other changes to his medications. He is currently managed with gabapentin 100 mg 3 times a day from Dr. Nicholas's office. He is currently managed with morphine 1 mg/mL with a daily dose of 0.1098 mg/day. His Shailesh is [phone]. Its been reviewed and appropriate. Review of Systems: General: No recent weight changes, no fever, no sleep disturbances Respiratory: No cough, no shortness of air, no recurring pulmonary infections Cardiovascular/peripheral vascular: No chest pain, no palpitations, no edema, no shortness of breath Gastrointestinal: No new onset incontinence, normal bowel movements reported Genitourinary: No new onset incontinence Musculoskeletal: Low back pain, fatigue Psychiatric: [Normal mood/affect] Neurological: [Denies weakness in extremities], [denies balance issues] Procedure Details:: Informed consent was obtained and the risk and benefits of the procedure were explained to the patient. Patient was taken to the procedure room where noninvasive monitoring was placed including noninvasive blood pressure cuff and pulse oximeter. Patient's pump was interrogated and was reprogrammed to morphine 0.0989 mg/day. The patient tolerated the procedure well with no complications. Plan and Disposition:: I have counseled the patient that we will decrease his pump during today's visit and I have discussed with him to discontinue his marijuana use at this time related to the increased fatigue. Patient tolerated his intrathecal pump decrease with no complications and was discharged neurologically intact. I have also discussed with the patient that he may benefit from physical therapy to help improve his overall weakness in his legs however he does not want to proceed forward with this option at this time. I have counseled him that if he chooses at a later date that he would like me to proceed forward with this we can order home health to come out. Patient will return to clinic in 2 weeks for reevaluation of symptoms and plan of care. Patient has been instructed to contact the clinic with any concerns before the next appointment. Dr. Aguilar has reviewed this note and agrees with this plan of care. This note was dictated using voice recognition software and make contain errors or omissions. -- It Is medically necessary for this patient to continue to have their intrathecal pump refilled at regular intervals. This patient had an intrathecal pain pump implanted after meeting criteria of chronic intractable pain for greater than 3 months and failing conservative treatments. Patient has committed and been compliant to the treatment plan and all planned follow up care. Since implantation of the intrathecal pain pump, the patient has had decreased pain and been more functional. Oral medications have been reduced including intake of oral opioids. Patient continues to do well with intrathecal therapy with decrease in pain symptoms and increase in functional status. Stopping intrathecal medications can lead to life threatening wi
[2023-06-12 15:35] VITALS: BP 93/66; PULSE 84; RESP 20; O2SAT 93; BMI 21.0
== END ==
PROVIDERS: PCP Emergency Medicine; Visit Provider Nurse Practitioner Family
DX: M51.16 Intervertebral disc disorders with radiculopathy, lumbar region (principal); G89.4 Chronic pain syndrome; Z97.8 Presence of other specified devices
CPT/HCPCS: 62368

== ENCOUNTER 2023-06-23 05:06 | Inpatient (IN) | payer MEDICARE, MEDICAID, SELFPAY ==
[2023-06-23] VITALS (22 sets, daily range): BP systolic 86–117; BP diastolic 40–78; PULSE 40–112; RESP 18–33; TEMP 36.4–37.4; O2SAT 85–95; BMI 16.3; BMI 15.9
--- NOTE | 2023-06-23 05:06 | PC.NURSE ---
Dr. Locke at
--- NOTE | 2023-06-23 05:09 | XR_ITS ---
PROCEDURE INFORMATION: Exam: XR Chest Exam date and time: 06/23/2023 5:11 AM Age: 67 years old Clinical indication: Shortness of breath; Additional info: SOA, copd, hypoxia TECHNIQUE: Imaging protocol: Radiologic exam of the chest. Views: 1 view. COMPARISON: CT CHEST WO CON 11/09/2022 11:20 AM FINDINGS: Lungs: New patchy right upper lobe airspace disease. Airspace disease is also seen in the left lung base. Hyperinflation with chronic interstitial changes consistent with COPD. Pleural spaces: Unremarkable. No pleural effusion. No pneumothorax. Heart/Mediastinum: Unremarkable. No cardiomegaly. Bones/joints: Unremarkable. IMPRESSION: Right upper and left lower lobe airspace disease worrisome for acute infiltrate. COPD.
--- NOTE | 2023-06-23 05:19 | PC.NURSE ---
RAD at for CXR
[2023-06-23 05:24] LABS: Coronavirus 19, PCR Not Detected (NotDetected); Influenza A, PCR Not Detected (NotDetected); Influenza B, PCR Not Detected (NotDetected)
--- NOTE | 2023-06-23 05:27 | PC.NURSE ---
Dr. Locke at to place u/s guided IV
--- NOTE | 2023-06-23 05:33 | HMH.EDGENADL ---
Discharge Plan Disposition Patient Disposition: Admitted Condition: Serious Chief Complaint: Weakness Prescriptions Prescriptions: No Action aspirin [Adult Low Dose Aspirin] 81 mg tablet,delayed release (DR/EC) 81 mg PO DAILY albuterol sulfate 90 mcg/actuation HFA aerosol inhaler 2 puff IH Q6HP PRN (Reason: Shortness Of Breath) Qty: 8.5 2RF nitroglycerin 0.4 mg tablet, sublingual 0.4 mg SL Q5MINP PRN (Reason: chest pain) Qty: 25 2RF Rx Instructions: until response; do not exceed 3 doses per episode metoprolol tartrate 50 mg tablet 50 mg PO BID Qty: 60 11RF Spiriva Respimat 2.5 mcg/actuation mist See Rx Instructions .ROUTE .COMPLEX Qty: 4 0RF Dose Instruction: INHALE 2 SPRAY(S) BY MOUTH ONCE DAILY FOR COPD Rx Instructions: INHALE 2 SPRAY(S) BY MOUTH ONCE DAILY FOR COPD gabapentin 100 mg capsule 100 mg PO TID Qty: 90 0RF clonazepam 0.5 mg tablet 0.5 mg PO BID Qty: 60 0RF ranolazine 500 mg tablet extended release 12 hr See Rx Instructions .ROUTE .COMPLEX Rx Instructions: Take 1 tablet by mouth twice daily ondansetron 4 mg tablet,disintegrating 4 mg PO Q6H PRN (Reason: nausea and vomiting) Qty: 20 0RF Lac-Hydrin Five 5 % lotion 1 applic topical DAILY tamsulosin 0.4 mg capsule See Rx Instructions .ROUTE .COMPLEX Rx Instructions: TAKE 1 CAPSULE BY MOUTH AT BEDTIME FOR URINARY HESITANCY fluticasone furoate-vilanterol [Breo Ellipta] 200-25 mcg/dose blister with device See Rx Instructions .ROUTE .COMPLEX Rx Instructions: Inhale 1 puff by mouth once daily sulfamethoxazole-trimethoprim [Bactrim DS] 800-160 mg tablet 1 tab PO BID Clinical Impressions Clinical Impression: Protein-calorie malnutrition, severe, Hyponatremia, Thrombocytopenia Respiratory failure with hypoxia Qualifiers: Chronicity: acute on chronic Qualified Code(s): J96.21 - Acute and chronic respiratory failure with hypoxia COPD (chronic obstructive pulmonary disease) Qualifiers: COPD type: COPD with acute exacerbation Qualified Code(s): J44.1 - Chronic obstructive pulmonary disease with (acute) exacerbation Pneumonia Qualifiers: Pneumonia type: due to unspecified organism Laterality: right Lung location: upper lobe of lung Qualified Code(s): J18.9 - Pneumonia, unspecified organism Discharge ED Provider: Missael Locke General Adult HPI General Chief complaint: Weakness Stated complaint: SOA/Weakness Time Seen by Provider: 06/23/23 05:09 History of Present Illness HPI narrative: 67-year-old male history of COPD, chronic alcoholism, known lung nodules presents with generalized weakness weight loss hypoxia. Patient has been losing weight for couple of months. Patient normally drinks a lot of alcohol, has not had anything to drink for about approximately 1 week. Has not had any significant p.o. intake for a couple of days. He has been very weak at home and was unable to get off the couch today, this prompted his presentation to the ED. He was noted to be hypoxic with sats of 80% with EMS. Patient reports no significant chest pain or abdominal pain, does report chronic shortness of breath. Related Data Home Medications Medication Instructions Recorded Confirmed aspirin 81 mg tablet,delayed 81 mg PO DAILY heart health 04/25/21 05/30/23 release (Adult Low Dose Aspirin) ammonium lactate 5 % lotion 1 applic topical DAILY Skin 12/20/22 05/30/23 (Lac-Hydrin Five) condition fluticasone furoate 200 See Rx Instructions .Route 03/04/23 05/30/23 mcg-vilanterol 25 mcg/dose .COMPLEX COPD inhalation powder (Breo Ellipta) tamsulosin 0.4 mg capsule See Rx Instructions .Route 03/04/23 05/30/23 .COMPLEX urine retention ranolazine 500 mg tablet,extended See Rx Instructions .Route 05/21/23 05/30/23 release,12 hr .COMPLEX * sulfamethoxazole 800 1 tab PO BID POST OP 05/30/23 05/30/23 mg-trimethoprim 160 mg tablet (Bactrim DS) Pr
--- NOTE | 2023-06-23 05:33 | PC.NURSE ---
Notified RT of breathing treatment orders
--- NOTE | 2023-06-23 05:38 | PC.NURSE ---
RT at BS
[2023-06-23 05:46] LABS: Chloride 85 mmol/L (98-107)
[2023-06-23 05:47] LABS: Potassium 3.5 mmoL/L (3.5-5.1); Sodium 125 mmol/L (136-145)
[2023-06-23 05:49] LABS: Alanine Aminotransferase 33 U/L (12-78); Alkaline Phosphatase 101 U/L (38-126); Anion Gap 13.5 mEq/L (5-15); Aspartate Amino Transferase 56 U/L (17-59); Bilirubin,Total 1.7 mg/dl (0.2-1.3); Blood Urea Nitrogen 20 mg/dl (9-20); Carbon Dioxide 30 mmol/L (22.0-30.0); Creatinine Clearance Estimated 56 mL/min (50-200); Estimated Glomerular Filt Rate 112 ml/min (>60); GFR (African American) 136 ML/MIN (>60)
[2023-06-23 05:50] LABS: Albumin Level 2.5 g/dl (3.5-5.0); Albumin/Globulin Ratio 0.7 (1.1-1.8); Calcium 8.8 mg/dl (8.4-10.2); Globulin 3.4 g/dL (1.3-3.2); Glucose 139 mg/dl (74-100); Magnesium 1.4 mg/dl (1.6-2.3); Total Protein,Serum 5.9 g/dl (6.3-8.2)
--- NOTE | 2023-06-23 05:50 | CT_ITS ---
PROCEDURE INFORMATION: Exam: CTA Chest With Contrast Exam date and time: 06/23/2023 6:51 AM Age: 67 years old Clinical indication: Shortness of breath; Additional info: Copd, mass vs infiltrate, hypoxia TECHNIQUE: Imaging protocol: Computed tomographic angiography of the chest with contrast. Exam focused on the arteries. 3D rendering (Not supervised by radiologist): MIP and/or 3D reconstructed images were created by the technologist. Radiation optimization: All CT scans at this facility use at least one of these dose optimization techniques: automated exposure control; mA and/or kV adjustment per patient size (includes targeted exams where dose is matched to clinical indication); or iterative reconstruction. Contrast material: ISOVUE; Contrast volume: 75 ml; Contrast route: INTRAVENOUS (IV); REPORTING DATA: Count of CT and Cardiac NM exams in prior 12 months: This patient has received 5 known CTs and 0 known cardiac nuclear medicine studies in the 12 months prior to the current study. COMPARISON: 1. CT ANGIO NECK 04/21/2023 2:[address] ANGIO CHEST 11/17/2020 11:53 PM FINDINGS: Limitations: Mild motion artifact. Tubes, catheters and devices: Small electronic device in place within the lower anterior left chest subcutaneous fat. Intrathecal catheter in place within the lower thoracic spinal canal. Intrathecal pump in place within the upper right flank subcutaneous fat. Pulmonary arteries: Suboptimal pulmonary artery opacification. No definite vascular intraluminal filling defects to suggest large or central acute pulmonary embolism. Aorta: Atherosclerotic tortuosity of the thoracic aorta. No aortic aneurysm or dissection. Veins: IVC filter in place. Trachea: Aspirated material versus mucous within the lower posterior trachea and left lower lobe bronchi. Lungs: Centrilobular emphysema. Bilateral multifocal pneumonia with more extensive right upper lobe airspace disease and left lower lobe consolidation and volume loss. Bilateral lung apices not included on the current scan. Incompletely visualized right apical 4.5 cm lucent area containing central foamy opacity surrounded by more dense right upper lobe consolidation. Incompletely visualized previously demonstrated left apical scarring with possible small cavitary focus versus bronchiectasis. A few small right upper and lower lobe calcified granulomas. Pleural spaces: No significant pleural effusion. No evidence of pneumothorax. Heart: Mild leftward shift of heart and mediastinal structures. Heart size is normal. Coronary arteries: Coronary artery calcifications. Lymph nodes: Mild mediastinal and hilar lymphadenopathy. Spleen: Punctate splenic calcified granulomas. Bones/joints: Multiple old bilateral rib fractures. Chronic appearing L1 vertebral body compression fracture. Soft tissues: No significant soft tissue abnormalities. Cachexia. IMPRESSION: 1. No definite vascular intraluminal filling defects to suggest large or central acute pulmonary embolism. A small or peripheral PE cannot be completely excluded. 2. Centrilobular emphysema. 3. Aspirated material versus mucous within the lower posterior trachea and left lower lobe bronchi. 4. Bilateral multifocal pneumonia with more extensive right upper lobe airspace disease and left lower lobe consolidation and volume loss. 5. Incompletely visualized right apical 4.5 cm lucent area containing central foamy opacity surrounded by more dense right upper lobe consolidation. Differential diagnosis includes area of cavitary pneumonia containing necrotic material versus possible mycetoma. A cavitary neoplasm is not excluded. 6. Incompletely visualized previously demonstrated left apical scarring
[2023-06-23 05:51] LABS: INR 1.37 (0.9-1.1); Prothrombin Time 14.5 seconds (10.1-12.5)
[2023-06-23 05:52] LABS: Basophils % 0.3 % (0.1-2.0); Eosinophils % 0.8 % (0.1-12.0); Hematocrit 38.2 % (42.0-52.0); Hemoglobin 12.5 g/dL (14.1-18.0); Lymphocytes % 3.1 % (10-50); Mean Corpuscular HGB Conc 32.8 g/dL (31.8-35.4); Mean Corpuscular Volume 109.9 fl (80-94); Mean Platelet Volume 10.2 fl (7.4-10.4); Neutrophils # 23.7 K/mm3 (1.8-7.8); Neutrophils % 89.7 % (37.0-80.0); Platelet Count 139 K/mm3 (142-424); Red Blood Count 3.48 M/mm3 (4.60-6.20); Red Cell Distribution Width 14.1 % (11.5-17.5); White Blood Count 26.5 K/mm3 (4.8-10.8)
[2023-06-23 05:53] LABS: Basophils # 0.1 K/mm3 (0-0.2); Eosinophils # 0.2 K/mm3 (0.0-0.4); Lymphocytes # 0.8 K/mm3 (0.7-4.5); Monocytes # 1.3 K/mm3 (0.1-1.0)
[2023-06-23 05:54] LABS: MANUAL DIFFERENTIAL MANUAL DIFFERENTIAL (MANUAL DIFF)
[2023-06-23 06:03] LABS: Troponin I < 0.01 ng/ml (0.00-0.034)
[2023-06-23 06:16] LABS: Lymphocytes % 6 % (10-50); Macrocytosis 1+; Monocytes % 7 % (2-9); Neutrophils % 87 % (42-76); Platelet Estimate Slight Decrease; Total Cells Counted 100
[2023-06-23 06:21] LABS: Thyroid Stimulating Hormone 0.82 uIU/mL (0.465-4.68)
--- NOTE | 2023-06-23 06:25 | PC.NURSE ---
Called admissions to give bed assignment of [id number]
--- NOTE | 2023-06-23 06:53 | PC.NURSE ---
PT gone to CT via stretcher
--- NOTE | 2023-06-23 06:56 | PC.NURSE ---
Pt returned from CT
--- NOTE | 2023-06-23 07:04 | EXP.HP ---
History of Present Illness *Admission Date: 06/23/23 *Reason for visit:: weakness, SOA *History of present illness: Mr. Arreola is a 67-year-old gentleman with history of alcoholism, COPD, CAD, chronic pain, hypertension. He wears 2 L oxygen at night with his COPD. Presented to the ER because of increased weakness, weight loss, hypoxia. Weakness has been progressing over the past 2 weeks. Became most acutely worse however over the past 3 to 4 days. at bedside helps supplement history. States that he has been losing weight for a couple months. Normally drinks regularly but has not had a drink for about a week. Patient and state that he has been having difficulty swallowing. Able to swallow liquids and soft foods easily but more substantial foods such as meats feel like they get stuck and he has to cough them up. He has had increased shortness of breath and cough over the past few days. Cough has become more productive. EMS brought patient to the ER. When they picked him up from home, he was noted to be hypoxic in the 80s. Family states they called EMS because they were unable to get him up off the couch. On arrival to the ER, patient was hypoxic necessitating 8 to 10 L on simple mask. Chest imaging concerning for right upper lobe pneumonia. CT obtained showing dense airspace disease in right upper lobe and left lower lobe. Patient is tachycardic and tachypneic with leukocytosis of 26,000 meeting sepsis criteria. Initiated on ceftriaxone. Medicine consulted for further management of his sepsis and pneumonia. On arrival to the floor, patient is currently on 40% Venti satting in the low 90s. Denies any lynn nausea or vomiting. Denies any chest pain. Appears very weak and frail. Afebrile. at bedside and updated on plan [facility] Disclaimer: The information contained in this section may have been updated after the patient was seen, as this information can be updated by other users. Medical History Alcohol use disorder Aneurysm Angina pectoris Arteriosclerotic coronary artery disease Asthma Bilateral carotid bruits CAD (coronary artery disease) Carotid artery stenosis Chest pain COPD (chronic obstructive pulmonary disease) Erectile dysfunction Gait disorder Gallbladder disease History of DVT (deep vein thrombosis) History of heart attack HLD (hyperlipidemia) Hypertension Lumbar radiculopathy, chronic Myocardial infarction Neuropathy SOB (shortness of breath) TIA (transient ischemic attack) Tobacco use disorder Surgical History History of loop recorder Family History Diabetes Heart attack Social History Smoking Status: Current every day smoker tobacco type: cigarettes packs per day: 2 second hand exposure: No alcohol intake: former substance use type: denies use current occupational status: other Travel in the last 8 weeks: None household members: spouse housing: house current occupational exposures/hazards: No caffeine: Yes Review of Systems Review of Systems Review of systems (narrative): 14 point review of systems performed, pertinent positives and negatives as per [facility] Meds Home Medications and Allergies Home Medications Medication Instructions Recorded Confirmed Type aspirin 81 mg tablet,delayed 81 mg PO DAILY heart health 04/25/21 06/23/23 History release (Adult Low Dose Aspirin) ondansetron 4 mg disintegrating 4 mg PO Q6H PRN nausea and 07/16/22 06/23/23 Rx tablet vomiting #20 tabs nitroglycerin 0.4 mg sublingual 0.4 mg sublingual Q5MINP PRN chest 09/10/22 06/23/23 Rx tablet pain #25 tabs ammonium lactate 5 % lotion 1 applic topical DAILY Skin 12/20/22 06/23/23 History (Lac-Hydrin Five) condition albuterol sulfate 90 mcg/actuation 2 puff inhalation Q6
--- NOTE | 2023-06-23 07:08 | PC.NURSE ---
Called report to Zhanna DOBBINS on 2nd floor all questions answered
--- NOTE | 2023-06-23 07:27 | PC.NURSE ---
arrived by stretcher from ED
--- NOTE | 2023-06-23 07:45 | PC.NURSE ---
Pt placed on 50% venti mask. Pt O2 sat is currently 93%. Will titrate as needed.
[2023-06-23 08:55] LABS: VBG Base Excess 7.4 mmol/L (-2.4-2.3); VBG HCO3 31.3 mmol/L (23-30); VBG Oxygen Saturation 48.4 % (50-70); VBG PCO2 45.9 mmol/L (35-51); VBG PH 7.45 mmol/L (7.31-7.41); VBG PO2 28.6 mmol/L (28-40); VBG Total CO2 32.7 mmol/L (23-27)
[2023-06-23 09:01] LABS: Troponin I < 0.01 ng/ml (0.00-0.034)
--- NOTE | 2023-06-23 09:07 | HMH.PHAINT1 ---
Pharmacy Intervention Comments: MEDICATION RECONCILIATION COMPLETE USING RX BOTTLES, BILLY REPORT, AND EXTERNAL PHARMACY FILL HISTORY.
[2023-06-23 12:02] LABS: Reflex Lactic Add Lactic Reflex
[2023-06-23 12:43] LABS: Lactic Acid Follow Up (RFLX 1) 2.1 mmol/L (0.7-2.1)
[2023-06-23 14:25] LABS: Reflex Lactic (2 hrs) Add Lactic Reflex
[2023-06-23 15:34] LABS: Lactic Acid Follow up (RFLX 2) 2.2 mmol/L (0.7-2.1)
--- NOTE | 2023-06-23 17:11 | PC.NURSE ---
Pt remains on 40% venti mask. O2 sats low 90s. Has voided per brief, incontinent. No BM this shift. Pt is assisted with meals. Call light within reach. Family at bedside . Safety measures in place.
[2023-06-23 17:18] LABS: Chloride 87 mmol/L (98-107); Sodium 124 mmol/L (136-145)
[2023-06-23 17:21] LABS: Alanine Aminotransferase 25 U/L (12-78); Albumin/Globulin Ratio 0.7 (1.1-1.8); Alkaline Phosphatase 90 U/L (38-126); Anion Gap 8.7 mEq/L (5-15); Aspartate Amino Transferase 49 U/L (17-59); Blood Urea Nitrogen 13 mg/dl (9-20); Calcium 8.4 mg/dl (8.4-10.2); Carbon Dioxide 31 mmol/L (22.0-30.0); Creatinine Clearance Estimated 54 mL/min (50-200); Estimated Glomerular Filt Rate 214 ml/min (>60); GFR (African American) 259 ML/MIN (>60); Globulin 2.9 g/dL (1.3-3.2); Glucose 94 mg/dl (74-100); Magnesium 1.7 mg/dl (1.6-2.3); Total Protein,Serum 4.9 g/dl (6.3-8.2)
[2023-06-23 17:25] LABS: Potassium 2.7 mmoL/L (3.5-5.1)
[2023-06-23 23:49] LABS: ABG Base Excess 7.6 mmol/L (-2.4-2.3); ABG HCO3 29.4 mmhg (22.0-26.0); ABG Oxygen Saturation 94 % (90-100); ABG PCO2 31.4 mmhg (35.0-45.0); ABG PO2 63.9 mmhg (80-100); ABG TCO2 30.3 mmhg (23-27)
[2023-06-23 23:51] LABS: Allen's Test Y; Oxygen 70 %; Source Right Radial
[2023-06-23 23:52] LABS: ABG PH 7.59 mmol/L (7.35-7.45)
[2023-06-24] VITALS (37 sets, daily range): BP systolic 79–115; BP diastolic 43–65; PULSE 92–106; RESP 18–31; TEMP 37.1–37.7; O2SAT 90–102; BMI 16.5
--- NOTE | 2023-06-24 05:45 | PC.NURSE ---
Patient has required an increase in O2 requirements through the night. Patient is currently at 35LMP and 90 FIO2. ADJUNCT INSTRUCTOR aware of increase and BP issues. ADJUNCT INSTRUCTOR made aware of cultures and switched up ABX therapy. Patient has been incontinent through the night. Is very lethargic but easy to arouse and will answer questions correctly. No other issues noted
[2023-06-24 07:07] LABS: Basophils # 0.1 K/mm3 (0-0.2); Basophils % 0.2 % (0.1-2.0); Eosinophils # 0.5 K/mm3 (0.0-0.4); Eosinophils % 2.4 % (0.1-12.0); Hematocrit 32.5 % (42.0-52.0); Hemoglobin 10.5 g/dL (14.1-18.0); Lymphocytes # 0.8 K/mm3 (0.7-4.5); Lymphocytes % 3.7 % (10-50); Mean Corpuscular HGB Conc 32.2 g/dL (31.8-35.4); Mean Corpuscular Hemoglobin 35.1 pg (27.0-31.2); Mean Platelet Volume 9.8 fl (7.4-10.4); Monocytes % 4.7 % (1.7-9.3); Neutrophils # 18.5 K/mm3 (1.8-7.8); Platelet Count 96 K/mm3 (142-424); Red Blood Count 2.98 M/mm3 (4.60-6.20); Red Cell Distribution Width 14.4 % (11.5-17.5); White Blood Count 20.8 K/mm3 (4.8-10.8)
[2023-06-24 07:09] LABS: MANUAL DIFFERENTIAL MANUAL DIFFERENTIAL (MANUAL DIFF)
[2023-06-24 07:12] LABS: Chloride 89 mmol/L (98-107)
[2023-06-24 07:13] LABS: Potassium 3.4 mmoL/L (3.5-5.1); Sodium 123 mmol/L (136-145)
[2023-06-24 07:15] LABS: Blood Urea Nitrogen 11 mg/dl (9-20); Creatinine Clearance Estimated 56 mL/min (50-200); Estimated Glomerular Filt Rate 214 ml/min (>60); GFR (African American) 259 ML/MIN (>60); Phosphorous 2.5 mg/dl (2.5-4.5)
[2023-06-24 07:16] LABS: Alanine Aminotransferase 23 U/L (12-78); Albumin Level 1.9 g/dl (3.5-5.0); Albumin/Globulin Ratio 0.8 (1.1-1.8); Alkaline Phosphatase 86 U/L (38-126); Anion Gap 10.4 mEq/L (5-15); Aspartate Amino Transferase 50 U/L (17-59); Bilirubin,Total 1.1 mg/dl (0.2-1.3); Carbon Dioxide 27 mmol/L (22.0-30.0); Globulin 2.4 g/dL (1.3-3.2); Glucose 99 mg/dl (74-100); Magnesium 1.4 mg/dl (1.6-2.3); Total Protein,Serum 4.3 g/dl (6.3-8.2)
--- NOTE | 2023-06-24 07:22 | EXP.SURG.CON ---
History of Present Illness *Admission Date: 06/23/23 *Reason for visit:: Complains of dysphagia, achalasia-like symptoms, possibly needs EGD *History of present illness: Patient is a 61-year-old male with reported history of COPD (on home oxygen), coronary artery disease, hypertension, chronic pain, alcoholism. He presented to the emergency department via EMS yesterday morning on 06/23/2023 with complaints of progressive weakness over 2 weeks, weight loss, shortness of air. He presented via EMS because of profound weakness. He arrived tachycardic, tachypneic, with leukocytosis of 26,000. He gives a history consistent with dysphagia in which he is able to swallow liquids but has regurgitation of more substantial food intake. He had a chest x-ray which revealed right upper and left lower lobe airspace disease worrisome for acute infiltrate. He had a CT angiogram of the chest performed which revealed no definite pulmonary embolism. There was centrilobular emphysema. He had evidence of aspirated material versus mucous plugging in the lower posterior trachea and left lower lobe bronchi and bilateral multifocal pneumonia with more extensive right upper lobe airspace disease and left lower lobe consolidation and volume loss. There is mild mediastinal and hilar adenopathy. Surgical consultation was obtained for symptoms of dysphagia. [facility] Disclaimer: The information contained in this section may have been updated after the patient was seen, as this information can be updated by other users. Medical History Alcohol use disorder Aneurysm Angina pectoris Arteriosclerotic coronary artery disease Asthma Bilateral carotid bruits CAD (coronary artery disease) Carotid artery stenosis Chest pain COPD (chronic obstructive pulmonary disease) Erectile dysfunction Gait disorder Gallbladder disease History of DVT (deep vein thrombosis) History of heart attack HLD (hyperlipidemia) Hypertension Lumbar radiculopathy, chronic Myocardial infarction Neuropathy SOB (shortness of breath) TIA (transient ischemic attack) Tobacco use disorder Surgical History History of loop recorder Family History Diabetes Heart attack Social History Smoking Status: Current every day smoker tobacco type: cigarettes packs per day: 2 second hand exposure: No alcohol intake: former substance use type: denies use current occupational status: other Travel in the last 8 weeks: None household members: spouse housing: house current occupational exposures/hazards: No caffeine: Yes Meds Home Medications and Allergies Home Medications Medication Instructions Recorded Confirmed Type aspirin 81 mg tablet,delayed 81 mg PO DAILY heart health 04/25/21 06/23/23 History release (Adult Low Dose Aspirin) ondansetron 4 mg disintegrating 4 mg PO Q6H PRN nausea and 07/16/22 06/23/23 Rx tablet vomiting #20 tabs nitroglycerin 0.4 mg sublingual 0.4 mg sublingual Q5MINP PRN chest 09/10/22 06/23/23 Rx tablet pain #25 tabs ammonium lactate 5 % lotion 1 applic topical DAILY Skin 12/20/22 06/23/23 History (Lac-Hydrin Five) condition albuterol sulfate 90 mcg/actuation 2 puff inhalation Q6HP PRN 12/21/22 06/23/23 Rx aerosol inhaler Shortness Of Breath #8.5 grams fluticasone furoate 200 1 inh inhalation DAILY COPD 03/04/23 06/23/23 History mcg-vilanterol 25 mcg/dose inhalation powder (Breo Ellipta) tamsulosin 0.4 mg capsule 0.4 mg PO HS URINARY HESITANCY 03/04/23 06/23/23 History metoprolol tartrate 50 mg tablet 50 mg PO BID Hypertension #60 tabs 05/02/23 06/23/23 Rx ranolazine 500 mg tablet,extended 500 mg PO BID Chest Pain 05/21/23 06/23/23 History release,12 hr clonazepam 0.5 mg tablet 0.5 mg PO BID Anxiety #60 tabs 06/11/23 06/23/23 Rx ga
[2023-06-24 08:00] LABS: Lymphocytes % 7 % (10-50); Monocytes % 4 % (2-9); Neutrophils % 89 % (42-76); Total Cells Counted 100
[2023-06-24 08:01] LABS: Macrocytosis 2+; Platelet Estimate Moderate Decrease
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
--- NOTE | 2023-06-24 09:37 | EXP.PULM.CON ---
History of Present Illness History of present illness: Mr. Arreola is a 67-year-old male greater than [id number] smoking history severe COPD the hospital worsening respiratory status found to have necrotizing cavitary Pneumonia and pulmonary was called for further evaluation [facility] Disclaimer: The information contained in this section may have been updated after the patient was seen, as this information can be updated by other users. Medical History (Updated 06/24/23 @ 10:25 by Irving Live MD) Acute and chronic respiratory failure with hypoxia Alcohol use disorder Aneurysm Angina pectoris Arteriosclerotic coronary artery disease Asthma Bilateral carotid bruits CAD (coronary artery disease) Carotid artery stenosis Cavitary lesion of lung Chest pain COPD (chronic obstructive pulmonary disease) Erectile dysfunction Gait disorder Gallbladder disease History of DVT (deep vein thrombosis) History of heart attack HLD (hyperlipidemia) Hypertension Lumbar radiculopathy, chronic Myocardial infarction Necrotizing pneumonia Neuropathy Pulmonary emphysema SOB (shortness of breath) TIA (transient ischemic attack) Tobacco use disorder Surgical History History of loop recorder Family History Diabetes Heart attack Social History Smoking Status: Current every day smoker tobacco type: cigarettes packs per day: 2 second hand exposure: No alcohol intake: former substance use type: denies use current occupational status: other Travel in the last 8 weeks: None household members: spouse housing: house current occupational exposures/hazards: No caffeine: Yes Review of Systems Constitutional Constitutional: Reports anorexia, Reports body ache(s) and Reports fatigue Eyes Eyes: Denies eye discharge, Denies dry eyes, Denies irritation and Denies itchy eyes ENT Ears, Nose, Mouth, and Throat: Denies epistaxis, Denies facial pain, Denies lip swelling and Denies throat swelling *Cardiovascular Cardiovascular: Reports dyspnea, Reports dyspnea on exertion and Reports orthopnea *Respiratory Respiratory: Reports chest congestion, Reports cough, Reports dyspnea, Reports dyspnea on exertion, Reports excessive phlegm production, Denies hemoptysis, Reports pain on inspiration and Reports wheezing *Gastrointestinal Gastrointestinal: Denies abdominal pain, Denies belching and Denies cramping *Musculoskeletal Musculoskeletal: Reports back pain, Reports myalgias and Reports other (No small joint swelling or Pain) Psychiatric Psychiatric: Denies homicidal ideation and Denies suicidal ideation Endocrine Endocrine: Reports fatigue and Denies heat intolerance Hematologic/Lymphatic Hematologic/Lymphatic: Denies easy bleeding and Denies lymphadenopathy Allergic/Immunologic Allergic/Immunologic: Denies itchy eyes, Denies lip swelling, Denies throat swelling and Reports wheezing Pulmonology Exam Inpatient Vital signs and Labs for Last 24 Hours: Temp Pulse Resp BP Pulse Ox O2 Del Method O2 Flow Rate 99.6 F 100 H 20 97/56 L 92 L Vapotherm 40 06/24/23 08:00 06/24/23 08:00 06/24/23 08:00 06/24/23 08:00 06/24/23 08:59 06/24/23 08:59 06/24/23 08:59 FiO2 100 06/24/23 08:59 Laboratory Results - last 24 hr 06/23/23 05:17: VBG pH 7.45 H, VBG pCO2 45.9, VBG pO2 28.6, VBG HCO3 31.3 H, VBG Total CO2 32.7 H, VBG O2 Saturation 48.4 L, VBG Base Excess 7.4 H 06/23/23 06:59: Specimen Source Right radial, O2 % 70, ABG pH 7.59 H*, ABG pCO2 31.4 L, ABG pO2 63.9 L, ABG HCO3 29.4 H, ABG Total CO2 30.3 H, ABG O2 Saturation 94, ABG Base Excess 7.6 H, Xavier Test Y 06/23/23 12:21: Lactate 2.1 06/23/23 15:05: Lactate 2.2 H 06/23/23 17:05: Sodium 124 L, Potassium 2.7 L* D, Chloride 87 L, Carbon Dioxide 31 H, Anion Gap 8.7, BUN 13 D, Creatinine 0.40 L D, Estimated Creat Clear 54, Estimated GF
[2023-06-24 10:38] LABS: C-Reactive Protein 165.8 mg/L (0-4)
--- NOTE | 2023-06-24 11:04 | PC.NURSE ---
Report given to Tamela Muro RN
--- NOTE | 2023-06-24 11:23 | HMH.PTEV ---
Physical Therapy Evaluation Rehab PT IP Evaluation Start: 06/24/23 07:00 Freq: ONCE Status: Active Protocol: Document 06/24/23 09:40 PHORCINDY (Rec: 06/24/23 11:23 PHORNE [id number]) Subjective/History History History 67 yowm adm to [facility] with PNA. He has hx of alcoholism, COPD, CAD, chronic pain, hypertension, and he wears 2 L oxygen at night with his COPD . He reports he lives with family, ramp to enter the home , and he is generaly indepedent with all mobility, but has w/c, RW, and cane if necessary for mobility assistance at home. Currently on 100% FiO2 via Hi-Flow oxygen with sat of 92% prior to treatment. Subjective Subjective Pt reports feeling very poorly this am overall. He believes all of his problems currently stem from having intrathecal pain pump implanted ~ 2 mos ago. Rehab PT IP Eval Objective Appearance Patient Behavior Appropriate Patient Orientation Person,Place,Time Difficulty following instructions none Speech Pattern Clear Ambulation Patient Able to Ambulate No Balance Ability to Arise Able, uses arms to help Sitting Balance Leans or slides in chair Dynamic Sitting Balance Ability Fair Transfers Bed Transfer Ability Minimal x 2 (25% assist) ROM All Extremities PT ROM Status WFL MMT All Extremities PT MMT WFL Rehab PT IP prob,goals,plan Problems Date of Evaluation: 06/24/23 PT IP Problems Bed Mobility,Transfers,Gait Rehab Potential Rehab Potential Good Plan PT Intervention Plan Bed Mobility,Transfers,Gait PT Plan Frequency Daily Duration LOS Discharge Goals Bed Transfer Ability Minimal x 1 (25% assist) Sit to Stand Chair Transfer Ability Moderate x 1 (50% assist) Ambulation Assistive Device Rolling Walker Ambulation Distance (feet) 10 Discharge Plan PT Discharge Plan Pt is currently most appropriate for rehab placement once medically stable for d/c. If he does not receive skilled interventi
[2023-06-24 12:22] LABS: Microscopic, Urine URINE MICROSCOPIC (MICROSCOPIC)
[2023-06-24 12:29] LABS: Appearance,Urine CLEAR (Clear); Blood, Urine Negative (Negative); Color,Urine DK YELLOW (Yellow); Glucose,Urine (UA) Negative (Negative); Ketones,Urine Negative (Negative); Leukocyte Esterase,Urine Negative (Negative); Nitrate,Urine Negative (Negative); Protein,Urine TRACE (Negative)
[2023-06-24 12:32] LABS: Bilirubin,Urine 1+ (Negative)
[2023-06-24 12:35] LABS: Creatinine,Urine Random 75 mg/dL (Not Estab.)
[2023-06-24 12:40] LABS: Bacteria,Urine Trace /lpf; Squamous Epithelial Cell,Urine Occasional #/hpf (0-5)
--- NOTE | 2023-06-24 14:06 | PC.NURSE ---
[address] Manley that pt bp has maps in the low - mid 60's. no new orders at this time. [address] Manley that pt bp/map have been trending in the low 60's to 58. At what point does want to entertain starting pressure support? Dr Manley to confer with Dr Live about potential pressure support.
[2023-06-24 15:10] LABS: Adenovirus,PCR Not Detected (NotDetected); Bordetella Pertussis Not Detected (NotDetected); Chlamydophila Pneumoniae, PCR Not Detected (NotDetected); Coronavirus 19, PCR Not Detected (NotDetected); Coronavirus 229E Not Detected (NotDetected); Coronavirus NL63 Not Detected (NotDetected); Coronavirus OC43 Not Detected (NotDetected); Coronovirus HKU1,PCR Not Detected (NotDetected); Human Metapneumovirus Not Detected (NotDetected); Influenza A, PCR Not Detected (NotDetected); Influenza AH1, 2009 Not Detected (NotDetected); Influenza AH1, PCR Not Detected (NotDetected); Influenza AH3,PCR Not Detected (NotDetected); Influenza B, PCR Not Detected (NotDetected); Mycoplasma Pneumoniae, PCR Not Detected (NotDetected); Parainfluenza 1, PCR Not Detected (NotDetected); Parainfluenza 2, PCR Not Detected (NotDetected); Parainfluenza 3, PCR Not Detected (NotDetected); Parainfluenza 4, PCR Not Detected (NotDetected); Respiratory Syncytial Virus Not Detected (NotDetected); Rhinovirus/Enterovirus Not Detected (NotDetected)
--- NOTE | 2023-06-24 16:39 | EXP.ACUTE.PN ---
Subjective *Date: 06/24/23 *Time: 19:58 Interval history: Patient has had significant decline overnight. Increased oxygen requirement. More somnolent on exam. Will open eyes and interact with then falls back asleep. On morning rounds, he has been escalated to Vapotherm. Remains afebrile. Sputum culture positive for gram-positive cocci. No nausea or vomiting. Blood pressures remain soft but not necessitating pressors yet. Minimal p.o. intake. Family at bedside, discussion about patient's CODE STATUS this morning. Family supportive of continuing with DNR/DNI status. Medical Exam Vital signs and Labs for Last 24 Hours: Vital Signs Temp Pulse Pulse Resp BP BP Pulse Ox 06/24/23 15:00 06/24/23 15:41 99.1 F 06/24/23 14:45 103 H 22 85/55 L 94 L 06/24/23 14:30 101 H 24 83/49 L 95 06/24/23 14:14 92 H 06/24/23 14:14 92 H 06/24/23 14:14 92 L 06/24/23 14:15 97 H 22 84/51 L 93 L 06/24/23 14:00 97 H 22 89/53 L 93 L 06/24/23 13:45 100 H 22 89/53 L 92 L 06/24/23 13:30 99 H 20 86/55 L 92 L 06/24/23 13:15 97 H 20 81/54 L 92 L 06/24/23 13:00 92 H 20 84/51 L 99 06/24/23 12:45 98 H 20 81/54 L 94 L 06/24/23 12:30 95 H 22 79/43 L 95 06/24/23 12:15 95 H 22 79/48 L 96 06/24/23 12:00 97 H 20 83/52 L 94 L 06/24/23 11:45 97 H 20 87/56 L 97 06/24/23 11:30 97 H 20 86/52 L 93 L 06/24/23 12:00 100 H 06/24/23 11:15 99 H 20 81/56 L 93 L 06/24/23 11:30 98 H 97 06/24/23 13:00 06/24/23 11:27 98.8 F 06/24/23 11:00 06/24/23 09:00 08/28/23 08:59 92 L 06/24/23 08:00 06/24/23 08:00 99.6 F 100 H 20 97/56 L 93 L 06/24/23 06:48 06/24/23 06:22 98 H 06/24/23 06:22 98 H 06/24/23 06:22 90 L 06/24/23 05:00 06/24/23 04:41 98 H 06/24/23 04:41 96 H 06/24/23 04:41 91 L 06/24/23 03:50 99.9 F H 102 H 18 88/52 L 94 L 06/24/23 03:29 06/24/23 01:00 06/24/23 00:55 115/56 L 06/23/23 23:55 97.6 F 102 H 18 86/51 L 91 L 06/23/23 23:20 87 06/23/23 23:19 87 06/24/23 03:00 06/23/23 22:56 06/23/23 21:00 06/23/23 20:41 06/23/23 20:24 105/57 L 06/23/23 19:38 99.4 F 109 H 18 94/40 L 87 L 06/23/23 19:00 06/23/23 18:54 06/23/23 18:54 88 06/23/23 18:53 83 06/23/23 17:00 O2 Del Method O2 Flow Rate FiO2 06/24/23 15:00 Vapotherm 40 06/24/23 15:41 06/24/23 14:45 Vapotherm 40 100 06/24/23 14:30 Vapotherm 40 100 06/24/23 14:14 06/24/23 14:14 06/24/23 14:14 Vapotherm 40 100 06/24/23 14:15 Vapotherm 40 100 06/24/23 14:00 Vapotherm 40 100 06/24/23 13:45 Vapotherm 40 100 06/24/23 13:30 Vapotherm 40 100 06/24/23 13:15 Vapotherm 40 100 06/24/23 13:00 Vapotherm 40 100 06/24/23 12:45 Vapotherm 40 100 06/24/23 12:30 Vapotherm 40 100 06/24/23 12:15 Vapotherm 40 100 06/24/23 12:00 Vapotherm 40 100 06/24/23 11:45 Vapotherm 40 100 06/24/23 11:30 Vapotherm 40 100 06/24/23 12:00 06/24/23 11:15 Vapotherm 40 100 06/24/23 11:30 Vapotherm 40 100 06/24/23 13:00 Vapotherm 06/24/23 11:27 06/24/23 11:00 Vapotherm 40 06/24/23 09:00 Vapotherm 40 06/24/23 08:59 Vapotherm 40 100 06/24/23 08:00 Vapotherm 35 100 06/24/23 08:00 Vapotherm 06/24/23 06:48 Vapotherm 35 06/24/23 06:22 06/24/23 06:22 06/24/23 06:22 Vapotherm 35 100 06/24/23 05:00 Vapotherm 06/24/23 04:41 06/24/23 04:41 06/24/23 04:41 Vapotherm 35 90 06/24/23 03:50 Vapotherm 06/24/23 03:29 Vapotherm 35 90 06/24/23 01:00 Vapotherm 06/24/23 00:55 06/23/23 23:55 Vapotherm 33 06/23/23 23:20 06/23/23 23:19 06/24/23 03:00 Vapotherm 06/23/23 22:56 Vapotherm 06/23/23
--- NOTE | 2023-06-24 16:40 | EXP.SEPSISRE ---
[facility] Tissue Perfusion Eval Sepsis Re-Evaluation Performed: Yes Date Performed: 06/23/23 Time Performed: 18:00
--- NOTE | 2023-06-24 16:40 | EXP.SEPSISRE ---
[facility] Tissue Perfusion Eval Sepsis Re-Evaluation Performed: Yes Date Performed: 06/24/23 Time Performed: 08:30
[2023-06-24 17:39] LABS: Chloride 89 mmol/L (98-107)
[2023-06-24 17:40] LABS: Sodium 122 mmol/L (136-145)
[2023-06-24 17:42] LABS: Blood Urea Nitrogen 12 mg/dl (9-20); Creatinine Clearance Estimated 56 mL/min (50-200); Estimated Glomerular Filt Rate 214 ml/min (>60); GFR (African American) 259 ML/MIN (>60)
[2023-06-24 17:43] LABS: Alanine Aminotransferase 28 U/L (12-78); Albumin/Globulin Ratio 0.7 (1.1-1.8); Alkaline Phosphatase 51 U/L (38-126); Aspartate Amino Transferase 67 U/L (17-59); Bilirubin,Total 1.5 mg/dl (0.2-1.3); Carbon Dioxide 28 mmol/L (22.0-30.0); Glucose 96 mg/dl (74-100); Magnesium 1.7 mg/dl (1.6-2.3)
[2023-06-25] VITALS (31 sets, daily range): BP systolic 93–124; BP diastolic 54–76; PULSE 89–110; RESP 18–27; TEMP 36.4–36.9; O2SAT 85–96; BMI 17.2
[2023-06-25 06:13] LABS: Chloride 91 mmol/L (98-107); Sodium 124 mmol/L (136-145)
[2023-06-25 06:14] LABS: Potassium 3.4 mmoL/L (3.5-5.1)
[2023-06-25 06:16] LABS: Alanine Aminotransferase 23 U/L (12-78); Anion Gap 9.4 mEq/L (5-15); Aspartate Amino Transferase 41 U/L (17-59); Blood Urea Nitrogen 11 mg/dl (9-20); Carbon Dioxide 27 mmol/L (22.0-30.0); Creatinine Clearance Estimated 59 mL/min (50-200); Estimated Glomerular Filt Rate 214 ml/min (>60); GFR (African American) 259 ML/MIN (>60)
[2023-06-25 06:17] LABS: Albumin Level 1.8 g/dl (3.5-5.0); Albumin/Globulin Ratio 0.7 (1.1-1.8); Alkaline Phosphatase 83 U/L (38-126); Bilirubin,Total 1.3 mg/dl (0.2-1.3); Globulin 2.5 g/dL (1.3-3.2); Glucose 91 mg/dl (74-100); Magnesium 1.5 mg/dl (1.6-2.3); Total Protein,Serum 4.3 g/dl (6.3-8.2)
[2023-06-25 06:32] LABS: Basophils # 0.1 K/mm3 (0-0.2); Basophils % 0.5 % (0.1-2.0); Eosinophils # 0.4 K/mm3 (0.0-0.4); Eosinophils % 1.5 % (0.1-12.0); Hemoglobin 10.7 g/dL (14.1-18.0); Lymphocytes # 0.6 K/mm3 (0.7-4.5); Lymphocytes % 2.1 % (10-50); Mean Corpuscular HGB Conc 31.5 g/dL (31.8-35.4); Mean Corpuscular Hemoglobin 35.2 pg (27.0-31.2); Mean Corpuscular Volume 111.7 fl (80-94); Mean Platelet Volume 11.9 fl (7.4-10.4); Monocytes % 3.7 % (1.7-9.3); Neutrophils # 24.3 K/mm3 (1.8-7.8); Neutrophils % 92.1 % (37.0-80.0); Platelet Count 70 K/mm3 (142-424); Red Blood Count 3.05 M/mm3 (4.60-6.20); Red Cell Distribution Width 14.6 % (11.5-17.5); White Blood Count 26.4 K/mm3 (4.8-10.8)
[2023-06-25 06:38] LABS: MANUAL DIFFERENTIAL MANUAL DIFFERENTIAL (MANUAL DIFF)
[2023-06-25 07:08] LABS: Anisocytosis 1+; Eosinophils % 2 % (0-3); Hypochromasia 1+; Lymphocytes % 2 % (10-50); Macrocytosis 1+; Monocytes % 4 % (2-9); Neutrophils % 92 % (42-76); Total Cells Counted 100
[2023-06-25 07:11] LABS: Platelet Estimate Moderate Decrease
--- NOTE | 2023-06-25 08:01 | EXP.PN ---
Subjective *Date: 06/25/23 *Time: 08:01 Exam Data for Last 24 hours Vital signs and Labs for Last 24 Hours: Temp Pulse Resp BP Pulse Ox O2 Del Method O2 Flow Rate 97.9 F 97 H 27 H 100/61 L 95 Vapotherm 40 06/25/23 07:39 06/25/23 06:22 06/25/23 06:00 06/25/23 06:00 06/25/23 06:22 06/25/23 06:50 06/25/23 06:50 FiO2 100 06/25/23 06:22 Laboratory Results - last 24 hr 06/23/23 05:21: Chlamy pneumoniae PCR Not detected, Adenovirus (PCR) Not detected, B. pertussis DNA (PCR) Not detected, Coronavirus OC43 (PCR) Not detected, Coronavirus HKU1 (PCR) Not detected, Coronavirus 229E (PCR) Not detected, SARS-CoV-2 (PCR) Not detected, Coronavirus NL63 (PCR) Not detected, Human Metapneumovir PCR Not detected, Influenza A (H1) PCR Not detected, Influ A (H1N1/09) PCR Not detected, Influenza A (H3) PCR Not detected, Influenza Type A (PCR) Not detected, Influenza Type B (PCR) Not detected, M. pneumoniae (PCR) Not detected, Parainfluenza 1 (PCR) Not detected, Parainfluenza 2 (PCR) Not detected, Parainfluenza 3 (PCR) Not detected, Parainfluenza 4 (PCR) Not detected, RSV (PCR) Not detected, Entero/Rhino (PCR) Not detected 06/24/23 06:00: C-Reactive Protein 165.8 H 06/24/23 06:50: Total Counted 100, Neutrophils % (Manual) 89 H, Lymphocytes % (Manual) 7 L, Monocytes % (Manual) 4, Platelet Estimate Moderate decrease, Macrocytosis 2+ 06/24/23 12:09: Urine Color Dk yellow, Urine Appearance Clear, Urine pH 6.0, Ur Specific [place] 1.020, Urine Protein Trace, Urine Glucose (UA) Negative, Urine Ketones Negative, Urine Blood Negative, Urine Nitrate Negative, Urine Bilirubin 1+ A, Urine Urobilinogen 4.0, Ur Leukocyte Esterase Negative, Urine RBC None, Urine WBC None, Ur Squamous Epith Cells Occasional, Urine Bacteria Trace, Urine Creatinine 75 06/24/23 17:15: Sodium 122 L, Potassium 4.0, Chloride 89 L, Carbon Dioxide 28, Anion Gap 9.0, BUN 12, Creatinine 0.40 L, Estimated Creat Clear 56, Estimated GFR 214, Est GFR ( Amer) 259, Glucose 96, Calcium 8.0 L, Magnesium 1.7 D, Total Bilirubin 1.5 H, AST 67 H D, ALT 28, Alkaline Phosphatase 51, Total Protein 5.0 L, Albumin 2.0 L, Globulin 3.0, Albumin/Globulin Ratio 0.7 L 06/25/23 05:21: WBC 26.4 H* D, RBC 3.05 L, Hgb 10.7 L, Hct 34.0 L, MCV 111.7 H, MCH 35.2 H, MCHC 31.5 L, RDW 14.6, Plt Count 70 L D, MPV 11.9 H, Neut % (Auto) 92.1 H, Lymph % (Auto) 2.1 L, [place] % (Auto) 3.7, Eos % (Auto) 1.5, Baso % (Auto) 0.5, Neut # (Auto) 24.3 H, Lymph # (Auto) 0.6 L, [place] # (Auto) 1.0, Eos # (Auto) 0.4, Baso # (Auto) 0.1, Total Counted 100, Neutrophils % (Manual) 92 H, Lymphocytes % (Manual) 2 L, Monocytes % (Manual) 4, Eosinophils % (Manual) 2, Platelet Estimate Moderate decrease, Hypochromasia 1+, Anisocytosis 1+, Macrocytosis 1+, Sodium 124 L, Potassium 3.4 L, Chloride 91 L, Carbon Dioxide 27, Anion Gap 9.4, BUN 11, Creatinine 0.40 L, Estimated Creat Clear 59, Estimated GFR 214, Est GFR ( Amer) 259, Glucose 91, Calcium 8.0 L, Magnesium 1.5 L D, Total Bilirubin 1.3, AST 41 D, ALT 23, Alkaline Phosphatase 83, Total Protein 4.3 L, Albumin 1.8 L, Globulin 2.5, Albumin/Globulin Ratio 0.7 L I & O for Last 24 hours: Intake & Output 06/22/23 06/23/23 06/24/23 06/25/23 23:59 23:59 23:59 23:59 Intake Total 720 / 1170 2100 / 2100 270 / 270 Output Total 0 / 0 225 / 225 200 / 200 Balance 720 / 1170 1875 / 1875 70 / 70 Weight 54.476 kg 56.472 kg 58.967 kg Microbiology Reports for the Last 24 Hours: Microbiology 06/23/23 05:33 Blood Blood Culture - Preliminary 06/23/23 11:49 Sputum - Expectorated Sputum TOMA Preparation - Final 06/23/23 05:33 Blood Blood Culture - Preliminary
[2023-06-25 08:18] LABS: Sodium, Urine 21 mmol/L (Not Estab.)
--- NOTE | 2023-06-25 08:36 | PC.NURSE ---
[address] Hope face to face that pt plt have decreased to 70. pt is ordered Lovenox. Per Dr Hope hold Lovenox.
--- NOTE | 2023-06-25 09:44 | EXP.PULM.PN ---
Subjective *Date: 06/25/23 *Time: 10:10 Interval history: No acute respiratory vents overnight. Patient admits slight improvement in his respiratory status. No new respiratory complaints. Pulmonology Exam Inpatient Vital signs and Labs for Last 24 Hours: Temp Pulse Resp BP Pulse Ox O2 Del Method O2 Flow Rate 97.9 F 100 H 27 H 100/61 L 95 Vapotherm 40 06/25/23 07:39 06/25/23 08:00 06/25/23 06:00 06/25/23 06:00 06/25/23 06:22 06/25/23 06:50 06/25/23 06:50 FiO2 100 06/25/23 06:22 Laboratory Results - last 24 hr 06/23/23 05:21: Chlamy pneumoniae PCR Not detected, Adenovirus (PCR) Not detected, B. pertussis DNA (PCR) Not detected, Coronavirus OC43 (PCR) Not detected, Coronavirus HKU1 (PCR) Not detected, Coronavirus 229E (PCR) Not detected, SARS-CoV-2 (PCR) Not detected, Coronavirus NL63 (PCR) Not detected, Human Metapneumovir PCR Not detected, Influenza A (H1) PCR Not detected, Influ A (H1N1/09) PCR Not detected, Influenza A (H3) PCR Not detected, Influenza Type A (PCR) Not detected, Influenza Type B (PCR) Not detected, M. pneumoniae (PCR) Not detected, Parainfluenza 1 (PCR) Not detected, Parainfluenza 2 (PCR) Not detected, Parainfluenza 3 (PCR) Not detected, Parainfluenza 4 (PCR) Not detected, RSV (PCR) Not detected, Entero/Rhino (PCR) Not detected 06/23/23 05:33: Lactate 3.0 H 06/24/23 06:00: C-Reactive Protein 165.8 H 06/24/23 12:09: Urine Color Dk yellow, Urine Appearance Clear, Urine pH 6.0, Ur Specific [place] 1.020, Urine Protein Trace, Urine Glucose (UA) Negative, Urine Ketones Negative, Urine Blood Negative, Urine Nitrate Negative, Urine Bilirubin 1+ A, Urine Urobilinogen 4.0, Ur Leukocyte Esterase Negative, Urine RBC None, Urine WBC None, Ur Squamous Epith Cells Occasional, Urine Bacteria Trace, Urine Creatinine 75, Urine Sodium 21 06/24/23 17:15: Sodium 122 L, Potassium 4.0, Chloride 89 L, Carbon Dioxide 28, Anion Gap 9.0, BUN 12, Creatinine 0.40 L, Estimated Creat Clear 56, Estimated GFR 214, Est GFR ( Amer) 259, Glucose 96, Calcium 8.0 L, Magnesium 1.7 D, Total Bilirubin 1.5 H, AST 67 H D, ALT 28, Alkaline Phosphatase 51, Total Protein 5.0 L, Albumin 2.0 L, Globulin 3.0, Albumin/Globulin Ratio 0.7 L 06/25/23 05:21: WBC 26.4 H* D, RBC 3.05 L, Hgb 10.7 L, Hct 34.0 L, MCV 111.7 H, MCH 35.2 H, MCHC 31.5 L, RDW 14.6, Plt Count 70 L D, MPV 11.9 H, Neut % (Auto) 92.1 H, Lymph % (Auto) 2.1 L, [place] % (Auto) 3.7, Eos % (Auto) 1.5, Baso % (Auto) 0.5, Neut # (Auto) 24.3 H, Lymph # (Auto) 0.6 L, [place] # (Auto) 1.0, Eos # (Auto) 0.4, Baso # (Auto) 0.1, Total Counted 100, Neutrophils % (Manual) 92 H, Lymphocytes % (Manual) 2 L, Monocytes % (Manual) 4, Eosinophils % (Manual) 2, Platelet Estimate Moderate decrease, Hypochromasia 1+, Anisocytosis 1+, Macrocytosis 1+, Sodium 124 L, Potassium 3.4 L, Chloride 91 L, Carbon Dioxide 27, Anion Gap 9.4, BUN 11, Creatinine 0.40 L, Estimated Creat Clear 59, Estimated GFR 214, Est GFR ( Amer) 259, Glucose 91, Calcium 8.0 L, Magnesium 1.5 L D, Total Bilirubin 1.3, AST 41 D, ALT 23, Alkaline Phosphatase 83, Total Protein 4.3 L, Albumin 1.8 L, Globulin 2.5, Albumin/Globulin Ratio 0.7 L I & O for Labs for Last 24 Hours: Intake & Output 06/22/23 06/23/23 06/24/23 06/25/23 23:59 23:59 23:59 23:59 Intake Total 720 / 1170 2100 / 2100 270 / 270 Output Total 0 / 0 225 / 225 200 / 200 Balance 720 / 1170 1875 / 1875 70 / 70 Weight 120 lb 1.584 oz 124 lb 8 oz 130 lb Microbiology Reports for the Last 24 Hours: Microbiology 06/23/23 05:33 Blood Blood Culture - Preliminary Gram Positive Cocci 06/23/23 05:33 Blood Blood Culture - Preliminary Gram Positive Cocci 06/23/23 11:49 Sputum - Expectorated Sputum TOMA Preparation - Final Constitutional: Present severe distress Head: Present normocephalic and atraumatic ENT: Present normal exam, normal oropharynx and mucous membranes moist Neck: Present normal inspection and full RO
--- NOTE | 2023-06-25 09:48 | XR_ITS ---
FINAL REPORT CLINICAL HISTORY: PNM/Resp failure COMPARISON: 06/23/2023 FINDINGS: The heart size is normal. There is progressive volume loss in the left hemithorax with worsening of opacification of the left lower lobe. There may be obstruction of the left lower lobe bronchus, as the more distal portions of the left lower lobe bronchi are not seen. There is increased airspace opacity in the right upper lobe as well. There are no pleural effusions. There is no pneumothorax. There is no osseous abnormality. IMPRESSION: Progressive volume loss with worsening opacification of the left lower lobe, question possible obstruction possibly by a mucous plug. Bronchoscopy might be helpful for further evaluation. Increased airspace opacity in the right upper lobe as well. Reviewed, Interpreted and Dictated by Jakub Lema MD Transcribed by Nohemy Tom Authenticated and [facility]
--- NOTE | 2023-06-25 10:29 | PC.NURSE ---
RESP CARE NOTE: Attempted to wean patient oxygen requirements to 35L/90% vapotherm. SPO2 decreased to 84% oxygen increased back to 40L/100% vapotherm. Will continue to continuously monitor SPO2, at this time SPO2 is 90% on 40L/100%.
--- NOTE | 2023-06-25 19:16 | EXP.DEATH.DS ---
Discharge Sum: Prov Provider Primary care physician: Ziyad Nicholas MD Visit Care Team Role Provider Type Ziyad Nicholas MD Primary Care Provider Staff Physician Osmin Stewart MD Other Providers Staff Physician Irving Live MD Other Providers Staff Physician Syeda Allen MD Other Providers Staff Physician Jakub Nielsen MD Other Providers Staff Physician Emiliano De Jesus MD Other Providers Staff Physician Missael Locke MD Emergency Provider ER Physician Buck Manley MD Admit Provider Staff Physician Attending Provider Admitting clinician: Buck Manley Attending physician on admission: Buck Manley Consults: 06/23/23 12:42 Nutrition Consult [CONS] Routine Comment: Reason for Nutrition Consult: Other Diet Instruction Type/Other: malnutrition, SPCM? 06/24/23 07:00 Pulmonology Consult [Consult to Pulmonology] [CONS] Routine Consulting Provider: Irving Live Reason For Consult: pneumonia, needs to establish for close follow-up Surgery Consult (on-call) [Consult to On-Call Gen'l Surgeon] [CONS] Routine Comment: Consulting Provider: General Surgery Consult on-call surgeon?: Yes Reason For Consult: complains of dysphagia, achalasia like sx. possibly needs EGD Pronouncing clinician: Desean Hope Discharge Sum: Diag Contributing Factors (1) Acute and chronic respiratory failure with hypoxia: (2) Cavitary lesion of lung: (3) Necrotizing pneumonia: (4) Pulmonary emphysema: (5) Sepsis: Discharge Sum: Summary Date and Time Date of admission: 06/23/23 07:25 Date of : 06/25/23 Time of : 18:39 Hospital Course prior to Hospital Course Information: Forwarded from Admission H&P: Mr. Arreola is a 67-year-old gentleman with history of alcoholism, COPD, CAD, chronic pain, hypertension. He wears 2 L oxygen at night with his COPD. Presented to the ER because of increased weakness, weight loss, hypoxia. Weakness has been progressing over the past 2 weeks. Became most acutely worse however over the past 3 to 4 days. at bedside helps supplement history. States that he has been losing weight for a couple months. Normally drinks regularly but has not had a drink for about a week. Patient and state that he has been having difficulty swallowing. Able to swallow liquids and soft foods easily but more substantial foods such as meats feel like they get stuck and he has to cough them up. He has had increased shortness of breath and cough over the past few days. Cough has become more productive. EMS brought patient to the ER. When they picked him up from home, he was noted to be hypoxic in the 80s. Family states they called EMS because they were unable to get him up off the couch. On arrival to the ER, patient was hypoxic necessitating 8 to 10 L on simple mask. Chest imaging concerning for right upper lobe pneumonia. CT obtained showing dense airspace disease in right upper lobe and left lower lobe. Patient is tachycardic and tachypneic with leukocytosis of 26,000 meeting sepsis criteria. Initiated on ceftriaxone. Medicine consulted for further management of his sepsis and pneumonia. On arrival to the floor, patient is currently on 40% Venti satting in the low 90s. Denies any lynn nausea or vomiting. Denies any chest pain. Appears very weak and frail. Afebrile. at bedside and updated on plan CTA of the chest from admission noted to have right upper lobe necrotizing cavitary pneumonia with possible fungal ball along with
--- NOTE | 2023-06-25 20:05 | PC.NURSE ---
Pt transitioned to Hospice care at approx 1600, all non comfort meds ordered to be dc per md and hospice. Pt vapotherm removed by Madeleine in RT and transitioned to 2lpm/nc. pt a/o x 3 1630 and requested morphine stating that he was uncomfortable. 1730 pt still uncomfortable in appearance with audible secretions heard, pt hr noted to be in the 130-140 with o2 reading of 74. pt treated with lorazepam and robinal. 183 pt family notified staff that they didnt think he had a heart beat . hr on monitor noted to be in 30's with change in rhyth. upon entering the room pt was noted to have agonal breathing, no heart rate/beat palpable or able to be auscultated. Dr Hope notified. Pt TOD pronounced 183. Hospice notified at 1850. 1919 MONICA notified. ruled out for donation r/t pt diagnoses by UNIQUE Larsen.
--- NOTE | 2023-06-25 20:16 | PC.NURSE ---
late entry r/t downtime 1540 ok to transfer pt out of stepdown per Dr Hope
--- NOTE | 2023-06-25 20:22 | PC.NURSE ---
upon entering room for pt am assessment pt was noted to have his o2 on his forehead and was refusing to place it back in his nares. pt expressed to and to staff that he wanted a break from it. pt was noted to be off of vapotherm for approx 5 mins with o2 sats dropping to 75%. pt and were questioning if vapotherm was able to be taken off, they were informed of the need for high flow o2 and it was explained to them that they had an option of comfort care if they wished for pt to no longer have to wear the high flow o2. Dr Hope and care management were informed of conversation with pt and family. although appearing reluctant, pt did replace o2 in nares at this time. pt sats recovered to 89 within 2 mins.
--- NOTE | 2023-06-25 20:51 | PC.NURSE ---
contacted [facility] at this time per family request
--- NOTE | 2023-06-25 21:23 | PC.NURSE ---
home staff state they are about 20 mins away at this time
--- NOTE | 2023-06-26 08:02 | SW/DCPLANNER ---
Late entry due to computer system down. I was called into patient's room w/ MD due to family expressing an interest in comfort care. Dr Hope and I spoke with patient, and daughter regarding Hospice services. Patient is agreeable to Hospice services at the time of our visit. Patient information was faxed to [facility]/ [facility]. Roxanne vyas/ [facility] did onsite this patient and recommended Hospice inpatient. Patient was admitted Hospice inpatient at 4:00PM on 06/25/23. Patient did last night at 22:30 on 06/25/23. I will follow up w/ Hospice this AM regarding situation.
[2023-06-26 20:29] LABS: Histoplasma Gal'mannan Ag Ur <0.5 (<0.5 ng/mL)
[2023-06-30 17:30] LABS: Blastomyces Antibody Negative (Neg:<1:1)
== END 2023-06-25 22:15 | disposition expired | DRG 871 ==
LOC: ER 05:17 → 2ND 06:43
PROVIDERS: Internal Medicine Pulmonary Disease; Admitting Provider Internal Medicine Adolescent Medicine; Emergency Provider Emergency Medicine; PCP Emergency Medicine; Visit Provider Internal Medicine Adolescent Medicine
DX: A41.9 Sepsis, unspecified organism (principal); E43 Unspecified severe protein-calorie malnutrition; J18.9 Pneumonia, unspecified organism; J96.21 Acute and chronic respiratory failure with hypoxia; J85.0 Gangrene and necrosis of lung; E87.1 Hypo-osmolality and hyponatremia; R65.20 Severe sepsis without septic shock; R13.19 Other dysphagia; Z51.5 Encounter for palliative care; F10.20 Alcohol dependence, uncomplicated; D69.6 Thrombocytopenia, unspecified; I25.10 Atherosclerotic heart disease of native coronary artery without angina pectoris; G89.29 Other chronic pain; I10 Essential (primary) hypertension; Z99.81 Dependence on supplemental oxygen; G62.9 Polyneuropathy, unspecified; I25.2 Old myocardial infarction; E83.42 Hypomagnesemia; J43.9 Emphysema, unspecified; F17.210 Nicotine dependence, cigarettes, uncomplicated
CPT/HCPCS: 36415; 71045; 71275; 80053; 81001; 82570; 82803; 83605; 83735; 84100; 84300; 84436; 84443; 84484; 85007; 85025; 85610; 86140; 86606; 86612; 87040; 87070; 87077; 87081; 87116; 87186; 87205; 87206; 87220; 87385; 87581; 87632; 87636; 87798; 94640; 94667; 94760; 94761; 97163; 97165; 99291; J0456; J0696; J3370; J3475; Q9967